=== PATIENT | male | born 1950 | race Caucasian/White ===

== ENCOUNTER 2020-10-15 10:20 | Outpatient (REF) | payer MEDICARE, OTHER, SELFPAY ==
[2020-10-15 11:02] LABS: MANUAL DIFF FLAG NO
[2020-10-15 11:10] LABS: Basophils Percent Auto 0.5 % (0-2); Eosinophils Absolute Auto 0.4 X10*3/uL (0.0-0.4); Eosinophils Percent Auto 5.4 % (0-4); Hematocrit 45.5 % (42-52); Imm Gran Abs Auto 0.02 X10*3/uL (0.00-0.03); Imm Gran Pct Auto 0.3 % (0.0-0.4); Lymphocytes Absolute Auto 1.9 X10*3/uL (1.2-4.9); Lymphocytes Percent Auto 25.7 % (20-40); Mean Corpuscular Hemoglobin 27.9 pg (27.0-33.0); Mean Corpuscular Volume 84.7 fL (80-98); Mean Platelet Volume 8.7 fL (9.4-12.4); Monocytes Absolute Auto 0.7 X10*3/uL (0.1-1.2); Monocytes Percent Auto 8.9 % (2-11); Neutrophils Absolute Auto 4.5 X10*3/uL (2.0-8.3); Neutrophils Percent Auto 59.2 % (45-73); Platelet Count 262 X10*3/uL (160-400); Red Blood Count 5.37 X10*6/uL (4.60-5.80); Red Cell Distribution Width 15.6 % (11.0-16.0); White Blood Count 7.6 X10*3/uL (4.8-10.8)
[2020-10-15 11:27] LABS: Estimated Average Glucose 128 mg/dL; Hemoglobin A1c % 6.1 %
[2020-10-15 11:28] LABS: Alanine Aminotransferase 23 U/L (0-40); Albumin Level 4.4 g/dL (3.5-5.0); Alkaline Phosphatase 43 U/L (39-117); Anion Gap 13 (12-20); Aspartate Amino Transferase 15 U/L (5-37); Bilirubin Total 0.6 mg/dL (0.0-1.0); Blood Urea Nitrogen 17 mg/dL (9-16); Carbon Dioxide 32 mmol/L (22-29); Chloride 103 mmol/L (96-108); Cholesterol 236 mg/dL; Estimated Glomerular Filt Rate > 60; Glucose Fasting 90 mg/dL (60-99); HDL Cholesterol 53 mg/dL; LDL Cholesterol Calculated 155 mg/dl; Potassium 5.1 mmol/L (3.3-5.1); Sodium 143 mmol/L (135-145); Total Protein 7.4 g/dL (6.5-8.0); Triglycerides 141 mg/dL
[2020-10-15 11:41] LABS: Glucose Urine UA NEG (NEG); Leukocyte Esterase Urine TRACE (NEG); Nitrite Urine NEG (NEG); UACC Culture Trigger YES; Urine Blood TRACE (NEG); Urine Ketones NEG (NEG); Urine Protein NEG (NEG-TRACE)
[2020-10-15 11:49] LABS: TSH reflex Free T4 0.82 uIU/mL (0.32-4.0)
[2020-10-15 11:52] LABS: B Type Natriuretic Peptide 15 pg/mL (<100)
[2020-10-15 11:58] LABS: Appearance Urine CLEAR; Color Urine YELLOW
[2020-10-15 12:47] LABS: RBC Urine 0-2 /HPF (0); UACC CULT YES; WBC Urine 0-2 /HPF (0-4)
[2020-10-15 14:15] LABS: Creatinine Urine 99.76 mg/dL
== END 2020-10-15 10:21 | disposition home or self-care (01) ==
LOC: HO.LAB 10:20
PROVIDERS: PCP Internal Medicine; Visit Provider Internal Medicine
DX: I48.0 Paroxysmal atrial fibrillation (principal); E78.00 Pure hypercholesterolemia, unspecified; E11.9 Type 2 diabetes mellitus without complications; I50.30 Unspecified diastolic (congestive) heart failure; J44.9 Chronic obstructive pulmonary disease, unspecified; E66.9 Obesity, unspecified
CPT/HCPCS: 36415; 80053; 80061; 81001; 82043; 83036; 83880; 84443; 85025; 87086

== ENCOUNTER 2021-04-12 08:29 | Outpatient (REF) | payer MEDICARE, OTHER, SELFPAY ==
[2021-04-12 11:37] LABS: MANUAL DIFF FLAG NO
[2021-04-12 11:50] LABS: Basophils Percent Auto 0.5 % (0-2); Eosinophils Absolute Auto 0.3 X10*3/uL (0.0-0.4); Eosinophils Percent Auto 3.6 % (0-4); Hemoglobin 15.1 g/dl (14.0-18.0); Imm Gran Abs Auto 0.02 X10*3/uL (0.00-0.03); Imm Gran Pct Auto 0.2 % (0.0-0.4); Lymphocytes Percent Auto 24.6 % (20-40); Mean Corpuscular HGB Conc 32.8 g/dl (31.0-36.0); Mean Corpuscular Hemoglobin 29.3 pg (27.0-33.0); Mean Corpuscular Volume 89.1 fL (80-98); Mean Platelet Volume 9.3 fL (9.4-12.4); Monocytes Absolute Auto 0.6 X10*3/uL (0.1-1.2); Monocytes Percent Auto 7.2 % (2-11); Neutrophils Absolute Auto 5.1 X10*3/uL (2.0-8.3); Neutrophils Percent Auto 63.9 % (45-73); Platelet Count 262 X10*3/uL (160-400); Red Blood Count 5.16 X10*6/uL (4.60-5.80); Red Cell Distribution Width 15.7 % (11.0-16.0); White Blood Count 8.1 X10*3/uL (4.8-10.8)
[2021-04-12 12:00] LABS: Appearance Urine CLEAR; Color Urine YELLOW; Glucose Urine UA NEG (NEG); Leukocyte Esterase Urine TRACE (NEG); Nitrite Urine NEG (NEG); UACC Culture Trigger YES; Urine Blood 2+ (NEG); Urine Ketones NEG (NEG); Urine Protein NEG (NEG-TRACE)
[2021-04-12 12:09] LABS: B Type Natriuretic Peptide 49 pg/mL (<100)
[2021-04-12 12:13] LABS: Alanine Aminotransferase 37 U/L (0-40); Alkaline Phosphatase 39 U/L (39-117); Anion Gap 11 (12-20); Aspartate Amino Transferase 22 U/L (5-37); Bilirubin Total 0.5 mg/dL (0.0-1.0); Blood Urea Nitrogen 15 mg/dL (9-16); Calcium 9.3 mg/dL (8.4-10.2); Carbon Dioxide 30 mmol/L (22-29); Chloride 103 mmol/L (96-108); Cholesterol 184 mg/dL; Estimated Glomerular Filt Rate > 60; Glucose Fasting 102 mg/dL (60-99); HDL Cholesterol 59 mg/dL; LDL Cholesterol Calculated 100 mg/dl; Potassium 4.9 mmol/L (3.3-5.1); Sodium 139 mmol/L (135-145); Total Protein 6.6 g/dL (6.5-8.0); Triglycerides 129 mg/dL
[2021-04-12 12:41] LABS: Folate 7.5 ng/mL (> or = 4.0); Vitamin B12 482 pg/mL (200-900)
[2021-04-12 13:42] LABS: Estimated Average Glucose 120 mg/dL; Hemoglobin A1C 152.1507 umol/L; Hemoglobin A1c % 5.8 %
== END 2021-04-12 08:30 | disposition home or self-care (01) ==
LOC: HO.WFDLDS 08:29
PROVIDERS: Visit Provider Internal Medicine
DX: I50.30 Unspecified diastolic (congestive) heart failure (principal); E78.00 Pure hypercholesterolemia, unspecified; R73.01 Impaired fasting glucose; I10 Essential (primary) hypertension; E53.8 Deficiency of other specified B group vitamins
CPT/HCPCS: 36415; 80053; 80061; 81001; 81003; 82607; 82746; 83036; 83880; 85025; 87086

== ENCOUNTER 2021-08-15 09:19 | Outpatient (REF) | payer MEDICARE, OTHER, SELFPAY ==
[2021-08-15 11:38] LABS: Appearance Urine CLEAR; Color Urine YELLOW; Glucose Urine UA NEG (NEG); Leukocyte Esterase Urine TRACE (NEG); Nitrite Urine NEG (NEG); PH 5.5 (5.0-8.0); Specific Gravity - Urine 1.025 (1.005-1.025); UACC Culture Trigger YES; Urine Blood 2+ (NEG); Urine Ketones NEG (NEG); Urine Protein NEG (NEG-TRACE)
[2021-08-15 11:45] LABS: Basophils Percent Auto 0.5 % (0-2); Eosinophils Absolute Auto 0.3 X10*3/uL (0.0-0.4); Eosinophils Percent Auto 3.2 % (0-4); Hematocrit 44.9 % (42.0-52.0); Hemoglobin 14.8 g/dl (14.0-18.0); Imm Gran Abs Auto 0.02 X10*3/uL (0.00-0.03); Imm Gran Pct Auto 0.2 % (0.0-0.4); Lymphocytes Absolute Auto 2.3 X10*3/uL (1.2-4.9); Lymphocytes Percent Auto 26.4 % (20-40); MANUAL DIFF FLAG NO; Mean Corpuscular Volume 90.9 fL (80.0-98.0); Mean Platelet Volume 9.4 fL (9.4-12.4); Monocytes Absolute Auto 0.7 X10*3/uL (0.1-1.2); Monocytes Percent Auto 7.9 % (2-11); Neutrophils Absolute Auto 5.4 x10*3/uL (2.0-8.3); Neutrophils Percent Auto 61.8 % (45-73); Platelet Count 253 X10*3/uL (160-400); Red Blood Count 4.94 X10*6/uL (4.60-5.80); Red Cell Distribution Width 15.6 % (11.0-16.0); White Blood Count 8.7 X10*3/uL (4.8-10.8)
[2021-08-15 12:09] LABS: RBC Urine 0-2 /HPF (0)
[2021-08-15 12:10] LABS: Bacteria Urine TRACE /LPF; Mucus Urine TRACE /LPF
[2021-08-15 12:25] LABS: Alanine Aminotransferase 38 U/L (0-40); Albumin Level 4.1 g/dL (3.5-5.0); Alkaline Phosphatase 38 U/L (39-117); Anion Gap 11 (12-20); Aspartate Amino Transferase 22 U/L (5-37); Bilirubin Total 0.3 mg/dL (0.0-1.0); Blood Urea Nitrogen 18 mg/dL (9-16); Calcium 9.6 mg/dL (8.4-10.2); Carbon Dioxide 28 mmol/L (22-29); Chloride 106 mmol/L (96-108); Cholesterol 211 mg/dL; Estimated Glomerular Filt Rate > 60; Glucose Fasting 110 mg/dL (60-99); HDL Cholesterol 86 mg/dL; LDL Cholesterol Calculated 102 mg/dl; Potassium 5.1 mmol/L (3.3-5.1); Sodium 140 mmol/L (135-145); Total Protein 6.9 g/dL (6.5-8.0); Triglycerides 117 mg/dL
[2021-08-15 12:28] LABS: TSH reflex Free T4 0.38 uIU/mL (0.32-4.0)
== END 2021-08-15 09:20 | disposition home or self-care (01) ==
LOC: HO.WFDLDS 09:19
PROVIDERS: Visit Provider Internal Medicine
DX: I50.30 Unspecified diastolic (congestive) heart failure (principal); E66.9 Obesity, unspecified; E78.00 Pure hypercholesterolemia, unspecified; I48.0 Paroxysmal atrial fibrillation; J44.9 Chronic obstructive pulmonary disease, unspecified
CPT/HCPCS: 36415; 80053; 80061; 81001; 84443; 85025; 87086

== ENCOUNTER → 2021-09-12 11:54 | Outpatient (BNVA) | payer MEDICARE, OTHER, SELFPAY | PROVIDERS: PCP Internal Medicine; Referring Provider Internal Medicine; Visit Provider Nurse Practitioner Family | DX: K58.0 Irritable bowel syndrome with diarrhea (principal); R19.7 Diarrhea, unspecified; D36.9 Benign neoplasm, unspecified site | CPT/HCPCS: 99212 ==

== ENCOUNTER 2021-09-15 10:45 | Outpatient (REF) | payer MEDICARE, OTHER, SELFPAY ==
[2021-09-15 14:10] LABS: C Reactive Protein 0.31 mg/dL (< or = 0.50)
[2021-09-15 14:52] LABS: Leukocytes Stool Qualitative NEGATIVE (NEGATIVE)
[2021-09-18 16:26] LABS: Transglutaminase Ab IgG <1.0 U/mL; Transglutaminase IgA <1.0 U/mL
[2021-09-24 23:02] LABS: Pancreatic Elastase-1 478 mcg/g
== END 2021-09-15 10:46 | disposition home or self-care (01) ==
LOC: HO.WFDLDS 10:45
PROVIDERS: Visit Provider Nurse Practitioner Family
DX: R14.0 Abdominal distension (gaseous) (principal); K58.9 Irritable bowel syndrome, unspecified; R19.7 Diarrhea, unspecified; R10.11 Right upper quadrant pain
CPT/HCPCS: 36415; 82656; 86140; 86364; 87045; 87046; 87177; 87209; 89055

== ENCOUNTER 2021-09-21 11:41 | Outpatient (REF) | payer MEDICARE, OTHER, SELFPAY ==
[2021-09-21 13:00] LABS: Erythrocyte Sedimentation Rate 16 MM/HR (0-15)
[2021-09-21 14:27] LABS: Magnesium 2.6 mg/dL (1.6-2.6); Rheumatoid Factor < 15.0 IU/mL (<15.0); Uric Acid 3.6 mg/dL (3.4-7.0)
[2021-09-21 14:48] LABS: Vitamin D 25-OH Total 19.5 ng/mL (>30)
[2021-09-22 19:21] LABS: Anti Nuclear Antibody Screen NEGATIVE (NEGATIVE)
== END 2021-09-21 11:42 | disposition home or self-care (01) ==
LOC: HO.LAB 11:41
PROVIDERS: PCP Internal Medicine; Visit Provider Nurse Practitioner Family
DX: M79.604 Pain in right leg (principal); M79.605 Pain in left leg; M79.671 Pain in right foot; M79.672 Pain in left foot
CPT/HCPCS: 36415; 82306; 83735; 84550; 85652; 86038; 86039; 86431

== ENCOUNTER 2021-10-13 20:34 | Emergency (ER) | payer MEDICARE, OTHER, SELFPAY ==
--- NOTE | ~2021-10-13 | CT_ITS ---
EXAMINATION CT CHEST, ABDOMEN AND PELVIS WITH CONTRAST CLINICAL INFORMATION: Shortness of breath. History of smoking. Abdominal pain and distention. COMPARISON: CTA chest dated 09/03/2017. TECHNIQUE: Multidetector volumetric CT imaging of the chest, abdomen and pelvis was obtained after the administration of 85 mL of intravenous Omnipaque 350 without immediate adverse reactions. Coronal and sagittal reformats were reviewed. This CT examination was performed using dose optimization techniques as appropriate, variously including the following: *Automated exposure control *Adjustment of mA and/or kV according to patient size (this includes techniques or standardized protocols for targeted exams where dose is matched to indication/reason for exam; i.e. extremities or head) *Use of iterative reconstruction technique DLP: 879 mGy-cm. FINDINGS: CHEST LUNGS/PLEURA: Moderate emphysema. Mild diffuse bronchial wall thickening without bronchiectasis. Scattered endobronchial secretions. No parenchymal consolidation or pneumonitis. No pulmonary fibrotic changes. There is no pleural effusion. No pleural mass or thickening. MEDIASTINUM/GUERRERO: Mild cardiomegaly. Coronary calcifications. No mediastinal or hilar adenopathy. Stable mildly prominent subcarinal lymph node is likely reactive to the patient's chronic lung disease. CHEST WALL/AXILLA: Unremarkable. ABDOMEN/PELVIS HEPATOBILIARY: Liver normal in size, contour and morphology. No suspicious lesions. No intra or extrahepatic biliary dilation. Gallbladder unremarkable. PANCREAS: Unremarkable. SPLEEN: Normal size. There are couple hypodensities which are too small to characterize ADRENAL GLANDS: Unremarkable. KIDNEYS, URETERS AND BLADDER: Kidneys normal in size, axis and morphology demonstrating symmetric enhancement. There is a simple cyst upper pole of left kidney which is benign and requires no further follow-up. There is a subcentimeter hypodensity in the posterior cortex of the right kidney which is too small to characterize but of doubtful clinical significance. No hydronephrosis or urinary calculi. Ureters normal in course and caliber. Bladder grossly unremarkable.. GASTROINTESTINAL TRACT: Left colonic diverticulosis. No evidence of diverticulitis. Normal appendix. Stomach and small bowel unremarkable. PELVIC VISCERA: Mild prostatomegaly. Seminal vesicles unremarkable. LYMPH NODES: No lymphadenopathy. PERITONEUM/BODY WALL: Unremarkable. VASCULAR STRUCTURES: Aorta is atherosclerotic but normal caliber. Patent vascular structures. OSSEOUS STRUCTURES No acute or suspicious osseous abnormalities. CT/CT abdomen pelvis w con IMPRESSION: * No acute findings within the chest, abdomen or pelvis. * Moderate emphysema. * Diffuse mild bronchial thickening and scattered secretions as can be seen with bronchitis which is likely chronic in this case. * Left colonic diverticulosis without evidence of diverticulitis.
[2021-10-13 20:53] VITALS: BP 139/69; PULSE 77; RESP 14; TEMP 36.5; O2SAT 99; BMI 30.7
[2021-10-13 21:15] LABS: MANUAL DIFF FLAG NO
[2021-10-13 21:17] LABS: Basophils Percent Auto 0.4 % (0-2); Eosinophils Absolute Auto 0.1 X10*3/uL (0.0-0.4); Eosinophils Percent Auto 1.2 % (0-4); Hemoglobin 14.2 g/dl (14.0-18.0); Imm Gran Abs Auto 0.03 X10*3/uL (0.00-0.03); Imm Gran Pct Auto 0.3 % (0.0-0.4); Lymphocytes Absolute Auto 2.4 X10*3/uL (1.2-4.9); Lymphocytes Percent Auto 26.2 % (20-40); Mean Corpuscular HGB Conc 33.8 g/dl (31.0-36.0); Mean Corpuscular Hemoglobin 30.5 pg (27.0-33.0); Mean Corpuscular Volume 90.1 fL (80.0-98.0); Mean Platelet Volume 8.6 fL (9.4-12.4); Monocytes Absolute Auto 0.6 X10*3/uL (0.1-1.2); Monocytes Percent Auto 6.7 % (2-11); Neutrophils Absolute Auto 5.8 x10*3/uL (2.0-8.3); Neutrophils Percent Auto 65.2 % (45-73); Platelet Count 220 X10*3/uL (160-400); Red Blood Count 4.66 X10*6/uL (4.60-5.80); Red Cell Distribution Width 14.3 % (11.0-16.0)
[2021-10-13 21:28] LABS: Partial Thromboplastin Time 31.5 SEC (24.1-38.0)
[2021-10-13 21:40] LABS: Alanine Aminotransferase 45 U/L (0-40); Albumin Level 3.9 g/dL (3.5-5.0); Alkaline Phosphatase 20 U/L (39-117); Anion Gap 14 (12-20); Aspartate Amino Transferase 21 U/L (5-37); Bilirubin Direct 0.2 mg/dL (0.0-0.5); Bilirubin Total 0.6 mg/dL (0.0-1.0); Blood Urea Nitrogen 16 mg/dL (9-16); Calcium 9.4 mg/dL (8.4-10.2); Carbon Dioxide 22 mmol/L (22-29); Chloride 107 mmol/L (96-108); Creatinine Clr Calc Pharmacy 74.6; Estimated Glomerular Filt Rate > 60; Glucose Random 105 mg/dL (60-115); Lipase 36 U/L (8-78); Potassium 4.4 mmol/L (3.3-5.1); Sodium 139 mmol/L (135-145); Total Protein 6.5 g/dL (6.5-8.0)
[2021-10-14 00:16] VITALS: BP 123/60; PULSE 69; RESP 14; O2SAT 98
[2021-10-14 00:45] LABS: Appearance Urine CLEAR; Color Urine YELLOW; Glucose Urine UA NEG (NEG); Leukocyte Esterase Urine NEG (NEG); Nitrite Urine NEG (NEG); Specific Gravity - Urine 1.025 (1.005-1.025); UACC Culture Trigger NO; Urine Blood 1+ (NEG); Urine Ketones NEG (NEG); Urine Protein NEG (NEG-TRACE)
[2021-10-14 00:52] LABS: Bacteria Urine 1+ /LPF; Squamous Epithelial Cell Urine 1+ /LPF
[2021-10-14 00:53] LABS: Mucus Urine 1+ /LPF
[2021-10-14 01:02] LABS: COVID-19 Test Negative (Negative)
[2021-10-14 01:04] LABS: IDNOW Serial# 55D5AD1C; Influenza A Negative (Negative); Influenza B2 Negative (Negative)
[2021-10-14 01:25] LABS: Troponin-I High Sensitivity 8.4 ng/L (<3.5-35.0)
[2021-10-14] MEDS: Albuterol Sulfate (0.083%) 2.5 MG/3 ML VIAL.NEB 5 MG INHALE (02:09)
--- NOTE | 2021-10-14 02:09 | ED_ITS ---
HPI - General Adult General Chief complaint: Urogenital-Male Stated complaint: Fever/Weakness/Sob Time Seen by Provider: 10/14/21 00:21 Source: patient Mode of arrival: ambulatory History of Present Illness HPI narrative: 71-year-old male with known COPD, every day smoker, history of alcohol dependence, hypertension, atrial fibrillation with worsening abdominal discomfort for several weeks without associated nausea, vomiting but patient states he has had a number of loose stools throughout the day. His primary concern is that for the past few days he has had intermittent fevers with associated cough and increasing shortness of breath. Related Data Home Medications Medication Instructions Recorded Confirmed albuterol sulfate 90 mcg/actuation 2 puff INHALATION Q4H PRN 05/19/20 09/21/21 aerosol inhaler diltiazem HCl 240 mg 240 mg PO DAILY 05/19/20 09/21/21 capsule,extended release 24 hr ipratropium 0.5 mg-albuterol 3 mg 3 ml INHALATION Q6H PRN 05/19/20 09/21/21 (2.5 mg base)/3 mL nebulization soln roflumilast 500 mcg tablet 500 mcg PO DAILY 05/19/20 09/21/21 (Daliresp) umeclidinium 62.5 mcg-vilanterol 1 ea INHALATION DAILY 05/19/20 09/21/21 25 mcg/actuation powdr for inhalation Previous Rx's Medication Instructions Recorded furosemide 80 mg tablet 80 mg PO DAILY #30 tab 04/27/21 lorazepam 0.5 mg tablet 0.5 mg PO TID PRN #90 tab 07/03/21 dabigatran etexilate 150 mg 150 mg PO BID 60 Days #120 cap 08/18/21 capsule (Pradaxa) atorvastatin 40 mg tablet 40 mg PO BEDTIME #90 tab 08/23/21 sertraline 100 mg tablet 150 mg PO DAILY #135 tab 08/23/21 methylcellulose (laxative) 500 mg 500 mg PO DAILY #30 tab 09/12/21 tablet (Citrucel) diclofenac sodium 1 % topical gel 2 g TOPICAL QID #100 g 10/06/21 (Arthritis Pain (diclofenac)) doxycycline hyclate 100 mg capsule 100 mg PO BID 5 Days #10 cap 10/14/21 prednisone 50 mg tablet 50 mg PO DAILY 4 Days #4 tab 10/14/21 Allergies Allergy/AdvReac Type Severity Reaction Status Date / Time No Known Allergies Allergy Verified 09/21/21 11:12 [No Known Allergies*] Review of Systems Review of Systems: Pertinent positives and negatives as stated in HPI 10 point review of systems is otherwise negative. [facility] Past Medical History Source: nursing notes reviewed Medical History Anxiety COPD (chronic obstructive pulmonary disease) Depression Diabetes mellitus Diastolic heart failure Eye pain Impaired fasting glucose Obesity (BMI 30-39.9) Paroxysmal atrial fibrillation Pure hypercholesterolemia Surgical History Deficient knowledge of leg surgery H/O prior ablation treatment History of cardioversion History of colonoscopy History of surgery Family History Family History Father Medical history unknown Mother Myocardial infarction Social History Social History Housing: House Alcohol intake: current Alcohol intake frequency: a few times a week Patient Tobacco Use Status: Former Tobacco user Second Hand Smoke Exposure: Yes Advance Directives: No service: No Current occupational status: retired Cognitive needs: No Hearing needs: No Vision needs: No Physical Exam ED Vital Signs: Vital Signs - 24 hr 10/13/21 20:53 10/14/21 00:16 10/14/21 02:18 Temperature 97.7 F Pulse Rate 77 69 71 Respiratory Rate 14 14 16 Blood Pressure 139/69 123/60 Pulse Oximetry 99 98 10/14/21 02:47 10/14/21 04:08 Temperature Pulse Rate 69 71 Respiratory Rate 12 14 Blood Pressure 140/64 H 139/82 Pulse Oximetry 96 95 BMI result Body Mass Index 30.7 VITAL SIGNS: Reviewed. GENERAL: Well developed, well nourished, in no acute distress. HEAD: Normocephalic/atraumatic EYES: PERRLA, EOMI EARS: Ext canals without abnormality OROPHARYNX: no oral lesions noted, posterior pharynx clear NECK: Supple, no adenopathy LUNGS: Decreased breath sounds, rhonchi/ crackles, no expiratory wheeze noted, mild tachypnea. SpO2<99> CARDIOVASCULAR: Regular rate and rhythm without noted murmurs, no JVD or lower extremity edema. ABDOMEN: Soft, non-tender, non-distended with bowel sounds. MUSCULOSKELETAL: No tenderness, deformities, or effusions noted on gross inspection. EXTREMITIES: No cyanosis, clubbing or edema. SKIN: Inspection of the skin reveals no rashes NEUROLOGIC: Alert and oriented x 4. Strength and sensation to light touch were grossly intact x 4. Course Course Course Narrative: 0215: 71-year-old male with history and clinical presentation suggestive of possible COPD/pneumonia, Review of all investigations negative for acute findings. Patient received albuterol treatment as well as steroids and antibiotics and on re-evaluation states that he feels better. He is otherwise stable for discharge and strict instructions follow-up with primary care provider. Medical Decision Making Lab Data Result diagrams: 10/13/21 21:10 10/13/21 21:09 Labs: Lab Results 10/13/21 10/13/21 10/13/21 Range/Units 21:09 21:09 21:09 WBC (4.8-10.8) X10*3/uL RBC (4.60-5.80) X10*6/uL Hgb (14.0-18.0) g/dl Hct (42.0-52.0) % MCV (80.0-98.0) fL MCH (27.0-33.0) pg MCHC (31.0-36.0) g/dl RDW (11.0-16.0) % Plt Count (160-400) X10*3/uL MPV (9.4-12.4) fL Immature Gran % (Auto) (0.0-0.4) % Neut % (Auto) (45-73) % Lymph % (Auto) (20-40) % [place] % (Auto) (2-11) % Eos % (Auto) (0-4) % Baso % (Auto) (0-2) % Lymph # (Auto) (1.2-4.9) X10*3/uL [place] # (Auto) (0.1-1.2) X10*3/uL Eos # (Auto) (0.0-0.4) X10*3/uL Baso # (Auto) (0.0-0.2) X10*3/uL Abs Immat Gran (auto) (0.00-0.03) X10*3/uL Absolute Neuts (auto) (2.0-8.3) x10*3/uL Absolute Nucleated RBC (0.0-0.012) X10*3/uL Nucleated RBC % (auto) (0.0-0.2) /100WBC APTT 31.5 (24.1-38.0) SEC VBG pH (7.32-7.43) VBG pCO2 mmHg VBG pO2 mmHg VBG HCO3 (22-26) mmol/L VBG O2 Saturation % VBG Base Excess mmol/L Sodium 139 (135-145) mmol/L Potassium 4.4 (3.3-5.1) mmol/L Chloride 107 (96-108) mmol/L Carbon Dioxide 22 (22-29) mmol/L Anion Gap 14 (12-20) BUN 16 (9-16) mg/dL Creatinine 0.92 (0.5-1.4) mg/dL Estim Creat Clear Calc 74.6 Estimated GFR > 60 Random Glucose 105 (60-115) mg/dL Calcium 9.4 (8.4-10.2) mg/dL Magnesium 2.5 (1.6-2.6) mg/dL Total Bilirubin 0.6 (0.0-1.0) mg/dL Direct Bilirubin 0.2 (0.0-0.5) mg/dL AST 21 (5-37) U/L ALT 45 H (0-40) U/L Alkaline Phosphatase 20 L D (39-117) U/L Troponin I High Sens 8.4 (<3.5-35.0) ng/L B-Natriuretic Peptide (<100) pg/mL Total Protein 6.5 (6.5-8.0) g/dL Albumin 3.9 (3.5-5.0) g/dL Lipase 36 (8-78) U/L Urine Color Urine Appearance Urine pH (5.0-8.0) Ur Specific [place] (1.005-1.025) Urine Protein (NEG-TRACE) MG/DL Urine Glucose (UA) (NEG) MG/DL Urine Ketones (NEG) MG/DL Urine Blood (NEG) Urine Nitrite (NEG) Ur Leukocyte Esterase (NEG) Urine RBC (0) /HPF Urine WBC (0-4) /HPF Ur Squamous Epith Cells /LPF Urine Bacteria /LPF Urine Mucus /LPF COVID-19 (VOLODYMYR) (Negative) COVID-19 Clin Com Influenza Type A (EMILY) (Negative) Influenza Type B (EMILY) (Negative) Influenza A & B Note 10/13/21 10/14/21 10/14/21 Range/Units 21:10 00:32 00:32 WBC 9.0 (4.8-10.8) X10*3/uL RBC 4.66 (4.60-5.80) X10*6/uL Hgb 14.2 (14.0-18.0) g/dl Hct 42.0 (42.0-52.0) % MCV 90.1 (80.0-98.0) fL MCH 30.5 (27.0-33.0) pg MCHC 33.8 (31.0-36.0) g/dl RDW 14.3 (11.0-16.0) % Plt Count 220 (160-400) X10*3/uL MPV 8.6 L (9.4-12.4) fL Immature Gran % (Auto) 0.3 (0.0-0.4) % Neut % (Auto) 65.2 (45-73) % Lymph % (Auto) 26.2 (20-40) % [place] % (Auto) 6.7 (2-11) % Eos % (Auto) 1.2 (0-4) % Baso % (Auto) 0.4 (0-2) % Lymph # (Auto) 2.4 (1.2-4.9) X10*3/uL [place] # (Auto) 0.6 (0.1-1.2) X10*3/uL Eos # (Auto) 0.1 (0.0-0.4) X10*3/uL Baso # (Auto) 0.0 (0.0-0.2) X10*3/uL Abs Immat Gran (auto) 0.03 (0.00-0.03) X10*3/uL Absolute Neuts (auto) 5.8 (2.0-8.3) x10*3/uL Absolute Nucleated RBC 0.000 (0.0-0.012) X10*3/uL Nucleated RBC % (auto) 0.0 (0.0-0.2) /100WBC APTT (24.1-38.0) SEC VBG pH (7.32-7.43) VBG pCO2 mmHg VBG pO2 mmHg VBG HCO3 (22-26) mmol/L VBG O2 Saturation % VBG Base Excess mmol/L Sodium (135-145) mmol/L Potassium (3.3-5.1) mmol/L Chloride (96-108) mmol/L Carbon Dioxide (22-29) mmol/L Anion Gap (12-20) BUN (9-16) mg/dL Creatinine (0.5-1.4) mg/dL Estim Creat Clear Calc Estimated GFR Random Glucose (60-115) mg/dL Calcium (8.4-10.2) mg/dL Magnesium (1.6-2.6) mg/dL Total Bilirubin (0.0-1.0) mg/dL Direct Bilirubin (0.0-0.5) mg/dL AST (5-37) U/L ALT (0-40) U/L Alkaline Phosphatase (39-117) U/L Troponin I High Sens (<3.5-35.0) ng/L B-Natriuretic Peptide (<100) pg/mL Total Protein (6.5-8.0) g/dL Albumin (3.5-5.0) g/dL Lipase (8-78) U/L Urine Color Urine Appearance Urine pH (5.0-8.0) Ur Specific [place] (1.005-1.025) Urine Protein (NEG-TRACE) MG/DL Urine Glucose (UA) (NEG) MG/DL Urine Ketones (NEG) MG/DL Urine Blood (NEG) Urine Nitrite (NEG) Ur Leukocyte Esterase (NEG) Urine RBC (0) /HPF Urine WBC (0-4) /HPF Ur Squamous Epith Cells /LPF Urine Bacteria /LPF Urine Mucus /LPF COVID-19 (VOLODYMYR) Negative (Negative) COVID-19 Clin Com See Note Influenza Type A (EMILY) Negative (Negative) Influenza Type B (EMILY) Negative (Negative) Influenza A & B Note See Note 10/14/21 10/14/21 10/14/21 Range/Units 00:32 02:10 02:12 WBC (4.8-10.8) X10*3/uL RBC (4.60-5.80) X10*6/uL Hgb (14.0-18.0) g/dl Hct (42.0-52.0) % MCV (80.0-98.0) fL MCH (27.0-33.0) pg MCHC (31.0-36.0) g/dl RDW (11.0-16.0) % Plt Count (160-400) X10*3/uL MPV (9.4-12.4) fL Immature Gran % (Auto) (0.0-0.4) % Neut % (Auto) (45-73) % Lymph % (Auto) (20-40) % [place] % (Auto) (2-11) % Eos % (Auto) (0-4) % Baso % (Auto) (0-2) % Lymph # (Auto) (1.2-4.9) X10*3/uL [place] # (Auto) (0.1-1.2) X10*3/uL Eos # (Auto) (0.0-0.4) X10*3/uL Baso # (Auto) (0.0-0.2) X10*3/uL Abs Immat Gran (auto) (0.00-0.03) X10*3/uL Absolute Neuts (auto) (2.0-8.3) x10*3/uL Absolute Nucleated RBC (0.0-0.012) X10*3/uL Nucleated RBC % (auto) (0.0-0.2) /100WBC APTT (24.1-38.0) SEC VBG pH 7.37 (7.32-7.43) VBG pCO2 46 mmHg VBG pO2 35 mmHg VBG HCO3 27 H (22-26) mmol/L VBG O2 Saturation 46.0 % VBG Base Excess 1.7 mmol/L Sodium (135-145) mmol/L Potassium (3.3-5.1) mmol/L Chloride (96-108) mmol/L Carbon Dioxide (22-29) mmol/L Anion Gap (12-20) BUN (9-16) mg/dL Creatinine (0.5-1.4) mg/dL Estim Creat Clear Calc Estimated GFR Random Glucose (60-115) mg/dL Calcium (8.4-10.2) mg/dL Magnesium (1.6-2.6) mg/dL Total Bilirubin (0.0-1.0) mg/dL Direct Bilirubin (0.0-0.5) mg/dL AST (5-37) U/L ALT (0-40) U/L Alkaline Phosphatase (39-117) U/L Troponin I High Sens 7.2 (<3.5-35.0) ng/L B-Natriuretic Peptide 57 (<100) pg/mL Total Protein (6.5-8.0) g/dL Albumin (3.5-5.0) g/dL Lipase (8-78) U/L Urine Color YELLOW Urine Appearance CLEAR Urine pH 6.0 (5.0-8.0) Ur Specific [place] 1.025 (1.005-1.025) Urine Protein NEG (NEG-TRACE) MG/DL Urine Glucose (UA) NEG (NEG) MG/DL Urine Ketones NEG (NEG) MG/DL Urine Blood 1+ H (NEG) Urine Nitrite NEG (NEG) Ur Leukocyte Esterase NEG (NEG) Urine RBC 1-4 (0) /HPF Urine WBC 1-4 (0-4) /HPF Ur Squamous Epith Cells 1+ /LPF Urine Bacteria 1+ /LPF Urine Mucus 1+ /LPF COVID-19 (VOLODYMYR) (Negative) COVID-19 Clin Com Influenza Type A (EMILY) (Negative) Influenza Type B (EMILY) (Negative) Influenza A & B Note ECG Data Attestation: I personally reviewed and interpreted this ECG as follows: Prior ECG tracings: available for review Interpretation: NSR, HR- 72, no STEMI, NE /QRS /QTC are within normal limits. Discharge Plan Discharge Clinical Impression: COPD (chronic obstructive pulmonary disease), Bronchitis Patient Disposition: Home, Self-Care Instructions: Acute Bronchitis (ED), COPD (Chronic Obstructive Pulmonary Disease) (ED) Additional Instructions: 1. Resume all home medications as prescribed. 2. Complete the entire course of antibiotics as prescribed. 3. follow-up with your primary care provider in the next 2-3 days for re- evaluation. Return to the ER for worsening symptoms. Prescriptions: New doxycycline hyclate 100 mg capsule 100 mg PO BID 5 Days Qty: 10 0RF prednisone 50 mg tablet 50 mg PO DAILY 4 Days Qty: 4 0RF No Action furosemide 80 mg tablet 80 mg PO DAILY Qty: 30 0RF lorazepam 0.5 mg tablet 0.5 mg PO TID PRN (Reason: anxiety) Qty: 90 0RF sertraline 100 mg tablet 150 mg PO DAILY Qty: 135 1RF atorvastatin 40 mg tablet 40 mg PO BEDTIME Qty: 90 1RF diclofenac sodium [Arthritis Pain (diclofenac)] 1 % gel 2 g topical QID Qty: 100 0RF Rx Instructions: apply to single elbow, wrist or hand; for hand includes palm/fingers/back of hand Anoro Ellipta 62.5-25 mcg/actuation blister with device 1 ea inhalation DAILY 0RF albuterol sulfate 90 mcg/actuation HFA aerosol inhaler 2 puff inhalation Q4H PRN (Reason: wheezing) 0RF diltiazem HCl 240 mg capsule,extended release 24hr 240 mg PO DAILY 0RF ipratropium-albuterol 0.5 mg-3 mg(2.5 mg base)/3 mL solution for nebulization 3 ml inhalation Q6H PRN0RF Daliresp 500 mcg tablet 500 mcg PO DAILY 0RF Pradaxa 150 mg capsule 150 mg PO BID 60 Days Qty: 120 0RF Rx Instructions: Please call and schedule a cardiology appt for refills Citrucel 500 mg tablet 500 mg PO DAILY Qty: 30 2RF Rx Instructions: take it with full glass of water Referrals: Yoseph Acevedo MD [Primary Care Provider] -
--- NOTE | 2021-10-14 02:11 | ECG_ITS ---
Test Reason : SOB Blood Pressure : / mmHG Vent. Rate : 072 BPM Atrial Rate : 072 BPM P-R Int : 144 ms QRS Dur : 088 ms QT Int : 398 ms P-R-T Axes : 088 042 063 degrees QTc Int : 435 ms Normal sinus rhythm Normal ECG When compared with ECG of 28-APR-2019 03:40, No significant change was found Referred By: Marisela Perales Electronically Signed By:Bruce Schwarz
[2021-10-14 02:18] VITALS: PULSE 71; RESP 16; O2SAT 99
[2021-10-14 02:18] LABS: Venous Blood Gas Refer to POC result
[2021-10-14 02:20] LABS: VBG Base Excess 1.7 mmol/L; VBG HCO3 27 mmol/L (22-26); VBG pCO2 46 mmHg; VBG pH 7.37 (7.32-7.43); VBG pO2 35 mmHg
[2021-10-14 02:23] LABS: Magnesium 2.5 mg/dL (1.6-2.6)
[2021-10-14 02:35] LABS: B Type Natriuretic Peptide 57 pg/mL (<100); Troponin-I High Sensitivity 7.2 ng/L (<3.5-35.0)
[2021-10-14] MEDS: methylPREDNISolone Sod Succ 125 MG/2 ML VIAL IVPUSH (02:43)
[2021-10-14 02:47] VITALS: BP 140/64; PULSE 69; RESP 12; O2SAT 96
[2021-10-14] MEDS: iohexoL 350 MG/ML 100 ML INFUS..BTL 85 ML IV (03:33)
[2021-10-14 04:08] VITALS: BP 139/82; PULSE 71; RESP 14; O2SAT 95
[2021-10-14] MEDS: levoFLOXacin/D5W 750 MG/150 ML PIGGYBACK 100 MG IV (05:45)
[2021-10-14 05:55] VITALS: O2SAT 86
[2021-10-14 06:03] VITALS: O2SAT 95
--- NOTE | 2021-10-14 06:31 | PC.NURSE ---
pt ambulated to br independently, steady gait
== END 2021-10-14 08:37 | disposition home or self-care (01) ==
PROVIDERS: Emergency Provider Student in an Organized Health Care Education/Training Program; PCP Internal Medicine
DX: J44.9 Chronic obstructive pulmonary disease, unspecified (principal); I48.0 Paroxysmal atrial fibrillation; I10 Essential (primary) hypertension; E11.9 Type 2 diabetes mellitus without complications; Z20.822 Contact with and (suspected) exposure to COVID-19; Z87.891 Personal history of nicotine dependence
CPT/HCPCS: 36415; 71260; 74177; 80048; 80076; 81001; 82803; 83690; 83735; 83880; 84484; 85025; 85730; 87040; 87502; 87635; 93005; 94640; 96365; 96375; 99285; J1956; J2930; Q9967

== ENCOUNTER → 2021-10-30 11:59 | Outpatient (BNVA) | payer MEDICARE, OTHER, SELFPAY | PROVIDERS: PCP Internal Medicine; Referring Provider Internal Medicine; Visit Provider Nurse Practitioner Family | DX: Z12.11 Encounter for screening for malignant neoplasm of colon (principal); K58.0 Irritable bowel syndrome with diarrhea; K21.9 Gastro-esophageal reflux disease without esophagitis; R19.7 Diarrhea, unspecified; R06.02 Shortness of breath; I48.0 Paroxysmal atrial fibrillation; D36.9 Benign neoplasm, unspecified site | CPT/HCPCS: 93005; 99212 ==

== ENCOUNTER → 2021-10-31 13:10 | Outpatient (BNVA) | payer MEDICARE, OTHER, SELFPAY | PROVIDERS: PCP Internal Medicine; Referring Provider Internal Medicine; Visit Provider Internal Medicine Cardiovascular Disease | DX: Z01.810 Encounter for preprocedural cardiovascular examination (principal); I48.0 Paroxysmal atrial fibrillation; I50.30 Unspecified diastolic (congestive) heart failure; Z79.01 Long term (current) use of anticoagulants; Z79.899 Other long term (current) drug therapy | CPT/HCPCS: 93005; 99212 ==

== ENCOUNTER 2021-11-29 10:04 | Outpatient (REF) | payer MEDICARE, OTHER, SELFPAY ==
--- NOTE | 2021-11-29 10:09 | EMG_ITS ---
This is a 71-year-old man with bilateral lower extremity numbness. He has borderline diabetes, diet controlled. PHYSICAL EXAMINATION: On examination, he is alert and oriented. Has slight atrophy of the EDB muscles bilaterally and hyporeflexia. IMPRESSION: Peripheral neuropathy. Nerve conduction EMG study: Mild to moderate axonal and demyelinating sensory motor peripheral neuropathy in the lower extremities. The EMG of the right L4-S1 innervated muscles consistent with mild distal chronic neuropathic changes. MD JOHNATHON Humphrey/KAITY / [id number]
== END 2021-11-29 10:05 | disposition home or self-care (01) ==
LOC: HO.NEURO 10:04
PROVIDERS: PCP Internal Medicine; Visit Provider Nurse Practitioner Family
DX: R20.2 Paresthesia of skin (principal)
CPT/HCPCS: 95885; 95911

== ENCOUNTER 2021-12-28 12:20 | Outpatient (REF) | payer MEDICARE, OTHER, SELFPAY ==
[2021-12-28 14:00] LABS: Estimated Average Glucose 134 mg/dL; Hemoglobin A1c % 6.3 %
[2021-12-28 14:11] LABS: Iron 53 mcg/dL (45-160); Percent Iron Saturation 17 % (15-50); Total Iron Binding Capacity 307 mcg/dL (228-428); Unsaturated Iron Binding 254 ug/dL
[2021-12-28 14:26] LABS: Vitamin D 25-OH Total 22.9 ng/mL (>30)
[2021-12-28 14:40] LABS: Folate 14.3 ng/mL (> or = 4.0); Vitamin B12 690 pg/mL (200-900)
== END 2021-12-28 12:21 | disposition home or self-care (01) ==
LOC: HO.10HDL 12:20
PROVIDERS: Visit Provider Nurse Practitioner Family
DX: M79.604 Pain in right leg (principal); M79.605 Pain in left leg; M79.671 Pain in right foot; M79.672 Pain in left foot; R20.2 Paresthesia of skin; E11.9 Type 2 diabetes mellitus without complications
CPT/HCPCS: 36415; 82306; 82607; 82746; 83036; 83540

== ENCOUNTER → 2022-01-02 12:57 | Outpatient (BNVA) | payer MEDICARE, OTHER, SELFPAY | PROVIDERS: PCP Internal Medicine; Visit Provider Nurse Practitioner Family | DX: K58.2 Mixed irritable bowel syndrome (principal); K21.9 Gastro-esophageal reflux disease without esophagitis; Z86.010 Personal history of colon polyps | CPT/HCPCS: 99212 ==

== ENCOUNTER 2022-04-20 08:45 | Outpatient (REF) | payer MEDICARE, OTHER, SELFPAY ==
[2022-04-20 12:29] LABS: Alanine Aminotransferase 19 U/L (0-40); Albumin Level 4.2 g/dL (3.5-5.0); Alkaline Phosphatase 34 U/L (39-117); Anion Gap 16 (12-20); Aspartate Amino Transferase 14 U/L (5-37); Bilirubin Total 0.3 mg/dL (0.0-1.0); Blood Urea Nitrogen 13 mg/dL (9-16); Calcium 9.6 mg/dL (8.4-10.2); Carbon Dioxide 27 mmol/L (22-29); Chloride 105 mmol/L (96-108); Cholesterol 177 mg/dL; Estimated Glomerular Filt Rate > 60; Glucose Fasting 93 mg/dL (60-99); HDL Cholesterol 66 mg/dL; LDL Cholesterol Calculated 95 mg/dl; Sodium 144 mmol/L (135-145); Total Protein 6.7 g/dL (6.5-8.0); Triglycerides 84 mg/dL
== END 2022-04-20 08:46 | disposition home or self-care (01) ==
LOC: HO.WFDLDS 08:45
PROVIDERS: Visit Provider Internal Medicine
DX: E78.00 Pure hypercholesterolemia, unspecified (principal)
CPT/HCPCS: 36415; 80053; 80061

== ENCOUNTER 2022-05-15 07:58 | Day surgery (SDC) | payer MEDICARE, OTHER, SELFPAY ==
[2022-05-08 08:59] VITALS: BMI 27.4
--- NOTE | 2022-05-14 13:44 | HO.ANESPROP2 ---
Documented by User: Libby Barlow NP 05/14/22 13:46 HPI - Anesthesia Eval Consult details Narrative: 71yo M for Upper Endoscopy and Colonoscopy Optimized per cardiology (10/2021) Pradaxa for afib PMFSH Active Problems Active Problems: All Active Problems (Updated 05/08/22 @ 10:20 by Brooklyn Beverly, RN) Lesion of nose (Acute) Onycholysis of toenail (Acute) Abdominal pain (Acute) Bilateral leg and foot pain (Acute) Tingling of both feet (Acute) Medicare annual wellness visit, subsequent (Acute) Low vitamin D level (Acute) Fatigue (Acute) Impaired fasting glucose (Acute) Eye pain (Acute) Obesity (BMI 30-39.9) (Acute) Depression (Acute) Anxiety (Acute) COPD (chronic obstructive pulmonary disease) (Acute) Diabetes mellitus (Acute) Pure hypercholesterolemia (Acute) Diastolic heart failure (Acute) Paroxysmal atrial fibrillation (Acute) Past Medical History Medical History (Updated 05/08/22 @ 10:20 by Brooklyn Beverly, RN) Anxiety Arthritis COPD (chronic obstructive pulmonary disease) Depression Diabetes mellitus Diarrhea Diastolic heart failure BROWN (dyspnea on exertion) Emphysema/COPD Eye pain Impaired fasting glucose Low back pain Obesity (BMI 30-39.9) MANJEET (obstructive sleep apnea) Oxygen dependent Paroxysmal atrial fibrillation Pure hypercholesterolemia Family History Family History Father Medical history unknown Mother Myocardial infarction Surgical History Surgical History Deficient knowledge of leg surgery H/O prior ablation treatment History of cardioversion History of colonoscopy History of surgery Social History Social History (Updated 05/08/22 @ 10:24 by Brooklyn Beverly, ESTEE) Housing: House Are you a primary special needs caregiver to a significant other at home: No Do you presently have visiting nurse or other home services: No Alcohol intake: current Alcohol intake frequency: a few times a week Patient Tobacco Use Status: Current someday Tobacco user Tobacco use type: Cigarette Second Hand Smoke Exposure: Yes Use of substances other than those prescribed or required for medical reasons: Yes Substance Use Type: Marijuana Substance Use Type Other:: smoking Substance Use Frequency: Weekly Have you been hit, kicked, punched, or otherwise hurt by someone within the past year? If so, by whom?: No Are you DNR?: No Advance Directives: No Advance Directives Information Provided: Yes Advance Directives on File: No Recently lost weight without trying: No Nutrition Risks: No Nutritional Risk Poor oral hygiene: No service: No Current occupational status: retired Cognitive needs: No Hearing needs: No Vision needs: Yes (reading glasses) Meds Allergies Allergy/AdvReac Type Severity Reaction Status Date / Time No Known Allergies Allergy Verified 04/29/22 23:16 [No Known Allergies*] Home Medications Medication Instructions Recorded Confirmed Last Taken Type ipratropium 0.5 mg-albuterol 3 mg 3 ml inhalation Q6H PRN Shortness 05/19/20 05/08/22 Unknown History (2.5 mg base)/3 mL nebulization Of Breath soln roflumilast 500 mcg tablet 500 mcg PO BEDTIME 05/19/20 05/08/22 Unknown History (Daliresp) pantoprazole 40 mg tablet,delayed 1 tab PO QAM 05/08/22 05/08/22 Unknown History release sertraline 100 mg tablet 100 mg PO DAILY for anxiety 05/08/22 05/08/22 Unknown History Exam Exam Date and Time: May 14, 2022 1344 Height,Weight and Vital Signs: Height 5 ft 6 in Weight 77.111 kg Pertinent Lab Results Pertinent Lab Results: Laboratory Tests 10/13/21 04/20/22 21:10 08:50 WBC 9.0 Hgb 14.2 Hct 42.0 Plt Count 220 Sodium 144 Potassium 4.0 Chloride 105 Carbon Dioxide 27 BUN 13 Creatinine 0.75 Narrative Narrative: EKG 10/2021 normal sinus rhythm with sinus arrhythmia at 90 beats per minute Assessment and Plan Assessment Anesthesia Assessment: Chart Reviewed Documented by User: Andrew Chaudhry MD 05/15/22 08:59 [facility] Past Medical History Medical History (Updated 05/08/22 @ 10:20 by Brooklyn Beverly RN) Anxiety Arthritis COPD (chronic obstructive pulmonary disease) Depression Diabetes mellitus Diarrhea Diastolic heart failure BROWN (dyspnea on exertion) Emphysema/COPD Eye pain Impaired fasting glucose Low back pain Obesity (BMI 30-39.9) MANJEET (obstructive sleep apnea) Oxygen dependent Paroxysmal atrial fibrillation Pure hypercholesterolemia Family History Family History Father Medical history unknown Mother Myocardial infarction Family history of problems with anesthesia: No Surgical History Surgical History Deficient knowledge of leg surgery H/O prior ablation treatment History of cardioversion History of colonoscopy History of surgery History of Problems with Anesthesia: No Social History Social History (Updated 05/08/22 @ 10:24 by Brooklyn Beverly RN) Housing: House Are you a primary special needs caregiver to a significant other at home: No Do you presently have visiting nurse or other home services: No Alcohol intake: current Alcohol intake frequency: a few times a week Patient Tobacco Use Status: Current someday Tobacco user Tobacco use type: Cigarette Second Hand Smoke Exposure: Yes Use of substances other than those prescribed or required for medical reasons: Yes Substance Use Type: Marijuana Substance Use Type Other:: smoking Substance Use Frequency: Weekly Have you been hit, kicked, punched, or otherwise hurt by someone within the past year? If so, by whom?: No Are you DNR?: No Advance Directives: No Advance Directives Information Provided: Yes Advance Directives on File: No Recently lost weight without trying: No Nutrition Risks: No Nutritional Risk Poor oral hygiene: No service: No Current occupational status: retired Cognitive needs: No Hearing needs: No Vision needs: Yes (reading glasses) Meds Allergies Allergy/AdvReac Type Severity Reaction Status Date / Time No Known Allergies Allergy Verified 04/29/22 23:16 [No Known Allergies*] Home Medications Medication Instructions Recorded Confirmed Last Taken Type ipratropium 0.5 mg-albuterol 3 mg 3 ml inhalation Q6H PRN Shortness 05/19/20 05/08/22 Unknown History (2.5 mg base)/3 mL nebulization Of Breath soln roflumilast 500 mcg tablet 500 mcg PO BEDTIME 05/19/20 05/08/22 Unknown History (Daliresp) pantoprazole 40 mg tablet,delayed 1 tab PO QAM 05/08/22 05/08/22 Unknown History release sertraline 100 mg tablet 100 mg PO DAILY for anxiety 05/08/22 05/08/22 Unknown History Exam Airway Mallampati Class: II TM Dist: >3cm Neck ROM: Full Loose/Missing/Broken Teeth: No Heart: irreg irreg s1s2 Lungs: cta b/l Assessment and Plan Assessment Anesthesia Assessment: Anesthesia Plan Discussed Final Anesthetic Review Family History of Problems with Anesthesia: No History of Problems with Anesthesia: No NPO: Yes ASA Class: III Final Preanesthetic Review: No Changes in Pt Med Stat, Meds/Allgs Chart Reviewed, Consent Obtained/Reviewed and Anes Risks/Benef Reviewed Patient Risk: Intermediate Procedure Risk: Intermediate Assessment/Block/Sedation in SS: Assess/Block/Sedation-SS Anesthetic Plan Anesthetic Plan: MAC: and Agree w/ Assess. and Plan Disposition: Standard PACU
--- NOTE | 2022-05-15 06:25 | MHC.SHP ---
Pre-Procedural Eval Section A Date of Service: 05/15/22 Section B Chief Complaint: reflux,screening Relevant Family History (Specify if Yes): No Relevant Social History: Other (specify) (THC and alcohol use) Present Medications: see Short Stay Collaborative assessment Medical History: Significant History (Anxiety Arthritis COPD (chronic obstructive pulmonary disease) Depression Diabetes mellitus Diarrhea Diastolic heart failure BROWN (dyspnea on exertion) Emphysema/COPD Eye pain Impaired fasting glucose Low back pain Obesity (BMI 30-39.9) MANJEET (obstructive sleep apnea) Oxygen dependent Paroxysmal atrial) History of Previous Operations: Relevant previous surgery/procedure and date(s) (Deficient knowledge of leg surgery H/O prior ablation treatment History of cardioversion History of colonoscopy History of surgery) Allergies: Allergies Allergy/AdvReac Type Severity Reaction Status Date / Time No Known Allergies Allergy Verified 04/29/22 23:16 [No Known Allergies*] Review of Systems Sugical H&P ROS: Negative: Constitution, Cardiovascular, Respiratory, Neurological, Psychiatric, Hem-Onc, Allergic/Immunologic, Gastrointestinal, Genitourinary, Musculoskeletal, Integumentary, Endocrine and Eyes/Ears/Nose/Throat Exam Surgical H&P Exam: Normal: HEENT, Normal: Heart, Normal: Lungs, Normal: Extremities, Normal: Abdomen, Normal: Skin and Normal: Neurological Plan Diagnosis/Plan: Unchanged I have reviewed the history and physical and performed a pertinent physical examination on my patient. No changes have occurred unless specified.
[2022-05-15] MEDS: Lactated Ringers 1,000 ML 100 ML IVCONT (08:44)
--- NOTE | 2022-05-15 09:24 | W.PM.OPN ---
Operative Note Operative Note Date of Service: 05/15/22 Narrative: Operative Information Procedure Description: EGD, Colonoscopy Indication: diarrhea, hx of polyps Anesthesia: MAC FLEXIBLE TRANSORAL UPPER GASTROINTESTINAL ENDOSCOPY AND COLONOSCOPY PROCEDURE NOTE UPPER ENDOSCOPY Consent: Indications for the procedure and potential complications of bleeding, perforation, reaction to medications and missed diagnosis were discussed with the patient and informed consent was obtained. Instrument: Olympus GIF H 190 J mid size upper endoscope Monitoring: Vital signs and clinical assessment, continuous EKG monitoring, Pulse oximetry, Carbon Dioxide monitoring and blood pressure monitoring were done throughout the procedure. Procedure: The patient was placed in the left lateral decubitis position and pre-procedure medications were administered and a bite block was placed. The endoscope was inserted into the mouth and advanced under direct vision to the third part of duodenum. A careful inspection was made as the upper endoscope was withdrawn including a retroflexed examination of the proximal stomach; Findings and interventions are described below. Findings: Larynx:normal Esophagus: GE junction at 42 cm, diaphragm hiatus at 42 cm, small islands of salmon pink tissue, bx taken from GEJ Stomach: streaky erosive gastritis at proximal body of stomach. Biopsies were obtained. Grade 2 flap valve on retroflexed examination of the cardia. Duodenum: mild duodenitis bx taken Intervention: Biopsies as noted above COLONOSCOPY Instrument: Olympus variable stiffness pediatric scope 190L Colonoscopy Monitoring: Vital signs and clinical assessment, continuous EKG monitoring, Pulse oximetry, Carbon Dioxide monitoring and blood pressure monitoring were done throughout the procedure. Colon withdrawal time was 16 minutes. Procedure: The patient was placed in the left lateral decubitis position and pre-procedure medications were administered. After a digital rectal examination of the ano-rectum, the video colonoscope was inserted into the rectum and advanced through the colon to the cecum/TI. The colonoscope was slowly withdrawn in a retrograde panoramic fashion and the colon mucosa was carefully examined including a retroflexed view of the rectum. Findings and interventions are described below. Procedure Difficulty: easy Findings: Terminal Ileum-normal Cecum:normal Ascending Colon: x 3 sessile polyps 10-12 mm removed with cold snare Transverse Colon -normal Descending Colon: x 2 sessile polyps 8-10 mm, one removed with forceps and the other with cold snare Sigmoid Colon: severe diverticulosis with wide mouthed tics, , x1 sessile polyp 12 mm removed with cold snare Rectum: Retroflexion with large internal hemorrhoids, grade I, x 1 semi pedunculated polyp 12 mm removed with cold snare and one clip applied for hemostasis. Anorectum - normal RANDOM COLON Bx also taken Colon preparation: [place] Bowel Preparation Scale Right colon; 2 Transverse colon: 2 Left colon; 1-2 (0 = Unprepared colon segment with mucosa not seen due to solid stool that cannot be cleared. 1 = Portion of mucosa of the colon segment seen, but other areas of the colon segment not well seen due to staining, residual stool and/or opaque liquid. 2 = Minor amount of residual staining, small fragments of stool and/or opaque liquid, but mucosa of colon segment seen well. 3 = Entire mucosa of colon segment seen well with no residual staining, small fragments of stool or opaque liquid) Impression and Post Procedure Diagnosis: Endoscopy Findings: erosive gastritis duodenitis Colonoscopy Findings: polyps internal hemorrhoids diverticular disease Plan: Await Pathology results Repeat Colonoscopy in 1-2 years or earlier if clinically indicated High fiber diet leaflet avoid straining at stool, epsom salts and sitz bath, anusol supps or cream can restart blood thinner (Xarelto) in 48 hours i.e 05/18/22 Above findings were reviewed with the patient and relevant handouts were provided if indicated.
[2022-05-15 10:15] VITALS: BP 136/73; PULSE 81; RESP 16; TEMP 36.8; O2SAT 98
[2022-05-15 10:30] VITALS: BP 145/77; PULSE 74; RESP 16; TEMP 36.8; O2SAT 96
== END 2022-05-15 11:16 | disposition home or self-care (01) ==
PROVIDERS: PCP Internal Medicine; Visit Provider Internal Medicine Gastroenterology
PROC: (CPT 45385; principal; 2022-05-15 09:10)
DX: Z12.11 Encounter for screening for malignant neoplasm of colon (principal); Z86.010 Personal history of colon polyps; D12.2 Benign neoplasm of ascending colon; D12.4 Benign neoplasm of descending colon; D12.5 Benign neoplasm of sigmoid colon; D12.8 Benign neoplasm of rectum; R19.7 Diarrhea, unspecified; K57.30 Diverticulosis of large intestine without perforation or abscess without bleeding; K64.0 First degree hemorrhoids; K21.9 Gastro-esophageal reflux disease without esophagitis; K29.50 Unspecified chronic gastritis without bleeding; K29.80 Duodenitis without bleeding; G47.33 Obstructive sleep apnea (adult) (pediatric); I50.30 Unspecified diastolic (congestive) heart failure; I48.0 Paroxysmal atrial fibrillation; K44.9 Diaphragmatic hernia without obstruction or gangrene; J44.9 Chronic obstructive pulmonary disease, unspecified; Z99.81 Dependence on supplemental oxygen; E11.9 Type 2 diabetes mellitus without complications; Z79.899 Other long term (current) drug therapy; F17.210 Nicotine dependence, cigarettes, uncomplicated; F12.90 Cannabis use, unspecified, uncomplicated
CPT/HCPCS: 45385; 45380; 43239; 88305; 88342; J1610

== ENCOUNTER → 2022-05-29 10:56 | Outpatient (BNVA) | payer MEDICARE, OTHER, SELFPAY | PROVIDERS: PCP Internal Medicine; Referring Provider Internal Medicine; Visit Provider Nurse Practitioner Family | DX: K58.2 Mixed irritable bowel syndrome (principal); K21.00 Gastro-esophageal reflux disease with esophagitis, without bleeding; D36.9 Benign neoplasm, unspecified site; Z98.890 Other specified postprocedural states | CPT/HCPCS: 99212 ==

== ENCOUNTER → 2022-08-24 13:56 | Outpatient (BNVA) | payer MEDICARE, OTHER, SELFPAY | PROVIDERS: PCP Internal Medicine; Visit Provider Nurse Practitioner Family | DX: R10.9 Unspecified abdominal pain (principal); K58.2 Mixed irritable bowel syndrome; K21.9 Gastro-esophageal reflux disease without esophagitis; Z79.899 Other long term (current) drug therapy | CPT/HCPCS: 99212 ==

== ENCOUNTER → 2022-10-18 13:58 | Outpatient (REF) | payer MEDICARE, OTHER, SELFPAY ==
--- NOTE | 2022-10-18 14:00 | CA_ITS ---
Transthoracic Echocardiogram Patient (Last, First, Middle): Ed Romeo, Gender: Male Date of : 1950 Age: 72 Procedure Date: 10/18/2022 Procedure Type: Transthoracic Echocardiogram Location: OP Height: 167.64 cm Weight: 70.31 kg BSA: 1.79 m2 Heart Rate: 63 bpm BP: 120 / 58 mmHg Furniture Cleaner: ANASTACIO Referring MD: Kirby Pearson MD Symptoms: I48.0 - Paroxysmal atrial fibrillation Study Quality: Adequate ECG Rhythm: Sinus Conclusions: - The left ventricular systolic function is normal. The calculated ejection fraction is 60% by biplane method. - LV peak GLS -14%. - Evidence suggests grade II (moderate) diastolic dysfunction. - No obvious valvular pathology seen on this study. Findings Left Ventricle Normal left ventricular cavity size. There is normal left ventricular wall thickness. The left ventricular systolic function is normal. The calculated ejection fraction is 60% by biplane method. There is no evidence of regional wall motion abnormalities. E/E prime ratio is >15, consistent with elevated filling pressures. Evidence suggests grade II (moderate) diastolic dysfunction. LV peak GLS -14%. Right Ventricle Normal right ventricular cavity size and systolic function. Atria Both atria are normal in size. Aortic Valve There is a normal trileaflet aortic valve. There is no aortic valve stenosis. There is no aortic valve regurgitation. Mitral Valve The mitral valve appears normal. There is trace mitral valve regurgitation. There is no mitral valve stenosis. Pulmonic Valve The pulmonic valve is likely normal. Tricuspid Valve Normal tricuspid valve structure. There is trace tricuspid valve regurgitation. There is no evidence of pulmonary hypertension. Great Vessels The asc aorta is normal in size. Venous The inferior vena cava is normal in size and collapses greater than 50% with inspiration. Pericardium/Pleural There is no evidence of pericardial effusion. Prior Study Comparison Changes noted compared to prior study dated: 06/05/2017. Progression of diastolic dysfunction. Recommendations, Care & Conclusions No obvious valvular pathology seen on this study. Measurements 2D Linear Measurements IVSd: 1.02 0.6-0.9/0.6-1.0 cm LVIDd: 5.17 3.9-5.3/4.2-5.9 cm LVIDd Index: 2.89 2.4-3.2/2.2-3.1 cm/m2 LVIDs: 3.31 2.0-3.6 cm LVPWd: 0.58 0.7-1.1 cm LA Diam: 4.10 2.7-3.8/3.0-4.0 cm LAIDs Index: 2.29 1.5-2.3 cm/m2 LV Mass: 179.27 67-162/88-224 g LV Mass Index: 100.15 43-95/49-115 g/m2 LVOT Diam: 2.20 3.0+(-)1.3 cm 2D Systolic Function EF 4C: 62.90 >55% EF 2C: 58.20 >55% EF BiP: 60.20 >55% Mitral Valve MV Pk E: 1.15 MV PK A: 0.55 MV Decel Time: 194.00 E/A: 2.10 E'Lateral: 8.70 E'Medial: 6.20 E/E' Med: 18.50 E/E' Lat: 13.20 PHT: 57.00 MVA PHT: 3.86 Decel [place]: 5.95 Aortic Valve AoV Pk Werner: 1.30 AoV Pk Grad: 7.00 CHRISTINE: 2.42 LVOT LVOT Pk Werner: 0.83 LVOT Mn Werner: 0.56 LVOT VTI: 0.18 LVOT Pk Grad: 3.00 LVOT Mn Grad: 1.00 LVOT Diam: 2.20 LVOT Area: 3.80 Diastolic Function MV Pk E: 1.15 MV Pk A: 0.55 E/A: 2.10 E'Medial: 6.20 E/E' Med: 18.50 E' Laterial: 8.70 E/E' Lat: 13.20 Right Ventricle TAPSE (mm): 18.90 TVS' Werner: 11.20 Tricuspid Valve RA Press: 3.00 Great Vessels Aorta Sinus of Valsalva: 3.70 2.0-3.5 cm Ao Asc: 3.70 2.1-3.4 cm Pulmonary Valve PV Pk Werner: 0.97 Peak PV Grad: 4.00 Updated in Other Vendor System with Status of Final Justus Pinto MD electronically signed on 10/20/2022 11:50:38 AM with status of Final
== END ==
LOC: HO.CARD 13:58
PROVIDERS: PCP Internal Medicine; Visit Provider Internal Medicine Cardiovascular Disease
DX: I48.0 Paroxysmal atrial fibrillation (principal)
CPT/HCPCS: 93306; 93356

== ENCOUNTER 2022-11-02 11:29 | Outpatient (REF) | payer MEDICARE, OTHER, SELFPAY ==
[2022-11-02 16:34] LABS: MANUAL DIFF FLAG NO
[2022-11-02 16:36] LABS: Basophils Percent Auto 0.5 % (0-2); Eosinophils Absolute Auto 0.1 X10*3/uL (0.0-0.4); Eosinophils Percent Auto 2.2 % (0-4); Hematocrit 42.1 % (42.0-52.0); Imm Gran Abs Auto 0.02 X10*3/uL (0.00-0.03); Imm Gran Pct Auto 0.3 % (0.0-0.4); Lymphocytes Absolute Auto 2.2 X10*3/uL (1.2-4.9); Lymphocytes Percent Auto 33.5 % (20-40); Mean Corpuscular HGB Conc 33.3 g/dl (31.0-36.0); Mean Corpuscular Hemoglobin 29.8 pg (27.0-33.0); Mean Corpuscular Volume 89.6 fL (80.0-98.0); Mean Platelet Volume 9.4 fL (9.4-12.4); Monocytes Absolute Auto 0.3 X10*3/uL (0.1-1.2); Monocytes Percent Auto 4.5 % (2-11); Neutrophils Absolute Auto 3.8 x10*3/uL (2.0-8.3); Platelet Count 240 X10*3/uL (160-400); Red Cell Distribution Width 15.7 % (11.0-16.0); White Blood Count 6.4 X10*3/uL (4.8-10.8)
[2022-11-02 16:55] LABS: Alanine Aminotransferase 18 U/L (0-40); Albumin Level 3.8 g/dL (3.5-5.0); Alkaline Phosphatase 32 U/L (39-117); Anion Gap 11 (12-20); Aspartate Amino Transferase 12 U/L (5-37); Bilirubin Total 0.5 mg/dL (0.0-1.0); Blood Urea Nitrogen 18 mg/dL (9-16); Calcium 9.5 mg/dL (8.4-10.2); Carbon Dioxide 29 mmol/L (22-29); Chloride 105 mmol/L (96-108); Estimated Glomerular Filt Rate > 60; Glucose Random 78 mg/dL (60-115); Sodium 141 mmol/L (135-145); Total Protein 6.1 g/dL (6.5-8.0)
== END 2022-11-02 11:30 | disposition home or self-care (01) ==
LOC: HO.WFDLDS 11:29
PROVIDERS: Visit Provider Internal Medicine Hematology & Oncology
DX: C34.90 Malignant neoplasm of unspecified part of unspecified bronchus or lung (principal)
CPT/HCPCS: 36415; 80053; 85025

== ENCOUNTER → 2022-11-06 13:04 | Outpatient (BNVA) | payer MEDICARE, OTHER, SELFPAY | PROVIDERS: PCP Internal Medicine; Referring Provider Internal Medicine; Visit Provider Internal Medicine Cardiovascular Disease | DX: I48.0 Paroxysmal atrial fibrillation (principal); I50.30 Unspecified diastolic (congestive) heart failure | CPT/HCPCS: 93005; 99212 ==

== ENCOUNTER 2022-11-19 07:59 | Outpatient (REF) | payer MEDICARE, OTHER, SELFPAY ==
[2022-11-19 11:30] LABS: MANUAL DIFF FLAG NO
[2022-11-19 11:44] LABS: Appearance Urine Clear; Color Urine Yellow; Glucose Urine UA Negative (Negative); Leukocyte Esterase Urine Negative (Negative); Nitrite Urine Negative (Negative); PH 5.5 (5.0-9.0); UMIC TRIGGER UACC YES; Urine Blood Small (1+) (Negative); Urine Ketones Negative (Negative); Urine Protein Negative (Neg-Trace)
[2022-11-19 11:49] LABS: Basophils Percent Auto 0.7 % (0-2); Eosinophils Absolute Auto 0.2 X10*3/uL (0.0-0.4); Eosinophils Percent Auto 2.8 % (0-4); Hematocrit 41.3 % (42.0-52.0); Imm Gran Abs Auto 0.02 X10*3/uL (0.00-0.03); Imm Gran Pct Auto 0.4 % (0.0-0.4); Lymphocytes Absolute Auto 1.5 X10*3/uL (1.2-4.9); Lymphocytes Percent Auto 26.9 % (20-40); Mean Corpuscular HGB Conc 33.9 g/dl (31.0-36.0); Mean Corpuscular Hemoglobin 30.2 pg (27.0-33.0); Mean Corpuscular Volume 89.2 fL (80.0-98.0); Monocytes Absolute Auto 0.7 X10*3/uL (0.1-1.2); Monocytes Percent Auto 11.6 % (2-11); Neutrophils Absolute Auto 3.3 x10*3/uL (2.0-8.3); Neutrophils Percent Auto 57.6 % (45-73); Platelet Count 231 X10*3/uL (160-400); Red Blood Count 4.63 X10*6/uL (4.60-5.80); Red Cell Distribution Width 17.3 % (11.0-16.0); White Blood Count 5.7 X10*3/uL (4.8-10.8)
[2022-11-19 12:03] LABS: Bacteria Urine None Seen (None Seen); Hyaline Casts Urine 0-2 /LPF (0-2); Squamous Epithelial Cell Urine 0-2 /HPF (0-2); WBC Urine 0-5 /HPF (0-5)
[2022-11-19 12:15] LABS: Alanine Aminotransferase 15 U/L (0-40); Albumin Level 3.8 g/dL (3.5-5.0); Alkaline Phosphatase 32 U/L (39-117); Anion Gap 11 (12-20); Aspartate Amino Transferase 12 U/L (5-37); Bilirubin Total 0.3 mg/dL (0.0-1.0); Blood Urea Nitrogen 14 mg/dL (9-16); Calcium 9.4 mg/dL (8.4-10.2); Carbon Dioxide 30 mmol/L (22-29); Chloride 108 mmol/L (96-108); Cholesterol 172 mg/dL; Estimated Glomerular Filt Rate > 60; Glucose Fasting 112 mg/dL (60-99); HDL Cholesterol 64 mg/dL; LDL Cholesterol Calculated 93 mg/dl; Potassium 4.9 mmol/L (3.3-5.1); Sodium 144 mmol/L (135-145); Triglycerides 76 mg/dL
[2022-11-19 12:32] LABS: TSH reflex Free T4 1.27 uIU/mL (0.32-4.0); Vitamin D 25-OH Total 34.4 ng/mL (>30)
== END 2022-11-19 08:00 | disposition home or self-care (01) ==
LOC: HO.WFDLDS 07:59
PROVIDERS: Visit Provider Internal Medicine
DX: I10 Essential (primary) hypertension (principal); R30.0 Dysuria; R79.89 Other specified abnormal findings of blood chemistry; E55.9 Vitamin D deficiency, unspecified; E78.00 Pure hypercholesterolemia, unspecified
CPT/HCPCS: 36415; 80053; 80061; 81001; 82306; 84443; 85025

== ENCOUNTER 2023-01-07 09:38 | Outpatient (AMB) | payer MEDICARE, OTHER, SELFPAY ==
[2023-01-07 10:18] VITALS: BP 130/72; PULSE 78; O2SAT 98; BMI 27.5
--- NOTE | 2023-01-07 10:18 | MHC.PC.OV ---
Vital Signs 01/07/23 10:18 Height 5 ft 5 in Weight 165 lb BMI 27.5 BP 130/72 Blood Pressure Location Lt brachial Position Sitting Pulse 78 Pulse Source Pulse Oximeter Pulse Oximetry (%) 98 Oxygen Delivery Method Room Air Intake Visit Reasons: Follow up on hernia Intake Note: Patient here for hernia concerns, imaging request Wetland Scientist Required: No Accompanied by: Self / Same As Patient Allergies No Known Allergies [No Known Allergies*] Allergy (Verified 01/07/23 10:19) Tobacco use date assessed: 08/27/22 Fall risk assessment: No Falls in past year Last assessed Fall Risk: 01/07/23 Dental Screening Dental Screen Date: 01/07/23 Did you have a dental visit in the last 12 months?: No Did you have a dental problem in the last 6 months where you did not have access to dental care?: No Was dental information given to patient?: Patient has dentist HPI HPI Comments History of Present Illness Details 72-year-old male past medical history significant for paroxysmal atrial, diastolic heart failure, hypercholesteremia, diabetes mellitus, COPD, anxiety, depression and small cell lung cancer patient currently undergoing chemotherapy and radiation treatment at [facility]. Patient presents today for intermittent right lower quadrant pain states sometimes it is so bad that he yells out. Denies any fever, chills, nausea, vomiting, diarrhea and constipation. Patient states he does not take any medication the pain. Denies any pain at this time. Abdominal assessment benign, negative provocative testing. [facility] Medical History Anxiety Arthritis COPD (chronic obstructive pulmonary disease) Depression Diabetes mellitus Diarrhea Diastolic heart failure BROWN (dyspnea on exertion) Emphysema/COPD Eye pain Impaired fasting glucose Low back pain Obesity (BMI 30-39.9) MANJEET (obstructive sleep apnea) Oxygen dependent Paroxysmal atrial fibrillation Pure hypercholesterolemia Tubular adenoma Surgical History Deficient knowledge of leg surgery H/O prior ablation treatment History of cardioversion History of colonoscopy History of esophagogastroduodenoscopy (EGD) History of surgery Family History Father Medical history unknown Mother Myocardial infarction Social History (Updated 01/07/23 @ 10:21 by LIDYA Prasad Housing: House Are you a primary director of health care marketing to a significant other at home: No Do you presently have visiting nurse or other home services: No Alcohol intake: current Alcohol intake frequency: 3 or more drinks per day Alcohol type: beer Patient Tobacco Use Status: Former Tobacco user Quit Date: 2006 Tobacco use type: Cigarette e-Cigarette/Vaping Use: Never Used Second Hand Smoke Exposure: Yes Substance Use Type: Marijuana service: No Current occupational status: retired Cognitive needs: No Hearing needs: No Vision needs: Yes (reading glasses) Questionnaire Thrive Questionnaire Date Thrive assessed: 08/27/22 DANGELO-7 AMB Questionnaire DANGELO-7 Date DANGELO - 7 assessed: 08/27/22 Source: Developed by Drs. Biju Pedroza, Felisha Roberson, Sergio Wang and colleagues, with an educational gary from [employer]. Review of Systems Const Denies chills, Denies fatigue, Denies fever(s) and Denies poor appetite Eyes Denies no additional complaints ENT Reports Normal hearing present Card Denies chest pain, Denies syncope, Denies rapid heart rate and Denies dyspnea Resp Denies cough and Denies dyspnea GI Reports abdominal pain (RLQ pain ), Denies change in stool character, Denies constipation, Denies diarrhea, Denies nausea and Denies vomiting Denies dysuria, Denies urinary frequency and Denies urinary urgency Neuro Reports Normal hearing present, Denies confusion and Denies syncope Psych Denies confusion Endo Denies fatigue Physical exam (Primary Care) Vital Signs: Last Vital Signs Pulse 78 01/07/23 10:18 BP 130/72 01/07/23 10:18 Pulse Ox 98 01/07/23 10:18 Oxygen Delivery Method Room Air 01/07/23 10:18 BMI result Body Mass Index 27.5 Tobacco/Smoking Status: Tobacco use Status Tobacco use date assessed 08/27/22 01/07/23 10:21 Patient Tobacco Use Status Former Tobacco user 01/07/23 10:21 Tobacco use type Cigarette 01/07/23 10:21 e-Cigarette/Vaping Use Never Used 01/07/23 10:21 Thrive Assessment: Date of Thrive Assessment Date Thrive assessed 08/27/22 01/07/23 10:21 Const General: No confusion Orientation/consciousness: No confusion HENMT Head: Yes normocephalic and Yes atraumatic Eyes Conjunctivae: conjunctivae normal Chest Chest palpation & inspection: normal inspection of the chest Resp Effort & Inspection: normal respiratory effort Auscultation: clear to auscultation bilaterally, no crackles, no rhonchi and no wheezes Cardio Rate: regular rate Rhythm: regular rhythm Heart sounds: S1 normal heart sound present and S2 normal heart sound present GI Inspection: Yes normal to inspection Palpation (GI): Soft to palpation, nontender, no guarding, No hepatosplenomegaly present and Other GI palpation findings present (negative provacative testing ) Auscultation: normoactive bowel sounds Neuro General: No confusion Cranial nerves: Yes Normal hearing present Extrem General: No edema Assessment and Plan Assessment & Plan (1) Right lower quadrant pain: Code(s): R10.31 - Right lower quadrant pain Plan: ABD CT ordered to further evaluate for right inguinal hernia and although less likely given intermittent abdominal pain and negative provocative testing rule out acute appendicitis. CBC and CMP ordered. Appropriate referral will be entered to General surgery if warranted based on ABD CT results. Plan Keep scheduled follow up with Dr. Acevedo Orders: Orders Comprehensive Met. Panel Today R10.31 - Right lower quadrant pain Complete Blood Count Auto Diff Today R10.31 - Right lower quadrant pain CT abdomen pelvis w IV con Today R10.31 - Right lower quadrant pain Coding Level of Care Code Est Pt Level 3 (99619) Diagnoses Right lower quadrant pain R10.31
== END 2023-01-07 12:00 | disposition home or self-care (01) ==
PROVIDERS: PCP Internal Medicine; Visit Provider Nurse Practitioner Family
DX: R10.31 Right lower quadrant pain (principal)
CPT/HCPCS: 99213

== ENCOUNTER 2023-01-15 11:02 | Outpatient (AMB) | payer MEDICARE, OTHER, SELFPAY ==
[2023-01-15 11:10] VITALS: BP 135/74; PULSE 84; BMI 27.7
--- NOTE | 2023-01-15 11:10 | A.OFFVIS_ITS ---
Intake Vital Signs 01/15/23 11:10 Height 5 ft 5 in Weight 166 lb 10.711 oz BMI 27.7 BP 135/74 Blood Pressure Location Lt brachial Position Sitting Pulse 84 Intake Visit Reasons: 4 mnth f/u Intake Note: Aylin presents in office as a est.patient for 4month f/u for IBS PT CC:pt reports having abdominal pain , hernia pt denies any other GI Issues Paving Inspector Required: No Accompanied by: Self / Same As Patient Allergies No Known Allergies [No Known Allergies*] Allergy (Verified 01/15/23 11:12) HPI 4 mnth f/u HPI Details LAST VISIT: Abdominal pain Postprandial abdominal bloating and occasional cramping. Discussed with patient avoiding dietary triggers. Patient was encouraged to follow low FODMAP diet. List of food to avoid as well as list of food recommend was given to patient IBS (irritable bowel syndrome) Continue low FODMAP diet. Patient reports postprandial loose stools. Avoid lactose products as well as decrease carbs. Patient was encouraged again to stop drinking and smoking. Will send him script for fiber. GERD (gastroesophageal reflux disease) Continue taking pantoprazole. Will add famotidine, however patient was encouraged to avoid dietary triggers. Patient was also encouraged to stay upright for minimum 3 hours after meals. Patient will return in 4 months we will discuss him going for colonoscopy. If he will have symptoms of acid reflux despite taking pantoprazole and famotidine patient should go for upper endoscopy. He is agreeable to this plan and verbalizes understanding of instructions. He was given the opportunity to ask questions and all questions answered. Plan Medications New methylcellulose (laxative) (Citrucel) take it with full glass of water 500 mg PO DAILY 90 tabs 2RF K59.00 famotidine (Pepcid) 20 mg PO BEDTIME 90 tabs 3RF K21.9 Changed From pantoprazole 1 tab PO QAM To pantoprazole 40 mg PO QAM 30 tabs 3RF Refilled cholecalciferol (vitamin D3) 25 mcg PO DAILY 90 tabs 3RF R79.89 TODAY'S VISIT: Patient is here today for follow-up. Patient was sent to us to evaluate him for right lower quadrant pain. Questioning inguinal hernia, however patient reports that the pain is intermittent and also depend on if he moves or not. Patient denies any nausea or vomiting. 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 Patient does report occasional blood in his sputum when he coughs. He is following up with Oncology and pulmonology at [facility]. Today he reports that he is moving his bowels better. Reports the pantoprazole has been working for him and he is feeling better now. He also takes famotidine at bedtime. Patient does report occasional postprandial abdominal bloating. Patient does admit not to be following any particular diet. [facility] Medical History Anxiety Arthritis COPD (chronic obstructive pulmonary disease) Depression Diabetes mellitus Diarrhea Diastolic heart failure BROWN (dyspnea on exertion) Emphysema/COPD Eye pain Impaired fasting glucose Low back pain Obesity (BMI 30-39.9) MANJEET (obstructive sleep apnea) Oxygen dependent Paroxysmal atrial fibrillation Pure hypercholesterolemia Tubular adenoma Surgical History Deficient knowledge of leg surgery H/O prior ablation treatment History of cardioversion History of colonoscopy History of esophagogastroduodenoscopy (EGD) History of surgery Family History Father Medical history unknown Mother Myocardial infarction Social History Housing: House Are you a primary nursing care partner to a significant other at home: No Do you presently have visiting nurse or other home services: No Alcohol intake: current Alcohol intake frequency: 3 or more drinks per day Alcohol type: beer Patient Tobacco Use Status: Former Tobacco user Quit Date: 2006 Tobacco use type: Cigarette e-Cigarette/Vaping Use: Never Used Second Hand Smoke Exposure: Yes Substance Use Type: Marijuana service: No Current occupational status: retired Cognitive needs: No Hearing needs: No Vision needs: Yes (reading glasses) Review of Systems Const Denies weight gain and Denies weight loss ENT Reports no additional complaints, Denies dysphagia and Denies odynophagia Card Reports no additional complaints Resp Reports no additional complaints GI Reports abdominal pain (Right inguinal), Denies belching, Denies melena, Reports bloating, Denies change in bowel habits, Denies dysphagia, Denies excessive flatus, Denies dyspepsia, Denies heartburn, Denies diarrhea, Denies loose stools, Denies nausea, Denies odynophagia, Denies vomiting and Reports other (Coughing up blood occasionally) Reports no additional complaints Musc Reports no additional complaints Neuro Reports no additional complaints Psych Reports no additional complaints Endo Reports no additional complaints Physical Exam Vital Signs: Last Vital Signs Pulse 84 01/15/23 11:10 BP 135/74 01/15/23 11:10 BMI result Body Mass Index 27.7 Const General: healthy appearing, no acute distress and well developed Nutritional Appearance: well nourished Orientation/consciousness: patient oriented x3 HEENT Head: Yes normal to inspection, Yes normocephalic and Yes atraumatic Face and sinus: Yes normal facial exam Mouth: Normal oral and palatal mucosa present Throat: Yes posterior oropharynx normal, Yes tonsils normal and Yes uvula midline Eyes General: appearance normal, both eyes and all related structures Neck Neck: Yes normal visual inspection, Yes full ROM and Yes trachea midline Thyroid: Thyroid normal Resp Effort & Inspection: normal respiratory effort, able to speak in complete senten elo, no tracheal deviation and symmetric chest movement Auscultation: clear to auscultation bilaterally Cardio Rate: regular rate Heart sounds: S1 normal heart sound present and S2 normal heart sound present GI Inspection: Yes normal to inspection and No distended Palpation (GI): Soft to palpation, not firm, nontender and No hepatosplenomegaly present Auscultation: normal bowel sounds General: Yes no CVA tenderness Back/Spine/Pelvis Back: no CVA tenderness Skin General skin exam: elasticity normal, turgor normal and dry skin Neuro General: patient oriented x3 Psych Appearance: grossly normal Mental Status: mental status grossly normal Speech and movement: Normal speech and movement present Affect: normal affect Assessment & Plan Assessment & Plan (1) Right lower quadrant pain: Code(s): R10.31 - Right lower quadrant pain Plan: Right lower quadrant most likely muscle pain. Unable to palpate any hernia. Negative exam. PCP send patient for abdominal CT scan will wait for results. (2) GERD (gastroesophageal reflux disease): Code(s): K21.9 - Gastro-esophageal reflux disease without esophagitis Qualifiers: Esophagitis presence: esophagitis presence not specified Qualified Code(s): K21.9 - Gastro-esophageal reflux disease without esophagitis Plan: Continue current dose of pantoprazole and famotidine. Patient was encouraged to avoid dietary triggers and late night snacking. Staying upright for minimum 3 hours after meals discussed with patient. I will see patient in 2 months to discuss colonoscopy and upper endoscopy. Patient is agreeable to this plan and verbalizes understanding of instructions. He was given the opportunity to ask questions and all questions answered. Thank you for allowing me to participate in his care Coding Level of Care Code Est Pt Level 4 (76800) Diagnoses Right lower quadrant pain R10.31 GERD (gastroesophageal reflux disease) K21.9 Esophagitis presence: esophagitis presence not specified Time Spent (min) 35 Comment 20 minutes spent with patient and additional 15 minutes spent reviewing his records
== END 2023-01-15 11:48 | disposition home or self-care (01) ==
PROVIDERS: PCP Internal Medicine; Visit Provider Nurse Practitioner Family
DX: R10.31 Right lower quadrant pain (principal); K21.9 Gastro-esophageal reflux disease without esophagitis
CPT/HCPCS: 99214

== ENCOUNTER → 2023-01-15 11:02 | Outpatient (BNVA) | payer MEDICARE, OTHER, SELFPAY | PROVIDERS: PCP Internal Medicine; Visit Provider Nurse Practitioner Family | DX: K21.9 Gastro-esophageal reflux disease without esophagitis (principal); R10.31 Right lower quadrant pain | CPT/HCPCS: 99212 ==

== ENCOUNTER 2023-02-04 09:11 | Outpatient (REF) | payer MEDICARE, OTHER, SELFPAY ==
[2023-02-04 11:17] LABS: MANUAL DIFF FLAG NO
[2023-02-04 11:52] LABS: Basophils Percent Auto 0.7 % (0-2); Eosinophils Absolute Auto 0.2 X10*3/uL (0.0-0.4); Eosinophils Percent Auto 2.9 % (0-4); Hematocrit 39.5 % (42.0-52.0); Hemoglobin 13.1 g/dl (14.0-18.0); Imm Gran Abs Auto 0.06 X10*3/uL (0.00-0.03); Imm Gran Pct Auto 1.1 % (0.0-0.4); Lymphocytes Absolute Auto 0.7 X10*3/uL (1.2-4.9); Lymphocytes Percent Auto 12.2 % (20-40); Mean Corpuscular HGB Conc 33.2 g/dl (31.0-36.0); Mean Corpuscular Hemoglobin 31.9 pg (27.0-33.0); Mean Corpuscular Volume 96.1 fL (80.0-98.0); Mean Platelet Volume 9.4 fL (9.4-12.4); Monocytes Absolute Auto 0.7 X10*3/uL (0.1-1.2); Monocytes Percent Auto 13.1 % (2-11); Neutrophils Absolute Auto 3.9 x10*3/uL (2.0-8.3); Platelet Count 258 X10*3/uL (160-400); Red Blood Count 4.11 X10*6/uL (4.60-5.80); Red Cell Distribution Width 19.6 % (11.0-16.0); White Blood Count 5.5 X10*3/uL (4.8-10.8)
[2023-02-04 12:27] LABS: Anion Gap 14 (12-20); Blood Urea Nitrogen 15 mg/dL (9-16); Carbon Dioxide 24 mmol/L (22-29); Chloride 107 mmol/L (96-108); Estimated Glomerular Filt Rate > 60; Glucose Random 98 mg/dL (60-115); Potassium 4.1 mmol/L (3.3-5.1); Sodium 141 mmol/L (135-145)
[2023-02-04 12:28] LABS: Alanine Aminotransferase 15 U/L (0-40); Albumin Level 3.9 g/dL (3.5-5.0); Alkaline Phosphatase 32 U/L (39-117); Aspartate Amino Transferase 14 U/L (5-37); Bilirubin Total 0.4 mg/dL (0.0-1.0); Calcium 9.6 mg/dL (8.4-10.2); Total Protein 6.7 g/dL (6.5-8.0)
== END 2023-02-04 09:12 | disposition home or self-care (01) ==
LOC: HO.WFDLDS 09:11
PROVIDERS: Visit Provider Nurse Practitioner Family
DX: R10.31 Right lower quadrant pain (principal)
CPT/HCPCS: 36415; 80053; 85025

== ENCOUNTER 2023-02-07 13:29 | Outpatient (REF) | payer MEDICARE, OTHER, SELFPAY ==
--- NOTE | ~2023-02-07 | CT_ITS ---
EXAMINATION: CT ABDOMEN AND PELVIS WITH CONTRAST CLINICAL INFORMATION: Right lower quadrant pain. COMPARISON: CT abdomen and pelvis dated 10/14/2021. TECHNIQUE: Multidetector volumetric images were obtained from the superior aspect of the liver through the pubic symphysis following administration 85 mL of Omnipaque 350 intravenous contrast. Sagittal and coronal reformatted images were obtained on the technologist's workstation. Oral contrast: No This CT examination was performed using dose optimization techniques as appropriate, variously including the following: *Automated exposure control *Adjustment of mA and/or kV according to patient size (this includes techniques or standardized protocols for targeted exams where dose is matched to indication/reason for exam; i.e. extremities or head) *Use of iterative reconstruction technique DLP: 375 mGy-cm FINDINGS: LUNG BASES: The visualized lung bases are unremarkable. LIVER, GALLBLADDER, AND BILIARY TREE: The liver is normal in size, shape, and attenuation. No focal hepatic lesion or biliary ductal dilatation is present. A tiny layering gallstones seen (4:198), without gallbladder wall thickening or obvious pericholecystic inflammatory change. PANCREAS: Unremarkable. SPLEEN: Again, there are small hypodensities within the spleen, which are too small to fully characterize with CT. The interim stability is reassuring. ADRENAL GLANDS: Unremarkable. KIDNEYS AND URETERS: The kidneys are normal in size, shape, and attenuation. No hydronephrosis, hydroureter or calculi seen. There are 2 stable bilateral subcentimeter low-attenuation probable cysts, too small to fully characterize with CT. These are of doubtful clinical significance, and they require no imaging follow-up. No perinephric stranding. BLADDER: Unremarkable. GASTROINTESTINAL TRACT: There is moderate diverticulosis, without acute diverticulitis. No bowel obstruction, free intraperitoneal air or abscess is seen. There is no focal bowel wall thickening. The vermiform appendix appears normal. ABDOMINAL WALL: There are small fat-containing umbilical and bilateral inguinal hernia defects. LYMPH NODES: Normal. VASCULAR: There is moderate aortoiliac atherosclerotic calcification. No abdominal aortic aneurysm or dissection is seen. PELVIC VISCERA: The prostate and seminal vesicles are unremarkable. 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 No acute or aggressive osseous abnormality is seen. CT/CT abdomen pelvis w IV con IMPRESSION: 1. There is minimal cholelithiasis. 2. There are stable small splenic hypodensities, too small to fully characterize with CT. These likely represent small cysts or benign hemangiomas, and they are of doubtful clinical significance. 3. No abdominopelvic mass, free fluid or lymphadenopathy is seen. 4. There is moderate diverticulosis, without acute diverticulitis. 5. There are small fat-containing umbilical and bilateral hernias. 6. There is multi-level degenerative change of the thoracolumbar spine. No acute or aggressive osseous finding is noted. Fleischner guidelines were followed.
[2023-02-07] MEDS: iohexoL 350 MG/ML 100 ML INFUS..BTL IV (16:01)
[2023-02-07] MEDS: Barium Sulfate Oral (Mocha) 450 ML ORAL.SUSP 900 ML PO (16:02)
== END 2023-02-07 13:30 | disposition home or self-care (01) ==
LOC: HO.CT 13:29
PROVIDERS: PCP Internal Medicine; Visit Provider Nurse Practitioner Family
DX: R10.31 Right lower quadrant pain (principal)
CPT/HCPCS: 74177; Q9967

== ENCOUNTER 2023-02-26 08:23 | Outpatient (AMB) | payer MEDICARE, OTHER, SELFPAY ==
--- NOTE | 2023-02-26 08:25 | A.OFFVIS_ITS ---
Intake Vital Signs 02/26/23 08:39 Height 5 ft 5 in Weight 167 lb 1.766 oz BMI 27.8 BP 120/72 Blood Pressure Location Lt brachial Position Sitting Intake Visit Reasons: abdominal hernia Intake Note: Patient is seen in office for evaluation and treatment of an abdominal hernia. 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 He also reports pain in a bandlike fashion across the umbilicus. He reports coughing on a daily basis and continues to smoke. Patient subsequently underwent a workup with CT abdomen and pelvis. This revealed a small fat containing umbilical hernia and bilateral inguinal hernias the right greater than left. He denies nausea, vomiting, fever or chills. He reports diarrhea prior to chemotherapy but with chemotherapy became more normal. He presents to discuss possible repair of this inguinal hernia. [facility] Medical History Anxiety Arthritis COPD (chronic obstructive pulmonary disease) Depression Diabetes mellitus Diarrhea Diastolic heart failure BROWN (dyspnea on exertion) Emphysema/COPD Eye pain Impaired fasting glucose Low back pain Obesity (BMI 30-39.9) MANJEET (obstructive sleep apnea) Oxygen dependent Paroxysmal atrial fibrillation Pure hypercholesterolemia Tubular adenoma Surgical History Deficient knowledge of leg surgery H/O prior ablation treatment History of cardioversion History of colonoscopy History of esophagogastroduodenoscopy (EGD) History of surgery Family History Father Medical history unknown Mother Myocardial infarction Social History Housing: House Are you a primary health care facilities inspector to a significant other at home: No Do you presently have visiting nurse or other home services: No Alcohol intake: current Alcohol intake frequency: 3 or more drinks per day Alcohol type: beer Patient Tobacco Use Status: Former Tobacco user Quit Date: 2006 Tobacco use type: Cigarette e-Cigarette/Vaping Use: Never Used Second Hand Smoke Exposure: Yes Substance Use Type: Marijuana service: No Current occupational status: retired Cognitive needs: No Hearing needs: No Vision needs: Yes (reading glasses) Review of Systems Const All systems reviewed & are unremarkable except as noted in HPI and below Denies chills, Denies fever(s), Denies headache(s), Denies poor appetite and Denies weakness ENT Denies headache(s) Card Denies chest pain, Denies irregular heart rhythm, Denies palpitations and Denies dyspnea Resp Reports cough, Denies excessive phlegm production and Denies dyspnea GI Reports abdominal pain, Denies bloating, Denies change in bowel habits, Denies constipation, Denies heartburn, Denies diarrhea, Denies nausea and Denies vomiting Denies difficulty urinating and Denies urinary frequency Musc Denies back pain, Denies muscle weakness and Denies numbness Skin/Breast Denies changing lesions and Denies unusual bruising Neuro Denies headache(s), Denies numbness, Denies paresthesias and Denies weakness Psych Denies anxiety and Denies depression Endo Denies palpitations Reese/Lymph Denies lymphadenopathy Physical Exam Const General: cooperative and no acute distress Nutritional Appearance: well nourished Orientation/consciousness: patient oriented x3 Limitations: no limitations HEENT Head: Yes normocephalic and Yes atraumatic Ears: hearing grossly normal bilaterally Resp Effort & Inspection: normal respiratory effort, no audible wheezes, no cough and no respiratory distress Cardio Jugular venous distension: no JVD GI Inspection: Yes normal to inspection Palpation (GI): Soft to palpation, nontender, no guarding, not rigid and Hernia present direct inguinal on the right Percussion: Yes normal to percussion Auscultation: normal bowel sounds Abdomen image: 1. Skin Other: Warm, dry, no rash Neuro General: patient oriented x3 Extrem General: Yes no clubbing, cyanosis or edema Assessment & Plan Assessment & Plan (1) Reducible right inguinal hernia: Code(s): K40.90 - Unilateral inguinal hernia, without obstruction or gangrene, not specified as recurrent Plan Patient presents with a large right inguinal hernia which increases in size with Valsalva maneuvers but reduces with light pressure. Findings are consistent with a reducible right inguinal hernia. I recommended repair of this right inguinal hernia with mesh. CT does indicate a small umbilical and left inguinal hernia which are not symptomatic and are not palpable at this time. I recommended observation of these hernias. After discussion of the procedure, risks, and alternatives, he consents to repair the right inguinal hernia with mesh. Coding Level of Care Code New Pt Level 4 (48029) Diagnoses Reducible right inguinal hernia K40.90
[2023-02-26 08:39] VITALS: BP 120/72; BMI 27.8
== END 2023-02-26 08:49 | disposition home or self-care (01) ==
PROVIDERS: PCP Internal Medicine; Visit Provider Surgery
DX: K40.90 Unilateral inguinal hernia, without obstruction or gangrene, not specified as recurrent (principal)
CPT/HCPCS: 99204

== ENCOUNTER → 2023-02-26 08:23 | Outpatient (BNVA) | payer MEDICARE, OTHER, SELFPAY | PROVIDERS: PCP Internal Medicine; Visit Provider Surgery | DX: K40.90 Unilateral inguinal hernia, without obstruction or gangrene, not specified as recurrent (principal) | CPT/HCPCS: 99202 ==

== ENCOUNTER → 2023-03-05 08:26 | Outpatient (REF) | payer MEDICARE, OTHER, SELFPAY ==
--- NOTE | ~2023-03-05 | NM_ITS ---
Lexiscan Myocardial perfusion study Indication: Preoperative cardiac evaluation Technique: The patient was brought in for a Lexiscan perfusion study on 03/05/2023 and was injected 0.4 mg of Lexiscan intravenously. Within a minute of this injection 25 mCi of sestamibi was given intravenously. Images were obtained using the SPECT gamma camera interlaced with the gating device. Images were obtained in supine position. Resting perfusion study was performed on 03/06/2023. Patient was administered 25 mCi of sestamibi intravenously at rest. Images were then obtained in supine position. Images were processed with the software and compared side to side in short axis, horizontal long axis and vertical long axis views. Total DLP 78mGy-cm. Findings: Raw acquisition reviewed. The stress perfusion study showed no significant perfusion abnormality. Both uncorrected as well as CT attenuation corrected images were reviewed. The gated study shows normal LV systolic function with calculated LVEF of 64%. LV cavity is normal in size. The gated study shows normal wall thickening and contraction of segments. Resting study shows no significant perfusion abnormality. Gating at rest reveals normal wall motion with ejection fraction at 65%. The findings are consistent with no clear reversible or fixed perfusion abnormality. NM/NM leonardo perf SPECT rest & str Impression: 1. Myocardial perfusion imaging study shows likely normal myocardial perfusion. 2. Gated LVEF is 64% during stress and 65% during rest. 3. Transient ischemic dilatation not present. EKG component of the test reported separately.
--- NOTE | 2023-03-05 08:29 | CA_ITS ---
Acquisition Time: 2023-03-05 09:09:41 Total Exercise Time: 00:02:00 Test Indications: Abnormal ECG Medications: Protocol: LEXISCAN Max HR: 090 BPM 61% of Pred: 147 BPM Max BP: 126/064 mmHG Max Work Load: 1.0 METS Pharmacolgoical stress test with Lexiscan injection while sitting and kicking his legs, with moderate SOB, without chest discomfort, with normotensive response to injection, without arrhythmias, with nondiagnostic EKGs. Aminophylline 75mg IVP given to reverse Lexiscan. Nuclear images pending. Test reviewed with Dr. Pearson Referred By: Kirby Pearson Overread By: SARAH COMER
== END ==
LOC: HO.CARD 08:26
PROVIDERS: PCP Internal Medicine; Visit Provider Internal Medicine Cardiovascular Disease
DX: Z01.818 Encounter for other preprocedural examination (principal); I48.0 Paroxysmal atrial fibrillation; I50.30 Unspecified diastolic (congestive) heart failure
CPT/HCPCS: 78452; 93017; A9500; J0280; J2785

== ENCOUNTER → 2023-03-05 09:04 | Outpatient (BNV) | payer MEDICARE, OTHER, SELFPAY | PROVIDERS: PCP Internal Medicine; Visit Provider Internal Medicine | DX: I48.0 Paroxysmal atrial fibrillation (principal) | CPT/HCPCS: 78452; 93016; 93018 ==

== ENCOUNTER 2023-03-13 05:50 | Day surgery (SDC) | payer MEDICARE, OTHER, SELFPAY ==
[2023-03-01 11:37] VITALS: BMI 26.8
--- NOTE | 2023-03-12 09:04 | P.CONAN_ITS ---
HPI - Anesthesia Eval Consult details Narrative: 72yo M for Open Hernia Repair Inguinal w/mesh Cardiac cleared after normal stress Pradaxa for afib >3 beers daily O2 QHS - ? compliance [facility] Active Problems Active Problems: All Active Problems (Updated 03/01/23 @ 11:35 by Stephanie Abdi RN) Reducible right inguinal hernia (Acute) Hernia (Acute) Anemia (Acute) Right lower quadrant pain (Acute) Smoker (Acute) Pulmonary nodule (Acute) Fatigue (Acute) Low vitamin D level (Acute) Medicare annual wellness visit, subsequent (Acute) Tingling of both feet (Acute) Bilateral leg and foot pain (Acute) Abdominal pain (Acute) Onycholysis of toenail (Acute) Lesion of nose (Acute) Depression (Acute) Tubular adenoma (Acute) Impaired fasting glucose (Acute) Eye pain (Acute) Obesity (BMI 30-39.9) (Acute) Anxiety (Acute) COPD (chronic obstructive pulmonary disease) (Acute) Diabetes mellitus (Acute) Pure hypercholesterolemia (Acute) Diastolic heart failure (Acute) Paroxysmal atrial fibrillation (Acute) Past Medical History Medical History (Updated 03/01/23 @ 11:35 by Stephanie Abdi RN) Hx of cancer of lung Hx of radiation therapy History of chemotherapy Hiatal hernia On anticoagulant therapy HTN (hypertension) Tubular adenoma Arthritis Low back pain Diarrhea Oxygen dependent Emphysema/COPD BROWN (dyspnea on exertion) MANJEET (obstructive sleep apnea) Impaired fasting glucose Eye pain Obesity (BMI 30-39.9) Anxiety COPD (chronic obstructive pulmonary disease) Diabetes mellitus Pure hypercholesterolemia Diastolic heart failure Paroxysmal atrial fibrillation Family History Family History Father Medical history unknown Mother Myocardial infarction Family history of problems with anesthesia: No Surgical History Surgical History History of esophagogastroduodenoscopy (EGD) Deficient knowledge of leg surgery History of surgery History of cardioversion H/O prior ablation treatment History of colonoscopy History of Problems with Anesthesia: No Social History Social History Housing: House Are you a primary pet care worker to a significant other at home: No Do you presently have visiting nurse or other home services: Yes (respiratory) Alcohol intake: current Alcohol intake frequency: 3 or more drinks per day Alcohol type: beer Patient Tobacco Use Status: Former Tobacco user Quit Date: 2006 Tobacco use type: Cigarette e-Cigarette/Vaping Use: Never Used Second Hand Smoke Exposure: Yes Substance Use Type: Marijuana service: No Current occupational status: retired Cognitive needs: No Hearing needs: No Vision needs: Yes (reading glasses) Meds Allergies Allergy/AdvReac Type Severity Reaction Status Date / Time No Known Allergies Allergy Verified 02/26/23 08:36 [No Known Allergies*] Home Medications Medication Instructions Recorded Confirmed Last Taken Type ipratropium 0.5 mg-albuterol 3 mg 3 ml inhalation Q6H PRN Shortness 05/19/20 03/01/23 Unknown History (2.5 mg base)/3 mL nebulization Of Breath soln sertraline 100 mg tablet 50 mg PO DAILY 03/01/23 03/01/23 Unknown History Exam Exam Date and Time: March 12, 2023 0904 Height,Weight and Vital Signs: Height 5 ft 6 in Weight 75.189 kg Pertinent Lab Results Pertinent Lab Results: Laboratory Tests 02/04/23 09:15 WBC 5.5 Hgb 13.1 L Hct 39.5 L Plt Count 258 Sodium 141 Potassium 4.1 Chloride 107 Carbon Dioxide 24 BUN 15 Creatinine 0.70 Narrative Narrative: ECHO 09/2022 Conclusions: - The left ventricular systolic function is normal. The calculated ejection fraction is 60% by biplane method. - LV peak GLS -14%. - Evidence suggests grade II (moderate) diastolic dysfunction. - No obvious valvular pathology seen on this study. EKG 10/2022 normal sinus rhythm with right bundle-branch block with PAC with aberrancy NM leonardo perf SPECT rest & str 03/2023 Impression: 1. Myocardial perfusion imaging study shows likely normal myocardial perfusion. 2. Gated LVEF is 64% during stress and 65% during rest. 3. Transient ischemic dilatation not present. EKG component of the test reported separately. Assessment and Plan Assessment Anesthesia Assessment: Chart Reviewed Final Anesthetic Review Family History of Problems with Anesthesia: No History of Problems with Anesthesia: No
[2023-03-13] VITALS (11 sets, daily range): BP systolic 142–169; BP diastolic 70–89; PULSE 67–80; RESP 16–20; TEMP 36.2–37.1; O2SAT 93–100
[2023-03-13] MEDS: Lactated Ringers 1,000 ML 100 ML IVCONT (06:41)
--- NOTE | 2023-03-13 07:23 | MHC.SHP ---
Pre-Procedural Eval Section A Date of Service: 03/13/23 The patient is an INPATIENT: No Changes since office visit: Yes Patient answered all questions; No Cold of Flu in the past 2 weeks, No New Medical Problems and No Changes in Medication The History & Physical has been completed within 30 days and I have reviewed it.: Yes Section B Chief Complaint: Unilateral inguinal hernia, without obstruction Allergies: Allergies Allergy/AdvReac Type Severity Reaction Status Date / Time No Known Allergies Allergy Verified 03/13/23 06:11 [No Known Allergies*] Plan Diagnosis/Plan: Unchanged I have reviewed the history and physical and performed a pertinent physical examination on my patient. No changes have occurred unless specified. Time Spent With Patient Time: Total time managing care of this patient today ____ minutes.
--- NOTE | 2023-03-13 07:30 | HO.ANESPROP2 ---
[facility] Active Problems Active Problems: All Active Problems (Updated 03/13/23 @ 06:12 by Danyell Pak RN) Reducible right inguinal hernia (Acute) Hernia (Acute) Anemia (Acute) Right lower quadrant pain (Acute) Smoker (Acute) Pulmonary nodule (Acute) Fatigue (Acute) Low vitamin D level (Acute) Medicare annual wellness visit, subsequent (Acute) Tingling of both feet (Acute) Bilateral leg and foot pain (Acute) Abdominal pain (Acute) Onycholysis of toenail (Acute) Lesion of nose (Acute) Depression (Acute) Tubular adenoma (Acute) Impaired fasting glucose (Acute) Eye pain (Acute) Obesity (BMI 30-39.9) (Acute) Anxiety (Acute) COPD (chronic obstructive pulmonary disease) (Acute) Diabetes mellitus (Acute) Pure hypercholesterolemia (Acute) Diastolic heart failure (Acute) Paroxysmal atrial fibrillation (Acute) Past Medical History Medical History Hx of cancer of lung Hx of radiation therapy History of chemotherapy Hiatal hernia On anticoagulant therapy HTN (hypertension) Tubular adenoma Arthritis Low back pain Diarrhea Oxygen dependent Emphysema/COPD BROWN (dyspnea on exertion) MANJEET (obstructive sleep apnea) Impaired fasting glucose Eye pain Obesity (BMI 30-39.9) Anxiety COPD (chronic obstructive pulmonary disease) Diabetes mellitus Pure hypercholesterolemia Diastolic heart failure Paroxysmal atrial fibrillation Functional capacity: independent ambulation Family History Family History Father Medical history unknown Mother Myocardial infarction Family history of problems with anesthesia: No Surgical History Surgical History History of esophagogastroduodenoscopy (EGD) Deficient knowledge of leg surgery History of surgery History of cardioversion H/O prior ablation treatment History of colonoscopy History of Problems with Anesthesia: No Social History Social History Housing: House Are you a primary complex care nurse to a significant other at home: No Do you presently have visiting nurse or other home services: Yes (respiratory) Alcohol intake: current Alcohol intake frequency: 3 or more drinks per day Alcohol type: beer Patient Tobacco Use Status: Former Tobacco user Quit Date: 2006 Tobacco use type: Cigarette e-Cigarette/Vaping Use: Never Used Second Hand Smoke Exposure: Yes Substance Use Type: Marijuana service: No Current occupational status: retired Cognitive needs: No Hearing needs: No Vision needs: Yes (reading glasses) Meds Allergies Allergy/AdvReac Type Severity Reaction Status Date / Time No Known Allergies Allergy Verified 03/13/23 06:11 [No Known Allergies*] Active Medications: Current Medications Albuterol Sulfate (Albuterol Sulfate (0.083%) 2.5 Mg/3 Ml Vial.Neb) 2.5 mg INHALE ONCE PRN PRN Reason: Shortness of Breath/Wheezing Lactated Ringer's (Lr) 1,000 mls @ 100 mls/hr IVCONT .Q10H SHAWANDA Last Admin: 03/13/23 06:41 Dose: 100 mls/hr Home Medications Medication Instructions Recorded Confirmed Last Taken Type ipratropium 0.5 mg-albuterol 3 mg 3 ml inhalation Q6H PRN Shortness 05/19/20 03/01/23 Unknown History (2.5 mg base)/3 mL nebulization Of Breath soln sertraline 100 mg tablet 50 mg PO DAILY 03/01/23 03/01/23 03/13/23 05:00 History Exam Exam Date and Time: March 13, 2023 0730 Height,Weight and Vital Signs: Height 5 ft 6 in Weight 75.189 kg Last Vital Signs Temp 97.1 F 03/13/23 06:30 Pulse 67 03/13/23 06:30 Resp 16 03/13/23 06:30 BP 142/74 H 03/13/23 06:30 Pulse Ox 95 03/13/23 06:30 O2 Del Method Room Air 03/13/23 06:30 Airway Mallampati Class: III TM Dist: >3cm Neck ROM: Full Heart: RRR Lungs: CTA Assessment and Plan Assessment Anesthesia Assessment: Anesthesia Plan Discussed and Smoking Cess. Discussed Final Anesthetic Review Family History of Problems with Anesthesia: No History of Problems with Anesthesia: No NPO: Yes ASA Class: III Final Preanesthetic Review: Meds/Allgs Chart Reviewed, Consent Obtained/Reviewed and Anes Risks/Benef Reviewed Patient Risk: Intermediate Procedure Risk: Low Anesthetic Plan Anesthetic Plan: GA Disposition: Standard PACU
--- NOTE | 2023-03-13 07:40 | P.OP_ITS ---
Operative Note Operative Note Date of Service: 03/13/23 Narrative: Preoperative diagnosis: Right inguinal hernia Postoperative diagnosis: Same Procedure: Repair of right inguinal hernia with mesh Surgeon: Leopoldo Morin MD Occupational Therapy Asst: Babs Porter PA-C Anesthesia: General LMA Indications for procedure: 72-year-old male patient presenting with a lump in the right groin increasing in size with lifting and straining. On exam he has a reducible right inguinal hernia minimal tenderness to palpation. Operative findings: Patient found to have both a direct and indirect hernia. Specimen: Hernia sac, lipoma of the cord Estimated blood loss: 2 mL Complications: None Procedure details: Patient was brought to the OR and placed in a supine position. After administering general anesthesia the patient's abdomen was prepped with ChloraPrep and draped in a sterile fashion. A surgical time-out was called the consent confirmed. Patient received preoperative antibiotics and Venodyne boots were in place. Local anesthesia was infiltrated over the right inguinal ligament. Incision was then made with a 15 blade and carried out through subcutaneous tissue, past Awais's fashion up to the external oblique aponeurosis. Additional local was infiltrated below the external oblique aponeurosis. This was then incised with the scalpel wide with the Metzenbaum scissors. The spermatic cord was then dissected free from the surrounding inguinal canal and retracted using a Billings drain. A indirect hernia was identified containing fatty tissue. This was imbricated back into the abdominal cavity using interrupted 0 Polysorb sutures. Fibers of the cremaster muscle were then using electrocautery. A large indirect sac was then identified. This was dissected free up to the internal ring. This was then opened and the contents reduced. The sac was then ligated using 0 Polysorb suture and excised. Attention was then directed to the direct space. Fibrosis of the internal oblique and transversalis aponeurosis were then incised between Allis clamps and a preperitoneal space created. This was then widened using an open Ray-Britt sponge. A large extended PHS mesh was then obtained. The circular underlay was deployed within the preperitoneal space. The overlay was then secured the pubic tubercle, conjoined tendon, and shelving edge of the inguinal ligament using a 0 Polysorb suture. A slit was made in the mesh the mesh wrapped around the spermatic cord at the internal ring. This was then secured to the shelving edge of the inguinal ligament using the 0 Polysorb suture. The remaining mesh was placed below the external oblique aponeurosis laterally. Wounds were then irrigated with saline solution and suctioned dry. External oblique aponeurosis was then closed using a running 2-0 Polysorb suture. Awais's fascia and dermis were then reapproximated using interrupted 3-0 Polysorb sutures. Skin was then closed using a running subcuticular 4-0 Polysorb suture. Steri-Strips, 2 x 2 gauze and Tegaderm were then applied. The patient tolerated the procedure well. Sponge, instrument, needle counts reported as correct. The patient was transferred to PACU in stable condition.
[2023-03-13] MEDS: ondansetron HCL 4 MG/2 ML VIAL IVPUSH (09:18)
[2023-03-13] MEDS: fentaNYL citrate/PF 100 MCG/2 ML VIAL 25 MCG IVPUSH (09:35)
--- NOTE | 2023-03-13 10:06 | HO.POSTANES ---
Post Anesthesia Evaluation Post Anesthesia Evaluation Date of Service: 03/13/23 Vital Signs: Vital Signs Temp Pulse Resp BP Pulse Ox O2 Del Method O2 Flow Rate 03/13/23 09:56 74 16 169/70 H 93 Room Air 03/13/23 09:45 98.8 F 72 18 158/80 H 96 Nasal Cannula 2 03/13/23 09:30 71 17 149/89 H 100 Nasal Cannula 2 03/13/23 09:15 97.8 F 72 18 152/77 H 100 Nasal Cannula 2 03/13/23 09:05 97.3 F 69 20 156/70 H 100 Nasal Cannula 2 03/13/23 09:00 97.6 F 80 20 153/76 H 100 Nasal Cannula 2 03/13/23 08:55 74 18 154/76 H 100 Nasal Cannula 2 03/13/23 08:50 78 19 166/80 H 99 Nasal Cannula 2 03/13/23 06:30 97.1 F 67 16 142/74 H 95 Room Air 03/13/23 05:07 72 18 159/70 H 100 Nasal Cannula 2 Anesthesia: General LMA Mental Status: Awake Pain Control: Satisfactory Nausea/Vomiting: None Hydration: Adequate Anesthesia-Related Issues: No Anes. Related Issues
== END 2023-03-13 10:46 | disposition home or self-care (01) ==
PROVIDERS: PCP Internal Medicine; Visit Provider Surgery
PROC: (CPT 49505; principal; 2023-03-13 07:30)
DX: K40.90 Unilateral inguinal hernia, without obstruction or gangrene, not specified as recurrent (principal); D17.6 Benign lipomatous neoplasm of spermatic cord; G47.33 Obstructive sleep apnea (adult) (pediatric); Z85.118 Personal history of other malignant neoplasm of bronchus and lung; Z92.21 Personal history of antineoplastic chemotherapy; Z92.3 Personal history of irradiation; I11.0 Hypertensive heart disease with heart failure; I50.30 Unspecified diastolic (congestive) heart failure; I48.0 Paroxysmal atrial fibrillation; E78.00 Pure hypercholesterolemia, unspecified; E11.9 Type 2 diabetes mellitus without complications; J44.9 Chronic obstructive pulmonary disease, unspecified; Z99.81 Dependence on supplemental oxygen; Z87.891 Personal history of nicotine dependence; Z98.890 Other specified postprocedural states
CPT/HCPCS: 49505; 88302; 88304; C1781; C9088; J0690; J1100; J2250; J2405; J3010

== ENCOUNTER → 2023-03-13 05:50 | Outpatient (BNV) | payer MEDICARE, OTHER, SELFPAY | PROVIDERS: PCP Internal Medicine; Visit Provider Surgery | DX: K40.90 Unilateral inguinal hernia, without obstruction or gangrene, not specified as recurrent (principal) | CPT/HCPCS: 49505 ==

== ENCOUNTER 2023-03-22 10:29 | Outpatient (AMB) | payer MEDICARE, OTHER, SELFPAY ==
--- NOTE | 2023-03-22 10:32 | MHC.OFFVIS ---
Intake Vital Signs 03/22/23 10:40 Height 5 ft 6 in Weight 170 lb 10.205 oz BMI 27.5 BP 120/82 Blood Pressure Location Lt brachial Position Sitting Intake Visit Reasons: S/P RIH w/mesh Intake Note: Patient is seen in office for post op assessment post right inguinal hernia repair. Patient c/o: admits to sore around the incision, denies any other concerns Office Technologist Required: No Accompanied by: Self / Same As Patient Allergies No Known Allergies [No Known Allergies*] Allergy (Verified 03/22/23 10:41) Medication List - Last Reconciled 03/22/23 by Leopoldo Morin MD albuterol sulfate 90 mcg/actuation 2 puffs inhalation Q4H PRN 30 days atorvastatin 40 mg PO BEDTIME cholecalciferol (vitamin D3) 25 mcg PO DAILY dabigatran etexilate 150 mg PO BID diltiazem HCl 120 mg PO DAILY famotidine (Pepcid) 20 mg PO BEDTIME ipratropium-albuterol 0.5 mg-3 mg(2.5 mg base)/3 mL 3 mL inhalation Q6H PRN pantoprazole 40 mg PO QAM sertraline 50 mg PO DAILY HPI HPI Comments History of Present Illness Details 72-year-old male patient returning 1 week following repair of a right inguinal hernia with mesh. He tolerated the procedure well but does note occasional sharp stabbing pain near the incision. This is improving day by day. Denies nausea, vomiting, fever or chills. PFSH Medical History Hx of cancer of lung Hx of radiation therapy History of chemotherapy Hiatal hernia On anticoagulant therapy HTN (hypertension) Tubular adenoma Arthritis Low back pain Diarrhea Oxygen dependent Emphysema/COPD BROWN (dyspnea on exertion) MANJEET (obstructive sleep apnea) Impaired fasting glucose Eye pain Obesity (BMI 30-39.9) Anxiety COPD (chronic obstructive pulmonary disease) Diabetes mellitus Pure hypercholesterolemia Diastolic heart failure Paroxysmal atrial fibrillation Surgical History (Updated 03/21/23 @ 11:54 by ROME Kan) History of right inguinal hernia repair (03/13/23) History of esophagogastroduodenoscopy (EGD) Deficient knowledge of leg surgery History of surgery History of cardioversion H/O prior ablation treatment History of colonoscopy Family History Father Medical history unknown Mother Myocardial infarction Social History Housing: House Are you a primary career representative to a significant other at home: No Do you presently have visiting nurse or other home services: Yes (respiratory) Alcohol intake: current Alcohol intake frequency: 3 or more drinks per day Alcohol type: beer Patient Tobacco Use Status: Former Tobacco user Quit Date: 2006 Tobacco use type: Cigarette e-Cigarette/Vaping Use: Never Used Second Hand Smoke Exposure: Yes Substance Use Type: Marijuana service: No Current occupational status: retired Cognitive needs: No Hearing needs: No Vision needs: Yes (reading glasses) Physical Exam Const General: comfortable and no acute distress Nutritional Appearance: well nourished Orientation/consciousness: patient oriented x3 Limitations: no limitations Resp Effort & Inspection: normal respiratory effort, no audible wheezes, Actively coughing and no respiratory distress GI Other: Well-healed incision in the right groin with surrounding ecchymosis without hematoma or seroma. No changes noted with Valsalva maneuvers. Neuro General: patient oriented x3 Extrem General: Yes normal to inspection Assessment & Plan Assessment & Plan (1) Reducible right inguinal hernia: Code(s): K40.90 - Unilateral inguinal hernia, without obstruction or gangrene, not specified as recurrent Plan Patient returns 1 week following repair of a right inguinal hernia with mesh. He tolerated the procedure well the wounds are healing nicely. He should continue to avoid lifting greater than 10 lb and return in 1 month for follow-up examination. Coding Level of Care Code Global (67159) Diagnoses Reducible right inguinal hernia K40.90
[2023-03-22 10:40] VITALS: BP 120/82; BMI 27.5
== END 2023-03-22 10:45 | disposition home or self-care (01) ==
PROVIDERS: PCP Internal Medicine; Visit Provider Surgery
DX: K40.90 Unilateral inguinal hernia, without obstruction or gangrene, not specified as recurrent (principal)
CPT/HCPCS: 99024

== ENCOUNTER → 2023-03-22 10:29 | Outpatient (BNVA) | payer MEDICARE, OTHER, SELFPAY | PROVIDERS: PCP Internal Medicine; Visit Provider Surgery ==

== ENCOUNTER 2023-04-10 11:46 | Outpatient (AMB) | payer MEDICARE, OTHER, SELFPAY ==
[2023-04-10 11:50] VITALS: BP 142/66; PULSE 81; BMI 27.8
--- NOTE | 2023-04-10 11:50 | MHC.OFFVIS ---
Intake Vital Signs 04/10/23 11:50 Height 5 ft 6 in Weight 171 lb 15.369 oz BMI 27.8 BP 142/66 H Blood Pressure Location Rt brachial Position Sitting Pulse 81 Pulse Source Pulse Oximeter Intake Visit Reasons: 2 month follow up discuss upper endoscopy and colo Intake Note: Patient is here for a 2 months follow up, here to discuss upper endoscopy and colonoscopy Allergies No Known Allergies [No Known Allergies*] Allergy (Verified 04/10/23 11:56) HPI 2 month follow up discuss upper endoscopy and colo HPI Details LAST VISIT: Right lower quadrant pain Right lower quadrant most likely muscle pain. Unable to palpate any hernia. Negative exam. PCP send patient for abdominal CT scan will wait for results. GERD (gastroesophageal reflux disease) Continue current dose of pantoprazole and famotidine. Patient was encouraged to avoid dietary triggers and late night snacking. Staying upright for minimum 3 hours after meals discussed with patient. I will see patient in 2 months to discuss colonoscopy and upper endoscopy. Patient is agreeable to this plan and verbalizes understanding of instructions. He was given the opportunity to ask questions and all questions answered. TODAY'S VISIT Patient is here today for follow-up and to discuss going for upper endoscopy and colonoscopy. Patient would like to postpone both procedure as he recently had inguinal hernia repair. Patient reports that he is feeling better. His symptoms of acid reflux are currently suppressed with pantoprazole and famotidine. Patient however does reports to have occasional loose stools after eating. Patient reports depend on what he eats he will have loose stools, however he does not feel like he has constipation. He feels like he empties his bowels well. Patient denies any nausea or vomiting. Denies any melena, hematochezia, unintentional weight loss or ribbon like stools. [facility] Medical History Hx of cancer of lung Hx of radiation therapy History of chemotherapy Hiatal hernia On anticoagulant therapy HTN (hypertension) Tubular adenoma Arthritis Low back pain Diarrhea Oxygen dependent Emphysema/COPD BROWN (dyspnea on exertion) MANJEET (obstructive sleep apnea) Impaired fasting glucose Eye pain Obesity (BMI 30-39.9) Anxiety COPD (chronic obstructive pulmonary disease) Diabetes mellitus Pure hypercholesterolemia Diastolic heart failure Paroxysmal atrial fibrillation Surgical History History of right inguinal hernia repair (03/13/23) History of esophagogastroduodenoscopy (EGD) Deficient knowledge of leg surgery History of surgery History of cardioversion H/O prior ablation treatment History of colonoscopy Family History Father Medical history unknown Mother Myocardial infarction Social History Housing: House Are you a primary workforce investment act career manager to a significant other at home: No Do you presently have visiting nurse or other home services: Yes (respiratory) Alcohol intake: current Alcohol intake frequency: 3 or more drinks per day Alcohol type: beer Patient Tobacco Use Status: Former Tobacco user Quit Date: 2006 Tobacco use type: Cigarette e-Cigarette/Vaping Use: Never Used Second Hand Smoke Exposure: Yes Substance Use Type: Marijuana service: No Current occupational status: retired Cognitive needs: No Hearing needs: No Vision needs: Yes (reading glasses) Review of Systems Const Denies weight gain and Denies weight loss ENT Reports no additional complaints, Denies dysphagia and Denies odynophagia Card Reports no additional complaints Resp Reports no additional complaints GI Denies abdominal pain, Denies belching, Denies melena, Denies bloating, Denies change in bowel habits, Denies dysphagia, Denies excessive flatus, Denies dyspepsia, Denies heartburn, Denies diarrhea, Reports loose stools, Denies nausea, Denies odynophagia and Denies vomiting Reports no additional complaints Musc Reports no additional complaints Neuro Reports no additional complaints Psych Reports no additional complaints Endo Reports no additional complaints Physical Exam Vital Signs: Last Vital Signs Pulse 81 04/10/23 11:50 BP 142/66 H 04/10/23 11:50 BMI result Body Mass Index 27.8 Const General: healthy appearing, no acute distress and well developed Nutritional Appearance: well nourished Orientation/consciousness: patient oriented x3 HEENT Head: Yes normal to inspection, Yes normocephalic and Yes atraumatic Face and sinus: Yes normal facial exam Mouth: Normal oral and palatal mucosa present Throat: Yes posterior oropharynx normal, Yes tonsils normal and Yes uvula midline Eyes General: appearance normal, both eyes and all related structures Neck Neck: Yes normal visual inspection, Yes full ROM and Yes trachea midline Thyroid: Thyroid normal Resp Effort & Inspection: normal respiratory effort, able to speak in complete sentences, no tracheal deviation and symmetric chest movement Auscultation: clear to auscultation bilaterally Cardio Rate: regular rate Heart sounds: S1 normal heart sound present and S2 normal heart sound present GI Inspection: Yes normal to inspection and No distended Palpation (GI): Soft to palpation, not firm, nontender and No hepatosplenomegaly present Auscultation: normal bowel sounds General: Yes no CVA tenderness Back/Spine/Pelvis Back: no CVA tenderness Skin General skin exam: elasticity normal, turgor normal and dry skin Neuro General: patient oriented x3 Psych Appearance: grossly normal Mental Status: mental status grossly normal Results Reviewed Results Reviewed: ABDOMINAL CT SCAN FINDINGS: LUNG BASES: The visualized lung bases are unremarkable. LIVER, GALLBLADDER, AND BILIARY TREE: The liver is normal in size, shape, and attenuation. No focal hepatic lesion or biliary ductal dilatation is present. A tiny layering gallstones seen (4:198), without gallbladder wall thickening or obvious pericholecystic inflammatory change. PANCREAS: Unremarkable. SPLEEN: Again, there are small hypodensities within the spleen, which are too small to fully characterize with CT. The interim stability is reassuring. ADRENAL GLANDS: Unremarkable. KIDNEYS AND URETERS: The kidneys are normal in size, shape, and attenuation. No hydronephrosis, hydroureter or calculi seen. There are 2 stable bilateral subcentimeter low-attenuation probable cysts, too small to fully characterize with CT. These are of doubtful clinical significance, and they require no imaging follow-up. No perinephric stranding. BLADDER: Unremarkable. GASTROINTESTINAL TRACT: There is moderate diverticulosis, without acute diverticulitis. No bowel obstruction, free intraperitoneal air or abscess is seen. There is no focal bowel wall thickening. The vermiform appendix appears normal. ABDOMINAL WALL: There are small fat-containing umbilical and bilateral inguinal hernia defects. LYMPH NODES: Normal. VASCULAR: There is moderate aortoiliac atherosclerotic calcification. No abdominal aortic aneurysm or dissection is seen. PELVIC VISCERA: The prostate and seminal vesicles are unremarkable. 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 No acute or aggressive osseous abnormality is seen. CT/CT abdomen pelvis w IV con IMPRESSION: 1. There is minimal cholelithiasis. 2. There are stable small splenic hypodensities, too small to fully characterize with CT. These likely represent small cysts or benign hemangiomas, and they are of doubtful clinical significance. 3. No abdominopelvic mass, free fluid or lymphadenopathy is seen. 4. There is moderate diverticulosis, without acute diverticulitis. 5. There are small fat-containing umbilical and bilateral hernias. 6. There is multi-level degenerative change of the thoracolumbar spine. No acute or aggressive osseous finding is noted. Assessment & Plan Assessment & Plan (1) Right lower quadrant pain: Code(s): R10.31 - Right lower quadrant pain (2) GERD (gastroesophageal reflux disease): Code(s): K21.9 - Gastro-esophageal reflux disease without esophagitis Qualifiers: Esophagitis presence: esophagitis presence not specified Qualified Code(s): K21.9 - Gastro-esophageal reflux disease without esophagitis (3) IBS (irritable bowel syndrome): Code(s): K58.9 - Irritable bowel syndrome without diarrhea Qualifiers: Irritable bowel syndrome type: with both diarrhea and constipation Qualified Code(s): K58.2 - Mixed irritable bowel syndrome Plan Patient's right lower quadrant pain was likely related to postsurgical discomfort. Patient reports that is not related to food. Patient will continue taking pantoprazole in the morning half an hour before breakfast and famotidine at bedtime. Patient was encouraged to take Citrucel to help him bulk his stools. Avoid dietary triggers. List of food recommended as well as list of food to avoid given to patient. Low FODMAP diet discussed with him. Patient will see me in 4 months, sooner on as needed basis. Patient is agreeable to this plan and verbalizes understanding of instructions. He knows that next visit we will discuss going for upper endoscopy and colonoscopy. He was given the opportunity to ask questions and all questions answered. Thank you for allowing me to participate in his care Medications: New methylcellulose (laxative) (Citrucel) take it with full glass of water 500 mg PO DAILY 90 tabs 2RF K59.00 - Constipation, unspecified Refilled pantoprazole 40 mg PO QAM 90 tabs 2RF famotidine (Pepcid) 20 mg PO BEDTIME 90 tabs 3RF K21.9 - Gastro-esophageal reflux disease without esophagitis Coding Level of Care Code Est Pt Level 4 (44401) Diagnoses Right lower quadrant pain R10.31 Gastroesophageal reflux disease, unspecified whether esophagitis present K21.9 Esophagitis presence: esophagitis presence not specified Irritable bowel syndrome with both constipation and diarrhea K58.2 Irritable bowel syndrome type: with both diarrhea and constipation Time Spent (min) 35 Comment 20 minutes spent with patient and additional 15 minutes spent reviewing his records
== END 2023-04-10 12:23 | disposition home or self-care (01) ==
PROVIDERS: PCP Internal Medicine; Visit Provider Nurse Practitioner Family
DX: R10.31 Right lower quadrant pain (principal); K21.9 Gastro-esophageal reflux disease without esophagitis; K58.2 Mixed irritable bowel syndrome
CPT/HCPCS: 99214

== ENCOUNTER → 2023-04-10 11:46 | Outpatient (BNVA) | payer MEDICARE, OTHER, SELFPAY | PROVIDERS: PCP Internal Medicine; Visit Provider Nurse Practitioner Family | DX: K21.9 Gastro-esophageal reflux disease without esophagitis (principal); K58.2 Mixed irritable bowel syndrome; R10.31 Right lower quadrant pain | CPT/HCPCS: 99212 ==

== ENCOUNTER 2023-04-23 21:03 | Emergency (ER) | payer MEDICARE, OTHER, SELFPAY ==
--- NOTE | 2023-04-23 | ECG_ITS ---
Test Reason : SOB Blood Pressure : / mmHG Vent. Rate : 088 BPM Atrial Rate : 088 BPM P-R Int : 154 ms QRS Dur : 140 ms QT Int : 390 ms P-R-T Axes : 084 076 053 degrees QTc Int : 471 ms Normal sinus rhythm Right bundle branch block Abnormal ECG When compared with ECG of 14-OCT-2021 03:59, Right bundle branch block is now Present Referred By: Generic ED Physician Electronically Signed By:NIKKY GOODEN MD
--- NOTE | ~2023-04-23 | XR_ITS ---
EXAMINATION: XR CHEST CLINICAL INFORMATION: Shortness of breath. COMPARISON: 04/24/2019. TECHNIQUE: 2 views of the chest were obtained. FINDINGS: The cardiomediastinal silhouette is within normal limits and stable. There is no focal lung consolidation or pleural effusion. The bony structures and soft tissues are unremarkable. XR/XR chest 2V IMPRESSION: No active cardiopulmonary disease.
[2023-04-23 21:17] VITALS: BP 113/80; PULSE 94; RESP 20; TEMP 36.4; O2SAT 93; BMI 26.6
[2023-04-23 21:51] LABS: MANUAL DIFF FLAG NO
[2023-04-23 21:54] LABS: Basophils Percent Auto 0.5 % (0-2); Eosinophils Absolute Auto 0.5 X10*3/uL (0.0-0.4); Eosinophils Percent Auto 5.9 % (0-4); Hematocrit 40.7 % (42.0-52.0); Hemoglobin 13.5 g/dl (14.0-18.0); Imm Gran Abs Auto 0.03 X10*3/uL (0.00-0.03); Imm Gran Pct Auto 0.4 % (0.0-0.4); Lymphocytes Absolute Auto 0.6 X10*3/uL (1.2-4.9); Lymphocytes Percent Auto 6.9 % (20-40); Mean Corpuscular HGB Conc 33.2 g/dl (31.0-36.0); Mean Corpuscular Volume 93.3 fL (80.0-98.0); Mean Platelet Volume 8.2 fL (9.4-12.4); Monocytes Absolute Auto 0.8 X10*3/uL (0.1-1.2); Monocytes Percent Auto 10.2 % (2-11); Neutrophils Absolute Auto 6.2 x10*3/uL (2.0-8.3); Neutrophils Percent Auto 76.1 % (45-73); Platelet Count 235 X10*3/uL (160-400); Red Blood Count 4.36 X10*6/uL (4.60-5.80); Red Cell Distribution Width 14.2 % (11.0-16.0); White Blood Count 8.1 X10*3/uL (4.8-10.8)
[2023-04-23 22:10] LABS: Anion Gap 14 (12-20); Blood Urea Nitrogen 20 mg/dL (9-16); Calcium 9.9 mg/dL (8.4-10.2); Carbon Dioxide 27 mmol/L (22-29); Chloride 103 mmol/L (96-108); Creatinine Clr Calc Pharmacy 77.1; Estimated Glomerular Filt Rate > 60; Glucose Random 110 mg/dL (60-115); Potassium 4.1 mmol/L (3.3-5.1); Sodium 140 mmol/L (135-145)
[2023-04-24 00:08] LABS: Influenza A PCR NEGATIVE (Negative); Influenza B PCR NEGATIVE (Negative); Resp Syncy Virus RNA Qual PCR NEGATIVE (Negative); SARS COV2 PCR INHOUSE NEGATIVE (Negative)
[2023-04-24 01:20] VITALS: BP 146/62; PULSE 74; RESP 22; TEMP 36.6; O2SAT 92
[2023-04-24 01:22] VITALS: O2SAT 93
[2023-04-24 02:17] VITALS: BP 140/69; PULSE 75; RESP 24; TEMP 36.7; O2SAT 96
[2023-04-24] MEDS: Albuterol Sulfate 5 MG, Albuterol/Iprat 2.5/0.5MG 3 ML 3 ML INHALE (03:47)
[2023-04-24 03:50] VITALS: PULSE 75; RESP 18; O2SAT 96
--- NOTE | 2023-04-24 04:01 | PC.NURSE ---
PT alert and oriented. Reports onset of SOB in which it causes him to become incontinent. PT has a history of COPD and episodes of difficulty breathing but notes this episode is different. Patient currently resting comfortably in no acute distress. No labored breathing noted. Wheezing noted in bilateral upper lobes. VSS- PT uses PRN o2 supplementation at home. Although his 02 sat was 92% he noted he would feel better with it on at this time. Call rodriguez within reach. Plan of care ongoing
[2023-04-24 04:26] LABS: Venous Blood Gas Refer to POC result
[2023-04-24 04:27] LABS: VBG Base Excess 0.7 mmol/L; VBG HCO3 21 mmol/L (22-26); VBG pCO2 24 mmHg; VBG pH 7.54 (7.32-7.43); VBG pO2 224 mmHg
--- NOTE | 2023-04-24 04:46 | PC.NURSE ---
Ambulation trial around the ED, Pt maintained sats between 90-95%, with a steady gait. Provider made aware.
--- NOTE | 2023-04-24 05:06 | ED_ITS ---
HPI - SOB/Dyspnea General Chief Complaint: Dyspnea Stated Complaint: couldnt breath Time Seen by Provider: 04/24/23 02:03 Source: patient Mode of arrival: ambulatory History of Present Illness HPI Narrative: 72-year-old male presents with complaints of an episode of shortness of breath when he attempted to get up from his recliner and go to bed and then states that he felt like he could not take a breath and felt dizzy . Patient states that he uses home oxygen and did not have his oxygen on at that time. He denies any associated chest pain/palpitations and denies any recent cough, sore throat, fevers, chills. Patient reports that he was placed on oxygen and improved and that he feels much better at this time. Patient also endorses that he continues to smoke marijuana daily and has recently been undergoing treatment for cancer. He reports known COPD. Related Data Home Medications Medication Instructions Recorded Confirmed ipratropium 0.5 mg-albuterol 3 mg 3 ml inhalation Q6H PRN Shortness 05/19/20 03/22/23 (2.5 mg base)/3 mL nebulization Of Breath soln Previous Rx's Medication Instructions Recorded albuterol sulfate 90 mcg/actuation 2 puff inhalation Q4H PRN 04/23/22 aerosol inhaler shortness of breath or wheezing 30 days #8.5 grams cholecalciferol (vitamin D3) 25 25 mcg PO DAILY #90 tabs 08/24/22 mcg (1,000 unit) tablet atorvastatin 40 mg tablet 40 mg PO BEDTIME #90 tabs 10/10/22 dabigatran etexilate 150 mg capsule 150 mg PO BID #180 caps 11/19/22 diltiazem HCl 120 mg 120 mg PO DAILY #90 caps 02/04/23 capsule,extended release 24 hr famotidine 20 mg tablet (Pepcid) 20 mg PO BEDTIME #90 tabs 04/10/23 methylcellulose (laxative) 500 mg 500 mg PO DAILY #90 tabs 04/10/23 tablet (Citrucel) lansoprazole 30 mg capsule,delayed 30 mg PO DAILY #30 caps 04/16/23 release prednisone 50 mg tablet 50 mg PO DAILY 4 days #4 tabs 04/24/23 Allergies Allergy/AdvReac Type Severity Reaction Status Date / Time No Known Allergies Allergy Verified 04/10/23 11:56 [No Known Allergies*] Review of Systems 2 Review of Systems: Pertinent positives and negatives as stated in HPI [facility] Past Medical History Source: nursing notes reviewed Medical History Hx of cancer of lung Hx of radiation therapy History of chemotherapy Hiatal hernia On anticoagulant therapy HTN (hypertension) Tubular adenoma Arthritis Low back pain Diarrhea Oxygen dependent Emphysema/COPD BROWN (dyspnea on exertion) MANJEET (obstructive sleep apnea) Impaired fasting glucose Eye pain Obesity (BMI 30-39.9) Anxiety COPD (chronic obstructive pulmonary disease) Diabetes mellitus Pure hypercholesterolemia Diastolic heart failure Paroxysmal atrial fibrillation Surgical History History of right inguinal hernia repair (03/13/23) History of esophagogastroduodenoscopy (EGD) Deficient knowledge of leg surgery History of surgery History of cardioversion H/O prior ablation treatment History of colonoscopy Family History Family History Father Medical history unknown Mother Myocardial infarction Social History Social History Housing: House Are you a primary career coordinator to a significant other at home: No Do you presently have visiting nurse or other home services: Yes (respiratory) Alcohol intake: current Alcohol intake frequency: 3 or more drinks per day Alcohol type: beer Patient Tobacco Use Status: Former Tobacco user Quit Date: 2006 Tobacco use type: Cigarette Smoked in Last 30 Days: Yes e-Cigarette/Vaping Use: Never Used Second Hand Smoke Exposure: Yes Use of substances other than those prescribed or required for medical reasons: Yes Substance Use Type: Marijuana Substance Use Frequency: Daily Advance Directives: No Advance Directives Information Provided: No service: No Current occupational status: retired Cognitive needs: No Hearing needs: No Vision needs: Yes (reading glasses) Physical Exam 2 Vital Signs: Vital Signs: Last Vital Signs Temp 98.0 F 04/24/23 02:17 Pulse 75 04/24/23 03:50 Resp 18 04/24/23 03:50 BP 140/69 H 04/24/23 02:17 Pulse Ox 96 04/24/23 02:17 O2 Del Method Nasal Cannula 04/24/23 02:17 O2 Flow Rate 2 04/24/23 02:17 Oxygen Flow Rate 2 04/23/23 21:17 BMI result Body Mass Index 26.6 VITAL SIGNS: Reviewed. GENERAL: Well developed, well nourished, in no acute distress. HEAD: Normocephalic/atraumatic EYES: PERRLA, EOMI EARS: Ext canals without abnormality NOSE: Nares patent bilateral OROPHARYNX: no oral lesions noted, posterior pharynx clear NECK: Supple, no adenopathy LUNGS: Normal breath sounds. No adventitious sounds or accessory muscle use. SpO2<96> 1 L via nasal cannula CARDIOVASCULAR: Regular rate and rhythm without noted murmurs, no JVD or lower extremity edema. ABDOMEN: Soft, non-tender, non-distended with bowel sounds. MUSCULOSKELETAL: No tenderness, deformities, or effusions noted on gross inspection. EXTREMITIES: No cyanosis, clubbing or edema. SKIN: Inspection of the skin reveals no rashes NEUROLOGIC: Alert and oriented x 4. Strength and sensation to light touch were grossly intact x 4. Medications Administered Discontinued Medications Generic Name Dose Route Start Last Admin Trade Name Freq PRN Reason Stop Dose Admin Albuterol Sulfate 5 mg/ 0 mg 04/24/23 03:39 04/24/23 03:47 Albuterol/Ipratropium 3 ml INHALE 04/24/23 03:40 7.5 each ONCE ONE Administration Medical Decision Making Medical Decision Making MDM Narrative: This is a 72-year-old male with history and clinical presentation of chronic anticoagulation as well as a history of COPD with supplemental oxygen requirements that he was not using the time that he became short of breath. Likely MANJEET verses COPD symptoms although suspect some transient etiology as he reports being completely asymptomatic present. I reviewed all investigations which do not demonstrate any leukocytosis and there is a chronically stable normocytic anemia without thrombocytopenia. ABG does not demonstrate any respiratory acidosis and no evidence of hypercapnia. Chemistry indices a negative for gross abnormalities as there is no JOHANNE and no electrolyte derangements. Viral eg testing for influenza and RSV/COVID are negative. Chest x-ray negative for infiltrate and otherwise my interpretation is in agreement with radiology's impression. Although patient is completely asymptomatic at this time a walk test was conducted and he is noted to continue to oxygenating well on ambulation. In addition, patient has a follow-up appointment with his meter and service line inspector today. Patient will be placed on a short course of steroids. Differential Diagnosis Differential Diagnoses: The differential diagnosis associated with the presentation includes Please see the discussion above Admission/Observation Consideration of admission/observation: Escalation of care including admission/observation considered Please see the discussion above Lab Data MDM Lab Attestation statement: I reviewed the patient's lab results. Please see the discussion above 04/23/23 21:45 04/23/23 21:45 Labs: Lab Results 04/23/23 04/24/23 Range/Units 21:45 04:21 WBC 8.1 (4.8-10.8) X10*3/uL RBC 4.36 L (4.60-5.80) X10*6/uL Hgb 13.5 L (14.0-18.0) g/dl Hct 40.7 L (42.0-52.0) % MCV 93.3 (80.0-98.0) fL MCH 31.0 (27.0-33.0) pg MCHC 33.2 (31.0-36.0) g/dl RDW 14.2 (11.0-16.0) % Plt Count 235 (160-400) X10*3/uL MPV 8.2 L (9.4-12.4) fL Immature Gran % (Auto) 0.4 (0.0-0.4) % Neut % (Auto) 76.1 H (45-73) % Lymph % (Auto) 6.9 L (20-40) % [place] % (Auto) 10.2 (2-11) % Eos % (Auto) 5.9 H (0-4) % Baso % (Auto) 0.5 (0-2) % Lymph # (Auto) 0.6 L (1.2-4.9) X10*3/uL [place] # (Auto) 0.8 (0.1-1.2) X10*3/uL Eos # (Auto) 0.5 H (0.0-0.4) X10*3/uL Baso # (Auto) 0.0 (0.0-0.2) X10*3/uL Abs Immat Gran (auto) 0.03 (0.00-0.03) X10*3/uL Absolute Neuts (auto) 6.2 (2.0-8.3) x10*3/uL Absolute Nucleated RBC 0.000 (0.0-0.012) X10*3/uL Nucleated RBC % (auto) 0.0 (0.0-0.2) /100WBC VBG pH 7.54 H (7.32-7.43) VBG pCO2 24 mmHg VBG pO2 224 mmHg VBG HCO3 21 L (22-26) mmol/L VBG O2 Saturation 99.0 % VBG Base Excess 0.7 mmol/L Sodium 140 (135-145) mmol/L Potassium 4.1 (3.3-5.1) mmol/L Chloride 103 (96-108) mmol/L Carbon Dioxide 27 (22-29) mmol/L Anion Gap 14 (12-20) BUN 20 H (9-16) mg/dL Creatinine 0.77 (0.5-1.4) mg/dL Estim Creat Clear Calc 77.1 Estimated GFR > 60 Random Glucose 110 (60-115) mg/dL Calcium 9.9 (8.4-10.2) mg/dL Influenza Type A (PCR) NEGATIVE (Negative) Influenza Type B (PCR) NEGATIVE (Negative) RSV RNA Qual (PCR) NEGATIVE (Negative) SARS-CoV-2 RNA (RT-PCR) NEGATIVE (Negative) Independent Interpretation I performed an independent interpretation of an: EKG Interpretation: Normal sinus rhythm, HR-88, RBBB at baseline (03/13/23), no STEMI, [place]/QTC are within normal limits. Radiology Impression Discussion of test interpretation with radiology: I have reviewed the radiologist's reading. Radiologist Impression: Please see the discussion above External Record Review External record reviewed: Outpatient record, Prior outpatient labs and Prior outpatient radiology Chronic Conditions Patient?s care impacted by: Other COPD Discharge Plan Discharge Clinical Impression: COPD (chronic obstructive pulmonary disease) Patient Disposition: Home, Self-Care Instructions: COPD (Chronic Obstructive Pulmonary Disease) (ED) Additional Instructions: 1. Resume all home medications as prescribed. 2. Complete the short course of steroids that you have been prescribed. I highly recommend that you use your home oxygen as prescribed by your physician. 3. Please keep your appointment today with your meter and service line inspector. Return to the ER for any worsening symptoms. Prescriptions: New prednisone 50 mg tablet 50 mg PO DAILY 4 Days Qty: 4 0RF No Action atorvastatin 40 mg tablet 40 mg PO BEDTIME Qty: 90 1RF dabigatran etexilate 150 mg capsule 150 mg PO BID Qty: 180 3RF diltiazem HCl 120 mg capsule,extended release 24hr 120 mg PO DAILY Qty: 90 3RF lansoprazole 30 mg capsule,delayed release(DR/EC) 30 mg PO DAILY Qty: 30 3RF ipratropium-albuterol 0.5 mg-3 mg(2.5 mg base)/3 mL solution for nebulization 3 ml inhalation Q6H PRN (Reason: Shortness Of Breath) albuterol sulfate 90 mcg/actuation HFA aerosol inhaler 2 puff inhalation Q4H PRN (Reason: shortness of breath or wheezing) 30 Days Qty: 8.5 12RF cholecalciferol (vitamin D3) 25 mcg (1,000 unit) tablet 25 mcg PO DAILY Qty: 90 3RF famotidine [Pepcid] 20 mg tablet 20 mg PO BEDTIME Qty: 90 3RF Citrucel 500 mg tablet 500 mg PO DAILY Qty: 90 2RF Rx Instructions: take it with full glass of water Referrals: Yoseph Acevedo MD [Primary Care Provider] -
[2023-04-24] MEDS: predniSONE 10 MG TABLET 50 MG PO (07:55)
== END 2023-04-24 08:15 | disposition home or self-care (01) ==
PROVIDERS: Emergency Provider Student in an Organized Health Care Education/Training Program; PCP Internal Medicine
DX: J44.9 Chronic obstructive pulmonary disease, unspecified (principal); R06.02 Shortness of breath; Z20.822 Contact with and (suspected) exposure to COVID-19; Z20.828 Contact with and (suspected) exposure to other viral communicable diseases; E11.9 Type 2 diabetes mellitus without complications; I10 Essential (primary) hypertension; E78.00 Pure hypercholesterolemia, unspecified; I48.0 Paroxysmal atrial fibrillation; F12.90 Cannabis use, unspecified, uncomplicated; Z99.81 Dependence on supplemental oxygen; Z85.118 Personal history of other malignant neoplasm of bronchus and lung; Z92.21 Personal history of antineoplastic chemotherapy; Z92.3 Personal history of irradiation; Z87.891 Personal history of nicotine dependence; Z79.899 Other long term (current) drug therapy; Z79.01 Long term (current) use of anticoagulants
CPT/HCPCS: 0241U; 36415; 71046; 80048; 82803; 85025; 93005; 94640; 99284; 99285

== ENCOUNTER 2023-04-26 11:30 | Outpatient (AMB) | payer MEDICARE, OTHER, SELFPAY ==
--- NOTE | 2023-04-26 11:48 | MHC.OFFVIS ---
Intake Vital Signs 04/26/23 11:54 Height 5 ft 6 in Weight 174 lb 4 oz BMI 28.1 BP 121/81 Blood Pressure Location Lt brachial Position Sitting Pulse 86 Intake Visit Reasons: 1 mth follow up RIH w/mesh Intake Note: Patient is seen in office for one month follow up visit, post RIH repair. Patient c/o: minimal pain in the area, denies any other concerns Buggy Ladle Tender Required: No Accompanied by: Self / Same As Patient Allergies No Known Allergies [No Known Allergies*] Allergy (Verified 04/26/23 11:54) Medication List - Last Reconciled 04/26/23 by Leopoldo Morin MD albuterol sulfate 90 mcg/actuation 2 puffs inhalation Q4H PRN 30 days atorvastatin 40 mg PO BEDTIME cholecalciferol (vitamin D3) 25 mcg PO DAILY dabigatran etexilate 150 mg PO BID diltiazem HCl 120 mg PO DAILY famotidine (Pepcid) 20 mg PO BEDTIME ipratropium-albuterol 0.5 mg-3 mg(2.5 mg base)/3 mL 3 mL inhalation Q6H PRN lansoprazole 30 mg PO DAILY methylcellulose (laxative) (Citrucel) 500 mg PO DAILY prednisone 50 mg PO DAILY 4 days HPI HPI Comments History of Present Illness Details 72-year-old male patient returning 1 month following repair of a right inguinal hernia with mesh. He returns today for a final postoperative check. He reports occasional discomfort when pressing on the incision but otherwise feels much improved. He is having problems with his breathing and was recently in the emergency department for treatment of this. He is currently on prednisone. [facility], [facility] Medical History Hx of cancer of lung Hx of radiation therapy History of chemotherapy Hiatal hernia On anticoagulant therapy HTN (hypertension) Tubular adenoma Arthritis Low back pain Diarrhea Oxygen dependent Emphysema/COPD BROWN (dyspnea on exertion) MANJEET (obstructive sleep apnea) Impaired fasting glucose Eye pain Obesity (BMI 30-39.9) Anxiety COPD (chronic obstructive pulmonary disease) Diabetes mellitus Pure hypercholesterolemia Diastolic heart failure Paroxysmal atrial fibrillation Surgical History History of right inguinal hernia repair (03/13/23) History of esophagogastroduodenoscopy (EGD) Deficient knowledge of leg surgery History of surgery History of cardioversion H/O prior ablation treatment History of colonoscopy Family History Father Medical history unknown Mother Myocardial infarction Social History Housing: House Are you a primary career developer to a significant other at home: No Do you presently have visiting nurse or other home services: Yes (respiratory) Alcohol intake: current Alcohol intake frequency: 3 or more drinks per day Alcohol type: beer Patient Tobacco Use Status: Former Tobacco user Quit Date: 2006 Tobacco use type: Cigarette e-Cigarette/Vaping Use: Never Used Second Hand Smoke Exposure: Yes Substance Use Type: Marijuana service: No Current occupational status: retired Cognitive needs: No Hearing needs: No Vision needs: Yes (reading glasses) Physical Exam Vital Signs: Last Vital Signs Pulse 86 04/26/23 11:54 BP 121/81 04/26/23 11:54 BMI result Body Mass Index 28.1 Const General: comfortable and no acute distress Nutritional Appearance: well nourished Orientation/consciousness: patient oriented x3 Limitations: no limitations Resp Effort & Inspection: normal respiratory effort, no audible wheezes, Actively coughing and no respiratory distress GI Other: Well-healed incision in the right groin without redness or discharge. No hernias noted with Valsalva maneuvers. Skin Other: Warm, dry, no rash Neuro General: patient oriented x3 Extrem General: Yes normal to inspection Assessment & Plan Assessment & Plan (1) Reducible right inguinal hernia: Code(s): K40.90 - Unilateral inguinal hernia, without obstruction or gangrene, not specified as recurrent Plan 72-year-old male patient status post repair of right inguinal hernia with mesh. He tolerated the procedure well and his wounds are healing nicely. He may resume normal activity without restrictions and should follow up as needed. Coding Level of Care Code Global (10293) Diagnoses Reducible right inguinal hernia K40.90
[2023-04-26 11:54] VITALS: BP 121/81; PULSE 86; BMI 28.1
== END 2023-04-26 12:23 | disposition home or self-care (01) ==
PROVIDERS: PCP Internal Medicine; Visit Provider Surgery
DX: K40.90 Unilateral inguinal hernia, without obstruction or gangrene, not specified as recurrent (principal)
CPT/HCPCS: 99024

== ENCOUNTER → 2023-04-26 11:30 | Outpatient (BNVA) | payer MEDICARE, OTHER, SELFPAY | PROVIDERS: PCP Internal Medicine; Visit Provider Surgery ==

== ENCOUNTER 2023-06-17 09:10 | Outpatient (REF) | payer MEDICARE, OTHER, SELFPAY ==
[2023-06-17 11:27] LABS: MANUAL DIFF FLAG NO
[2023-06-17 11:36] LABS: Basophils Absolute Auto 0.1 X10*3/uL (0.0-0.2); Basophils Percent Auto 1.1 % (0-2); Eosinophils Absolute Auto 0.2 X10*3/uL (0.0-0.4); Eosinophils Percent Auto 4.3 % (0-4); Hematocrit 43.6 % (42.0-52.0); Hemoglobin 14.5 g/dl (14.0-18.0); Imm Gran Abs Auto 0.01 X10*3/uL (0.00-0.03); Imm Gran Pct Auto 0.2 % (0.0-0.4); Lymphocytes Absolute Auto 0.6 X10*3/uL (1.2-4.9); Lymphocytes Percent Auto 11.2 % (20-40); Mean Corpuscular HGB Conc 33.3 g/dl (31.0-36.0); Mean Corpuscular Hemoglobin 30.2 pg (27.0-33.0); Mean Corpuscular Volume 90.8 fL (80.0-98.0); Mean Platelet Volume 8.8 fL (9.4-12.4); Monocytes Absolute Auto 0.7 X10*3/uL (0.1-1.2); Monocytes Percent Auto 12.6 % (2-11); Neutrophils Absolute Auto 3.9 x10*3/uL (2.0-8.3); Neutrophils Percent Auto 70.6 % (45-73); Platelet Count 247 X10*3/uL (160-400); Red Cell Distribution Width 15.6 % (11.0-16.0); White Blood Count 5.6 X10*3/uL (4.8-10.8)
[2023-06-17 11:59] LABS: Alanine Aminotransferase 18 U/L (0-40); Albumin Level 4.1 g/dL (3.5-5.0); Alkaline Phosphatase 35 U/L (39-117); Anion Gap 13 (12-20); Aspartate Amino Transferase 17 U/L (5-37); Bilirubin Total 0.4 mg/dL (0.0-1.0); Blood Urea Nitrogen 16 mg/dL (9-16); Calcium 10.1 mg/dL (8.4-10.2); Carbon Dioxide 28 mmol/L (22-29); Chloride 104 mmol/L (96-108); Estimated Glomerular Filt Rate > 60; Glucose Random 107 mg/dL (60-115); Potassium 4.1 mmol/L (3.3-5.1); Sodium 141 mmol/L (135-145); Total Protein 7.3 g/dL (6.5-8.0)
== END 2023-06-17 09:11 | disposition home or self-care (01) ==
LOC: HO.WFDLDS 09:10
PROVIDERS: Visit Provider Internal Medicine Hematology & Oncology
DX: C34.90 Malignant neoplasm of unspecified part of unspecified bronchus or lung (principal)
CPT/HCPCS: 36415; 80053; 85025

== ENCOUNTER 2023-06-22 14:39 | Emergency (ER) | payer MEDICARE, OTHER, SELFPAY ==
--- NOTE | ~2023-06-22 | XR_ITS ---
EXAMINATION: XR CHEST CLINICAL INFORMATION: SOB COMPARISON: None available. TECHNIQUE: 2 views of the chest were obtained. FINDINGS: The lungs are well-expanded and clear. Heart size and pulmonary vascularity is normal. No gross bony abnormality seen. XR/XR chest 2V IMPRESSION: Unremarkable chest examination.
[2023-06-22 14:42] VITALS: BP 157/65; PULSE 86; RESP 22; TEMP 36.8; O2SAT 96; BMI 27.4
--- NOTE | 2023-06-22 14:42 | ED_ITS ---
HPI - General Adult General Chief complaint: Dyspnea Stated complaint: diff breathing Time Seen by Provider: 06/22/23 14:50 Source: patient Mode of arrival: ambulatory History of Present Illness HPI narrative: 72-year-old male with known COPD as well as a history of lung CA and continues to smoke reports 3 days of worsening shortness of breath and only supposed to use supplemental oxygen at night but today reports that he was unable to take any more the shortness of breath. He denies any fevers or chills. Related Data Home Medications Medication Instructions Recorded Confirmed ipratropium 0.5 mg-albuterol 3 mg 3 ml inhalation Q6H PRN Shortness 05/19/20 04/26/23 (2.5 mg base)/3 mL nebulization Of Breath soln Previous Rx's Medication Instructions Recorded cholecalciferol (vitamin D3) 25 25 mcg PO DAILY #90 tabs 08/24/22 mcg (1,000 unit) tablet dabigatran etexilate 150 mg capsule 150 mg PO BID #180 caps 11/19/22 diltiazem HCl 120 mg 120 mg PO DAILY #90 caps 02/04/23 capsule,extended release 24 hr famotidine 20 mg tablet (Pepcid) 20 mg PO BEDTIME #90 tabs 04/10/23 methylcellulose (laxative) 500 mg 500 mg PO DAILY #90 tabs 04/10/23 tablet (Citrucel) lansoprazole 30 mg capsule,delayed 30 mg PO DAILY #30 caps 04/16/23 release prednisone 50 mg tablet 50 mg PO DAILY 4 days #4 tabs 04/24/23 albuterol sulfate 90 mcg/actuation 2 puff inhalation Q4H PRN 04/26/23 aerosol inhaler shortness of breath or wheezing 30 days #8.5 grams atorvastatin 40 mg tablet 40 mg PO BEDTIME #90 tabs 04/26/23 amoxicillin 875 mg-potassium 1 tab PO BID 7 days #14 tabs 06/22/23 clavulanate 125 mg tablet prednisone 50 mg tablet 50 mg PO DAILY 4 days #4 tabs 06/22/23 Allergies Allergy/AdvReac Type Severity Reaction Status Date / Time No Known Allergies Allergy Verified 04/26/23 11:54 [No Known Allergies*] Review of Systems 2 Review of Systems: Pertinent positives and negatives as stated in HPI [facility] Past Medical History Source: nursing notes reviewed Medical History Hx of cancer of lung Hx of radiation therapy History of chemotherapy Hiatal hernia On anticoagulant therapy HTN (hypertension) Tubular adenoma Arthritis Low back pain Diarrhea Oxygen dependent Emphysema/COPD BROWN (dyspnea on exertion) MANJEET (obstructive sleep apnea) Impaired fasting glucose Eye pain Obesity (BMI 30-39.9) Anxiety COPD (chronic obstructive pulmonary disease) Diabetes mellitus Pure hypercholesterolemia Diastolic heart failure Paroxysmal atrial fibrillation Surgical History History of right inguinal hernia repair (03/13/23) History of esophagogastroduodenoscopy (EGD) Deficient knowledge of leg surgery History of surgery History of cardioversion H/O prior ablation treatment History of colonoscopy Family History Family History Father Medical history unknown Mother Myocardial infarction Social History Social History Housing: House Are you a primary care asst to a significant other at home: No Do you presently have visiting nurse or other home services: Yes (respiratory) Alcohol intake: current Alcohol intake frequency: 3 or more drinks per day Alcohol type: beer Patient Tobacco Use Status: Former Tobacco user Quit Date: 2006 Tobacco use type: Cigarette e-Cigarette/Vaping Use: Never Used Second Hand Smoke Exposure: Yes Substance Use Type: Marijuana Advance Directives: Yes Advance Directives Information Provided: No Advance Directives on File: No service: No Current occupational status: retired Cognitive needs: No Hearing needs: No Vision needs: Yes (reading glasses) Physical Exam ED Vital Signs: Vital Signs - 24 hr 06/22/23 14:42 06/22/23 15:51 Temperature 98.2 F Pulse Rate 86 90 Respiratory Rate 22 H 26 H Blood Pressure 157/65 H Pulse Oximetry 96 Oxygen Delivery Method Nasal Cannula BMI result Body Mass Index 27.4 VITAL SIGNS: Reviewed. GENERAL: Well developed, well nourished, in no acute distress. HEAD: Normocephalic/atraumatic EYES: PERRLA, EOMI EARS: Ext canals without abnormality NOSE: Nares patent bilateral OROPHARYNX: no oral lesions noted, posterior pharynx clear NECK: Supple, no adenopathy LUNGS: Decreased breath sounds, tachypnea and increased work of breathing is present, there are noted crackles in right lower base. SpO2<96> CARDIOVASCULAR: Regular rate and rhythm without noted murmurs ABDOMEN: Soft, non-tender, non-distended with bowel sounds. MUSCULOSKELETAL: No tenderness, deformities, or effusions noted on gross inspection. EXTREMITIES: No cyanosis, clubbing or edema. SKIN: Inspection of the skin reveals no rashes NEUROLOGIC: Alert and oriented x 4. Strength and sensation to light touch were grossly intact x 4. Course Course Course Narrative: RME performed by Ellyn Rodriguez PA-C. Patient is a 72 year old assigned male at presenting to the emergency department with worsening shortness of breath. Labs, imaging, and swabs ordered. Patient placed back in the waiting room pending room availability and results. Medications Administered Discontinued Medications Generic Name Dose Route Start Last Admin Trade Name Freq PRN Reason Stop Dose Admin Albuterol Sulfate 5 mg/ 0 mg 06/22/23 15:45 06/22/23 15:48 Albuterol/Ipratropium 3 ml INHALE 06/22/23 15:46 5 each ONCE ONE Administration Methylprednisolone Sodium Succinate 125 mg 06/22/23 15:36 06/22/23 15:44 Methylprednisolone Sod Succ 125 Mg/2 Ml Vial IVPUSH 06/22/23 15:37 125 mg ONCE ONE Administration Medical Decision Making Medical Decision Making [facility] Narrative: 1500: 72-year-old male with history and clinical presentation, DDX: Viral syndrome, COPD exacerbation, pneumonia, bronchitis INTERVENTION: Solu-Medrol, ED bronch protocol, supplemental oxygen Reviewed all investigations and hematologic indices are negative for leukocytosis or left shift, there is no thrombocytopenia or anemia. Chemistry indices are grossly within normal limits without noted JOHANNE or electrolyte/liver enzyme derangements. High sensitivity troponin is undetectable. Viral testing negative for influenza/COVID. Chest x-ray negative for infiltrate or increased venous congestion otherwise my interpretation is in agreement with radiology's impression. Signed out to Dr Irvin maloney/amber on ED Bronch treatments and VBG - d/c papers ready Differential Diagnosis Differential Diagnoses: The differential diagnosis associated with the presentation includes Please see the discussion above Admission/Observation Consideration of admission/observation: Escalation of care including admission/observation considered Please see the discussion above Lab Data [facility] Lab Attestation statement: I reviewed the patient's lab results. Please see the discussion above 06/22/23 15:05 06/22/23 15:05 Labs: Lab Results 06/22/23 Range/Units 15:05 WBC 6.4 (4.8-10.8) X10*3/uL RBC 4.89 (4.60-5.80) X10*6/uL Hgb 14.8 (14.0-18.0) g/dl Hct 44.2 (42.0-52.0) % MCV 90.4 (80.0-98.0) fL MCH 30.3 (27.0-33.0) pg MCHC 33.5 (31.0-36.0) g/dl RDW 16.0 (11.0-16.0) % Plt Count 242 (160-400) X10*3/uL MPV 8.7 L (9.4-12.4) fL Immature Gran % (Auto) 0.3 (0.0-0.4) % Neut % (Auto) 70.3 (45-73) % Lymph % (Auto) 10.6 L (20-40) % [place] % (Auto) 10.9 (2-11) % Eos % (Auto) 7.4 H (0-4) % Baso % (Auto) 0.5 (0-2) % Lymph # (Auto) 0.7 L (1.2-4.9) X10*3/uL [place] # (Auto) 0.7 (0.1-1.2) X10*3/uL Eos # (Auto) 0.5 H (0.0-0.4) X10*3/uL Baso # (Auto) 0.0 (0.0-0.2) X10*3/uL Abs Immat Gran (auto) 0.02 (0.00-0.03) X10*3/uL Absolute Neuts (auto) 4.5 (2.0-8.3) x10*3/uL Absolute Nucleated RBC 0.000 (0.0-0.012) X10*3/uL Nucleated RBC % (auto) 0.0 (0.0-0.2) /100WBC Sodium 141 (135-145) mmol/L Potassium 4.0 (3.3-5.1) mmol/L Chloride 105 (96-108) mmol/L Carbon Dioxide 26 (22-29) mmol/L Anion Gap 14 (12-20) BUN 17 H (9-16) mg/dL Creatinine 0.74 (0.5-1.4) mg/dL Estim Creat Clear Calc 86.9 Estimated GFR > 60 Random Glucose 84 (60-115) mg/dL Lactic Acid 1.4 (0.5-2.0) mmol/L Calcium 10.3 H (8.4-10.2) mg/dL Magnesium 2.2 (1.6-2.6) mg/dL Total Bilirubin 0.2 (0.0-1.0) mg/dL AST 18 (5-37) U/L ALT 20 (0-40) U/L Alkaline Phosphatase 40 (39-117) U/L Troponin I High Sens < 2.7 (<3.5-35.0) ng/L Total Protein 7.8 (6.5-8.0) g/dL Albumin 4.5 (3.5-5.0) g/dL COVID-19 (VOLODYMYR) Negative (Negative) COVID-19 Clin Com See Note Influenza Type A (EMILY) Negative (Negative) Influenza Type B (EMILY) Negative (Negative) Influenza A & B Note See Note Radiology Impression Discussion of test interpretation with radiology: I have reviewed the radiologist's reading. Radiologist Impression: Please see the discussion above External Record Review External record reviewed: Outpatient record, Prior outpatient labs and Prior outpatient radiology Chronic Conditions Patient?s care impacted by: Other COPD Critical Care Time Critical Care Time Critical Care Time: Yes Total Critical Care Time: 60 Attestation: I personally attest to this time spent taking care of the patient. Discharge Plan Discharge Clinical Impression: COPD exacerbation, Bronchitis Patient Disposition: Still a Patient Instructions: COPD (Chronic Obstructive Pulmonary Disease) (ED), Acute Bronchitis (ED) Additional Instructions: 1. Resume all home medications as prescribed. 2. Please complete the entire course of antibiotics as prescribed. 3. Please complete the course of steroids as prescribed. 4. Follow-up with your primary care doctor on Saturday. Return to the ER for any worsening of your symptoms. Prescriptions: New amoxicillin-pot clavulanate 875-125 mg tablet 1 tab PO BID 7 Days Qty: 14 0RF prednisone 50 mg tablet 50 mg PO DAILY 4 Days Qty: 4 0RF No Action dabigatran etexilate 150 mg capsule 150 mg PO BID Qty: 180 3RF diltiazem HCl 120 mg capsule,extended release 24hr 120 mg PO DAILY Qty: 90 3RF lansoprazole 30 mg capsule,delayed release(DR/EC) 30 mg PO DAILY Qty: 30 3RF atorvastatin 40 mg tablet 40 mg PO BEDTIME Qty: 90 1RF albuterol sulfate 90 mcg/actuation HFA aerosol inhaler 2 puff inhalation Q4H PRN (Reason: shortness of breath or wheezing) 30 Days Qty: 8.5 12RF prednisone 50 mg tablet 50 mg PO DAILY 4 Days Qty: 4 0RF ipratropium-albuterol 0.5 mg-3 mg(2.5 mg base)/3 mL solution for nebulization 3 ml inhalation Q6H PRN (Reason: Shortness Of Breath) cholecalciferol (vitamin D3) 25 mcg (1,000 unit) tablet 25 mcg PO DAILY Qty: 90 3RF famotidine [Pepcid] 20 mg tablet 20 mg PO BEDTIME Qty: 90 3RF Citrucel 500 mg tablet 500 mg PO DAILY Qty: 90 2RF Rx Instructions: take it with full glass of water Referrals: Yoseph Acevedo MD [Primary Care Provider] -
--- NOTE | 2023-06-22 14:43 | ECG_ITS ---
Test Reason : DYSPNEA Blood Pressure : / mmHG Vent. Rate : 082 BPM Atrial Rate : 082 BPM P-R Int : 148 ms QRS Dur : 156 ms QT Int : 410 ms P-R-T Axes : 090 073 051 degrees QTc Int : 479 ms Sinus rhythm with sinus arrhythmia with occasional Premature ventricular complexes Right bundle branch block Abnormal ECG When compared with ECG of 23-APR-2023 21:38, Premature ventricular complexes are now Present Referred By: Ellyn Rodriguez Electronically Signed By:ANGEL VARELA MD
[2023-06-22 15:12] LABS: MANUAL DIFF FLAG NO
[2023-06-22 15:13] LABS: Basophils Percent Auto 0.5 % (0-2); Eosinophils Absolute Auto 0.5 X10*3/uL (0.0-0.4); Eosinophils Percent Auto 7.4 % (0-4); Hematocrit 44.2 % (42.0-52.0); Hemoglobin 14.8 g/dl (14.0-18.0); Imm Gran Abs Auto 0.02 X10*3/uL (0.00-0.03); Imm Gran Pct Auto 0.3 % (0.0-0.4); Lymphocytes Absolute Auto 0.7 X10*3/uL (1.2-4.9); Lymphocytes Percent Auto 10.6 % (20-40); Mean Corpuscular HGB Conc 33.5 g/dl (31.0-36.0); Mean Corpuscular Hemoglobin 30.3 pg (27.0-33.0); Mean Corpuscular Volume 90.4 fL (80.0-98.0); Mean Platelet Volume 8.7 fL (9.4-12.4); Monocytes Absolute Auto 0.7 X10*3/uL (0.1-1.2); Monocytes Percent Auto 10.9 % (2-11); Neutrophils Absolute Auto 4.5 x10*3/uL (2.0-8.3); Neutrophils Percent Auto 70.3 % (45-73); Platelet Count 242 X10*3/uL (160-400); Red Blood Count 4.89 X10*6/uL (4.60-5.80); White Blood Count 6.4 X10*3/uL (4.8-10.8)
[2023-06-22 15:26] LABS: Lactic Acid 1.4 mmol/L (0.5-2.0)
[2023-06-22 15:30] LABS: Alanine Aminotransferase 20 U/L (0-40); Albumin Level 4.5 g/dL (3.5-5.0); Alkaline Phosphatase 40 U/L (39-117); Anion Gap 14 (12-20); Aspartate Amino Transferase 18 U/L (5-37); Bilirubin Total 0.2 mg/dL (0.0-1.0); Blood Urea Nitrogen 17 mg/dL (9-16); Calcium 10.3 mg/dL (8.4-10.2); Carbon Dioxide 26 mmol/L (22-29); Chloride 105 mmol/L (96-108); Creatinine Clr Calc Pharmacy 86.9; Estimated Glomerular Filt Rate > 60; Glucose Random 84 mg/dL (60-115); Magnesium 2.2 mg/dL (1.6-2.6); Sodium 141 mmol/L (135-145); Total Protein 7.8 g/dL (6.5-8.0)
[2023-06-22 15:38] LABS: Troponin-I High Sensitivity < 2.7 ng/L (<3.5-35.0)
[2023-06-22 15:42] LABS: IDNOW Serial# 58CA691E; IDNOW Serial# 6674DD1D; Influenza A Negative (Negative); Influenza B2 Negative (Negative)
[2023-06-22 15:43] LABS: COVID-19 Test Negative (Negative)
[2023-06-22] MEDS: methylPREDNISolone Sod Succ 125 MG/2 ML VIAL IVPUSH (15:44)
[2023-06-22] MEDS: Albuterol Sulfate 5 MG, Albuterol/Iprat 2.5/0.5MG 3 ML 3 ML INHALE (15:48)
[2023-06-22 15:51] VITALS: PULSE 90; RESP 26; O2SAT 93
[2023-06-22 16:26] LABS: Prothrombin Time 11.7 SEC (11.1-13.3)
[2023-06-22 16:28] LABS: Partial Thromboplastin Time 41.9 SEC (26.0-36.4)
[2023-06-22 16:43] LABS: VBG Base Excess 3.9 mmol/L; VBG HCO3 33 mmol/L (22-26); VBG pCO2 70 mmHg; VBG pH 7.27 (7.32-7.43); VBG pO2 40 mmHg
[2023-06-22 16:48] LABS: Venous Blood Gas Refer to POC result
[2023-06-22 16:49] VITALS: PULSE 83; RESP 28; O2SAT 95
[2023-06-22] MEDS: Albuterol Sulfate 2.5 MG, Albuterol Sulfate (0.083%) 2.5 MG 5 MG INHALE (16:49)
[2023-06-22 17:12] VITALS: BP 138/62; PULSE 86; RESP 26; TEMP 36.8; O2SAT 97
[2023-06-22] MEDS: Amoxicillin/Potassium Clav 875 MG TABLET PO (17:12)
--- NOTE | 2023-06-22 17:25 | PC.NURSE ---
trial ambulation with pulse ox done, patient maintained 88-90% on room air. reports improvement in breathing
== END 2023-06-22 17:51 | disposition home or self-care (01) ==
PROVIDERS: Physician Assistant Medical; Student in an Organized Health Care Education/Training Program; Emergency Provider Emergency Medicine; PCP Internal Medicine
DX: J44.1 Chronic obstructive pulmonary disease with (acute) exacerbation (principal); J40 Bronchitis, not specified as acute or chronic; R06.02 Shortness of breath; I49.8 Other specified cardiac arrhythmias; Z11.52 Encounter for screening for COVID-19; Z20.822 Contact with and (suspected) exposure to COVID-19; Z87.891 Personal history of nicotine dependence; Z79.899 Other long term (current) drug therapy
CPT/HCPCS: 36415; 71046; 80053; 82803; 83605; 83735; 84484; 85025; 85610; 85730; 87040; 87502; 87635; 93005; 94640; 96374; 99284; 99285; J2930

== ENCOUNTER → 2023-06-22 14:43 | Outpatient (BNV) | payer MEDICARE, OTHER, SELFPAY | PROVIDERS: Emergency Provider Emergency Medicine; PCP Internal Medicine; Visit Provider Internal Medicine Cardiovascular Disease | DX: R94.31 Abnormal electrocardiogram [ECG] [EKG] (principal) | CPT/HCPCS: 93010 ==

== ENCOUNTER 2023-07-02 11:22 | Outpatient (REF) | payer MEDICARE, OTHER, SELFPAY | END 2023-07-02 11:23 | disposition home or self-care (01) | LOC: HO.XRAY 11:22 | PROVIDERS: PCP Internal Medicine; Visit Provider Physician Assistant | DX: J40 Bronchitis, not specified as acute or chronic (principal) | CPT/HCPCS: 71046 ==

== ENCOUNTER 2023-09-09 11:26 | Outpatient (AMB) | payer MEDICARE, OTHER, SELFPAY ==
[2023-09-09 11:38] VITALS: BP 112/65; PULSE 86; BMI 30.9
--- NOTE | 2023-09-09 11:38 | MHC.OFFVIS ---
Intake Vital Signs 09/09/23 11:38 Height 5 ft 6 in Weight 191 lb 5.78 oz BMI 30.9 BP 112/65 Blood Pressure Location Lt brachial Position Sitting Pulse 86 Intake Visit Reasons: 4 month follow up Intake Note: Patient is here for a 4 months follow up of GERD and abdominal pain. CC: Patient reports doing well and denies having any GI symptoms. Gun Welder Required: No Accompanied by: Self / Same As Patient Allergies No Known Allergies [No Known Allergies*] Allergy (Verified 09/09/23 11:52) HPI 4 month follow up HPI Details LAST VISIT Right lower quadrant pain GERD (gastroesophageal reflux disease) IBS (irritable bowel syndrome) Plan Patient's right lower quadrant pain was likely related to postsurgical discomfort. Patient reports that is not related to food. Patient will continue taking pantoprazole in the morning half an hour before breakfast and famotidine at bedtime. Patient was encouraged to take Citrucel to help him bulk his stools. Avoid dietary triggers. List of food recommended as well as list of food to avoid given to patient. Low FODMAP diet discussed with him. Patient will see me in 4 months, sooner on as needed basis. Patient is agreeable to this plan and verbalizes understanding of instructions. He knows that next visit we will discuss going for upper endoscopy and colonoscopy. He was given the opportunity to ask questions and all questions answered. ? Thank you for allowing me to participate in his care Medications New methylcellulose (laxative) (Citrucel) take it with full glass of water 500 mg PO DAILY 90 tabs 2RF K59.00 Refilled pantoprazole 40 mg PO QAM 90 tabs 2RF famotidine (Pepcid) 20 mg PO BEDTIME 90 tabs 3RF K21.9 TODAY'S VISIT Patient is here today for follow-up and to discuss going for colonoscopy. Last colonoscopy was in 2021 tubular adenoma found and suboptimal prep recommendation was made for colonoscopy to be repeated in 1-2 years. Patient reports that he has been feeling well. Underwent inguinal hernia repair in the last couple years. Denies any issues with anesthesia then. No history of sleep apnea. Patient reports that he was in the emergency room with upper respiratory infection. Patient is following up in [place] with agricultural equipment design engineer for COPD and lung nodules. Patient had chemotherapy and radiation. Symptoms of acid reflux and diarrhea and constipation has gotten better. Patient has not taking any PPI or H2 carey as he is feeling better. Patient reports that he is moving his bowels without any issues now. Denies any melena, hematochezia, unintentional weight loss or ribbon like stools. Denies any dyspepsia, dysphagia or odynophagia. Patient denies any cardiac or respiratory symptoms patient continues to smoke cigarettes. [facility] Medical History Hx of cancer of lung Hx of radiation therapy History of chemotherapy Hiatal hernia On anticoagulant therapy HTN (hypertension) Tubular adenoma Arthritis Low back pain Diarrhea Oxygen dependent Emphysema/COPD BROWN (dyspnea on exertion) MANJEET (obstructive sleep apnea) Impaired fasting glucose Eye pain Obesity (BMI 30-39.9) Anxiety COPD (chronic obstructive pulmonary disease) Diabetes mellitus Pure hypercholesterolemia Diastolic heart failure Paroxysmal atrial fibrillation Surgical History History of right inguinal hernia repair (03/13/23) History of esophagogastroduodenoscopy (EGD) Deficient knowledge of leg surgery History of surgery History of cardioversion H/O prior ablation treatment History of colonoscopy Family History Father Medical history unknown Mother Myocardial infarction Social History Housing: House Are you a primary senior care assistant to a significant other at home: No Do you presently have visiting nurse or other home services: Yes (respiratory) Alcohol intake: current Alcohol intake frequency: 3 or more drinks per day Alcohol type: beer Patient Tobacco Use Status: Former Tobacco user Quit Date: 2006 Tobacco use type: Cigarette e-Cigarette/Vaping Use: Never Used Second Hand Smoke Exposure: Yes Substance Use Type: Marijuana service: No Current occupational status: retired Cognitive needs: No Hearing needs: No Vision needs: Yes (reading glasses) Review of Systems Const Denies weight gain and Denies weight loss ENT Reports no additional complaints, Denies dysphagia and Denies odynophagia Card Reports no additional complaints Resp Reports no additional complaints GI Denies abdominal pain, Denies belching, Denies melena, Denies bloating, Denies change in bowel habits, Denies dysphagia, Denies excessive flatus, Denies dyspepsia, Denies heartburn, Denies diarrhea, Denies loose stools, Denies nausea, Denies odynophagia and Denies vomiting Reports no additional complaints Musc Reports no additional complaints Neuro Reports no additional complaints Psych Reports no additional complaints Endo Reports no additional complaints Physical Exam Vital Signs: Last Vital Signs Pulse 86 09/09/23 11:38 BP 112/65 09/09/23 11:38 BMI result Body Mass Index 30.9 Const General: healthy appearing, no acute distress and well developed Nutritional Appearance: obese Orientation/consciousness: patient oriented x3 Resp Effort & Inspection: normal respiratory effort, able to speak in complete sentences, no tracheal deviation and symmetric chest movement Auscultation: clear to auscultation bilaterally Cardio Rate: regular rate GI Inspection: Yes normal to inspection, No distended and Yes obesity Palpation (GI): Soft to palpation, not firm, nontender and No hepatosplenomegaly present Auscultation: normal bowel sounds General: Yes no CVA tenderness Back/Spine/Pelvis Back: no CVA tenderness Skin General skin exam: elasticity normal, turgor normal and dry skin Neuro General: patient oriented x3 Psych Appearance: grossly normal Mental Status: mental status grossly normal Assessment & Plan Assessment & Plan (1) Tubular adenoma: Code(s): D36.9 - Benign neoplasm, unspecified site (2) GERD (gastroesophageal reflux disease): Code(s): K21.9 - Gastro-esophageal reflux disease without esophagitis Qualifiers: Esophagitis presence: esophagitis presence not specified Qualified Code(s): K21.9 - Gastro-esophageal reflux disease without esophagitis (3) IBS (irritable bowel syndrome): Code(s): K58.9 - Irritable bowel syndrome without diarrhea Qualifiers: Irritable bowel syndrome type: without diarrhea Qualified Code(s): K58.9 - Irritable bowel syndrome without diarrhea Plan Patient denies any cardiac or respiratory symptoms. Patient is on Pradaxa and will need to stop Pradaxa. Will check with Cardiology. 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 He also has a follow-up with his agricultural equipment design engineer and he is going to ask him about clearing for procedure. Currently patient is not having any issues moving his bowels. No symptoms of acid reflux or any epigastric discomfort. Patient can stop taking PPI and H2 carey. Suboptimal prep last colonoscopy. Patient will take Dulcolax tablets every evening for 1 week before the procedure with for tablets day before procedure and split MiraLax prep. What to expect before during and after the procedure discussed with patient. The importance of good bowel prep as well as clear liquid diet discussed with patient. I will see him after the procedure, sooner on as needed basis. Patient is agreeable to this plan and verbalizes understanding of instructions. He was given the opportunity to ask questions and all questions answered. Thank you for allowing me to participate in his care Medications: New bisacodyl (Dulcolax (bisacodyl)) Start taking 2 tablet every night 7 days before the procedure and 1 day before procedure take 4 tablets at noon time followed by MiraLax prep 10 mg (2 x 5 mg) PO BEDTIME 16 tabs 0RF Z12.11 - Encounter for screening for malignant neoplasm of colon polyethylene glycol 3350 (Miralax) 17 grams PO DAILY 510 grams 2RF Discontinued lansoprazole Discontinued Reason: Patient no longer taking 30 mg PO DAILY 30 caps 3RF K21.9 - Gastro-esophageal reflux disease without esophagitis Coding Level of Care Code Est Pt Level 3 (34222) Diagnoses Tubular adenoma D36.9 Gastroesophageal reflux disease, unspecified whether esophagitis present K21.9 Esophagitis presence: esophagitis presence not specified Irritable bowel syndrome without diarrhea K58.9 Irritable bowel syndrome type: without diarrhea Time Spent (min) 30 Comment 20 minutes spent with patient and additional 10 minutes spent reviewing his records
== END 2023-09-09 13:19 | disposition home or self-care (01) ==
PROVIDERS: PCP Internal Medicine; Visit Provider Nurse Practitioner Family
DX: D36.9 Benign neoplasm, unspecified site (principal); K21.9 Gastro-esophageal reflux disease without esophagitis; K58.9 Irritable bowel syndrome, unspecified
CPT/HCPCS: 99213

== ENCOUNTER → 2023-09-09 11:26 | Outpatient (BNVA) | payer MEDICARE, OTHER, SELFPAY | PROVIDERS: PCP Internal Medicine; Visit Provider Nurse Practitioner Family | DX: K21.9 Gastro-esophageal reflux disease without esophagitis (principal); K58.9 Irritable bowel syndrome, unspecified; D36.9 Benign neoplasm, unspecified site | CPT/HCPCS: 99212 ==

== ENCOUNTER 2023-11-07 12:37 | Outpatient (AMB) | payer MEDICARE, OTHER, SELFPAY ==
[2023-11-07 12:50] VITALS: BP 120/80; PULSE 81; BMI 29.5
--- NOTE | 2023-11-07 12:50 | A.OFFVIS_ITS ---
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 He continues to have limiting exertional shortness of breath. No associated chest pain with it. No orthopnea, PND, leg edema. He said he has lot of mucus production but had stopped taking his mucolytics. He follows with Pulmonary in [place]. He has not had any prolonged palpitation irregular heartbeat. Denies any lightheadedness, syncope. No exertional chest pain. No bleeding issues or neurologic events. He said he was started on prolonged antibiotic therapy for COPD and he has lot of GI side effects. He lost lot of weight but now is doing better. [facility] Medical History Hx of cancer of lung Hx of radiation therapy History of chemotherapy Hiatal hernia On anticoagulant therapy HTN (hypertension) Tubular adenoma Arthritis Low back pain Diarrhea Oxygen dependent Emphysema/COPD BROWN (dyspnea on exertion) MANJEET (obstructive sleep apnea) Impaired fasting glucose Eye pain Obesity (BMI 30-39.9) Anxiety COPD (chronic obstructive pulmonary disease) Diabetes mellitus Pure hypercholesterolemia Diastolic heart failure Paroxysmal atrial fibrillation Surgical History History of right inguinal hernia repair (03/13/23) History of esophagogastroduodenoscopy (EGD) Deficient knowledge of leg surgery History of surgery History of cardioversion H/O prior ablation treatment History of colonoscopy Family History Father Medical history unknown Mother Myocardial infarction Social History Housing: House Are you a primary manager care to a significant other at home: No Do you presently have visiting nurse or other home services: Yes (respiratory) Alcohol intake: current Alcohol intake frequency: 3 or more drinks per day Alcohol type: beer Patient Tobacco Use Status: Former Tobacco user Quit Date: 2006 Tobacco use type: Cigarette e-Cigarette/Vaping Use: Never Used Second Hand Smoke Exposure: Yes Substance Use Type: Marijuana service: No Current occupational status: retired Cognitive needs: No Hearing needs: No Vision needs: Yes (reading glasses) Review of Systems Const Denies chills, Denies fatigue, Denies fever(s), Denies frequent falls, Denies weakness, Denies weight gain and Denies weight loss ENT Denies dizziness Card Denies chest pain, Denies leg edema, Denies lightheadedness, Denies palpitations, Denies dyspnea, Denies dyspnea on exertion, Denies orthopnea and Denies other (loss of consciousness) Resp Denies cough, Denies dyspnea and Denies dyspnea on exertion GI Denies hematochezia and Denies change in stool character Musc Denies abnormal gait, Denies muscle weakness, Denies numbness, Denies radiating pain into limb and Denies tingling Neuro Denies abnormal gait, Denies dizziness, Denies frequent falls, Denies numbness, Denies tingling and Denies weakness Endo Denies fatigue and Denies palpitations Physical Exam Vital Signs: Last Vital Signs Pulse 81 11/07/23 12:50 BP 120/80 11/07/23 12:50 BMI result Body Mass Index 29.5 Const General: cooperative, comfortable, no acute distress, alert, awake and anxious Nutritional Appearance: overweight Orientation/consciousness: patient oriented x3 Neck Neck: Yes trachea midline, Yes supple and Yes no JVD Chest Chest palpation & inspection: normal inspection of the chest Resp Effort & Inspection: normal respiratory effort Auscultation: clear to auscultation bilaterally and diminished lung sounds Cardio Jugular venous distension: no JVD Palpation: normal PMI Rate: regular rate Rhythm: abnormal rhythm with ectopic beats Heart sounds: S1 normal heart sound present, S2 normal heart sound present, no click, no gallops, no murmurs and no rubs GI Inspection: Yes obesity Auscultation: normal bowel sounds Skin General skin exam: no rashes or lesions noted and ecchymosis Neuro General: patient oriented x3 and no focal motor deficits Extrem General: Yes no clubbing, cyanosis or edema Psych Appearance: grossly normal Affect: Anxious affect present Office Procedures EKG Details: EKG shows normal sinus rhythm with right bundle-branch block with PACs [id number], Complete Assessment & Plan Assessment & Plan (1) Paroxysmal atrial fibrillation: Code(s): I48.0 - Paroxysmal atrial fibrillation Category: Medical Plan: Patient with highly symptomatic paroxysmal atrial fibrillation in the past has remained suppressed after ablation and on current Cardizem therapy. Avoidance of stimulants was discussed continue Cardizem therapy. No indication for antiarrhythmic drug therapy at this point time. Continue full oral anticoagulation, currently on dabigatran 150 mg b.i.d.. Semi annual renal function test should be pursued. Avoidance of alcohol use was discussed with him. (2) Diastolic heart failure: Code(s): I50.30 - Unspecified diastolic (congestive) heart failure Category: Medical Qualifiers: Heart failure chronicity: unspecified Qualified Code(s): I50.30 - Unspecified diastolic (congestive) heart failure Plan: Prior history of diastolic heart failure especially in the setting of atrial fibrillation. Since maintaining rhythm his heart failure syndrome has resolved. He continues to have significant exertional shortness of breath which I think is related to his COPD. Advised to follow-up with Pulmonary for management and follow through with recommendations. He has a tendency not to follow recommendations. Discussed with him the need for this. May need oxygen therapy. Also consider possible pulmonary rehab. Follow up in the clinic in 1 year's time after an echocardiogram. Thank you for allowing me to partake in his care Orders: Orders CA echo transthoracic complete 1 Year I48.0 - Paroxysmal atrial fibrillation Coding Level of Care Code Est Pt Level 4 (74729) Diagnoses Paroxysmal atrial fibrillation I48.0 Diastolic heart failure, unspecified HF chronicity I50.30 Heart failure chronicity: unspecified CPT Codes EKG - CPT: 37079-[id number], Complete ([id number])
== END 2023-11-07 13:26 | disposition home or self-care (01) ==
PROVIDERS: Visit Provider Internal Medicine Cardiovascular Disease
DX: I48.0 Paroxysmal atrial fibrillation (principal); I50.30 Unspecified diastolic (congestive) heart failure
CPT/HCPCS: 93010; 99214

== ENCOUNTER → 2023-11-07 12:37 | Outpatient (BNVA) | payer MEDICARE, OTHER, SELFPAY | PROVIDERS: Visit Provider Internal Medicine Cardiovascular Disease | DX: I48.0 Paroxysmal atrial fibrillation (principal); I50.30 Unspecified diastolic (congestive) heart failure | CPT/HCPCS: 93005; 99212 ==

== ENCOUNTER 2023-12-25 09:57 | Outpatient (REF) | payer MEDICARE, OTHER, SELFPAY ==
[2023-12-25 11:09] LABS: MANUAL DIFF FLAG NO
[2023-12-25 11:30] LABS: Basophils Percent Auto 0.4 % (0-2); Eosinophils Absolute Auto 0.1 X10*3/uL (0.0-0.4); Eosinophils Percent Auto 1.5 % (0-4); Hematocrit 40.8 % (42.0-52.0); Hemoglobin 14.1 g/dl (14.0-18.0); Imm Gran Abs Auto 0.03 X10*3/uL (0.00-0.03); Imm Gran Pct Auto 0.4 % (0.0-0.4); Lymphocytes Absolute Auto 0.7 X10*3/uL (1.2-4.9); Lymphocytes Percent Auto 8.7 % (20-40); Mean Corpuscular HGB Conc 34.6 g/dl (31.0-36.0); Mean Corpuscular Hemoglobin 30.5 pg (27.0-33.0); Mean Corpuscular Volume 88.3 fL (80.0-98.0); Mean Platelet Volume 8.6 fL (9.4-12.4); Monocytes Absolute Auto 0.6 X10*3/uL (0.1-1.2); Monocytes Percent Auto 7.8 % (2-11); Neutrophils Absolute Auto 6.3 x10*3/uL (2.0-8.3); Neutrophils Percent Auto 81.2 % (45-73); Platelet Count 265 X10*3/uL (160-400); Red Blood Count 4.62 X10*6/uL (4.60-5.80); Red Cell Distribution Width 15.6 % (11.0-16.0); White Blood Count 7.8 X10*3/uL (4.8-10.8)
[2023-12-25 12:04] LABS: Alanine Aminotransferase 32 U/L (0-40); Alkaline Phosphatase 32 U/L (39-117); Anion Gap 11 (12-20); Aspartate Amino Transferase 19 U/L (5-37); Bilirubin Total 0.3 mg/dL (0.0-1.0); Blood Urea Nitrogen 21 mg/dL (9-16); Calcium 10.1 mg/dL (8.4-10.2); Carbon Dioxide 26 mmol/L (22-29); Chloride 109 mmol/L (96-108); Estimated Glomerular Filt Rate > 60; Glucose Random 106 mg/dL (60-115); Potassium 4.3 mmol/L (3.3-5.1); Sodium 142 mmol/L (135-145); Total Protein 6.6 g/dL (6.5-8.0)
== END 2023-12-25 09:58 | disposition home or self-care (01) ==
LOC: HO.WFDLDS 09:57
PROVIDERS: Visit Provider Internal Medicine Hematology & Oncology
DX: C34.90 Malignant neoplasm of unspecified part of unspecified bronchus or lung (principal)
CPT/HCPCS: 36415; 80053; 85025

== ENCOUNTER 2024-01-13 12:20 | Outpatient (AMB) | payer MEDICARE, OTHER, SELFPAY ==
--- NOTE | 2024-01-13 12:34 | A.OFFPC_ITS ---
Vital Signs 01/13/24 12:37 Height 5 ft 6 in Weight 182 lb BMI 29.4 BP 130/70 Blood Pressure Location Lt brachial Position Sitting Pulse 91 Pulse Source Pulse Oximeter Pulse Oximetry (%) 97 Oxygen Delivery Method Room Air Intake Visit Reasons: annual exam Intake Note: Patient is here today for a physical. Customer Management Specialist Required: No Silviculturist: Not Required per policy Accompanied by: Self / Same As Patient Allergies No Known Allergies [No Known Allergies*] Allergy (Verified 01/13/24 12:47) Medication List - Last Reconciled 01/13/24 by Yoseph Acevedo MD albuterol sulfate 90 mcg/actuation 2 puffs inhalation Q4H PRN 30 days atorvastatin 40 mg PO BEDTIME bisacodyl (Dulcolax (bisacodyl)) 10 mg (2 x 5 mg) PO BEDTIME cholecalciferol (vitamin D3) 25 mcg PO DAILY coenzyme Q10 60 mg PO DAILY dabigatran etexilate 150 mg PO BID diltiazem HCl CD 120 mg PO DAILY famotidine (Pepcid) 20 mg PO BEDTIME ipratropium-albuterol 0.5 mg-3 mg(2.5 mg base)/3 mL 3 mL inhalation Q6H PRN polyethylene glycol 3350 (Miralax) 238 grams PO ONCE 1 day prednisone 4 tablets x 3 days, then 3 tablets x 3 days, then 2 tablets x 3 days, then 1 tablet x 3 days 12 days Tobacco use date assessed: 01/13/24 Fall risk assessment: No Falls in past year Last assessed Fall Risk: 01/13/24 Dental Screening Dental Screen Date: 01/13/24 Did you have a dental visit in the last 12 months?: Yes Did you have a dental problem in the last 6 months where you did not have access to dental care?: No Was dental information given to patient?: Patient has dentist HPI annual exam HPI Details Patient comes in today for his annual physical examination - was last seen by me over a year ago in August 2022 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 on 09/13/2022 Staging work up done at the time revealed NO metastasis and he was recommended to undergo concurrent chemoradiation therapy He was started then on Carboplatin and 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 He completed his radiation therapy on 01/04/2023 Patient states that he is presently still experiencing frequent and increased SOB and BROWN and is now again on an oral Prednisone taper, which he states he is not happy being on but feels that this is the only thing that helps effectively with his breathing He was just seen by cardiology a couple of months ago and was advised that he is doing well from cardiology standpoint and that his breathing issues are mostly due to his COPD and are not cardiac-related He denies any headaches or dizziness Denies any chest pains No nausea/vomiting, no abdominal pain No change in bowel habits noted He denies any acute urinary symptoms He had some labs done a few weeks ago but these are nonfasting He had his last screening colonoscopy done in May 2022 and is scheduled for his repeat colonoscopy in a few months on 05/12/2024 [facility] Medical History Gastritis and duodenitis Hx of cancer of lung Hx of radiation therapy History of chemotherapy Hiatal hernia On anticoagulant therapy HTN (hypertension) Tubular adenoma Arthritis Low back pain Diarrhea Oxygen dependent Emphysema/COPD BROWN (dyspnea on exertion) MANJEET (obstructive sleep apnea) Impaired fasting glucose Eye pain Obesity (BMI 30-39.9) Anxiety COPD (chronic obstructive pulmonary disease) Diabetes mellitus Pure hypercholesterolemia Diastolic heart failure Paroxysmal atrial fibrillation Surgical History History of right inguinal hernia repair (03/13/23) History of esophagogastroduodenoscopy (EGD) Deficient knowledge of leg surgery History of surgery History of cardioversion H/O prior ablation treatment History of colonoscopy Family History Father Medical history unknown Mother Myocardial infarction Social History Housing: House Are you a primary point of care technician to a significant other at home: No Do you presently have visiting nurse or other home services: Yes (respiratory) Alcohol intake: current Alcohol intake frequency: 3 or more drinks per day Alcohol type: beer Patient Tobacco Use Status: Former Tobacco user Tobacco use type: Cigarette e-Cigarette/Vaping Use: Never Used Second Hand Smoke Exposure: Yes Substance Use Type: Marijuana service: No Current occupational status: retired Cognitive needs: No Hearing needs: No Vision needs: Yes (reading glasses) Questionnaire PHQ-9 Over the last 2 weeks, how often have you been bothered by any of the following problems? 1. Little interest or pleasure in doing things: not at all 2. Feeling down, depressed, or hopeless: not at all 3. Trouble falling or staying asleep, or sleeping too much: not at all 4. Feeling tired or having little energy: not at all 5. Poor appetite or overeating: not at all 6. Feeling bad about yourself - or that you are a failure or have let yourself or your family down: not at all 7. Trouble concentrating on things, such as reading the newspaper or watching television: not at all 8. Moving or speaking so slowly that other people could have noticed. Or the opposite - being so fidgety or restless that you have been moving around a lot more than usual: not at all 9. Thoughts that you would be better off or of hurting yourself in some way: not at all Total score: 0 Depression Screening Interpretation: Negative Depression Screening Done: Yes 84841 - PHQ-9 Billing: Yes Source: Developed by Drs. Biju Pedroza, Felisha Roberson, Sergio Wang and colleagues, with an educational gary from [employer]. Thrive Questionnaire Date Thrive assessed: 01/13/24 I am a: Patient What is your living situation today?: I have a steady place to live Within the past 12 months, did the food you bought not last and you didn't have the money to get more?: Never true Within the past 12 months, did you worry whether your food would run out before you got money to buy more?: Never true Do you have trouble paying for medicines?: No Do you have trouble getting transportation to medical appointments?: No Do you have trouble paying your heating and electricity bill?: No Do you have trouble taking care of your child, family member or friend?: No Do you have trouble with day-to-day activities such as bathing, preparing meals, shopping, managing finances, etc.?: No Are you currently unemployed and looking for a job?: No Are you interested in more education?: No Currently or been in a relationship where the following occur: No concerns reported THRIVE Score: 0 AUDIT C Alcohol Use Questionnaire (AUDIT-C) 1. How often do you have a drink containing alcohol?: 2-4 times a month 2. How many drinks containing alcohol do you have on a typical day when you are drinking?: 1 or 2 3. How often do you have six or more drinks on one occasion?: Never Total Score: 2 Score Reviewed/Action Taken: Yes DANGELO-7 AMB Questionnaire DANGELO-7 Date DANGELO - 7 assessed: 01/13/24 Feeling nervous, anxious, or on edge: 0 = Not at all Not being able to stop or control worryin = Not at all Worrying too much about different things: 0 = Not at all Trouble relaxin = Not at all Being so restless that it is hard to sit still: 0 = Not at all Becoming easily annoyed or irritable: 0 = Not at all Feeling afraid as if something awful might happen: 0 = Not at all Total DANGELO-7 score (0-4 normal; 5-9 mild; 10-14 moderate; 15-21 severe): 0 Source: Developed by Drs. Biju Pedroza, Felisha Roberson, Sergio Wang and colleagues, with an educational gary from [employer]. Review of Systems Const Denies chills, Reports fatigue, Denies fever(s), Denies headache(s), Denies malaise and Denies weakness Eyes Denies blurry vision, Denies change in vision, Denies irritation and Denies itchy eyes ENT Denies dysphagia, Denies dizziness, Denies otalgia, Denies headache(s), Denies nasal congestion, Denies neck pain, Denies odynophagia and Denies sore throat Card Denies chest pain, Denies rapid heart rate, Denies irregular heart rhythm, Denies palpitations and Reports dyspnea on exertion Resp Denies chest congestion, Denies cough, Reports dyspnea on exertion and Denies wheezing GI Denies abdominal pain, Denies bloating, Denies constipation, Denies dysphagia, Denies heartburn, Denies diarrhea, Denies nausea, Denies odynophagia and Denies vomiting Denies hematuria, Denies difficulty urinating, Denies dysuria, Denies urinary frequency and Denies urinary urgency Musc Denies back pain, Denies arthralgias, Denies joint swelling, Denies muscle weakness and Denies neck pain Skin/Breast Denies change in pigmentation, Denies lesions, Denies rash and Denies unusual bruising Neuro Denies dizziness, Denies headache(s), Denies paresthesias and Denies weakness Psych Reports anxiety and Denies depression Endo Reports fatigue and Denies palpitations Aller/Immun Denies itchy eyes and Denies wheezing Physical exam (Primary Care) Vital Signs: Last Vital Signs Pulse 91 01/13/24 12:37 BP 130/70 01/13/24 12:37 Pulse Ox 97 01/13/24 12:37 Oxygen Delivery Method Room Air 01/13/24 12:37 BMI result Body Mass Index 29.4 Tobacco/Smoking Status: Tobacco use Status Tobacco use date assessed 01/13/24 01/13/24 12:38 Patient Tobacco Use Status Former Tobacco user 01/13/24 12:38 Tobacco use type Cigarette 01/13/24 12:38 e-Cigarette/Vaping Use Never Used 01/13/24 12:38 PHQ-9: PHQ-9 Score PHQ-9: Total score 0 01/13/24 15:08 Depression Screening Interpretation: Negative Thrive Assessment: Date of Thrive Assessment Date Thrive assessed 01/13/24 01/13/24 12:38 Currently or been in a relationship where the following occur: No concerns reported Const General: no acute distress, alert and awake Orientation/consciousness: patient oriented x3 HENMT Head: Yes normocephalic and Yes atraumatic Ears: external ears normal, TM's normal bilaterally and EAC's normal General nose exam: No nasal discharge present Face and sinus: Yes normal facial exam and Yes sinuses nontender Teeth and gingiva: dentition normal Throat: Yes posterior oropharynx normal and Yes tonsils normal (no TP congestion) Eyes Eyelids: Yes eyelids normal Conjunctivae: conjunctivae normal Pupils: Equal, round and reactive pupils present EOM: EOMs intact bilaterally Neck Neck: Yes no lymphadenopathy and Yes supple Thyroid: Thyroid normal Resp Auscultation: no crackles, no rales, rhonchi (scattered) throughout, no wheezes and diminished lung sounds bilateral Cardio Rate: regular rate Rhythm: regular rhythm Heart sounds: no murmurs GI Palpation (GI): Soft to palpation, nontender and No hepatosplenomegaly present Auscultation: normal bowel sounds General: Yes no CVA tenderness Back/Spine/Pelvis Back: no CVA tenderness Thoracic/Lumbar Spine: thoracic and lumbar spine normal to inspection Skin Lesions: no lesions Rashes: no rashes Neuro General: patient oriented x3, moves all extremities, no focal motor deficits and CN's II-XI intact bilaterally Cranial nerves: Yes Equal, round and reactive pupils present Cognition (Neuro): normal cognition Gait exam (Neuro): Normal gait present Extrem General: Yes no clubbing, cyanosis or edema Results Reviewed Results Reviewed: Laboratory Tests 12/25/23 10:00 WBC 7.8 Hgb 14.1 Hct 40.8 L Plt Count 265 Sodium 142 Potassium 4.3 Creatinine 0.92 Estimated GFR > 60 Random Glucose 106 Calcium 10.1 AST 19 ALT 32 Assessment and Plan Assessment & Plan (1) Annual physical exam: Code(s): Z00.00 - Encounter for general adult medical examination without abnormal findings Plan: Results of his labs done a few weeks ago reviewed and discussed with patient although advised that these are nonfasting labs and do not include his cholesterol levels and a few other labs that we normally check and monitor Will send him to the lab to complete his blood tests ALISHA He is also scheduled for his repeat screening colonoscopy in a few months on 05/12/2024 (2) Paroxysmal atrial fibrillation: Code(s): I48.0 - Paroxysmal atrial fibrillation Plan: Patient currently remains in sinus rhythm and has been rate-controlled over the past year on Diltiazem - was on Amiodarone 200 mg QD in the past S/P cardiac ablation at [facility] on 07/29/2018; cardiac rehab back then resulted in some improvement of his symptoms Continue Pradaxa 150 mg twice a day for thromboembolism prophylaxis Follow-up with cardiology as scheduled (3) Diastolic heart failure: Code(s): I50.30 - Unspecified diastolic (congestive) heart failure Qualifiers: Heart failure chronicity: unspecified Qualified Code(s): I50.30 - Unspecified diastolic (congestive) heart failure Plan: Compensated - reinforced fluid restriction Was on Furosemide in the past but patient has not required any diuretics lately (4) Pure hypercholesterolemia: Code(s): E78.00 - Pure hypercholesterolemia, unspecified Plan: Reinforced low cholesterol diet Patient had some labs done a few weeks ago but these are nonfasting; will send him to get fasting labs done, including his cholesterol levels, ALISHA Continue Atorvastatin 40 mg QD Will recheck his labs and fasting lipids in 4 months for follow up (5) Hx of cancer of lung: Comment: treated at [facility] Code(s): Z85.118 - Personal history of other malignant neoplasm of bronchus and lung Plan: Patient was diagnosed with 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 on 09/13/2022 Staging work up done at the time revealed NO metastasis and he was recommended to undergo concurrent chemoradiation therapy He was started then on Carboplatin and 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, completed Tx on 01/06/2023 He completed his radiation therapy on 01/04/2023 Follow-up with Pulmonary and Oncology as scheduled for continuing surveillance (6) COPD (chronic obstructive pulmonary disease): Code(s): J44.9 - Chronic obstructive pulmonary disease, unspecified Qualifiers: COPD type: unspecified COPD Qualified Code(s): J44.9 - Chronic obstructive pulmonary disease, unspecified Plan: He is currently again on oral Prednisone taper for a recent COPD exacerbation He was on Anoro Ellipta 1 inhalation QD, Daliresp 500 mcg QD and Albuterol HFA 2 puffs 4 times a day as needed but currently appears to be only using his Nebulizer with Duoneb updraft 4 tmies a day as needed Patient was also on prophylactic Azithromycin 250 mg 1 tablet 3 times a week before but this was also discontinued at some point Follow-up with [facility] (Dr. Johnson) as scheduled (7) Gastritis and duodenitis: Code(s): K29.90 - Gastroduodenitis, unspecified, without bleeding Plan: EGD done in May 2022 revealed (+) gastritis and duodenitis, and he was started on Pantoprazole 40 mg QD then He has reportedly been advised by GI that he may also have IBS and/or lactose intolerance Reinforced dietary restrictions Continue Ondansetron 4 mg Q 8 hours PRN for his nausea, Famotidine 20 mg Q HS and Pantoprazole 40 mg QD (8) Impaired fasting glucose: Code(s): R73.01 - Impaired fasting glucose Plan: In-office HgbA1c was at 5.5% and 5.8% when previously checked Reinforced low calorie diet/exercise as tolerated (9) Anxiety: Code(s): F41.9 - Anxiety disorder, unspecified Plan: He was previously on Sertraline 150 mg QD and Lorazepam 0.5 mg every 8 hours as needed for his anxiety but appears to have stopped taking both meds a while back Patient feels that he has been doing okay so far with regard to his mood disorder and he does not require any prescription or medication at this time (10) Depression: Code(s): F32.9 - Major depressive disorder, single episode, unspecified Qualifiers: Depression Type: major depressive disorder Major depression recurrence: recurrent Active/Remission status: currently active Major depression episode severity: unspecified Qualified Code(s): F33.9 - Major depressive disorder, recurrent, unspecified Plan: He was taking Sertraline 150 mg QD in the past but appears to have self- discontinued this Rx a while back - states that he has been doing okay without any Rx for his depression so far Will consider again referral to psychiatry if his symptoms recur or progress (11) Obesity (BMI 30-39.9): Code(s): E66.9 - Obesity, unspecified Plan: Reinforced diet/exercise as tolerated/ lose weight (12) Hearing loss: Code(s): H91.90 - Unspecified hearing loss, unspecified ear Qualifiers: Hearing loss type: unspecified Laterality: unspecified laterality Qualified Code(s): H91.90 - Unspecified hearing loss, unspecified ear Plan: Per request, will refer him for hearing evaluation Plan Follow up in 4 months Orders: Orders Comprehensive [place]. Panel Fast 01/13/24 E78.00 - Pure hypercholesterolemia, unspecified, Z00.00 - Encounter for general adult medical examination without abnormal findings Lipid Panel 01/13/24 E78.00 - Pure hypercholesterolemia, unspecified, Z00.00 - Encounter for general adult medical examination without abnormal findings Vitamin D 25-OH Total 01/13/24 E55.9 - Vitamin D deficiency, unspecified, Z00.00 - Encounter for general adult medical examination without abnormal findings Vitamin B12 and Folate 01/13/24 E53.8 - Deficiency of other specified B group vitamins, Z00.00 - Encounter for general adult medical examination without abnormal findings Complete Blood Count Auto Diff 4 Months D64.9 - Anemia, unspecified TSH reflex Free T4 4 Months E78.00 - Pure hypercholesterolemia, unspecified Hemoglobin A1c 01/13/24 E11.9 - Type 2 diabetes mellitus without complications, Z00.00 - Encounter for general adult medical examination without abnormal findings TSH reflex Free T4 01/13/24 E78.00 - Pure hypercholesterolemia, unspecified, Z00.00 - Encounter for general adult medical examination without abnormal findings UA CC w/rflx Micro + Cult 01/13/24 R30.0 - Dysuria, Z00.00 - Encounter for general adult medical examination without abnormal findings Prostate Specific Antigen 01/13/24 N40.0 - Benign prostatic hyperplasia without lower urinary tract symptoms, Z00.00 - Encounter for general adult medical examination without abnormal findings Comprehensive [place]. Panel Fast 4 Months E78.00 - Pure hypercholesterolemia, unspecified Lipid Panel 4 Months E78.00 - Pure hypercholesterolemia, unspecified UA CC w/rflx Micro + Cult 4 Months R30.0 - Dysuria Referrals Speech and Hearing Referral H91.90 - Unspecified hearing loss, unspecified ear Coding Level of Care Code Est Pt Prev Care >65y([id number]) Diagnoses Annual physical exam Z00.00 Paroxysmal atrial fibrillation I48.0 Diastolic heart failure, unspecified HF chronicity I50.30 Heart failure chronicity: unspecified Pure hypercholesterolemia E78.00 Hx of cancer of lung Z85.118 Chronic obstructive pulmonary disease, unspecified COPD type J44.9 COPD type: unspecified COPD Gastritis and duodenitis K29.90 Impaired fasting glucose R73.01 Anxiety F41.9 Episode of recurrent major depressive disorder, unspecified depression episode severity F33.9 Depression Type: major depressive disorder Major depression recurrence: recurrent Active/Remission status: currently active Major depression episode severity: unspecified Obesity (BMI 30-39.9) E66.9 Hearing loss, unspecified hearing loss type, unspecified laterality H91.90 Hearing loss type: unspecified Laterality: unspecified laterality
[2024-01-13 12:37] VITALS: BP 130/70; PULSE 91; O2SAT 97; BMI 29.4
== END 2024-01-13 13:21 | disposition home or self-care (01) ==
PROVIDERS: PCP Internal Medicine; Visit Provider Internal Medicine
DX: Z00.00 Encounter for general adult medical examination without abnormal findings (principal); I48.0 Paroxysmal atrial fibrillation; I50.30 Unspecified diastolic (congestive) heart failure; J44.9 Chronic obstructive pulmonary disease, unspecified; F33.9 Major depressive disorder, recurrent, unspecified; E78.00 Pure hypercholesterolemia, unspecified; Z85.118 Personal history of other malignant neoplasm of bronchus and lung; K29.90 Gastroduodenitis, unspecified, without bleeding; R73.01 Impaired fasting glucose; F41.9 Anxiety disorder, unspecified; E66.9 Obesity, unspecified
CPT/HCPCS: 99397

== ENCOUNTER 2024-01-29 09:19 | Outpatient (REF) | payer MEDICARE, OTHER, SELFPAY ==
[2024-01-29 11:28] LABS: Appearance Urine Clear; Color Urine Yellow; Glucose Urine UA Negative (Negative); Leukocyte Esterase Urine Small (1+) (Negative); Nitrite Urine Negative (Negative); Specific Gravity - Urine 1.025 (1.005-1.025); UMIC TRIGGER UACC YES; Urine Blood Moderate (2+) (Negative); Urine Ketones Negative (Negative); Urine Protein Negative (Neg-Trace)
[2024-01-29 11:31] LABS: MANUAL DIFF FLAG NO
[2024-01-29 11:35] LABS: Basophils Percent Auto 0.4 % (0-2); Eosinophils Percent Auto 0.4 % (0-4); Hematocrit 40.2 % (42.0-52.0); Hemoglobin 13.5 g/dl (14.0-18.0); Imm Gran Abs Auto 0.08 X10*3/uL (0.00-0.03); Imm Gran Pct Auto 0.8 % (0.0-0.4); Lymphocytes Absolute Auto 0.5 X10*3/uL (1.2-4.9); Lymphocytes Percent Auto 4.7 % (20-40); Mean Corpuscular HGB Conc 33.6 g/dl (31.0-36.0); Mean Corpuscular Hemoglobin 30.6 pg (27.0-33.0); Mean Corpuscular Volume 91.2 fL (80.0-98.0); Mean Platelet Volume 9.3 fL (9.4-12.4); Monocytes Absolute Auto 0.6 X10*3/uL (0.1-1.2); Monocytes Percent Auto 5.9 % (2-11); Neutrophils Absolute Auto 8.5 x10*3/uL (2.0-8.3); Neutrophils Percent Auto 87.8 % (45-73); Platelet Count 238 X10*3/uL (160-400); Red Blood Count 4.41 X10*6/uL (4.60-5.80); Red Cell Distribution Width 18.3 % (11.0-16.0); White Blood Count 9.6 X10*3/uL (4.8-10.8)
[2024-01-29 11:40] LABS: Bacteria Urine None Seen (None Seen); Hyaline Casts Urine 0-2 /LPF (0-2); Squamous Epithelial Cell Urine 0-2 /HPF (0-2); UACC Culture Trigger YES; WBC Urine 0-5 /HPF (0-5)
[2024-01-29 11:49] LABS: Estimated Average Glucose 126 mg/dL
[2024-01-29 12:05] LABS: Alanine Aminotransferase 30 U/L (0-40); Albumin Level 3.8 g/dL (3.5-5.0); Alkaline Phosphatase 23 U/L (39-117); Anion Gap 11 (12-20); Aspartate Amino Transferase 14 U/L (5-37); Bilirubin Total 0.5 mg/dL (0.0-1.0); Blood Urea Nitrogen 19 mg/dL (9-16); Calcium 9.6 mg/dL (8.4-10.2); Carbon Dioxide 26 mmol/L (22-29); Chloride 108 mmol/L (96-108); Cholesterol 182 mg/dL (<200); Estimated Glomerular Filt Rate > 60; Glucose Fasting 132 mg/dL (60-99); HDL Cholesterol 94 mg/dL (>40); LDL Cholesterol Calculated 75 mg/dL (<100); Potassium 3.7 mmol/L (3.3-5.1); Sodium 141 mmol/L (135-145); Total Protein 6.4 g/dL (6.5-8.0); Triglycerides 66 mg/dL (<150)
[2024-01-29 12:21] LABS: TSH reflex Free T4 1.09 uIU/mL (0.32-4.0)
[2024-01-29 12:23] LABS: Folate 12.3 ng/mL (> or = 4.0); Prostate Specific Antigen 1.38 ng/mL (<0.05-4.0); Vitamin B12 498 pg/mL (200-900)
== END 2024-01-29 09:20 | disposition home or self-care (01) ==
LOC: HO.WFDLDS 09:19
PROVIDERS: Nurse Practitioner Family; Visit Provider Internal Medicine
DX: Z00.00 Encounter for general adult medical examination without abnormal findings (principal); D64.9 Anemia, unspecified; E11.9 Type 2 diabetes mellitus without complications; E55.9 Vitamin D deficiency, unspecified; E53.8 Deficiency of other specified B group vitamins; N40.0 Benign prostatic hyperplasia without lower urinary tract symptoms; E78.00 Pure hypercholesterolemia, unspecified; Z12.5 Encounter for screening for malignant neoplasm of prostate
CPT/HCPCS: 36415; 80053; 80061; 81001; 82306; 82607; 82746; 83036; 84153; 84443; 85025; 87086

== ENCOUNTER 2024-03-19 13:37 | Outpatient (REF) | payer MEDICARE, OTHER, SELFPAY | END 2024-03-19 13:38 | disposition home or self-care (01) | LOC: HO.SH 13:37 | PROVIDERS: Visit Provider Internal Medicine | DX: Z01.118 Encounter for examination of ears and hearing with other abnormal findings (principal); H90.3 Sensorineural hearing loss, bilateral | CPT/HCPCS: 92557 ==

== ENCOUNTER 2024-05-19 08:17 | Outpatient (REF) | payer MEDICARE, OTHER, SELFPAY ==
[2024-05-19 11:09] LABS: MANUAL DIFF FLAG NO
[2024-05-19 11:19] LABS: Basophils Percent Auto 0.6 % (0-2); Eosinophils Absolute Auto 0.4 X10*3/uL (0.0-0.4); Eosinophils Percent Auto 5.2 % (0-4); Hematocrit 44.4 % (42.0-52.0); Hemoglobin 14.7 g/dl (14.0-18.0); Imm Gran Abs Auto 0.03 X10*3/uL (0.00-0.03); Imm Gran Pct Auto 0.4 % (0.0-0.4); Lymphocytes Absolute Auto 0.9 X10*3/uL (1.2-4.9); Lymphocytes Percent Auto 13.1 % (20-40); Mean Corpuscular HGB Conc 33.1 g/dl (31.0-36.0); Mean Corpuscular Hemoglobin 30.5 pg (27.0-33.0); Mean Corpuscular Volume 92.1 fL (80.0-98.0); Mean Platelet Volume 8.7 fL (9.4-12.4); Monocytes Absolute Auto 0.7 X10*3/uL (0.1-1.2); Neutrophils Percent Auto 70.7 % (45-73); Platelet Count 271 X10*3/uL (160-400); Red Blood Count 4.82 X10*6/uL (4.60-5.80); Red Cell Distribution Width 15.2 % (11.0-16.0); White Blood Count 7.1 X10*3/uL (4.8-10.8)
[2024-05-19 11:24] LABS: Appearance Urine Clear; Color Urine Yellow; Glucose Urine UA Negative (Negative); Leukocyte Esterase Urine Small (1+) (Negative); Nitrite Urine Negative (Negative); PH 8.5 (5.0-9.0); UMIC TRIGGER UACC YES; Urine Blood Trace (Negative); Urine Ketones Negative (Negative); Urine Protein Negative (Neg-Trace)
[2024-05-19 11:42] LABS: Bacteria Urine None Seen (None Seen); Hyaline Casts Urine 0-2 /LPF (0-2); Other Crystals Urine Present; RBC Urine 0-2 /HPF (0-2); Squamous Epithelial Cell Urine 0-2 /HPF (0-2); UACC Culture Trigger YES; WBC Urine 0-5 /HPF (0-5)
[2024-05-19 12:11] LABS: Alanine Aminotransferase 27 U/L (0-40); Alkaline Phosphatase 31 U/L (39-117); Anion Gap 10 (12-20); Aspartate Amino Transferase 21 U/L (5-37); Bilirubin Total 0.4 mg/dL (0.0-1.0); Blood Urea Nitrogen 12 mg/dL (9-16); Calcium 9.5 mg/dL (8.4-10.2); Carbon Dioxide 29 mmol/L (22-29); Chloride 107 mmol/L (96-108); Cholesterol 145 mg/dL (<200); Estimated Glomerular Filt Rate > 60; Glucose Fasting 102 mg/dL (60-99); HDL Cholesterol 62 mg/dL (>40); LDL Cholesterol Calculated 63 mg/dL (<100); Sodium 142 mmol/L (135-145); TSH reflex Free T4 1.42 uIU/mL (0.32-4.0); Triglycerides 100 mg/dL (<150)
== END 2024-05-19 08:18 | disposition home or self-care (01) ==
LOC: HO.WFDLDS 08:17
PROVIDERS: Visit Provider Internal Medicine
DX: E78.00 Pure hypercholesterolemia, unspecified (principal); D64.9 Anemia, unspecified; R30.0 Dysuria; E53.8 Deficiency of other specified B group vitamins; E55.9 Vitamin D deficiency, unspecified; I48.0 Paroxysmal atrial fibrillation; I50.30 Unspecified diastolic (congestive) heart failure; Z85.118 Personal history of other malignant neoplasm of bronchus and lung; J44.9 Chronic obstructive pulmonary disease, unspecified; R73.01 Impaired fasting glucose; F41.9 Anxiety disorder, unspecified; F33.9 Major depressive disorder, recurrent, unspecified; E66.9 Obesity, unspecified; Z79.899 Other long term (current) drug therapy
CPT/HCPCS: 36415; 80053; 80061; 81001; 84443; 85025; 87086; 96127; 99212

== ENCOUNTER 2024-05-19 11:02 | Outpatient (AMB) | payer MEDICARE, OTHER, SELFPAY ==
--- NOTE | 2024-05-19 11:14 | A.OFFPC_ITS ---
Vital Signs 05/19/24 11:33 Height 5 ft 6 in Weight 191 lb 2 oz BMI 30.8 BP 122/80 Blood Pressure Location Lt brachial Position Sitting Pulse 90 Pulse Source Pulse Oximeter Pulse Oximetry (%) 98 Oxygen Delivery Method Room Air Intake Visit Reasons: 4 Month F/U Glue Line Operator Required: No Accompanied by: Self / Same As Patient Allergies No Known Allergies [No Known Allergies*] Allergy (Verified 05/19/24 12:04) Medication List - Last Reconciled 05/19/24 by Yoseph Acevedo MD albuterol sulfate 90 mcg/actuation 2 puffs inhalation Q4H PRN 30 days atorvastatin 40 mg PO BEDTIME bisacodyl (Dulcolax (bisacodyl)) 20 mg (4 x 5 mg) PO ONCE 1 day bisacodyl (Dulcolax (bisacodyl)) 10 mg (2 x 5 mg) PO BEDTIME cholecalciferol (vitamin D3) 25 mcg PO DAILY coenzyme Q10 60 mg PO DAILY dabigatran etexilate 150 mg PO BID diltiazem HCl CD 120 mg PO DAILY famotidine (Pepcid) 20 mg PO BEDTIME ipratropium-albuterol 0.5 mg-3 mg(2.5 mg base)/3 mL 3 mL inhalation Q6H PRN polyethylene glycol 3350 (Miralax) 238 grams PO ONCE 1 day prednisone 4 tablets x 3 days, then 3 tablets x 3 days, then 2 tablets x 3 days, then 1 tablet x 3 days 12 days Tobacco use date assessed: 05/19/24 Last assessed Fall Risk: 05/19/24 Dental Screening Dental Screen Date: 05/19/24 HPI 4 Month F/U HPI Details Patient comes in today for his follow-up visit States that he feels okay He denies any headaches or dizziness Denies any chest pains, no increased shortness of breath States that his breathing has been fairly well controlled with his current Rx, which include Trelegy Ellipta, Daliresp and Albuterol inhaler He is requesting for a prescription for a short course of oral prednisone that he can use whenever he gets a flare-up of his COPD as he often has trouble calling into the office and getting prescriptions sent immediately and he is concerned that his COPD flare-up can get worse rapidly if it does not get addressed in time No nausea/vomiting, no abdominal pain No change in bowel habits noted He had his follow-up labs done earlier this morning - to discuss his results [facility] Medical History Gastritis and duodenitis Hx of cancer of lung Hx of radiation therapy History of chemotherapy Hiatal hernia On anticoagulant therapy HTN (hypertension) Tubular adenoma Arthritis Low back pain Diarrhea Oxygen dependent Emphysema/COPD BROWN (dyspnea on exertion) MANJEET (obstructive sleep apnea) Impaired fasting glucose Eye pain Obesity (BMI 30-39.9) Anxiety COPD (chronic obstructive pulmonary disease) Diabetes mellitus Pure hypercholesterolemia Diastolic heart failure Paroxysmal atrial fibrillation Surgical History History of right inguinal hernia repair (03/13/23) History of esophagogastroduodenoscopy (EGD) Deficient knowledge of leg surgery History of surgery History of cardioversion H/O prior ablation treatment History of colonoscopy Family History Father Medical history unknown Mother Myocardial infarction Social History Housing: House Are you a primary child care assistant to a significant other at home: No Do you presently have visiting nurse or other home services: Yes (respiratory) Alcohol intake: current Alcohol intake frequency: 3 or more drinks per day Alcohol type: beer Patient Tobacco Use Status: Former Tobacco user Tobacco use type: Cigarette e-Cigarette/Vaping Use: Never Used Second Hand Smoke Exposure: Yes Substance Use Type: Marijuana service: No Current occupational status: retired Cognitive needs: No Hearing needs: No Vision needs: Yes (reading glasses) Questionnaire PHQ-9 Over the last 2 weeks, how often have you been bothered by any of the following problems? 1. Little interest or pleasure in doing things: not at all 2. Feeling down, depressed, or hopeless: not at all 3. Trouble falling or staying asleep, or sleeping too much: not at all 4. Feeling tired or having little energy: not at all 5. Poor appetite or overeating: not at all 6. Feeling bad about yourself - or that you are a failure or have let yourself or your family down: not at all 7. Trouble concentrating on things, such as reading the newspaper or watching television: not at all 8. Moving or speaking so slowly that other people could have noticed. Or the opposite - being so fidgety or restless that you have been moving around a lot more than usual: not at all 9. Thoughts that you would be better off or of hurting yourself in some way: not at all Total score: 0 Depression Screening Interpretation: Negative Depression Screening Done: Yes 18647 - PHQ-9 Billing: Yes Source: Developed by Drs. Biju Pedroza, Felisha Roberson, Sergio Wang and colleagues, with an educational gary from [employer]. Thrive Questionnaire Date Thrive assessed: 05/19/24 I am a: Patient What is your living situation today?: I have a steady place to live Within the past 12 months, did the food you bought not last and you didn't have the money to get more?: Never true Within the past 12 months, did you worry whether your food would run out before you got money to buy more?: Never true Do you have trouble paying for medicines?: No Do you have trouble getting transportation to medical appointments?: No Do you have trouble paying your heating and electricity bill?: No Do you have trouble taking care of your child, family member or friend?: No Do you have trouble with day-to-day activities such as bathing, preparing meals, shopping, managing finances, etc.?: No Are you currently unemployed and looking for a job?: No Are you interested in more education?: No Please select the resources that you would like help with: None Currently or been in a relationship where the following occur: No concerns reported THRIVE Score: 0 AUDIT C Alcohol Use Questionnaire (AUDIT-C) 1. How often do you have a drink containing alcohol?: 2-4 times a month 2. How many drinks containing alcohol do you have on a typical day when you are drinking?: 1 or 2 3. How often do you have six or more drinks on one occasion?: Never Total Score: 2 Score Reviewed/Action Taken: Yes DANGELO-7 AMB Questionnaire DANGELO-7 Date DANGELO - 7 assessed: 05/19/24 Feeling nervous, anxious, or on edge: 0 = Not at all Not being able to stop or control worryin = Not at all Worrying too much about different things: 0 = Not at all Trouble relaxin = Not at all Being so restless that it is hard to sit still: 0 = Not at all Becoming easily annoyed or irritable: 0 = Not at all Feeling afraid as if something awful might happen: 0 = Not at all Total DANGELO-7 score (0-4 normal; 5-9 mild; 10-14 moderate; 15-21 severe): 0 Source: Developed by Drs. Biju Pedroza, Felisha Roberson, Sergio Wang and colleagues, with an educational gary from [employer]. Review of Systems Const Denies chills, Reports fatigue, Denies fever(s) and Denies headache(s) ENT Denies dysphagia, Denies dizziness, Denies otalgia, Denies headache(s), Denies neck pain, Denies odynophagia and Denies sore throat Card Denies chest pain, Denies irregular heart rhythm, Denies palpitations and Reports dyspnea on exertion (mild) Resp Denies chest congestion, Denies cough, Reports dyspnea on exertion (mild) and Denies wheezing GI Denies abdominal pain, Denies constipation, Denies dysphagia, Denies heartburn, Denies diarrhea, Denies nausea, Denies odynophagia and Denies vomiting Denies difficulty urinating, Denies dysuria and Denies urinary frequency Musc Denies back pain, Denies arthralgias and Denies neck pain Skin/Breast Denies rash Neuro Denies dizziness, Denies headache(s) and Denies paresthesias Psych Reports anxiety and Denies depression Endo Reports fatigue and Denies palpitations Aller/Immun Denies wheezing Physical exam (Primary Care) Vital Signs: Last Vital Signs Pulse 90 05/19/24 11:33 BP 122/80 05/19/24 11:33 Pulse Ox 98 05/19/24 11:33 Oxygen Delivery Method Room Air 05/19/24 11:33 BMI result Body Mass Index 30.8 Tobacco/Smoking Status: Tobacco use Status Tobacco use date assessed 05/19/24 05/19/24 11:17 Patient Tobacco Use Status Former Tobacco user 05/19/24 11:17 Tobacco use type Cigarette 05/19/24 11:17 e-Cigarette/Vaping Use Never Used 05/19/24 11:17 PHQ-9: PHQ-9 Score PHQ-9: Total score 0 05/19/24 12:05 Depression Screening Interpretation: Negative Thrive Assessment: Date of Thrive Assessment Date Thrive assessed 05/19/24 05/19/24 11:17 Currently or been in a relationship where the following occur: No concerns reported Results Reviewed Results Reviewed: Laboratory Tests 01/29/24 05/19/24 05/19/24 09:22 08:19 08:24 WBC 7.1 Hgb 14.7 Hct 44.4 Plt Count 271 Sodium 142 Potassium 4.0 Creatinine 0.82 Estimated GFR > 60 Fasting Glucose 102 H Hemoglobin A1c % 6.0 Calcium 9.5 AST 21 ALT 27 Triglycerides 100 Cholesterol 145 LDL Cholesterol, Calc 63 HDL Cholesterol 62 TSH 1.42 Ur Specific [place] 1.010 Urine Protein Negative Urine Glucose (UA) Negative Urine Blood Trace H Urine Nitrite Negative Ur Leukocyte Esterase Small (1+) H Coding Level of Care Code Est Pt Level 4 (45937) Diagnoses Paroxysmal atrial fibrillation I48.0 Diastolic heart failure, unspecified HF chronicity I50.30 Heart failure chronicity: unspecified Pure hypercholesterolemia E78.00 Hx of cancer of lung Z85.118 Chronic obstructive pulmonary disease, unspecified COPD type J44.9 COPD type: unspecified COPD Gastritis and duodenitis K29.90 Impaired fasting glucose R73.01 Anxiety F41.9 Episode of recurrent major depressive disorder, unspecified depression episode severity F33.9 Depression Type: major depressive disorder Major depression recurrence: recurrent Active/Remission status: currently active Major depression episode severity: unspecified Obesity (BMI 30-39.9) E66.9 Additional Codes PHQ-9 - 90457 - PHQ-9 Billing: Yes ([id number]) Assessment & Plan Assessment & Plan (1) Paroxysmal atrial fibrillation: Code(s): I48.0 - Paroxysmal atrial fibrillation Category: Medical Plan: Patient currently remains in sinus rhythm and has been rate-controlled over the past year on Diltiazem - was on Amiodarone 200 mg QD in the past S/P cardiac ablation at [facility] on 07/29/2018; cardiac rehab back then resulted in some improvement of his symptoms Continue Pradaxa 150 mg twice a day for thromboembolism prophylaxis Follow-up with cardiology as scheduled (2) Diastolic heart failure: Code(s): I50.30 - Unspecified diastolic (congestive) heart failure Category: Medical Qualifiers: Heart failure chronicity: unspecified Qualified Code(s): I50.30 - Unspecified diastolic (congestive) heart failure Plan: Compensated - reinforced fluid restriction He was on Furosemide in the past but patient has not required any diuretics lately (3) Pure hypercholesterolemia: Code(s): E78.00 - Pure hypercholesterolemia, unspecified Category: Medical Plan: Results of his labs done last week reviewed and discussed with patient Reinforced low cholesterol diet Continue Atorvastatin 40 mg QD Will recheck his labs and fasting lipids in 4 months for follow up (4) Hx of cancer of lung: Comment: treated at [facility] Code(s): Z85.118 - Personal history of other malignant neoplasm of bronchus and lung Category: Medical Plan: Patient was diagnosed with 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 on 09/13/2022 Staging work up done at the time revealed NO metastasis and he was recommended to undergo concurrent chemoradiation therapy He was started then on Carboplatin and SERVICE DEVELOPER-16, completed Tx on 01/06/2023 He completed his radiation therapy on 01/04/2023 Follow-up with Pulmonary and Oncology as scheduled for continuing surveillance (5) COPD (chronic obstructive pulmonary disease): Code(s): J44.9 - Chronic obstructive pulmonary disease, unspecified Category: Medical Qualifiers: COPD type: unspecified COPD Qualified Code(s): J44.9 - Chronic obstructive pulmonary disease, unspecified Plan: Patient was on prophylactic Azithromycin 250 mg 1 tablet 3 times a week before but this was also discontinued at some point States that his breathing has been fairly well controlled lately with his current Rx, which include Trelegy Ellipta, Daliresp and Albuterol inhaler Follow up with [facility] (Dr. Johnson) as scheduled As requested, Rx for prednisone was provided to patient keep on hand - states that he plans to use this only in emergency situations and acute flare-ups of his COPD (6) Gastritis and duodenitis: Code(s): K29.90 - Gastroduodenitis, unspecified, without bleeding Category: Medical Plan: EGD done in May 2022 revealed (+) gastritis and duodenitis, and he was started on Pantoprazole 40 mg QD then He has reportedly been advised by GI that he may also have IBS and/or lactose intolerance Reinforced dietary restrictions Continue Ondansetron 4 mg Q 8 hours PRN for his nausea, Famotidine 20 mg Q HS and Pantoprazole 40 mg QD (7) Impaired fasting glucose: Code(s): R73.01 - Impaired fasting glucose Category: Medical Plan: His HgbA1c was at 6.0% when last checked in December 2023; in-office HgbA1c was at 5.5% and 5.8% when previously checked Reinforced low calorie/low carb diet Exercise is unrealistic given patient's advanced COPD (8) Anxiety: Code(s): F41.9 - Anxiety disorder, unspecified Category: Medical Plan: He was previously on Sertraline 150 mg QD and Lorazepam 0.5 mg every 8 hours as needed for his anxiety but appears to have stopped taking both meds a while back Patient feels that he has been doing okay so far with regard to his mood disorder and he does not require any prescription or medication at this time (9) Depression: Code(s): F32.9 - Major depressive disorder, single episode, unspecified Category: Medical Qualifiers: Depression Type: major depressive disorder Major depression recurrence: recurrent Active/Remission status: currently active Major depression episode severity: unspecified Qualified Code(s): F33.9 - Major depressive disorder, recurrent, unspecified Plan: He was taking Sertraline 150 mg QD in the past but appears to have self- discontinued this Rx a while back - states that he has been doing okay without any Rx for his depression so far Will consider again referral to psychiatry if his symptoms recur or progress (10) Obesity (BMI 30-39.9): Code(s): E66.9 - Obesity, unspecified Category: Medical Plan: Reinforced diet; exercise and weight loss are not realistic given patient's COPD and other multiple comorbidities Plan Follow up in 3 months Orders: Orders Complete Blood Count Auto Diff 3 Months D64.9 - Anemia, unspecified Vitamin B12 and Folate 3 Months E53.8 - Deficiency of other specified B group vitamins Hemoglobin A1c 3 Months R73.01 - Impaired fasting glucose B Type Natriuretic Peptide 3 Months I50.9 - Heart failure, unspecified Comprehensive [place]. Panel Fast 3 Months E78.00 - Pure hypercholesterolemia, unspecified Lipid Panel 3 Months E78.00 - Pure hypercholesterolemia, unspecified TSH reflex Free T4 3 Months E78.00 - Pure hypercholesterolemia, unspecified UA CC w/rflx Micro + Cult 3 Months R30.0 - Dysuria Vitamin D 25-OH Total 3 Months E55.9 - Vitamin D deficiency, unspecified Medications: New prednisone Take as instructed as needed for SOB/chest tightness 20 mg PO DAILY PRN 30 tabs 0RF chest tightness/COPD exacerbation
[2024-05-19 11:33] VITALS: BP 122/80; PULSE 90; O2SAT 98; BMI 30.8
== END 2024-05-19 12:14 | disposition home or self-care (01) ==
PROVIDERS: PCP Internal Medicine; Visit Provider Internal Medicine
DX: I48.0 Paroxysmal atrial fibrillation (principal); I50.30 Unspecified diastolic (congestive) heart failure; J44.9 Chronic obstructive pulmonary disease, unspecified; F33.9 Major depressive disorder, recurrent, unspecified; E78.00 Pure hypercholesterolemia, unspecified; Z85.118 Personal history of other malignant neoplasm of bronchus and lung; K29.90 Gastroduodenitis, unspecified, without bleeding; R73.01 Impaired fasting glucose; F41.9 Anxiety disorder, unspecified; E66.9 Obesity, unspecified

== ENCOUNTER 2024-07-29 08:51 | Inpatient (IN) | payer MEDICARE, OTHER, SELFPAY ==
[2024-07-29] VITALS (7 sets, daily range): BP systolic 118–161; BP diastolic 70–79; PULSE 93–108; RESP 16–26; TEMP 36.4–37.2; O2SAT 93–96; BMI 30.7; BMI 31.3
--- NOTE | ~2024-07-29 | XR_ITS ---
EXAMINATION: XR CHEST CLINICAL INFORMATION: Shortness of breath COMPARISON: None available. TECHNIQUE: 2 views of the chest were obtained. FINDINGS: The cardiac, hilar, and mediastinal contours are normal. Aorta is calcified. Lungs are hyperaerated, with minimal linear atelectasis left base. Lungs otherwise clear. There is no pneumothorax or pleural effusion. There is no focal osseous or soft tissue abnormality. Degenerative changes in the spine. XR/XR chest 2V IMPRESSION: No active pulmonary disease. COPD. No interval change from prior exams. Electronically signed by: Jose M Wynn MD 07/29/2024 10:24 AM [facility] [place]
--- NOTE | 2024-07-29 09:18 | ECG_ITS ---
Test Reason : SOB Blood Pressure : */* mmHG Vent. Rate : 103 BPM Atrial Rate : 103 BPM P-R Int : 140 ms QRS Dur : 134 ms QT Int : 364 ms P-R-T Axes : 83 79 50 degrees QTcB Int : 476 ms Sinus tachycardia with frequent Premature ventricular complexes Right bundle branch block Abnormal ECG When compared with ECG of 22-Jun-2023 16:12, No significant change was found Referred By: Jennifer Perales Electronically Signed By: SARAH COMER
[2024-07-29] MEDS: Albuterol Sulfate 5 MG, Albuterol/Iprat 2.5/0.5MG 3 ML 3 ML INHALE (09:39)
[2024-07-29 09:41] LABS: Basophils Percent Auto 0.2 % (0-2); Eosinophils Percent Auto 0.2 % (0-4); Hematocrit 44.7 % (42.0-52.0); Hemoglobin 15.3 g/dl (14.0-18.0); Imm Gran Abs Auto 0.04 X10*3/uL (0.00-0.03); Imm Gran Pct Auto 0.5 % (0.0-0.4); Lymphocytes Absolute Auto 0.3 X10*3/uL (1.2-4.9); Lymphocytes Percent Auto 2.9 % (20-40); MANUAL DIFF FLAG SCAN; Mean Corpuscular HGB Conc 34.2 g/dl (31.0-36.0); Mean Corpuscular Hemoglobin 30.5 pg (27.0-33.0); Mean Platelet Volume 8.7 fL (9.4-12.4); Monocytes Absolute Auto 0.3 X10*3/uL (0.1-1.2); Monocytes Percent Auto 3.1 % (2-11); Neutrophils Absolute Auto 8.2 x10*3/uL (2.0-8.3); Neutrophils Percent Auto 93.1 % (45-73); Platelet Count 255 X10*3/uL (160-400); Red Blood Count 5.02 X10*6/uL (4.60-5.80); Red Cell Distribution Width 17.2 % (11.0-16.0); SCAN SMEAR FLAG 1; White Blood Count 8.8 X10*3/uL (4.8-10.8)
[2024-07-29] MEDS: methylPREDNISolone Sod Succ 125 MG/2 ML VIAL IVPUSH (09:42)
[2024-07-29 09:43] LABS: Venous Blood Gas Refer to POC result
[2024-07-29 09:43] LABS: VBG Base Excess 6.3 mmol/L; VBG HCO3 32 mmol/L (22-26); VBG pCO2 50 mmHg; VBG pH 7.41 (7.32-7.43); VBG pO2 44 mmHg
[2024-07-29 09:58] LABS: Lactic Acid 2.1 mmol/L (0.5-2.0)
[2024-07-29 09:59] LABS: B Type Natriuretic Peptide 67 pg/mL (<100)
--- NOTE | 2024-07-29 10:00 | ED_ITS ---
HPI - SOB/Dyspnea General Chief Complaint: Dyspnea Stated Complaint: Diff Breathing Time Seen by Provider: 07/29/24 09:13 Source: patient Mode of arrival: ambulatory History of Present Illness ED Provider: Diaz CHRISTIANSEN Narrative: 73-year-old male with history of everyday smoking and COPD, also on chronic anticoagulation states that since Saturday he has had multiple episodes of coughing that is nonproductive of sputum, reports chills but unsure about fevers, denies any nausea or vomiting has been attempting to use his nebulizer treatments but just continues to become more short of breath. Related Data Home Medications ?Medication ?Instructions ?Recorded ?Confirmed ipratropium 0.5 mg-albuterol 3 mg 3 ml inhalation Q6H PRN Shortness 05/19/20 05/19/24 (2.5 mg base)/3 mL nebulization Of Breath soln coenzyme Q10 60 mg tablet 60 mg PO DAILY 09/09/23 05/19/24 Previous Rx's ?Medication ?Instructions ?Recorded cholecalciferol (vitamin D3) 25 25 mcg PO DAILY #90 tabs 08/24/22 mcg (1,000 unit) tablet dabigatran etexilate 150 mg capsule 150 mg PO BID #180 caps 10/02/23 bisacodyl 5 mg tablet,delayed 10 mg (2 x 5 mg) PO BEDTIME #16 12/17/23 release (Dulcolax (bisacodyl)) tabs diltiazem HCl 120 mg 120 mg PO DAILY #90 caps 03/03/24 capsule,extended release 24 hr bisacodyl 5 mg tablet,delayed 20 mg (4 x 5 mg) PO ONCE 1 day #4 04/15/24 release (Dulcolax (bisacodyl)) tabs polyethylene glycol 3350 17 238 g PO ONCE 1 day #238 grams 04/15/24 gram/dose oral powder (Miralax) albuterol sulfate 90 mcg/actuation 2 puff inhalation Q4H PRN 04/23/24 aerosol inhaler shortness of breath or wheezing 30 days #8.5 grams lorazepam 0.5 mg tablet 0.5 mg PO TID PRN anxiety #90 tabs 06/03/24 atorvastatin 40 mg tablet 40 mg PO BEDTIME #90 tabs 07/09/24 famotidine 20 mg tablet 20 mg PO BEDTIME #90 tabs 07/09/24 prednisone 20 mg tablet 20 mg PO DAILY PRN chest 07/15/24 tightness/COPD exacerbation #30 tabs Allergies Allergy/AdvReac Type Severity Reaction Status Date / Time No Known Allergies Allergy Verified 07/29/24 09:06 [No Known Allergies*] Review of Systems 2 Review of Systems: Pertinent positives and negatives as stated in HPI [facility] Past Medical History Source: nursing notes reviewed Medical History Gastritis and duodenitis Hx of cancer of lung Hx of radiation therapy History of chemotherapy Hiatal hernia On anticoagulant therapy HTN (hypertension) Tubular adenoma Arthritis Low back pain Diarrhea Oxygen dependent Emphysema/COPD BROWN (dyspnea on exertion) MANJEET (obstructive sleep apnea) Impaired fasting glucose Eye pain Obesity (BMI 30-39.9) Anxiety COPD (chronic obstructive pulmonary disease) Diabetes mellitus Pure hypercholesterolemia Diastolic heart failure Paroxysmal atrial fibrillation Surgical History History of right inguinal hernia repair (03/13/23) History of esophagogastroduodenoscopy (EGD) Deficient knowledge of leg surgery History of surgery History of cardioversion H/O prior ablation treatment History of colonoscopy Family History Family History Father Medical history unknown Mother Myocardial infarction Social History Social History Housing: House Are you a primary animal daycare provider to a significant other at home: No Do you presently have visiting nurse or other home services: Yes (respiratory) Unable to assess alcohol history related to: Unable to respond Alcohol intake: current Alcohol intake frequency: a few times a week Alcohol type: beer Patient Tobacco Use Status: Former Tobacco user Tobacco use type: Cigarette Smoked in Last 30 Days: No e-Cigarette/Vaping Use: Never Used Second Hand Smoke Exposure: Yes Substance Use Type: Marijuana Advance Directives: No Advance Directives Information Provided: Yes Do you have a plan to hurt others: No Plan service: No Current occupational status: retired Cognitive needs: No Hearing needs: No Vision needs: Yes (reading glasses) Physical Exam 2 Vital Signs: Vital Signs: Last Vital Signs Temp 98.9 F 07/29/24 11:14 Pulse 104 H 07/29/24 11:14 Resp 26 H 07/29/24 11:14 BP 127/70 07/29/24 11:14 Pulse Ox 94 07/29/24 11:14 O2 Del Method Nasal Cannula 07/29/24 11:14 O2 Flow Rate 2 07/29/24 11:14 BMI result Body Mass Index 30.7 VITAL SIGNS: Reviewed. GENERAL: Well developed, well nourished, in no acute distress. HEAD: Normocephalic/atraumatic EYES: PERRLA, EOMI EARS: Ext canals without abnormality NOSE: Nares patent bilateral OROPHARYNX: no oral lesions noted, posterior pharynx clear NECK: Supple, no adenopathy LUNGS: Increased work of breathing with tachypnea, audible wheeze, decreased breath sounds throughout with rhonchi. SpO2<93> CARDIOVASCULAR: Regular rate and rhythm without noted murmurs, no JVD or lower extremity edema. ABDOMEN: Soft, non-tender, non-distended with bowel sounds. MUSCULOSKELETAL: No tenderness, deformities, or effusions noted on gross inspection. EXTREMITIES: No cyanosis, clubbing or edema. SKIN: Inspection of the skin reveals no rashes NEUROLOGIC: Alert and oriented x 4. Strength and sensation to light touch were grossly intact x 4. Medications Administered Discontinued Medications Generic Name Dose Route Start Last Admin Trade Name Freq PRN Reason Stop Dose Admin Albuterol Sulfate 5 mg/ 0 mg 07/29/24 09:31 07/29/24 09:39 Albuterol/Ipratropium 3 ml INHALE 07/29/24 09:32 1 each ONCE ONE Administration Methylprednisolone Sodium Succinate 125 mg 07/29/24 09:19 07/29/24 09:42 Methylprednisolone Sod Succ 125 Mg/2 Ml Vial IVPUSH 07/29/24 09:20 125 mg ONCE ONE Administration Medical Decision Making Medical Decision Making [facility] Narrative: 0918: 73-year-old male with history and clinical presentation, DD DX: COPD exacerbation, viral versus bacteria pneumonia, lower clinical suspicion for ACS. EKG: Sinus tachycardia with occasional PVCs, RBBB at baseline, no STEMI, IL/QTC/QTC are within normal limits and no significant changes when compared to prior other than on prior. INTERVENTION: ED bronch protocol, Solu-Medrol, cardiac monitoring, abx I reviewed and interpreted all investigations and there is no infectious leukocytosis, anemia, or thrombocytopenia. VBG does not demonstrate respiratory acidosis but there is hypercapnia consistent with patient's presenting symptoms with a pCO2-50. There is no demonstrate JOHANNE or electrolyte derangement, BNP is 67, liver enzymes are mildly elevated but likely associated with fatty liver as patient does not have any discrete right upper quadrant or epigastric discomfort. Chest x-ray on my interpretation does not demonstrate any acute infiltrate or interstitial edema and otherwise is in agreement with radiology's impression. Patient feeling somewhat improved but has required supplemental oxygen 2 L nasal cannula. Discussed with inpatient hospitalist for admission. Differential Diagnosis Differential Diagnoses: The differential diagnosis associated with the presentation includes See above Admission/Observation Consideration of admission/observation: Escalation of care including admission/observation considered See above, patient meets inpatient level of care Consult Healthcare Provider Management of the patient was discussed with: Hospitalist See above Lab Data MDM Lab Attestation statement: I reviewed the patient's lab results. See above 07/29/24 09:31 07/29/24 09:31 Labs: Lab Results 07/29/24 07/29/24 Range/Units 09:31 09:36 WBC 8.8 (4.8-10.8) X10*3/uL RBC 5.02 (4.60-5.80) X10*6/uL Hgb 15.3 (14.0-18.0) g/dl Hct 44.7 (42.0-52.0) % MCV 89.0 (80.0-98.0) fL MCH 30.5 (27.0-33.0) pg MCHC 34.2 (31.0-36.0) g/dl RDW 17.2 H (11.0-16.0) % Plt Count 255 (160-400) X10*3/uL MPV 8.7 L (9.4-12.4) fL Immature Gran % (Auto) 0.5 H (0.0-0.4) % Neut % (Auto) 93.1 H (45-73) % Lymph % (Auto) 2.9 L (20-40) % [place] % (Auto) 3.1 (2-11) % Eos % (Auto) 0.2 (0-4) % Baso % (Auto) 0.2 (0-2) % Lymph # (Auto) 0.3 L (1.2-4.9) X10*3/uL [place] # (Auto) 0.3 (0.1-1.2) X10*3/uL Eos # (Auto) 0.0 (0.0-0.4) X10*3/uL Baso # (Auto) 0.0 (0.0-0.2) X10*3/uL Abs Immat Gran (auto) 0.04 H (0.00-0.03) X10*3/uL Absolute Neuts (auto) 8.2 (2.0-8.3) x10*3/uL Absolute Nucleated RBC 0.000 (0.0-0.012) X10*3/uL Nucleated RBC % (auto) 0.0 (0.0-0.2) /100WBC Smear Tech's Comments VERIFIED VBG pH 7.41 (7.32-7.43) VBG pCO2 50 mmHg VBG pO2 44 mmHg VBG HCO3 32 H (22-26) mmol/L VBG O2 Saturation 70.0 % VBG Base Excess 6.3 mmol/L Sodium 140 (135-145) mmol/L Potassium 4.4 (3.3-5.1) mmol/L Chloride 104 (96-108) mmol/L Carbon Dioxide 27 (22-29) mmol/L Anion Gap 13 (12-20) BUN 18 H (9-16) mg/dL Creatinine 0.76 (0.5-1.4) mg/dL Estim Creat Clear Calc 87.7 Estimated GFR > 60 Random Glucose 146 H (60-115) mg/dL Lactic Acid 2.1 H* (0.5-2.0) mmol/L Calcium 9.9 (8.4-10.2) mg/dL Total Bilirubin 0.5 (0.0-1.0) mg/dL AST 42 H (5-37) U/L ALT 48 H (0-40) U/L Alkaline Phosphatase 29 L (39-117) U/L B-Natriuretic Peptide 67 (<100) pg/mL Total Protein 7.3 (6.5-8.0) g/dL Albumin 4.1 (3.5-5.0) g/dL Independent Interpretation I performed an independent interpretation of an: EKG and Plain X-Ray Interpretation: See above Radiology Impression Discussion of test interpretation with radiology: I have reviewed the radiologist's reading. Radiologist Impression: See above External Record Review External record reviewed: Prior outpatient labs and Prior outpatient radiology Chronic Conditions Patient?s care impacted by: Other (COPD) Critical Care Time Critical Care Time Critical Care Time: Yes Total Critical Care Time: 30 Attestation: I personally attest to this time spent taking care of the patient. Discharge Plan Discharge Clinical Impression: COPD exacerbation, Viral syndrome, Hypoxia Patient Disposition: Admitted As Inpatient Print Language: [place]an
[2024-07-29 10:02] LABS: SLIDE REVIEW VERIFIED
[2024-07-29 10:06] LABS: Alanine Aminotransferase 48 U/L (0-40); Albumin Level 4.1 g/dL (3.5-5.0); Anion Gap 13 (12-20); Aspartate Amino Transferase 42 U/L (5-37); Bilirubin Total 0.5 mg/dL (0.0-1.0); Blood Urea Nitrogen 18 mg/dL (9-16); Calcium 9.9 mg/dL (8.4-10.2); Carbon Dioxide 27 mmol/L (22-29); Chloride 104 mmol/L (96-108); Creatinine Clr Calc Pharmacy 87.7; Estimated Glomerular Filt Rate > 60; Glucose Random 146 mg/dL (60-115); Potassium 4.4 mmol/L (3.3-5.1); Sodium 140 mmol/L (135-145); Total Protein 7.3 g/dL (6.5-8.0)
[2024-07-29 11:02] LABS: Alkaline Phosphatase 29 U/L (39-117)
--- OUTSIDE RECORDS SUMMARY | 2024-07-29 11:19 | XMS_ITS | Clinical Summary ---
Author Organization [facility] Address [address] [place] [phone] Phone Care Team Providers Care Equine Intern Name Role Phone Yoseph Acevedo MD Primary Care Provider Allergies No known active allergies Medications Medication Sig Dispensed Refills Start Date End Date Status predniSONE (DELTASONE) 20 mg tablet TAKE 2 TABLET BY MOUTH EVERY DAY FOR 5 DAYS NEEDED FOR COPD EXACERBATION 02/05/2024 Active roflumilast (DALIRESP) 500 mcg tablet Take 500 mcg by mouth daily. 11/02/2023 Active fluticasone-umeclidi nium-vilanterol (Trelegy Ellipta) 100-62.5-25 mcg inhaler Inhale 1 Puff into the lungs daily. 11/02/2023 Active diclofenac (VOLTAREN) 1 % topical gel 10/06/2021 Active dilTIAZem XR (DILT-XR) 120 mg 24 hr capsule TAKE 1 CAPSULE BY MOUTH EVERY DAY MAKE AN APPT FOR FURTHER REFILLS, [id number] 09/11/2021 Active methylcellulose, laxative, 500 mg tablet TAKE 1 CAPLET BY MOUTH DAILY TAKE IT WITH FULL GLASS OF WATER 09/12/2021 Active albuterol HFA (PROAIR HFA ; PROVENTIL HFA ; VENTOLIN HFA) 90 mcg/actuation inhaler Inhale 2 Puffs into the lungs every 4 hours as needed for Wheezing for up to 30 days. 10/28/2023 Active dabigatran etexilate (PRADAXA) 150 mg capsule Take 1 capsule (150 mg total) by mouth 2 (two) times a day. 10/21/2017 Active ipratropium-albutero L (DUONEB) 0.5-2.5 mg/3 mL nebulizer solution USE 1 VIAL (3 ML) VIA UPDRAFT 4 TIMES A DAY 11/29/2017 Active miscellaneous medical supply misc 1 Units by Does not apply route 2 times daily as needed (hypoxemia). Monitor Oxygen Level at Home 01/13/2018 Active guaiFENesin (MUCINEX) 600 mg 12 hr tablet Take 1,200 mg by mouth 2 times daily. Active atorvastatin (LIPITOR) 40 mg tablet Take 1 tablet (40 mg total) by mouth daily. Active furosemide (LASIX) 80 mg tablet Take 80 mg by mouth daily. Active umeclidinium-vilante roL (ANORO ELLIPTA) 62.5-25 mcg/actuation inhaler Inhale by mouth. 05/07/2019 Active turmeric 400 mg capsule Take by mouth. Active sertraline 150 mg capsule Take 150 mg by mouth. Active Gavilax 17 gram/dose oral powder DISSOLVE IN WATER 238 GRAMS AND TAKE ORALLY ONCE FOR 1 DAY DIRECTED THE DAY BEFORE YOUR PROCEDURE 04/15/2024 Active pantoprazole (PROTONIX) 40 mg EC tablet Take 1 tablet (40 mg total) by mouth. Active ondansetron (ZOFRAN) 8 mg tablet Take 1 tablet (8 mg total) by mouth every 8 hours as needed. 10/23/2022 Active LORazepam (ATIVAN) 0.5 mg tablet Take 1 tablet (0.5 mg total) by mouth 3 (three) times a day if needed for anxiety. Active lidocaine-prilocaine (EMLA) 2.5-2.5 % cream Apply topically. 12/07/2022 Active levalbuterol (XOPENEX) 1.25 mg/3 mL nebulizer solution Inhale 3 mL (1.25 mg total) by mouth. Active lansoprazole (PREVACID) [address] capsule Take 1 capsule (30 mg total) by mouth 1 (one) time each day. Active fluticasone HFA (FLOVENT HFA) 110 mcg/actuation inhaler Inhale 2 puffs by mouth. 10/19/2019 Active famotidine (PEPCID) 20 mg tablet Take 1 tablet (20 mg total) by mouth. at bedtime. Active budesonide (PULMICORT) 0.25 mg/2 mL nebulizer solution USE 1 VIAL IN NEBULIZER TWICE DAILY - (Rinse Mouth After Each Treatment) 03/13/2024 Active Laxative, bisacodyl, 5 mg EC tablet TAKE 4 TABLETS ORALLY ONCE FOR 1 DAY TAKE AT NOON THE DAY BEFORE COLONOSCOPY 04/15/2024 Active beclomethasone dipropionate (QVAR REDIHALER) 80 mcg/actuation HFA aerosol breath activated inhaler Inhale by mouth. A ctive beclomethasone dipropionate (QVAR REDIHALER) 80 mcg/actuation HFA aerosol breath activated inhaler Inhale 80 mcg by mouth. 05/07/2019 Active arformoteroL (BROVANA) 15 mcg/2 mL nebulizer solution Take 1 vial by nebulization 2 (two) times a day. 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 He tolerated his procedure well and his wound shows no signs of infection or hematoma. I had a long discussion with him that this is likely small cell carcinoma of the lung and we discussed the diagnosis, staging, and treatment of lung cancer in detail. Plan from my standpoint will be to get a PET scan, brain MRI, as well as medical and radiation oncology referrals. We will also discuss him at our multidisciplinary conference next week. All questions were answered. Atrial fibrillation 09/06/2017 Overview (06/01/2024): Ablation 1.5.2017 Diabetes mellitus type 2, uncomplicated 09/07/19 18 Hypertension 09/06/2017 Hyperlipidemia 09/06/2017 Erythrocytosis 09/06/2017 Chronic obstructive pulmonary disease 08/23/2017 Encounters Date Type Department Care Team Description 07/23/2024 10:48 AM EST - 07/23/2024 11:59 PM EST Hospital Encounter [facility] CT Scan [address] [place] [phone] Other malignant neuroendocrine tumors (CMS/HCC) Discharge Disposition: Home or Self Care 07/15/2024 1:46 PM EST - 07/15/2024 11:59 PM EST Hospital Encounter [facility] Radiation Oncology [address] [phone] Pina Wynn NP Small cell carcinoma of lung, unspecified laterality, unspecified part of lung (CMS/HCC) (Primary Dx) Discharge Disposition: Home or Self Care 07/06/2024 9:52 AM EST - 07/06/2024 11:59 PM EST Hospital Encounter [facility] MRI [address] [place] [address] Malignant neoplasm of mediastinum, part unspecified (CMS/HCC) Discharge Disposition: Home or Self Care 07/02/[address] [facility] Radiation Oncology [address] [phone] Elzbieta Jeffries [place] 06/16/[address] [facility] Hematology Oncology [address] [place] [phone] Germaine Ballard MA CAP CT/Labs from Last 3 Months Immunizations Name Administration Dates Next Due Influenza Quadravalent, 0.5m l (Fluad) 65yo and older 04/18/2022 Influenza Quadravalent, 0.5m l (Fluzone High-dose) 65yo and older 03/26/2023,04/19/2020 Influenza Quadrivalent, 0.5m l, preservative free (Fluarix; FluLaval; Fluzone) ages 6mo and older (Afluria) 3yo and older 04/11/2021 Influenza trivalent, 0.5mL ( Fluad) 65yo and older 04/14/2024,03/24/2018 Influenza trivalent, 0.5mL ( Fluzone High-dose) 65yo and older 04/08/2019,03/22/2017,03/06/2016 Pneumococcal conjugate 20 va lent (Prevnar 20, PCV 20) 2mo and older 05/20/2023 RSV, bivalent, protein subun it RSVpreF, 0.5mL, Preservative Free (ABRYSVO) 60yo and older or 32 through 36 wks of 05/20/2023 Tdap Tetanus diptheria acell ular pertussis (Boostrix; Adacel) 7yo and older 06/04/2016 Surgical History Surgery Date Site/Laterality Comments ANKLE SURGERY 1966 Right PROCEDURE: HISTORICAL ANKLE SURGERY; COMMENT: ORIF CARDIAC ELECTROPHYSIOLOGY ST UDY AND ABLATION PROCEDURE:CARDIAC ELECTROPHYSIOLOGY STUDY AND ABLATION;COMMENT:CARDIAC ABLATIONS X 2 Medical History Medical History Date Comments Morbid obesity with BMI of 4 0.0-44.9, adult ([facility]) 08/23/2017 DX:Morbid obesity with BMI o f 40.0-44.9, adult ([facility]) Hyperlipidemia 09/06/2017 DX:Hyperlipidemi a Pulmonary emphysema ([facility]) 08/23/2017 DX :Pulmonary emphysema ([facility]) HTN (hypertension) 09/06/2017 DX:HTN (hyper tension) Diabetes mellitus type 2, uncomplicated ([facility]/HCC) 09/06/2017 DX:Diabetes mellitus type 2, uncomplicated ([facility]) Tobacco use 09/06/2017 DX:Tobacco use Polycythemia 09/06/2017 DX:Polycythemia Atrial fibrillation ([facility]) 09/06/2017 DX :Atrial fibrillation ([facility]); COMMENT: Ablation 1.5.2016 Atrial fibrillation ([facility]) DX :Atrial fibrillation ([facility]) GERD (gastroesophageal reflux disease) DX:GERD (gastroesophageal reflux disease) Hypertension DX:Hypertension Lung cancer ([facility]) DX:Lung ca ncer ([facility]) COPD (chronic obstructive pu lmonary disease) ([facility]) DX:COPD (chronic obstructive pulmonary disease) ([facility]) Psoriasis DX:Psoriasis Tinnitus DX:Tinnitus Arthritis DX:Arthritis Hyperlipidemia DX:Hyperlipidemi a Family History Medical History Relation Name Comments Coronary artery disease Mother Relation Name Status Comments Mother Social History Tobacco Use Types Packs/Day Years Used Date Smoking Tobacco: Former Cigarettes Q uit: 07/01/1996 Tobacco Cessation:Counseling Given: Not Answered Alcohol Use Standard Drinks/Week Comments Yes 0 (1 standard drink = 0.6 oz pur e alcohol) Sex and Gender Information Value Date Recorded Sex Assigned at Male 06/16/2024 9:42 AM EST Gender Identity Male 06/16/2024 9:42 AM EST Sexual Orientation Straight 06/16/2024 9: 42 AM EST Job Start Date Occupation Industry Not on file Not on file Not on file Obstetrics History Last Filed Vital Signs Vital Sign Reading Time Taken Comments Blood Pressure 108/62 07/15/2024 1:59 PM EST Pulse 103 07/15/2024 1:59 PM EST Temperature 36.6 ??C (97.8 ??F) 07/15/2024 1:59 PM ES T Respiratory Rate 20 07/15/2024 1:59 PM EST Oxygen Saturation 97% 07/15/2024 1:59 PM EST Inhaled Oxygen Concentration - - Weight 88.6 kg (195 lb 6.4 oz) 07/15/2024 1:59 P M EST Height 167.6 cm (5' 6 ) 07/15/2024 1:59 PM EST Body Mass Index 31.54 07/15/2024 1:59 PM EST Plan of Treatment Upcoming Encounters Date Type Department Care Team (Late st Contact Info) Description 08/04/2024 11:45 AM EST Office Visit [facility] Hematology Oncology [address] [place] [phone] Matteo Zuniga MD [address] [place] [phone] 01/07/2025 10:[address] [facility] Radiation Oncology [address] [place] [phone] Pina Wynn NP [address] [place] [address] [address] [place] [phone] Health Maintenance Due Date Last Done Comments Diabetes: Annual Foot Exam 10/10/1959 Diabetes: Annual Retina Eye Exam 10/10/1959 Hepatitis A Vaccines (1 of 2 - Risk 2-dose series) 1969 Zoster Vaccines (1 of 2) 1969 Abdominal Aortic Aneurysm (AAA) Screen 06/09/2022 Cholesterol Screening (Lipid Panel) 06/09/2022 Colorectal Cancer Screening: Colonoscopy 06/09/2022 Depression Screening 06/09/2022 Diabetes: Annual Urine Albumin-Creatinine Ratio (uACR) 06/09/2022 Diabetes: Blood Sugar Control Test (HGBA1C) 06/09/2022 Falls Risk Assessment 06/09/2022 Hepatitis C Screening 06/09/2022 Social Influencers of Health Screening 06/09/2022 Medicare Annual Wellness Visit 10/20/2022 10/20/2021 Diabetes: Annual GFR (Glomerular Filtration Rate) 07/06/2025 07/06/2024 Hypertension/CHF/CAD Annual BMP Blood Test 07/06/2025 07/06/2024 DTaP,Tdap,and Td Vaccines (2 - Td or Tdap) 06/04/2026 06/04/2016 Pneumococcal Vaccine: 65+ Years Completed 05/20/2023, 04/01/2013 RSV Immunization Patients 60+ Years Old Completed 05/20/2023 COVID-19 Vaccine Completed 04/14/2024, 05/2023, 04/03/2022, Additional history exists Influenza Vaccine Completed 04/14/2024, , 04/18/2022, Additional history exists HIB Vaccines Aged Out No longer eligi ble based on patient's age to complete this topic HPV Vaccines Aged Out No longer eligi ble based on patient's age to complete this topic Hepatitis B Vaccines Aged Out No long er eligible based on patient's age to complete this topic IPV Vaccines Aged Out No longer eligi ble based on patient's age to complete this topic MMR Vaccines Aged Out No longer eligi ble based on patient's age to complete this topic Meningococcal ACWY Vaccine Aged Out N o longer eligible based on patient's age to complete this topic RSV Immunization Patients Under 20 months Aged Out No longer eligible based on patient's age to complete this topic Varicella Vaccines Aged Out No longer eligible based on patient's age to complete this topic Procedures Procedure Name Priority Date/Time Associated Diagnosis Comments CT CHEST/ABDOMEN/PELVIS W CONTRAST Routine 07/23/2024 11:08 AM EST Other malignant neuroendocrine tumors (CMS/HCC) COMPLETE BLOOD COUNT Routine 07/06/2024 11:29 AM EST Lung cancer (CMS/HCC) COMPREHENSIVE METABOLIC PANEL Routine 07/06/2024 11:29 AM EST Lung cancer (CMS/HCC) MR BRAIN WO AND W CONTRAST Routine 07/06/2024 10:44 AM EST Malignant neoplasm of mediastinum, part unspecified (CMS/HCC) from Last 3 Months Results * CT Chest/Abdomen/Pelvis w Contrast (07/23/2024 11:08 AM EST) Anatomical Region Laterality Modality Body Computed Tomogra phy 07/28/2024 11:1 1 AM EST Impressions 07/28/2024 11:29 AM EST Impression: 1. New 8 x 5 mm spiculated right upper lobe nodule. This may be infectious/inflammatory or neoplastic. PET/CT versus short-term follow-up to be considered. 2. 17 x 12 mm confluent airspace opacity in the posteromedial right lower lobe at the level of the enlarged subcarinal node noted on the [address], possibly related to radiation treatment. Attention to this area on short-term follow-up is recommended. 3. No thoracic lymphadenopathy is seen. 4. No evidence of metastatic disease in the [place] ([id number]) -------- FINAL REPORT -------- Dictated By: Laura Angel Dictated Date: 07/28/2024 11:11 ET Assigned Physician: Laura Angel Reviewed and Electronically Signed By: Laura Angel Signed Date: 07/28/2024 11:29 ET Workstation ID: [id number] Transcribed By: Self Edit Transcribed Date: 07/28/2024 11:11 ET Narrative 07/28/2024 11:29 AM EST History: Neuroendocrine tumor. Comparison: 12/31/23, lung screening CT 08/07/22 Technique: Helical volumetric imaging of the chest, abdomen and pelvis was performed without oral contrast and during the uneventful intravenous administration of 90 cc Isovue-370. DLP: 1969.73 mGy/cm [employer] VCT Iterative reconstruction technique Findings: Chest: The trachea and central bronchial tree remain patent. Diffuse bronchial wall thickening is again seen bilaterally, suggesting underlying bronchitis. Severe centrilobular emphysema is again noted. Paraseptal emphysema is present, favoring the right lung apex. A new 8 x 5 mm spiculated nodule is seen in the right lung apex (image 64 series 3). A 17 x 12 mm area of confluent airspace opacity in the right lower lobe, involving the cephalad aspect of the gastroesophageal recess, is similar to the previous study, new from 06/19/23 (image 125 series 3). This may be related to prior radiation treatment as it is at the level of the abnormal subcarinal lymph node reported initially on the [address] Minimal subsegmental atelectasis is seen at the base of the left lower lobe. A 5 mm perifissural nodule at the base of the right upper lobe (image 148 series 3) is unchanged dating back to the 2022 screening exam. No pleural or pericardial effusions are seen. The heart is not enlarged. Severe, three-vessel coronary artery calcification is again seen. There is no suspicious thyroid nodule. Thickening of the chicas of the main bronchi are noted, right greater than left, similar to the most recent study, possibly the sequelae of radiation treatment. The previously enlarged subcarinal lymph node now measures 5 mm short axis, unchanged from the most recent study. No mediastinal or hilar lymphadenopathy is seen. Abdomen/pelvis: The liver remains normal in size and configuration. A 3 mm circumscribed round hypoattenuating lesion in the right hepatic lobe is unchanged, too small to accurately characterize, possibly a cyst. The portal and hepatic veins are patent. The gallbladder is physiologically distended. No evidence of biliary obstruction is seen. Spleen remains normal in size. Scattered subcentimeter hypoattenuating lesions are without significant change, possibly cysts. The pancreas is unremarkable. Mild low-density thickening of the adrenal glands is unchanged, possibly hyperplasia. The kidneys are normal in position and size, with symmetric, intact nephrograms and no evidence of hydronephrosis. No suspicious developing solid renal mass is seen. The abdominal aorta and its branches are atherosclerotic. No aortic aneurysm is identified. There is no ascites. No developing lymphadenopathy is seen. The prostate is enlarged. The urinary bladder appears unremarkable. No evidence of bowel obstruction is seen. Diverticulosis of the colon is present without specific findings of diverticulitis. The appendix is normal in caliber in the right lower quadrant. No abnormal perienteric or pericolonic fat stranding is seen. Musculoskeletal: No suspicious osseous destructive lesion is identified. Procedure Note Laura Angel MD - 07/28/2024 History: Neuroendocrine tumor. Comparison: 12/31/23, lung screening CT 08/07/22 Technique: Helical volumetric imaging of the chest, abdomen and pelvis wasperformed without oral contrast and during the uneventful intravenousadministration of 90 cc Isovue-370. DLP: 1969.73 mGy/cm [employer] VCT Iterative reconstruction technique Findings: Chest: The trachea and central bronchial tree remain patent. Diffuse bronchialwall thickening is again seen bilaterally, suggesting underlyingbronchitis. Severe centrilobular emphysema is again noted. Paraseptalemphysema is present, favoring the right lung apex. A new 8 x 5 mm spiculated nodule is seen in the right lung apex (image 64series 3). A 17 x 12 mm area of confluent airspace opacity in the right lower lobe,involving the cephalad aspect of the gastroesophageal recess, is similarto the previous study, new from 06/19/23 (image 125 series 3). This may berelated to prior radiation treatment as it is at the level of the abnormalsubcarinal lymph node reported initially on the [address]Minimal subsegmental atelectasis is seen at the base of the left lowerlobe. A 5 mm perifissural nodule at the base of the right upper lobe(image 148 series 3) is unchanged dating back to the 2022 screeningexam. No pleural or pericardial effusions are seen. The heart is not enlarged. Severe, three-vessel coronary arterycalcification is again seen. There is no suspicious thyroid nodule.Thickening of the chicas of the main bronchi are noted, right greater thanleft, similar to the most recent study, possibly the sequelae of radiationtreatment. The previously enlarged subcarinal lymph node now measures 5 mmshort axis, unchanged from the most recent study. No mediastinal or hilarlymphadenopathy is seen. Abdomen/pelvis: The liver remains normal in size and configuration. A 3 mm circumscribedround hypoattenuating lesion in the right hepatic lobe is unchanged, toosmall to accurately characterize, possibly a cyst. The portal and hepaticveins are patent. The gallbladder is physiologically distended. Noevidence of biliary obstruction is seen. Spleen remains normal in size. Scattered subcentimeter hypoattenuatinglesions are without significant change, possibly cysts. The pancreas isunremarkable. Mild low-density thickening of the adrenal glands isunchanged, possibly hyperplasia. The kidneys are normal in position and size, with symmetric, intactnephrograms and no evidence of hydronephrosis. No suspicious developingsolid renal mass is seen. The abdominal aorta and its branches are atherosclerotic. No aorticaneurysm is identified. There is no ascites. No developing lymphadenopathy is seen. The prostateis enlarged. The urinary bladder appears unremarkable. No evidence of bowel obstruction is seen. Diverticulosis of the colon ispresent without specific findings of diverticulitis. The appendix isnormal in caliber in the right lower quadrant. No abnormal perienteric orpericolonic fat stranding is seen. Musculoskeletal: No suspicious osseous destructive lesion is identified. IMPRESSION: Impression: 1. New 8 x 5 mm spiculated right upper lobe nodule. This may beinfectious/inflammatory or neoplastic. PET/CT versus short-term follow-upto be considered. 2. 17 x 12 mm confluent airspace opacity in the posteromedial right lowerlobe at the level of the enlarged subcarinal node noted on the [address], possibly related to radiation treatment. Attention to thisarea on short-term follow-up is recommended. 3. No thoracic lymphadenopathy is seen. 4. No evidence of metastatic disease in the abdomen and pelvis. [employer] [place] ([id number]) -------- FINAL REPORT -------- Dictated By: Laura Angel Dictated Date: 07/28/2024 11:11 ET Assigned Physician: Laura Angel Reviewed and Electronically Signed By: Laura Angel Signed Date: 07/28/2024 11:29 ET Workstation ID: [id number] Transcribed By: Self Edit Transcribed Date: 07/28/2024 11:11 ET Matteo Zuniga MD IMG CT PROCEDURES * (ABNORMAL) Complete blood count (07/06/2024 11:29 AM EST) [facility] WBC 9.6 4.8 - 10.8 K/mcL LAB HEMETOLOGY METHOD 07/06/2024 1:38 PM [facility] RBC 4.90 4.50 - 5.50 M/mcL LAB HEMETOLOGY METHOD 07/06/2024 1:38 PM [facility] Hemoglobin 14.8 13.5 - 17.5 g/dL LAB HEMETOLOGY METHOD 07/06/2024 1:38 PM [facility] Hematocrit 44.4 42.0 - 54.0 % LAB HEMETOLOGY METHOD 07/06/2024 1:38 PM [facility] MCV 89.9 79.0 - 98.0 FL LAB HEMETOLOGY METHOD 07/06/2024 1:38 PM [facility] MCH 30.0 27.0 - 32.0 pcg LAB HEMETOLOGY METHOD 07/06/2024 1:38 PM [facility] MCHC 33.3 32.0 - 37.0 g/dL LAB HEMETOLOGY METHOD 07/06/2024 1:38 PM [facility] RDW 16.1(H) 11.0 - 15.0 % LAB HEMETOLOGY METHOD 07/06/2024 1:38 PM [facility] Platelets 283 130 - 400 K/mcL LAB HEMETOLOGY METHOD 07/06/2024 1:38 PM [facility] MPV 8.9 7.0 - 11.0 FL LAB HEMETOLOGY METHOD 07/06/2024 1:38 PM [facility] NRBC 0.0 <1.0 % LAB HEMETOLOGY METHOD 07/06/2024 1:38 PM [facility] NRBC Absolute 0.00 <0.10 K/mcL LAB HEMETOLOGY METHOD 07/06/2024 1:38 PM [facility] Blood Venous blood specimen / Unknown Venipuncture / Unknown 07/06/2024 11:29 AM EST 07/06/2024 12:35 PM EST Matteo Zuniga MD LAB BLOOD ORDERABLE S [facility] [address] [place] [address], * (ABNORMAL) Comprehensive metabolic panel (07/06/2024 11:29 AM EST) Sodium 137 133 - 145 mmol/L LAB CHEMISTRY METHOD 07/06/2024 1:38 PM [facility] Potassium 4.7 3.5 - 5.5 mmol/L LAB CHEMISTRY METHOD 07/06/2024 1:38 PM [facility] Chloride 105 96 - 110 mmol/L LAB CHEMISTRY METHOD 07/06/2024 1:38 PM [facility] CO2 27 21 - 32 mmol/L LAB CHEMISTRY METHOD 07/06/2024 1:38 PM [facility] Anion Gap 5 3 - 11 LAB CHEMISTRY METHOD 07/06/2024 1:38 PM [facility] Glucose 129(H) 70 - 100 mg/dL LAB CHEMISTRY METHOD 07/06/2024 1:38 PM [facility] BUN 21 5 - 25 mg/dL LAB CHEMISTRY METHOD 07/06/2024 1:38 PM [facility] Creatinine 0.90 0.70 - 1.30 mg/dL LAB CHEMISTRY METHOD 07/06/2024 1:38 PM [facility] eGFR 90 >=60 mL/min/1. 73m2 LAB CHEMISTRY METHOD 07/06/2024 1:38 PM [facility] Comment:Calculation based on the??Chronic Kidney Disease Epidemiology Collaboration (CKD-EPI) equation refit??without adjustment for race. BUN/Creatinine Ratio 23.3 LAB CHEMISTRY METHOD 07/06/2024 1:38 PM [facility] Calcium 9.6 8.5 - 10.5 mg/dL LAB CHEMISTRY METHOD 07/06/2024 1:38 PM [facility] AST (SGOT) 12 10 - 42 unit/L LAB CHEMISTRY METHOD 07/06/2024 1:38 PM [facility] ALT (SGPT) 36 10 - 60 unit/L LAB CHEMISTRY METHOD 07/06/2024 1:38 PM [facility] Alkaline Phosphatase 34(L) 42 - 121 unit/L LAB CHEMISTRY METHOD 07/06/2024 1:38 PM [facility] Total Protein 6.6 6.0 - 8.0 g/dL LAB CHEMISTRY METHOD 07/06/2024 1:38 PM [facility] Albumin 3.5 3.2 - 5.0 g/dL LAB CHEMISTRY METHOD 07/06/2024 1:38 PM [facility] Total Bilirubin 0.4 0.0 - 1.4 mg/dL LAB CHEMISTRY METHOD 07/06/2024 1:38 PM [facility] Blood Venous blood specimen / Unknown Venipuncture / Unknown 07/06/2024 11:29 AM EST 07/06/2024 12:36 PM EST Matteo Zuniga MD LAB BLOOD ORDERABLE S [facility] [address] [place] [address], * MR Brain wo and w Contrast (07/06/2024 10:44 AM EST) Anatomical Region Laterality Modality Head and Neck Magnetic Resonan ce 07/10/2024 11:5 3 AM EST Impressions 07/10/2024 12:18 PM EST No evidence of metastatic disease. -------- FINAL REPORT -------- Dictated By: Nilesh Carrillo Dictated Date: 07/10/2024 11:53 ET Assigned Physician: Nilesh Carrillo Reviewed and Electronically Signed By: Nilesh Carrillo Signed Date: 07/10/2024 12:18 ET Workstation ID: [id number] Transcribed By: Self Edit Transcribed Date: 07/10/2024 11:53 ET Narrative 07/10/2024 12:18 PM EST MRI brain dated 07/10/2024. HISTORY: Small cell lung cancer, monitor. ??Limited stage small cell, status post chemoRT. Rule out brain metastasis.. TECHNIQUE: Multiplanar multisequence MRI of the brain with and without intravenous contrast. IV CONTRAST DOSE: 20 mL intravenous Dotarem from a 20 mL vial with 0 mL discarded. COMPARISON: 08/30/2023. FINDINGS: BRAIN: No diffusion abnormality. ??No mass or extra-axial fluid collection. ??No hydrocephalus. ??The major intracranial flow voids are preserved. Age commensurate ventricles and sulci. ??No abnormal enhancement. ??A few foci of T2 prolongation in the supratentorial white matter and patchy T2 signal in the central naz is nonspecific but likely sequela of mild chronic microvascular ischemic disease. ORBITS: Normal. SINUSES/MASTOIDS: Mild mucosal thickening in the inferior frontal sinuses, ethmoid air cells and inferior right maxillary antrum. ??Small amount of fluid in the right mastoid air cells. CALVARIUM: Normal. OTHER: The visualized skull base soft tissues are normal. ??Partially visible degenerative changes of the cervical spine. Procedure Note Nilesh Carrillo MD - 07/10/2024 MRI brain dated 07/10/2024. 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 Rule out brain metastasis.. TECHNIQUE: Multiplanar multisequence MRI of the brain with and withoutintravenous contrast. IV CONTRAST DOSE: 20 mL intravenous Dotarem from a 20 mL vial with 0 mLdiscarded. COMPARISON: 08/30/2023. FINDINGS: BRAIN: No diffusion abnormality. No mass or extra-axial fluid collection.No hydrocephalus. The major intracranial flow voids are preserved. Agecommensurate ventricles and sulci. No abnormal enhancement. A few fociof T2 prolongation in the supratentorial white matter and patchy T2 signalin the central naz is nonspecific but likely sequela of mild chronicmicrovascular ischemic disease. ORBITS: Normal. SINUSES/MASTOIDS: Mild mucosal thickening in the inferior frontal sinuses,ethmoid air cells and inferior right maxillary antrum. Small amount offluid in the right mastoid air cells. CALVARIUM: Normal. OTHER: The visualized skull base soft tissues are normal. Partiallyvisible degenerative changes of the cervical spine. IMPRESSION: No evidence of metastatic disease. -------- FINAL REPORT -------- Dictated By: Nilesh Carrillo Dictated Date: 07/10/2024 11:53 ET Assigned Physician: Nilesh Carrillo Reviewed and Electronically Signed By: Nilesh Carrillo Signed Date: 07/10/2024 12:18 ET Workstation ID: [id number] Transcribed By: Self Edit Transcribed Date: 07/10/2024 11:53 ET Cassandra Mann MD IMG MRI PROCEDURES from Last 3 Months Care Teams Equine Intern Relationship Specialty Start Date End Date Yoseph Acevedo MD [address] [place] [address] Dr [address] M[place] PCP - General Internal Medicine 07/29/17
--- OUTSIDE RECORDS SUMMARY | 2024-07-29 11:19 | XMS_ITS | Encounter Summary ---
Author Organization [facility] Address [address] [place] [address] Care Team Providers Care Sales Promotion Officer Name Role Phone Yoseph Acevedo MD Primary Care Provider + [phone] Encounter Details Date Type Department Care Team (Late st Contact Info) Description 04/03/2024 2:45 PM EDT Hospital Encounter TH HISTORIC ENCOUNTERS [facility] Matteo Zuniga MD [address] [place] [phone] Social History Tobacco Use Types Packs/Day [...] file Not on file Not on file documented as of this encounter Last Filed [...] 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 He is . He has 1 son. [...] Description 08/04/2024 11:45 AM EST Office Visit [facility] Hematology Oncology [address] [place] [phone] Matteo Zuniga MD [address] [place] [phone] 01/07/2025 10:30 AM EDT Appointment [facility] Radiation Oncology [address] [place] [phone] Pina Wynn NP [address] [place] [address] [place] [phone] documented as of this encounter Procedures Procedure Name Priority Date/Time Associated Diagnosis Comments HISTORICAL IMAGING SCAN RESULT 04/03/2024 documented in this encounter Results * HISTORICAL IMAGING SCAN RESULT (04/03/2024) Anatomical Region Laterality Modality Ultrasound Provider Onbase MD LI US PROCEDURES documented in this encounter Visit Diagnoses Not on filedocumented in this encounter Care Teams Sales Promotion Officer Relationship Specialty Start Date End Date Yoseph Acevedo MD [address] [place] [address] [address] [place] PCP - General Internal Medicine 07/29/17 documented as of this encounter
--- OUTSIDE RECORDS SUMMARY | 2024-07-29 11:19 | XMS_ITS | Encounter Summary ---
Author Organization [facility] Address [address] [place] [address] Care Team Providers Care Agricultural Service Worker Name Role Phone Yoseph Acevedo MD Primary Care Provider +[phone]- [phone] Encounter Details Date Type Department Care Team (Late st Contact Info) Description 04/03/2024 2:45 PM EDT Hospital Encounter TH HISTORIC ENCOUNTERS [facility] Matteo Zuniga MD [address] [place] [address] Social History Tobacco Use Types [...] on file documented as of this encounter Plan of Treatment Upcoming Encounters Date Type Department Care Team (Late st Contact Info) Description 08/04/2024 11:45 AM EST Office Visit [facility] Hematology Oncology [address] [place] [phone] Matteo Zuniga MD [address] [place] [phone] 01/07/2025 10:30 AM EDT Appointment [facility] Radiation Oncology [address] [place] [phone] Pina Wynn NP [address] [place] [address] [address] [place] [phone] documented as of this encounter Visit Diagnoses Not on filedocumented in this encounter Care Teams Agricultural Service Worker Relationship Specialty Start Date End Date Yoseph Acevedo MD [address] [place] [address] [address] [place] PCP - General Internal Medicine 07/29/17 documented as of this encounter
--- OUTSIDE RECORDS SUMMARY | 2024-07-29 11:20 | XMS_ITS | Encounter Summary ---
Author Organization [facility] Address [address] [place] [address] Care Team Providers Care Manager Strategic Sourcing Name Role Phone Yoseph Acevedo MD Primary Care Provider [phone]- [phone] Encounter Details Date Type Department Care Team Description 11/05/2022 Social Work [facility] Oncology Services [address] [place] [address] Adina Hernandez, [facility] Social History Tobacco Use Types Packs/Day Years Used Date Smoking Tobacco: Former Cigarettes 2 Q uit: 1996 Alcohol Use Standard Drinks/Week Comments Yes 0 (1 standard drink = 0.6 oz pur e alcohol) OCCASIONALLY Sex and Gender Information Value Date Recorded Sex Assigned at Male 10/29/2022 4:21 PM EDT Gender Identity Not on file Sexual Orientation Not on file Job Start Date Occupation Industry Not on file Not on file Not on file COVID-19 Exposure Response Date Recorded In the last 10 days, have yo u been in contact with someone who was confirmed or suspected to have Coronavirus/COVID-19? No / Unsure 11/05/2022 1:24 PM EDT documented as of this encounter Plan of Treatment Not on file documented as of this encounter Visit Diagnoses Not on filedocumented in this encounter Care Teams Manager Strategic Sourcing Relationship Specialty Start Date End Date Yoseph Acevedo MD [address] [place] [address] [place] [address] PCP - General Internal Medicine 09/24/22 documented as of this encounter
--- OUTSIDE RECORDS SUMMARY | 2024-07-29 11:20 | XMS_ITS | Encounter Summary ---
Author Organization [facility] Address [address] [place] [address] Care Team Providers Care Access Nurse Name Role Phone Yoseph Acevedo MD Primary Care Provider Reason for Referral * Imaging (Routine) - Closed Specialty Diagnoses / Procedures Referred By Contac t Referred To Contact Radiology Diagnoses Other malignant neuroendocrine tumors (CMS/HCC) Procedures CT Chest/Abdomen/Pelvis w Contrast Matteo Zuniga MD [address] [place] [phone] [phone] Referral ID Status Reason Start Date Expiration Date Visits Re quested Visits Authorized [id number] Closed 06/08/2024 06/08/2025 1 1 Reason for Visit * Imaging (Routine) - Closed Specialty Diagnoses / Procedures Referred By Contac t Referred To Contact Radiology Diagnoses Other malignant neuroendocrine tumors (CMS/HCC) Procedures CT Chest/Abdomen/Pelvis w Contrast Matteo Zuniga MD [address] [place] [phone] [phone] Referral ID Status Reason Start Date Expiration Date Visits Re quested Visits Authorized [id number] Closed 06/08/2024 06/08/2025 1 1 Encounter Details Date Type Department Care Team (Latest Contact Info) Description 07/23/2024 10:48 AM EST - 07/23/2024 11:59 PM EST Hospital Encounter [facility] CT Scan [address] [place] [address] Other malignant neuroendocrine tumors (CMS/HCC) Discharge Disposition: Home or Self Care Social History Tobacco Use Types Packs/Day Years [...] on file documented as of this encounter Medications at Time of Discharge Medication Sig Dispensed Refills Start Date End Date albuterol HFA (PROAIR HFA ; PROVENTIL HFA ; VENTOLIN HFA) 90 mcg/actuation inhaler Inhale 2 Puffs into the lungs every 4 hours as needed for Wheezing for up to 30 days. 10/28/2023 arformoteroL (BROVANA) 15 mcg/2 mL nebulizer solution Take 1 vial by nebulization 2 (two) times a day. 03/13/2024 atorvastatin (LIPITOR) 40 mg tablet Take 1 tablet (40 mg total) by mouth daily. beclomethasone dipropionate (QVAR REDIHALER) 80 mcg/actuation HFA aerosol breath activated inhaler Inhale by mouth. beclomethasone dipropionate (QVAR REDIHALER) 80 mcg/actuation HFA aerosol breath activated inhaler Inhale 80 mcg by mouth. 05/07/2019 budesonide (PULMICORT) 0.25 mg/2 mL nebulizer solution USE 1 VIAL IN NEBULIZER TWICE DAILY - (Rinse Mouth After Each Treatment) 03/13/2024 dabigatran etexilate (PRADAXA) 150 mg capsule Take 1 capsule (150 mg total) by mouth 2 (two) times a day. 10/21/2017 diclofenac (VOLTAREN) 1 % topical gel 10/06/2021 dilTIAZem XR (DILT-XR) 120 mg 24 hr capsule TAKE 1 CAPSULE BY MOUTH EVERY DAY MAKE AN APPT FOR FURTHER REFILLS, [id number] 09/11/2021 famotidine (PEPCID) 20 mg tablet Take 1 tablet (20 mg total) by mouth. at bedtime. fluticasone HFA (FLOVENT HFA) 110 mcg/actuation inhaler Inhale 2 puffs by mouth. 10/19/2019 fluticasone-umeclidinium -vilanterol (Trelegy Ellipta) 100-62.5-25 mcg inhaler Inhale 1 Puff into the lungs daily. 11/02/2023 furosemide (LASIX) 80 mg tablet Take 80 mg by mouth daily. Gavilax 17 gram/dose oral powder DISSOLVE IN WATER 238 GRAMS AND TAKE ORALLY ONCE FOR 1 DAY DIRECTED THE DAY BEFORE YOUR PROCEDURE 04/15/2024 guaiFENesin (MUCINEX) 600 mg 12 hr tablet Take 1,200 mg by mouth 2 times daily. ipratropium-albuteroL (DUONEB) 0.5-2.5 mg/3 mL nebulizer solution USE 1 VIAL (3 ML) VIA UPDRAFT 4 TIMES A DAY 11/29/2017 lansoprazole (PREVACID) [address] capsule Take 1 capsule (30 mg total) by mouth 1 (one) time each day. Laxative, bisacodyl, 5 mg EC tablet TAKE 4 TABLETS ORALLY ONCE FOR 1 DAY TAKE AT NOON THE DAY BEFORE COLONOSCOPY 04/15/2024 levalbuterol (XOPENEX) 1.25 mg/3 mL nebulizer solution Inhale 3 mL (1.25 mg total) by mouth. lidocaine-prilocaine (EMLA) 2.5-2.5 % cream Apply topically. 12/07/2022 LORazepam (ATIVAN) 0.5 mg tablet Take 1 tablet (0.5 mg total) by mouth 3 (three) times a day if needed for anxiety. methylcellulose, laxative, 500 mg tablet TAKE 1 CAPLET BY MOUTH DAILY TAKE IT WITH FULL GLASS OF WATER 09/12/2021 miscellaneous medical supply misc 1 Units by Does not apply route 2 times daily as needed (hypoxemia). Monitor Oxygen Level at Home 01/13/2018 ondansetron (ZOFRAN) 8 mg tablet Take 1 tablet (8 mg total) by mouth every 8 hours as needed. 10/23/2022 pantoprazole (PROTONIX) 40 mg EC tablet Take 1 tablet (40 mg total) by mouth. predniSONE (DELTASONE) 20 mg tablet TAKE 2 TABLET BY MOUTH EVERY DAY FOR 5 DAYS NEEDED FOR COPD EXACERBATION 02/05/2024 roflumilast (DALIRESP) 500 mcg tablet Take 500 mcg by mouth daily. 11/02/2023 sertraline 150 mg capsule Take 150 mg by mouth. turmeric 400 mg capsule Take by mouth. umeclidinium-vilanteroL (ANORO ELLIPTA) 62.5-25 mcg/actuation inhaler Inhale by mouth. 05/07/2019 documented as of this encounter Discharge Disposition Disposition Code Departure Means Destination Home or Self Care documented in this encounter Plan of Treatment Upcoming Encounters Date Type Department Care Team (Late st Contact Info) Description 08/04/2024 11:45 AM EST Office Visit [facility] Hematology Oncology [address] [place] [phone] Matteo Zuniga MD [address] [place] [phone] 01/07/2025 10:30 AM EDT Appointment [facility] Radiation Oncology [address] [place] [phone] Pina Wynn NP [address] [place] [address] [place] [phone] documented as of this encounter Procedures Procedure Name Priority Date/Time Associated Diagnosis Comments CT CHEST/ABDOMEN/PELV IS W CONTRAST Routine 07/23/2024 11:08 AM EST Other malignant neuroendocrine tumors (CMS/HCC) documented in this encounter Results * CT Chest/Abdomen/Pelvis w Contrast (07/23/2024 [...] in the abdomen [place] pelvis[place] ([id number]) -------- FINAL REPORT -------- Dictated By: Laura Angel Dictated Date: 07/28/2024 11:11 ET Assigned Physician: Laura Angel Reviewed and Electronically Signed By: Laura Angel Signed Date: 07/28/2024 11:29 ET Workstation ID: [id number] Transcribed By: Self Edit Transcribed Date: 07/28/2024 11:11 ET Narrative 07/28/2024 11:29 AM EST History: Neuroendocrine tumor. Comparison: 12/31/23, lung screening CT 08/07/22 Technique: Helical volumetric imaging of the chest, abdomen and pelvis was performed without oral contrast and during the uneventful intravenous administration of 90 cc Isovue-370. DLP: 1969.73 mGy/cm Inter[employer] FX VCT Iterative reconstruction technique Findings: Chest: The [...] of 90 cc Isovue-370. DLP: 1969.73 mGy/cm Interbank FX VCT Iterative reconstruction technique Findings: Chest: The [...] metastatic disease in the abdomen and pelvis[place] ([id number]) -------- FINAL REPORT -------- Dictated By: Laura Angel Dictated Date: 07/28/2024 11:11 ET Assigned Physician: Laura Angel Reviewed and Electronically Signed By: Laura Angel Signed Date: 07/28/2024 11:29 ET Workstation ID: [id number] Transcribed By: Self Edit Transcribed Date: 07/28/2024 11:11 ET Matteo Zuniga MD IMG CT PROCEDURES documented in this encounter Visit Diagnoses Diagnosis Other malignant neuroendocrine tumors (CMS/HCC) documented in this encounter Administered Medications Inactive Administered Medications - up to 3 most recent administrations Medication Order MAR Action Action Date Dose Rate Site iopamidoL (ISOVUE-370) 370 mg iodine /mL (76 %) injection 90 mL 90 mL, intravenous, Once in imaging, Starting on Miriam 07/23/24 at 1100, For 1 dose Given 07/23/2024 11:01 AM EST 90 mL sodium chloride 0.9 % flush 10 mL 10 mL, intravenous, Once, On Miriam 07/23/24 at 1130, For 1 dose Given 07/23/2024 11:05 AM EST 10 mL documented in this encounter Care Teams Access Nurse Relationship Specialty Start Date End Date Yoseph Acevedo MD [address] [place] [address] Dr [address] [place] PCP - General Internal Medicine 07/29/17 documented as of this encounter
--- OUTSIDE RECORDS SUMMARY | 2024-07-29 11:20 | XMS_ITS | Encounter Summary ---
Author Organization [facility] Address [address] [place] [address] Care Team Providers Care Rig Manager Name Role Phone Yoseph Acevedo MD Primary Care Provider +- [phone] Reason for Referral * Imaging (Routine) - Closed Specialty Diagnoses / Procedures Referred By Contac t Referred To Contact Radiology Diagnoses Malignant neoplasm of mediastinum, part unspecified (CMS/HCC) Procedures MR Brain wo and w Contrast Cassandra Mann MD [address] [place] [address] [facility] [address] [place] [phone] Referral ID Status Reason Start Date Expiration Date Visits Re quested Visits Authorized [id number] Closed 06/16/2024 06/16/2025 1 1 Reason for Visit * Imaging (Routine) - Closed Specialty Diagnoses / Procedures Referred By Contac t Referred To Contact Radiology Diagnoses Malignant neoplasm of mediastinum, part unspecified (CMS/HCC) Procedures MR Brain wo and w Contrast Cassandra Mann MD [address] [place] [address] [phone] Referral ID Status Reason Start Date Expiration Date Visits Re quested Visits Authorized [id number] Closed 06/16/2024 06/16/2025 1 1 Encounter Details Date Type Department Care Team (Latest Contact Info) Description 07/06/2024 9:52 AM EST - 07/06/2024 11:59 PM EST Hospital Encounter [facility] MRI [address] [place] [address] Malignant neoplasm of mediastinum, part unspecified (CMS/HCC) [...] DAY MAKE AN APPT FOR FURTHER REFILLS, [id number] 09/11/2021 fluticasone HFA (FLOVENT HFA) 110 mcg/actuation inhaler [...] VIA UPDRAFT 4 TIMES A DAY 11/29/2017 Laxative, bisacodyl, 5 mg EC tablet TAKE 4 TABLETS ORALLY ONCE FOR 1 DAY TAKE AT NOON THE DAY BEFORE COLONOSCOPY 04/15/2024 lidocaine-prilocaine (EMLA) 2.5-2.5 % cream Apply topically. 12/07/2022 methylcellulose, laxative, 500 mg tablet TAKE 1 CAPLET BY MOUTH DAILY TAKE IT WITH FULL GLASS OF WATER 09/12/2021 miscellaneous medical supply misc 1 Units by Does not apply route 2 times daily as needed (hypoxemia). Monitor Oxygen Level at Home 01/13/2018 ondansetron (ZOFRAN) 8 mg tablet Take 1 tablet (8 mg total) by mouth every 8 hours as needed. 10/23/2022 predniSONE (DELTASONE) 20 mg tablet TAKE 2 TABLET BY MOUTH EVERY DAY FOR 5 DAYS NEEDED FOR COPD EXACERBATION 02/05/2024 roflumilast (DALIRESP) 500 mcg tablet Take 500 mcg by mouth daily. 11/02/2023 umeclidinium-vilanteroL (ANORO ELLIPTA) 62.5-25 mcg/actuation inhaler Inhale by mouth. 05/07/2019 documented as of this encounter Discharge Disposition Disposition Code Departure Means Destination Home or Self Care documented in this encounter Plan of Treatment Upcoming Encounters Date Type Department Care Team (Late st Contact Info) Description 08/04/2024 11:45 AM EST Office Visit [facility] Hematology Oncology [address] [place] [phone] Matteo Zuniga MD [address] [place] [address] 01/07/2025 10:30 AM EDT Appointment [facility] Radiation Oncology [address] [facility] 2[address] [place] [phone] Pina Wynn NP [address] [place] [address] [place] [phone] documented as of this encounter Procedures Procedure Name Priority Date/Time Associated Diagnosis Comments MR BRAIN WO AND W CONTRAST Routine 07/06/2024 10:44 AM EST Malignant neoplasm of mediastinum, part unspecified (CMS/HCC) documented in this encounter Results * MR Brain wo and w Contrast [...] Signed Date: 07/10/2024 12:18 ET Workstation ID: [id number] Transcribed By: Self Edit Transcribed Date: 07/10/2024 [...] Signed Date: 07/10/2024 12:18 ET Workstation ID: [id number] Transcribed By: Self Edit Transcribed Date: 07/10/2024 11:53 ET Cassandra Mann MD IMG MRI PROCEDURES documented in this encounter Visit Diagnoses Diagnosis Malignant neoplasm of mediastinum, 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, part unspecified documented in this encounter Administered Medications Inactive Administered Medications - up to 3 most recent administrations Medication Order MAR Action Action Date Dose Rate Site gadoterate meglumine (CLARISCAN, DOTAREM) injection 20 mL 20 mL, intravenous, Once in imaging, Starting on Sat07/06/24 at 1043, For 1 dose Given 07/06/2024 10:43 AM EST 20 mL documented in this encounter Orders Medications Ordered That Zach ht Not Have Been Administered Count Last Ordered Date First Ordered Date gadoterate meglumine (SILVANA CAN, DOTAREM) injection 20 mL 1 07/06/2024 documented in this encounter Care Teams Rig Manager Relationship Specialty Start Date End Date Yoseph Acevedo MD [address] [place] [address] Dr [address] [place], [place] PCP - General Internal Medicine 07/29/17 documented as of this encounter
--- OUTSIDE RECORDS SUMMARY | 2024-07-29 11:20 | XMS_ITS | Encounter Summary ---
Author Organization [facility] Address [address] [place] [address] Care Team Providers Care Waste Disposal Plant Operator Name Role Phone Yoseph Acevedo MD Primary Care Provider [phone]- [phone] Encounter Details Date Type Department Care Team Description 10/12/2022 Social Work [facility] Oncology Services [address] [place] [address] Adina Hernandez, [facility] Social History Tobacco Use Types Packs/Day Years Used Date Smoking Tobacco: Never Assessed Sex and Gender Information Value Date Recorded [...] suspected to have Coronavirus/COVID-19? No / Unsure 10/03/2022 1:42 PM EDT documented as of this encounter Plan of Treatment Not on file documented as of this encounter Visit Diagnoses Not on filedocumented in this encounter Care Teams Waste Disposal Plant Operator Relationship Specialty Start Date End Date Yoseph Acevedo MD [address] [place] [address] [place] [address] PCP - General Internal Medicine 09/24/22 documented as of this encounter
--- OUTSIDE RECORDS SUMMARY | 2024-07-29 11:20 | XMS_ITS | Encounter Summary ---
Author Organization [facility] Address [address] [place] [address] Care Team Providers Care Etymology Teacher Name Role Phone Yoseph Acevedo MD Primary Care Provider + [phone] Reason for Referral * Imaging (Routine) - Authorized Specialty Diagnoses / Procedures Referred By Contac t Referred To Contact Radiology Diagnoses Small cell carcinoma of lung, unspecified laterality, unspecified part of lung (CMS/HCC) Procedures MR Brain wo and w Contrast Pina Wynn NP [address] [place] [address] [address] [place] [address] [address] Referral ID Status Reason Start Date Expiration Date V isits Requested Visits Authorized [id number] Authorized 07/15/2024 07/15/2025 1 1 Reason for Visit * Reason Comments Follow-up Encounter Details Date Type Department Care Team (Latest Contact Info) Description 07/15/2024 1:46 PM EST - 07/15/2024 11:59 PM EST Hospital Encounter [facility] Radiation Oncology [address] [address] Pina Wynn NP [address] [place] [address] [address] [place] [address] Small cell carcinoma of lung, unspecified laterality, unspecified part of lung (CMS/HCC) (Primary Dx) Discharge Disposition: Home or Self Care Social [...] Mass Index 31.54 07/15/2024 1:59 PM EST documented in this encounter Medications at Time of Discharge [...] tablet (40 mg total) by mouth daily. budesonide (PULMICORT) 0.25 mg/2 mL nebulizer solution USE 1 VIAL IN NEBULIZER TWICE DAILY - (Rinse Mouth After Each Treatment) 03/13/2024 dabigatran etexilate (PRADAXA) 150 mg capsule Take 1 capsule (150 mg total) by mouth 2 (two) times a day. 10/21/2017 dilTIAZem XR (DILT-XR) 120 mg 24 hr capsule TAKE 1 CAPSULE BY MOUTH EVERY DAY MAKE AN APPT FOR FURTHER REFILLS, [id number] 09/11/2021 famotidine (PEPCID) 20 mg tablet Take 1 tablet (20 mg total) by mouth. at bedtime. fluticasone HFA (FLOVENT HFA) 110 mcg/actuation inhaler Inhale 2 puffs by mouth. 10/19/2019 fluticasone-umeclidinium -vilanterol (Trelegy Ellipta) 100-62.5-25 mcg inhaler Inhale 1 Puff into the lungs daily. 11/02/2023 furosemide (LASIX) 80 mg tablet Take 80 mg by mouth daily. ipratropium-albuteroL (DUONEB) 0.5-2.5 mg/3 mL nebulizer solution USE 1 VIAL (3 ML) VIA UPDRAFT 4 TIMES A DAY 11/29/2017 LORazepam (ATIVAN) 0.5 mg tablet Take 1 tablet (0.5 mg total) by mouth 3 (three) times a day if needed for anxiety. miscellaneous medical supply misc 1 Units by Does not apply route 2 times daily as needed (hypoxemia). Monitor Oxygen Level at Home 01/13/2018 predniSONE (DELTASONE) 20 mg tablet TAKE 2 TABLET BY MOUTH EVERY DAY FOR 5 DAYS NEEDED FOR COPD EXACERBATION 02/05/2024 roflumilast (DALIRESP) 500 mcg tablet Take 500 mcg by mouth daily. 11/02/2023 umeclidinium-vilanteroL (ANORO ELLIPTA) 62.5-25 mcg/actuation inhaler Inhale by mouth. 05/07/2019 beclomethasone dipropionate (QVAR REDIHALER) 80 mcg/actuation HFA aerosol breath activated inhaler Inhale by mouth. beclomethasone dipropionate (QVAR REDIHALER) 80 mcg/actuation HFA aerosol breath activated inhaler Inhale 80 mcg by mouth. 05/07/2019 diclofenac (VOLTAREN) 1 % topical gel 10/06/2021 Gavilax 17 gram/dose oral powder DISSOLVE IN WATER 238 GRAMS AND TAKE ORALLY ONCE FOR 1 DAY DIRECTED THE DAY BEFORE YOUR PROCEDURE 04/15/2024 guaiFENesin (MUCINEX) 600 mg 12 hr tablet Take 1,200 mg by mouth 2 times daily. lansoprazole (PREVACID) [address] capsule Take [...] IT WITH FULL GLASS OF WATER 09/12/2021 ondansetron (ZOFRAN) 8 mg tablet Take 1 tablet (8 mg total) by mouth every 8 hours as needed. 10/23/2022 pantoprazole (PROTONIX) 40 mg EC tablet Take 1 tablet (40 mg total) by mouth. sertraline 150 mg capsule Take 150 mg by mouth. turmeric 400 mg capsule Take by mouth. documented as of this encounter Discharge Disposition Disposition Code Departure Means Destination Home or Self Care documented in this encounter Progress Notes * Pina Wynn NP - 07/15/2024 2:00 PM EST Images from the original note were not included. [address] [phone] RADIATION ONCOLOGY FOLLOW-UP Staff Physician: Pina Wynn NP Date of Service: 07/15/2024 Diagnosis: 1. 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 No primary lung source identified. Prior treatment: HPI: Ed Romeo returns for follow-up evaluation after a brain MRI. He continue to smoke marijuana and drinks a couple beers a week. He does endorse shortness of breath on exertion. He reports a lot ofstress and using Lorazepam. HPI ROS: Review of Systems HENT: Positive for hearing loss. Needs hearing aides per audiology. Respiratory: Positive for shortness of breath. Negative for cough and hemoptysis. Clear phlegm Gastrointestinal: Negative for vomiting. Musculoskeletal: Negative for gait problem. Skin: Negative for rash. Neurological: Negative for dizziness, extremity weakness, gait problem, headaches and speech difficulty. Medications: Current Outpatient Medications: albuterol HFA (PROAIR HFA ; PROVENTIL HFA ; VENTOLIN HFA) 90 mcg/actuation inhaler, Inhale 2 Puffs into the lungs every 4 hours as needed for Wheezing for up to 30 days., Disp: , Rfl: arformoteroL (BROVANA) 15 mcg/2 mL nebulizer solution, Take 1 vial by nebulization 2 (two) times a day., Disp: , Rfl: atorvastatin (LIPITOR) 40 mg tablet, Take 1 tablet (40 mg total) by mouth daily., Disp: , Rfl: budesonide (PULMICORT) 0.25 mg/2 mL nebulizer solution, USE 1 VIAL IN NEBULIZER TWICE DAILY - (Rinse Mouth After Each Treatment), Disp: , Rfl: dabigatran etexilate (PRADAXA) 150 mg capsule, Take 1 capsule (150 mg total) by mouth 2 (two) timesa day., Disp: , Rfl: dilTIAZem XR (DILT-XR) 120 mg 24 hr capsule, TAKE 1 CAPSULE BY MOUTH EVERY DAY MAKE AN APPT FOR FURTHER REFILLS, [id number], Disp: , Rfl: famotidine (PEPCID) 20 mg tablet, Take 1 tablet (20 mg total) by mouth. at bedtime., Disp: , Rfl: fluticasone HFA (FLOVENT HFA) 110 mcg/actuation inhaler, Inhale 2 puffs by mouth., Disp: , Rfl: jeooszsjwth-yfaijsdavxpl-vfvydrzwdg (Trelegy Ellipta) 100-62.5-25 mcg inhaler, Inhale 1 Puff into the lungs daily., Disp: , Rfl: furosemide (LASIX) 80 mg tablet, Take 80 mg by mouth daily., Disp: , Rfl: ipratropium-albuteroL (DUONEB) 0.5-2.5 mg/3 mL nebulizer solution, USE 1 VIAL (3 ML) VIA UPDRAFT 4 TIMES A DAY, Disp: , Rfl: LORazepam (ATIVAN) 0.5 mg tablet, Take 1 tablet (0.5 mg total) by mouth 3 (three) times a day if needed for anxiety., Disp: , Rfl: miscellaneous medical supply misc, 1 Units by Does not apply route 2 times daily as needed (hypoxemia). Monitor Oxygen Level at Home, Disp: , Rfl: predniSONE (DELTASONE) 20 mg tablet, TAKE 2 TABLET BY MOUTH EVERY DAY FOR 5 DAYS NEEDED FOR COPDEXACERBATION, Disp: , Rfl: roflumilast (DALIRESP) 500 mcg tablet, Take 500 mcg by mouth daily., Disp: , Rfl: umeclidinium-vilanteroL (ANORO ELLIPTA) 62.5-25 mcg/actuation inhaler, Inhale by mouth., Disp: , Rfl: beclomethasone dipropionate (QVAR REDIHALER) 80 mcg/actuation HFA aerosol breath activated inhaler,Inhale by mouth. (Patient not taking: Reported on 07/15/2024), Disp: , Rfl: beclomethasone dipropionate (QVAR REDIHALER) 80 mcg/actuation HFA aerosol breath activated inhaler,Inhale 80 mcg by mouth. (Patient not taking: Reported on 07/15/2024), Disp: , Rfl: diclofenac (VOLTAREN) 1 % topical gel, , Disp: , Rfl: Gavilax 17 gram/dose oral powder, DISSOLVE IN WATER 238 GRAMS AND TAKE ORALLY ONCE FOR 1 DAY DIRECTED THE DAY BEFORE YOUR PROCEDURE (Patient not taking: Reported on 07/15/2024), Disp: , Rfl: guaiFENesin (MUCINEX) 600 mg 12 hr tablet, Take 1,200 mg by mouth 2 times daily. (Patient not taking: Reported on 07/15/2024), Disp: , Rfl: lansoprazole (PREVACID) [address] capsule, Take 1 capsule (30 mg total) by mouth 1 (one) time each day., Disp: , Rfl: Laxative, bisacodyl, 5 mg EC tablet, TAKE 4 TABLETS ORALLY ONCE FOR 1 DAY TAKE AT NOON THE DAY BEFORE COLONOSCOPY (Patient not taking: Reported on 07/15/2024), Disp: , Rfl: levalbuterol (XOPENEX) 1.25 mg/3 mL nebulizer solution, Inhale 3 mL (1.25 mg total) by mouth. (Patient not taking: Reported on 07/15/2024), Disp: , Rfl: lidocaine-prilocaine (EMLA) 2.5-2.5 % cream, Apply topically. (Patient not taking: Reported on 07/15/2024), Disp: , Rfl: methylcellulose, laxative, 500 mg tablet, TAKE 1 CAPLET BY MOUTH DAILY TAKE IT WITH FULL GLASS OF WATER (Patient not taking: Reported on 07/15/2024), Disp: , Rfl: ondansetron (ZOFRAN) 8 mg tablet, Take 1 tablet (8 mg total) by mouth every 8 hours as needed. (Patient not taking: Reported on 07/15/2024), Disp: , Rfl: pantoprazole (PROTONIX) 40 mg EC tablet, Take 1 tablet (40 mg total) by mouth. (Patient not taking:Reported on 07/15/2024), Disp: , Rfl: sertraline 150 mg capsule, Take 150 mg by mouth. (Patient not taking: Reported on 07/15/2024), Disp:, Rfl: turmeric 400 mg capsule, Take by mouth. (Patient not taking: Reported on 07/15/2024), Disp: , Rfl: Imported vital signs, weight Visit Vitals Ht 1.676 m (66 ) BMI 29.86 kg/m?? Smoking Status Former BSA 1.93 m?? Smokes marijuana No data recorded Physical Exam: Physical Exam Constitutional: Appearance: Normal appearance. HENT: Head: Normocephalic. Cardiovascular: Rate and Rhythm: Regular rhythm. Tachycardia present. Heart sounds: Normal heart sounds. Comments: Mildly tachycardic Pulmonary: Effort: Pulmonary effort is normal. No tachypnea or bradypnea. Breath sounds: Normal breath sounds. Neurological: Mental Status: He is alert and oriented to person, place, and time. Cranial Nerves: Cranial nerves 2-12 are intact. Motor: Motor function is intact. Psychiatric: Mood and Affect: Mood normal. Behavior: Behavior normal. Thought Content: Thought content normal. Judgment: Judgment normal. Impression: Overall, doing well. No neurological symptoms. Shortness of breath on exertion. Brain MRI on 07/10/2024 show no evidence of metastatic disease. Contact us with any neurological symptoms. Plan: Brain MRI every six months and follow up with me after. CT 07/23/[address] Zuniga and following up with him after. Schedule an appointment with Dr. Johnson. Pina Wynn NP 07/15/24 2:12 PM EST documented in this encounter Plan of Treatment Upcoming Encounters Date Type Department Care Team (Late st Contact Info) Description 08/04/2024 11:45 AM EST Office Visit [facility] Hematology Oncology [address] [place] [phone] Matteo Zuniga MD [address] [place] [phone] 01/07/2025 10:30 AM EDT Appointment [facility] Radiation Oncology [address] [place] [phone] Pina Wynn NP [address] [place] [address] [facility] [place] [phone] Scheduled Orders Name Type Priority Associated Diagnoses Orde r Schedule MR Brain wo and w Contrast Imaging Routine Small cell carcinoma of lung, unspecified laterality, unspecified part of lung (CMS/HCC) Expected: 01/12/2025, Expires: 07/15/2025 documented as of this encounter Visit Diagnoses Diagnosis Small cell carcinoma of lung, unspecified laterality, unspecified part of lung (CMS/HCC)- Primary documented in this encounter Historical Medications * This list may reflect changes made after this encounter. Medication Sig Dispensed Refills Start Date End Date arformoteroL (BROVANA) 15 mcg/2 mL nebulizer solution Take 1 vial by nebulization 2 (two) times a day. 03/13/2024 beclomethasone dipropionate (QVAR REDIHALER) 80 mcg/actuation HFA aerosol breath activated inhaler Inhale 80 mcg by mouth. 05/07/2019 beclomethasone dipropionate (QVAR REDIHALER) 80 mcg/actuation HFA aerosol breath activated inhaler Inhale by mouth. Laxative, bisacodyl, 5 mg EC tablet TAKE 4 TABLETS ORALLY ONCE FOR 1 DAY TAKE AT NOON THE DAY BEFORE COLONOSCOPY 04/15/2024 budesonide (PULMICORT) 0.25 mg/2 mL nebulizer solution USE 1 VIAL IN NEBULIZER TWICE DAILY - (Rinse Mouth After Each Treatment) 03/13/2024 famotidine (PEPCID) 20 mg tablet Take 1 tablet (20 mg total) by mouth. at bedtime. fluticasone HFA (FLOVENT HFA) 110 mcg/actuation inhaler Inhale 2 puffs by mouth. 10/19/2019 lansoprazole (PREVACID) [address] capsule Take 1 capsule (30 mg total) by mouth 1 (one) time each day. levalbuterol (XOPENEX) 1.25 mg/3 mL nebulizer solution Inhale 3 mL (1.25 mg total) by mouth. lidocaine-prilocaine (EMLA) 2.5-2.5 % cream Apply topically. 12/07/2022 LORazepam (ATIVAN) 0.5 mg tablet Take 1 tablet (0.5 mg total) by mouth 3 (three) times a day if needed for anxiety. ondansetron (ZOFRAN) 8 mg tablet Take 1 tablet (8 mg total) by mouth every 8 hours as needed. 10/23/2022 pantoprazole (PROTONIX) 40 mg EC tablet Take 1 tablet (40 mg total) by mouth. Gavilax 17 gram/dose oral powder DISSOLVE IN WATER 238 GRAMS AND TAKE ORALLY ONCE FOR 1 DAY DIRECTED THE DAY BEFORE YOUR PROCEDURE 04/15/2024 sertraline 150 mg capsule Take 150 mg by mouth. turmeric 400 mg capsule Take by mouth. umeclidinium-vilanteroL (ANORO ELLIPTA) 62.5-25 mcg/actuation inhaler Inhale by mouth. 05/07/2019 added in this encounter Orders Appointment Requests Count Last Ordered Date Fi rst Ordered Date RAD ONC APPOINTMENT REQUEST 1 07/15/2024 documented in this encounter Care Teams Etymology Teacher Relationship Specialty Start Date End Date Yoseph Acevedo MD [address] [place] [address] [address] [place] PCP - General Internal Medicine 07/29/17 documented as of this encounter
--- OUTSIDE RECORDS SUMMARY | 2024-07-29 11:20 | XMS_ITS ---
Author Organization [facility] Address [address] [place] [address] Care Team Providers Care Home Aide Name Role Phone Yoseph Acevedo MD Primary Care Provider [phone] Active Problems Problem Noted Date Diagnosed Date Small cell lung cancer 10/03/2022 Current Oncology Plans No current plan information found. Past Plans ONCOLOGY TREATMENT Plan Name Start Date Discontinue Date Treatment Medications Discontinue Reason Plan Provider Cycles SF BCN OP IRINOTECAN days 1, 8 on 21 day cycle 3 09/08/2023 albuterol (PROVENTIL)atropined examethasone sod phosphate PF (DECADRON)diphenhydr AMINE (BENADRYL)EPINEPHrin efamotidine (PF) (PEPCID)hydrocortiso ne (SOLU-CORTEF) IVirinotecan (CAMPTOSAR) chemo infusionloperamide (IMODIUM) 2 MGmeperidine (DEMEROL) 25 MG/MLpalonosetron (ALOXI)prochlorperaz ine (COMPAZINE)Saline Flush 0.9 %sodium chloride (NS) 0.9 %sodium chloride 0.9% bolus (NS) Therapy Complete Matteo Zuniga MD 4 of 4 cycles started Radiation Treatments * No radiation treatments are documented for this patient in [facility]. Treatments may have been administered in another system.
--- OUTSIDE RECORDS SUMMARY | 2024-07-29 11:20 | XMS_ITS | Clinical Summary ---
Author Organization [facility] Address [address] [place] [address] Care Team Providers Care Digital Color Press Operator Name Role Phone Yoseph Acevedo MD Primary Care Provider [phone] Allergies No known active allergies Medications Medication Sig Dispensed Refills Start Date End Date Status dabigatran etexilate (PRADAXA) 150 MG capsu Take 1 capsule (150 mg total) by mouth 2 (two) times a day. 0 Active dilTIAZem (CARDIZEM CD) 240 MG 24 hr capsule Take 1 capsule (240 mg total) by mouth daily. 0 Active sertraline (ZOLOFT) 50 MG tablet Take 1 tablet (50 mg total) by mouth daily. 0 Active atorvastatin (LIPITOR) tablet 40 mg Take 1 tablet (40 mg total) by mouth daily. 0 Active albuterol (PROVENTIL) (2.5 MG/3ML) 0.083% nebulizer solution Take 3 mL (2.5 mg total) by nebulization every 6 (six) hours as needed for wheezing. 0 Active pantoprazole (PROTONIX) 40 MG tablet Take 1 tablet (40 mg total) by mouth every morning on an empty stomach. 0 Active Turmeric 400 MG CAPS Take by mouth. 0 Active ondansetron (ZOFRAN) 8 MG tablet Take 1 tablet (8 mg total) by mouth every 8 (eight) hours as needed for nausea. 30 tablet 3 10/23/2022 Active Additional Information Patient not taking.Reported on 10/10/2023 LORazepam (ATIVAN) 0.5 MG tablet 0 07/03/2021 Active Coenzyme Q10 (CoQ-10) 100 MG capsule Take 100 mg by mouth daily. 0 Active lidocaine-prilocai ne (EMLA) cream Apply topically as needed. 30 g 0 12/07/2022 Active Additional Information Patient not taking.Reported on 10/10/2023 valACYclovir (VALTREX) 1000 MG tablet Take 1 tablet (1,000 mg total) by mouth 3 (three) times a day. 21 tablet 0 01/19/2023 Active Additional Information Patient not taking.Reported on 10/10/2023 famotidine (PEPCID) 20 MG tablet Take 1 tablet (20 mg total) by mouth 2 (two) times a day. 0 Active lansoprazole 30 MG capsule Take 1 capsule (30 mg total) by mouth daily. 0 Active VITAMIN D, CHOLECALCIFEROL, PO Take by mouth. 0 Active PREDNISONE PO Take by mouth. 0 Active Active Problems Problem Noted Date Diagnosed Date Small cell lung cancer 10/03/2022 Social History Tobacco Use Types Packs/Day Years [...] file Not on file Not on file Last Filed Vital Signs Vital Sign Reading Time Taken Comments Blood Pressure 140/73 04/03/2024 2:49 PM EDT Pulse 91 04/03/2024 2:49 PM EDT Temperature 37.2 ??C (99 ??F) 04/03/2024 2:49 PM EDT Respiratory Rate 18 10/29/2022 1:08 PM EDT Oxygen Saturation 96% 04/03/2024 2:49 PM EDT Inhaled Oxygen Concentration - - Weight 85.7 kg (189 lb) 04/03/2024 2:49 PM EDT Height 168.9 cm (5' 6.5 ) 04/03/2024 2:49 PM EDT Body Mass Index 30.05 04/03/2024 2:49 PM EDT Plan of Treatment Health Maintenance Due Date Last Done Comments Hepatitis C Screening 1949 COVID-19 Vaccine (#1) 1954 Pneumococcal Vaccine (1 of 2 - PCV) 10/10/1955 Depression Screening 1961 Preventative Health Evaluation 10/10/1967 DTap / Tdap / Td (1 - Tdap) 1968 Shingrix-Zoster Vaccine (1 of 2) 1968 Colon Cancer Screening (Colonoscopy) 1994 Fall Risk Assessment 2014 Influenza Vaccine (#1) 2024 RSV Adult > 60+ Yrs or Pregn ant (1 - 1-dose 75+ series) 2024 Hepatitis B Vaccines Aged Out No long er eligible based on patient's age to complete this topic RSV Ped < 20 months Aged Out No longe r eligible based on patient's age to complete this topic Care Teams Digital Color Press Operator Relationship Specialty Start Date End Date Yoseph Acevedo MD [address] [place] [address] [place] [id number] PCP - General Internal Medicine 09/24/22
--- OUTSIDE RECORDS SUMMARY | 2024-07-29 11:20 | XMS_ITS | Encounter Summary ---
Author Organization [facility] Address [address] [place] [address] Care Team Providers Care Wire Steward Name Role Phone Yoseph Acevedo MD Primary Care Provider + [phone] Encounter Details Date Type Department Care Team (Late st Contact Info) Description 07/02/2024 Telephone [facility] Radiation Oncology [address] [phone] Elzbieta Jeffries MA Social History Tobacco Use Types Packs/Day Years [...] on file documented as of this encounter Progress Notes * Elzbieta Jeffries MA - 07/02/2024 11:22 AM EST No authorization needed for MRI Brain w/wo Appointment scheduled for 07/06/24 @ 10 am Spoke with patient and made him aware of this appointment. documented in this encounter Plan of Treatment Upcoming Encounters Date Type Department Care Team (Late st Contact Info) Description 08/04/2024 11:45 AM EST Office Visit [facility] Hematology Oncology [address] [place] [phone] Matteo Zuniga MD [address] [place] [address] 01/07/2025 10:30 AM EDT Appointment [facility] Radiation Oncology [address] [phone] Pina Wynn NP [address] [place] [address] [place] [phone] documented as of this encounter Visit Diagnoses Not on filedocumented in this encounter Care Teams Wire Steward Relationship Specialty Start Date End Date Yoseph Acevedo MD [address] [place] [address] [place] [address] [place] PCP - General Internal Medicine 07/29/17 documented as of this encounter
--- NOTE | 2024-07-29 11:22 | P.HPHOSP_ITS ---
History of Present Illness Date of Service: 07/29/24 Attending physician on admission: Delmi Stone Chief Complaint: SOB Pt is a 73-year-old male with a PMH significant for?paroxysmal AFib on Pradaxa s/p ablations x2, COPD not on home O2, non-small cell lung cancer s/p chemo and radiation in 2022, HFpEF, GERD, MANJEET on nocturnal O2, and anxiety who presents to the ED with?SOB, BROWN, and difficulty breathing on alleviated by home inhalers x3 days. When pt arrived to the ED was tripoding, tachypneic, speaking in 2-3 word sentences, and with audible wheezing and triage. Pt reports on Saturday developed a runny nose and sore throat. By Saturday began experiencing difficulty breathing and BROWN which continued to worsen until today. Pt has been experiencing dizziness, chest tightness, and abdominal pain associated with cough. Has chronic occasionally productive cough, though current cough has been nonproductive. Pt reports has been taking azithromycin, prednisone, and using his rescue inhaler ?every 5 minutes? to no effect. Breathing got so bad that he felt like he was going to . Denies fever, chills, nausea, vomiting. Mild diffuse abdominal wall pain associated with cough. Pt reports previously was on a maintenance program taking azithromycin 3 days a week, those taken off it a few years ago due to GI upset. Pt currently smokes marijuana daily and an unspecified amount cigarettes. In the ED pt was tachycardic up to 105, tachypneic up to 26, satting at 93% on RA. Labs were significant for lactic acid 2.1, and AST 42, ALT 48, and alk-phos 29. No leukocytosis. Stable H&H. No significant electrolyte abnormalities. Renal function WNL. Tested negative for flu, COVID, RSV. CXR showed no active pulmonary disease, redemonstrated COPD with no interval change from prior. EKG demonstrated sinus tachycardia of 140 frequent PVCs and RBBB, similar to prior. Pt was treated with DuoNebs, Solu-Medrol, and Zosyn. Pt will be admitted to the hospital for treatment and further evaluation of acute respiratory failure in the setting of COPD exacerbation. Review of Systems 2 Review of Systems: Negative except for that which is stated in the [facility] Medical History Gastritis and duodenitis Hx of cancer of lung Hx of radiation therapy History of chemotherapy Hiatal hernia On anticoagulant therapy HTN (hypertension) Tubular adenoma Arthritis Low back pain Diarrhea Oxygen dependent Emphysema/COPD BROWN (dyspnea on exertion) MANJEET (obstructive sleep apnea) Impaired fasting glucose Eye pain Obesity (BMI 30-39.9) Anxiety COPD (chronic obstructive pulmonary disease) Diabetes mellitus Pure hypercholesterolemia Diastolic heart failure Paroxysmal atrial fibrillation Family History Father Medical history unknown Mother Myocardial infarction Surgical History History of right inguinal hernia repair (03/13/23) History of esophagogastroduodenoscopy (EGD) Deficient knowledge of leg surgery History of surgery History of cardioversion H/O prior ablation treatment History of colonoscopy Social History Housing: House Are you a primary client care manager to a significant other at home: No Do you presently have visiting nurse or other home services: Yes (respiratory) Unable to assess alcohol history related to: Unable to respond Alcohol intake: current Alcohol intake frequency: a few times a week Alcohol type: beer Patient Tobacco Use Status: Former Tobacco user Tobacco use type: Cigarette Smoked in Last 30 Days: No e-Cigarette/Vaping Use: Never Used Second Hand Smoke Exposure: Yes Substance Use Type: Marijuana Advance Directives: No Advance Directives Information Provided: Yes Do you have a plan to hurt others: No Plan service: No Current occupational status: retired Cognitive needs: No Hearing needs: No Vision needs: Yes (reading glasses) Meds Allergies Allergy/AdvReac Type Severity Reaction Status Date / Time No Known Allergies Allergy Verified 07/29/24 09:06 [No Known Allergies*] Home Medications ?Medication ?Instructions ?Recorded ?Confirmed ?Last Taken ?Type ipratropium 0.5 mg-albuterol 3 mg 3 ml inhalation Q6H PRN Shortness 05/19/20 07/29/24 Unknown History (2.5 mg base)/3 mL nebulization Of Breath soln coenzyme Q10 60 mg capsule 60 mg PO DAILY 07/29/24 07/29/24 07/28/24 History fluticasone fur. 200 mcg-umeclid 1 ea inhalation DAILY 07/29/24 Unknown History 62.5 mcg-vilant 25 mcg inhalat.powder (Trelegy Ellipta) lorazepam 0.5 mg tablet 0.5 mg PO DAILY PRN anxiety 07/29/24 07/29/24 07/28/24 History jfmpsbbd-mo-epcro 300 mcg-K 60 1 tab PO DAILY 07/29/24 07/29/24 07/28/24 History mcg-lycop 600 mcg-lutein 300 mcg tablet (Centrum Silver Ultra Men's) roflumilast 500 mcg tablet 500 mcg PO DAILY 07/29/24 07/29/24 07/29/24 History Physical Exam 2 Vital Signs and Narrative: Vital Signs: Last Vital Signs Temp 98.9 F 07/29/24 11:14 Pulse 104 H 07/29/24 11:14 Resp 26 H 07/29/24 11:14 BP 127/70 07/29/24 11:14 Pulse Ox 94 07/29/24 11:14 O2 Del Method Nasal Cannula 07/29/24 11:14 O2 Flow Rate 2 07/29/24 11:14 BMI result Body Mass Index 30.7 Constitutional: Alert, in no acute distress. Mental Status: Oriented to person, place and time. Eyes: Pupils are equal, round, and reactive to light. Ear, Nose, and Throat: Oropharynx clear, mucous membranes moist. Ears and nose without deformities. Trachea midline. Respiratory: Audible wheezing. Capable of speaking in full sentences, though with increased work of breathing. Diaphoretic breathing. Significant diffuse bilateral wheezing upon auscultation. Cardiovascular: S1, S2 regular rhythm, tachycardic. No murmurs, rubs, or gallops. Gastrointestinal: Abdomen soft, non-tender, non-distended. Normal bowel sounds. Neurologic: Cranial nerves II-XII are grossly intact bilaterally. No focal neurological deficits. Moves all extremities spontaneously. Skin: Warm, dry. Extremities: 1+ bilateral pitting edema. Psychiatric: Normal mood and affect. Results Labs 07/29/24 09:31 07/29/24 09:31 Labs: Laboratory Results - last 24 hr 07/29/24 07/29/24 09:31 09:36 MCV 89.0 MCH 30.5 MCHC 34.2 RDW 17.2 H Plt Count 255 MPV 8.7 L Immature Gran % (Auto) 0.5 H Neut % (Auto) 93.1 H Lymph % (Auto) 2.9 L [place] % (Auto) 3.1 Eos % (Auto) 0.2 Baso % (Auto) 0.2 Lymph # (Auto) 0.3 L [place] # (Auto) 0.3 Eos # (Auto) 0.0 Baso # (Auto) 0.0 Abs Immat Gran (auto) 0.04 H Absolute Neuts (auto) 8.2 Absolute Nucleated RBC 0.000 Nucleated RBC % (auto) 0.0 Smear Tech's Comments VERIFIED VBG pH 7.41 VBG pCO2 50 VBG pO2 44 VBG HCO3 32 H VBG O2 Saturation 70.0 VBG Base Excess 6.3 Anion Gap 13 Estim Creat Clear Calc 87.7 Estimated GFR > 60 Random Glucose 146 H Lactic Acid 2.1 H* Calcium 9.9 Total Bilirubin 0.5 AST 42 H ALT 48 H Alkaline Phosphatase 29 L B-Natriuretic Peptide 67 Total Protein 7.3 Albumin 4.1 Imaging Radiologist's Impressions: Impressions Chest X-Ray 07/29/24 09:17 IMPRESSION: No active pulmonary disease. COPD. No interval change from prior exams. Electronically signed by: Jose M Wynn MD 07/29/2024 10:24 AM [facility] [place] Assessment and Plan (1) COPD exacerbation: Status: Acute (2) Acute hypoxic respiratory failure: Status: Acute Plan Pt is a 73-year-old male with a PMH significant for?paroxysmal AFib on Pradaxa s/p ablations x2, COPD not on home O2, non-small cell lung cancer s/p chemo and radiation in 2022, HFpEF, GERD, MANJEET on nocturnal O2, and anxiety who presents to the ED with?SOB, BROWN, and difficulty breathing on alleviated by home inhalers x3 days. Pt will be admitted to the hospital for treatment and further evaluation of acute respiratory failure in the setting of COPD exacerbation. Acute hypoxic respiratory failure in the setting of COPD exacerbation Pt with SOB, BROWN, increased work of breathing, and wheezing not alleviated home inhalers or treatments in the ED Desatting to No sepsis: Tachycardia secondary to albuterol use, leukocytosis or fever; CXR negative for pneumonia Will treat with DuoNebs, Solu-Medrol, guaifenesin Will cover with doxycycline for pleiotropic effects Titrate supplemental O2 >92, wean as tolerated Monitor respiratory status Paroxysmal AFib Continue Pradaxa, diltiazem HLD Continue statin HFpEF Not in acute exacerbation Not on chronic meds, takes Lasix prn GERD Continue famotidine Anxiety Continue lorazepam Full Code Attending:?Dr. Stone DVT Prophylaxis: On Pradaxa Pt will require a hospitalization of at least two nights for treatment of?acute hypoxic respiratory in the setting of acute COPD exacerbation. Given pt's comorbidities and pt was unable to perform ADLs at home due to BROWN, pt is at risk for further deterioration without hospital level of care for administration of IV steroids, breathing treatments, supplemental oxygen, and close monitoring respiratory status. Quality Stroke Does the patient have a stroke diagnosis?: No VTE Prior VTE?: No VTE Risk Level:: Medical - moderate - high VTE Device Contraindication: Treatment Not Indicated VTE Drug Contraindication: N/A - Med Ordered
[2024-07-29] MEDS: Piperacillin Sodium/Tazobactam 3.375 GM in 0.9 % Sodium Chloride 50 ML IV (11:30)
--- NOTE | 2024-07-29 11:32 | PC.NURSE ---
this nurse took over patient care at 11am from [facility], patient a&ox3, labs drawn, blood cultures obtained, quality assurance monitor final intact sinus tach with frequent pvcs, pt states he is 2L NC at night, in/ex wheezing throughout/non productive cough, call rodriguez within reach, plan of care ongoing
[2024-07-29 11:38] LABS: Reflex Lactate? Lactic Acid Added
[2024-07-29 12:17] LABS: Influenza A PCR NEGATIVE (Negative); Influenza B PCR NEGATIVE (Negative); Resp Syncy Virus RNA Qual PCR NEGATIVE (Negative); SARS COV2 PCR INHOUSE NEGATIVE (Negative)
--- NOTE | 2024-07-29 12:25 | PHA.MEDREC ---
Addendum entered by Cecilia Euceda [facility] 07/29/24 13:32: patient confirmed he does also use trellegy. Addendum entered by Cecilia Euceda [facility] 07/29/24 12:40: reviewed by [facility], will follow up on trellegy. Original Note: Pharmacy Consult ? Medication Reconciliation Pharmacy has completed the medication reconciliation. Spoke with patient and he confirmed his medications. Patient confirmed he is taking the Lorazepam 0.5mg tab and confirmed he is taking 1 tab daily as needed for anxiety instead of TID and he states hes been doing fine with taking 1 daily as needed. He confirmed he is taking the Prednisone 20mg tab as needed for Chest Tightness and stated he took 30mg (1 and 1/2 tab) this morning for it. The patient confirmed he took the Dabigatran etexilate 150 mg capsule, Diltiazem HCl 120 mg capsule,extended release 24 hr, Roflumilast 500mcg and Prednisone 20mg this morning and stated he took everything else yesterday.
[2024-07-29 12:56] LABS: ~Lactic Acid-LAB USE ONLY 5.3 mmol/L (0.5-2.0)
--- NOTE | 2024-07-29 13:03 | PM.SEPBOLA4 ---
Sepsis Bolus Exclusion Sepsis Bolus Exclusion CHF/Renal Failure Date of Occurrence: 07/29/24 This patient met severe sepsis criteria due to the following condition(s):: Lactate>=4mmol/L In my clinical judgement the administration of 30 ml/kg of crystalloid would be detrimental to this patient due to the patient's following conditions:: Concern for fluid overload Other (must be specific):: No sepsis, lactic acid secondary to bronchodilator use Replace the 30 mls/kg with (Zero amount not acceptable and all fluids for severe sepsis must be given at GREATER than 125 mls/hr) *Note: One of the fernández must be documented
[2024-07-29 13:08] LABS: Cancel Lactic Acid Canceled
[2024-07-29] MEDS: Doxycycline Hyclate 100 MG in 0.9 % Sodium Chloride 250 ML 166.67 MG IV (15:11)
[2024-07-29] MEDS: guaiFENesin DM 200/20/10 ML 10 ML SYRUP PO (18:10)
[2024-07-29] MEDS: Albuterol/Iprat 2.5/0.5MG 3 ML AMPUL.NEB INHALE ×2 (18:14→19:15)
--- NOTE | 2024-07-29 20:14 | MHC.EDTECH ---
This pct assumed care of Patient at 1915 , vitals taken ,Patient awake watching television ,Patient had an ice cream for snack .
[2024-07-29] MEDS: Atorvastatin Calcium 40 MG TABLET PO (20:52)
[2024-07-29] MEDS: Famotidine 20 MG TABLET PO (20:52)
[2024-07-29] MEDS: methylPREDNISolone Sod Succ 40 MG/ML VIAL IVPUSH (20:53)
[2024-07-29] MEDS: LORazepam 0.5 MG TABLET PO (21:00)
[2024-07-29] MEDS: 0.9 % Sodium Chloride Flush 3 ML SYRINGE IVFLUSH (22:35)
[2024-07-29] MEDS: Melatonin 3 MG TABLET 6 MG PO (22:35)
[2024-07-29] MEDS: Dabigatran Etexilate Mesylate 150 MG CAPSULE PO (22:35)
[2024-07-30] VITALS (9 sets, daily range): BP systolic 130–148; BP diastolic 66–75; PULSE 74–105; RESP 18–26; TEMP 36.2–36.8; O2SAT 92–97
[2024-07-30] MEDS: Doxycycline Hyclate 100 MG in 0.9 % Sodium Chloride 250 ML 166.67 MG IV (02:11)
[2024-07-30] MEDS: guaiFENesin DM 200/20/10 ML 10 ML SYRUP PO (02:25)
[2024-07-30] MEDS: Albuterol/Iprat 2.5/0.5MG 3 ML AMPUL.NEB INHALE ×2 (06:24→11:56)
[2024-07-30] MEDS: dilTIAZem HCL CD 120 MG CAP.ER.DEG PO (09:44)
[2024-07-30] MEDS: Dabigatran Etexilate Mesylate 150 MG CAPSULE PO ×2 (09:44→20:34)
[2024-07-30] MEDS: methylPREDNISolone Sod Succ 40 MG/ML VIAL IVPUSH ×2 (09:44→20:34)
[2024-07-30] MEDS: Roflumilast 500 MCG TABLET PO (09:44)
[2024-07-30] MEDS: Multivitamin TABLET 1 TAB PO (09:44)
[2024-07-30] MEDS: 0.9 % Sodium Chloride Flush 3 ML SYRINGE IVFLUSH ×2 (09:45→20:34)
--- NOTE | 2024-07-30 10:56 | P.PNIM_ITS ---
Subjective Subjective Date of Service: 07/30/24 Interval History: dyspnea + wheezing improving still hypoxic josselyn with ambulation Review of Systems Review of Systems: Yes all other systems are reviewed and are negative Physical Exam 2 Vital Signs: Vital Signs: Last Vital Signs Temp 97.1 F 07/30/24 07:47 Pulse 90 07/30/24 09:13 Resp 20 07/30/24 07:47 BP 130/71 07/30/24 09:13 Pulse Ox 96 07/30/24 09:13 O2 Del Method Nasal Cannula 07/30/24 07:47 O2 Flow Rate 2 07/30/24 07:47 BMI result Body Mass Index 31.3 Gen: in no acute distress HEENT: sclera anicteric, moist mucus membranes Neck: supple Lungs: expiratory wheezing Heart: regular rate and rhythm, no murmurs Abd: soft, non-tender, non-distended Ext: no edema Skin: warm/well-perfused Neuro: alert and oriented x3, no focal findings Psych: appropriate affect Objective Data Active Medications Acetaminophen (Acetaminophen 325 Mg Tablet) 650 mg PO Q6H PRN PRN Reason: Pain, Mild 1-3,fever,headache Albuterol/Ipratropium (Albuterol/Iprat 2.5/0.5mg 3 Ml Ampul.Neb) 3 ml INHALE RQ4H WHILE AWAKE [facility] Last Admin: 07/30/24 06:24 Dose: 3 ml Documented By: SISSY Albuterol/Ipratropium (Albuterol/Iprat 2.5/0.5mg 3 Ml Ampul.Neb) 3 ml INHALE RQ4H WHILE AWAKE PRN PRN Reason: Shortness of Breath/Wheezing Atorvastatin Calcium (Atorvastatin Calcium 40 Mg Tablet) 40 mg PO BEDTIME [facility] Last Admin: 07/29/24 20:52 Dose: 40 mg Documented By: CHYNA-NISH Calcium Carbonate (Calcium Carbonate 750 Mg Tab.Chew) 750 mg PO Q4H PRN PRN Reason: Heartburn Dabigatran (Dabigatran Etexilate Mesylate 150 Mg Capsule) 150 mg PO BID [facility] Last Admin: 07/30/24 09:44 Dose: 150 mg Documented By: WENDY Diltiazem HCl (Diltiazem Hcl Cd 120 Mg Cap.Er.Deg) 120 mg PO DAILY [facility]; Protocol Last Admin: 07/30/24 09:44 Dose: 120 mg Documented By: WENDY Famotidine (Famotidine 20 Mg Tablet) 20 mg PO BEDTIME [facility] Last Admin: 07/29/24 20:52 Dose: 20 mg Documented By: NICO Guaifenesin/Dextromethorphan (Guaifenesin Dm 200/20/10 Ml 10 Ml Syrup) 10 ml PO Q4H PRN PRN Reason: Cough Last Admin: 07/30/24 02:25 Dose: 10 ml Documented By: LOLY Doxycycline Hyclate 100 mg/ (Sodium Chloride) 250 mls @ 166.67 mls/hr IV Q12H [facility] Last Infusion: 07/30/24 03:59 Dose: Infused Documented By: LOLY Lorazepam (Lorazepam 0.5 Mg Tablet) 0.5 mg PO DAILY PRN PRN Reason: anxiety Last Admin: 07/29/24 21:00 Dose: 0.5 mg Documented By: NICO Magnesium Hydroxide (Milk Of Magnesia 30 Ml Oral.Susp) 30 ml PO DAILY PRN PRN Reason: Constipation Melatonin (Melatonin 3 Mg Tablet) 6 mg PO BEDTIME PRN PRN Reason: Insomnia Last Admin: 07/29/24 22:35 Dose: 6 mg Documented By: LOLY Methylprednisolone Sodium Succinate (Methylprednisolone Sod Succ 40 Mg/Ml Vial) 40 mg IVPUSH Q12H [facility] Last Admin: 07/30/24 09:44 Dose: 40 mg Documented By: WENDY Multivitamins/Vitamin C (Multivitamin Tablet) 1 tab PO DAILY [facility] Last Admin: 07/30/24 09:44 Dose: 1 tab Documented By: WENDY Ondansetron HCl (Ondansetron Hcl 4 Mg/2 Ml Vial) 4 mg IVPUSH Q8H PRN PRN Reason: Nausea and Vomiting Roflumilast (Roflumilast 500 Mcg Tablet) 500 mcg PO DAILY [facility] Last Admin: 07/30/24 09:44 Dose: 500 mcg Documented By: WENDY Sodium Chloride (0.9 % Sodium Chloride Flush 3 Ml Syringe) 3 ml IVFLUSH QSHIFT [facility] Last Admin: 07/30/24 09:45 Dose: 3 ml Documented By: WENDY Labs 07/29/24 09:31 07/29/24 09:31 Labs: Laboratory Results - last 24 hr 07/29/24 07/29/24 07/29/24 09:31 11:19 12:13 Lactic Acid F/U @ 2Hr 5.3 H* Alkaline Phosphatase 29 L Influenza Type A (PCR) NEGATIVE Influenza Type B (PCR) NEGATIVE RSV RNA Qual (PCR) NEGATIVE SARS-CoV-2 RNA (RT-PCR) NEGATIVE Assessment and Plan (1) COPD (chronic obstructive pulmonary disease): Status: Acute Plan d2 for 73yo M with pAF on dabigatran s/p ablation x2, COPD, NSCLC s/p chemo/XRT 2022, HFpEF, GERD, MANJEET on nighttime O2, anxiety presenting with 3d of dyspnea + cough, admitted for hypoxia due to COPD exacerbation AHRF due to COPD exacerbation - continue methylprednisolone, doxycycline 07/29-, nebs; wean O2 as tolerated; continue roflumilast pAF - continue diltiazem + dabigatran HLD - continue statin chronic HFpEF - not overloaded GERD - H2RA anxiety - continue lorazepam VTE ppx - dabigatran dispo - eventually home; home O2 eval prior to discharge In my clinical judgment, the patient requires continued inpatient hospitalization for the following reasons: hypoxia Total time managing care of this patient today: 35 minutes. Quality Stroke Does the patient have a stroke diagnosis?: No VTE Prior VTE?: No VTE Risk Level:: Medical - moderate - high VTE Device Contraindication: Treatment Not Indicated VTE Drug Contraindication: N/A - Med Ordered
[2024-07-30] MEDS: LORazepam 0.5 MG TABLET PO (10:57)
--- NOTE | 2024-07-30 11:19 | MHC.CM.PN ---
IMM 07/30/24 DELIEVERED TO PT AT [facility] AND PLACED IN CHART, PT W/COPD EXAC, CM MET W/PT INITIALLY DECLINED TO IMM HOWEVER AFTER READING DOCUMENT PT WAS AGREEABLE TO SIGN. PT REPORTS HE LIVES ALONE, IS INDEP W/ALL CARE, HAS A CANE HE DOES NOT NEED TO USE, NEBULIZER AND O2 CONCENTRATOR, PT REPORTS HE USES 2L NC AT NOC AND PRN NEEDED, PT DENIES HOME SERVICES AND DECLINES TO RECEIVE SERVICES AT HOME. PT VERIFIES PCP IS LORA CARVAJAL AND HAS BEEN EDUCATED ON AND DECLINES TO COMPLETE A NEW HCP AT THIS TIME.
[2024-07-30] MEDS: Doxycycline Hyclate 100 MG in 0.9 % Sodium Chloride 250 ML 166.7 MG IV (13:15)
[2024-07-30] MEDS: Famotidine 20 MG TABLET PO (20:34)
[2024-07-30] MEDS: Atorvastatin Calcium 40 MG TABLET PO (20:34)
[2024-07-30] MEDS: Melatonin 3 MG TABLET 6 MG PO (20:34)
--- NOTE | 2024-07-30 23:08 | PC.RT ---
Addendum entered by Phil Asencio 07/31/24 04:12: Sleep study end at [id number] Original Note: Sleep study started @ 2310 pt on RA
[2024-07-31] MEDS: Doxycycline Hyclate 100 MG in 0.9 % Sodium Chloride 250 ML 166.67 MG IV (00:37)
[2024-07-31 03:08] VITALS: PULSE 95; RESP 20
[2024-07-31 05:36] VITALS: BP 137/76; PULSE 88; RESP 20; TEMP 36.3; O2SAT 94
[2024-07-31 06:39] LABS: Venous Blood Gas Refer to POC result
[2024-07-31 06:48] LABS: VBG Base Excess 5.8 mmol/L; VBG HCO3 30 mmol/L (22-26); VBG pCO2 43 mmHg; VBG pH 7.45 (7.32-7.43); VBG pO2 75 mmHg
[2024-07-31 06:54] LABS: Anion Gap 11 (12-20); Blood Urea Nitrogen 22 mg/dL (9-16); Calcium 9.4 mg/dL (8.4-10.2); Carbon Dioxide 26 mmol/L (22-29); Chloride 109 mmol/L (96-108); Creatinine Clr Calc Pharmacy 94.8; Estimated Glomerular Filt Rate > 60; Glucose Random 156 mg/dL (60-115); Potassium 4.3 mmol/L (3.3-5.1); Sodium 142 mmol/L (135-145)
[2024-07-31 07:08] VITALS: BP 120/71; PULSE 88; RESP 18; TEMP 36.4; O2SAT 93
[2024-07-31] MEDS: predniSONE 20 MG TABLET 40 MG PO (08:50)
[2024-07-31] MEDS: dilTIAZem HCL CD 120 MG CAP.ER.DEG PO (08:51)
[2024-07-31] MEDS: Dabigatran Etexilate Mesylate 150 MG CAPSULE PO (08:51)
[2024-07-31] MEDS: Roflumilast 500 MCG TABLET PO (08:51)
[2024-07-31] MEDS: Multivitamin TABLET 1 TAB PO (08:51)
[2024-07-31] MEDS: LORazepam 1 MG TABLET PO (08:51)
[2024-07-31] MEDS: 0.9 % Sodium Chloride Flush 3 ML SYRINGE IVFLUSH (09:01)
--- NOTE | 2024-07-31 10:47 | PM.DS ---
DS: Providers Provider Date of Service: 07/31/24 Date of admission: 07/29/24 12:08 Date of discharge: 07/31/24 Primary care physician: Yoseph Acevedo MD DS: Diagnosis Discharge Diagnosis (1) COPD (chronic obstructive pulmonary disease): Status: Acute DS: Summary Hospital Course Hospital Course: HPI From admission H&P: Pt is a 73-year-old male with a PMH significant for?paroxysmal AFib on Pradaxa s/p ablations x2, COPD not on home O2, non-small cell lung cancer s/p chemo and radiation in 2022, HFpEF, GERD, MANJEET on nocturnal O2, and anxiety who presents to the ED with?SOB, BROWN, and difficulty breathing on alleviated by home inhalers x3 days. When pt arrived to the ED was tripoding, tachypneic, speaking in 2-3 word sentences, and with audible wheezing and triage. Pt reports on Saturday developed a runny nose and sore throat. By Saturday began experiencing difficulty breathing and BROWN which continued to worsen until today. Pt has been experiencing dizziness, chest tightness, and abdominal pain associated with cough. Has chronic occasionally productive cough, though current cough has been nonproductive. Pt reports has been taking azithromycin, prednisone, and using his rescue inhaler ?every 5 minutes? to no effect. Breathing got so bad that he felt like he was going to . Denies fever, chills, nausea, vomiting. Mild diffuse abdominal wall pain associated with cough. Pt reports previously was on a maintenance program taking azithromycin 3 days a week, those taken off it a few years ago due to GI upset. Pt currently smokes marijuana daily and an unspecified amount cigarettes. In the ED pt was tachycardic up to 105, tachypneic up to 26, satting at 93% on RA. Labs were significant for lactic acid 2.1, and AST 42, ALT 48, and alk-phos 29. No leukocytosis. Stable H&H. No significant electrolyte abnormalities. Renal function WNL. Tested negative for flu, COVID, RSV. CXR showed no active pulmonary disease, redemonstrated COPD with no interval change from prior. EKG demonstrated sinus tachycardia of 140 frequent PVCs and RBBB, similar to prior. Pt was treated with DuoNebs, Solu-Medrol, and Zosyn. Pt will be admitted to the hospital for treatment and further evaluation of acute respiratory failure in the setting of COPD exacerbation. Hospital Course: Patient was placed on supplemental oxygen, initiated on IV steroids, scheduled and p.r.n. bronchodilators and IV doxycycline. Over the course of his hospitalization the patient's symptoms have improved. He is tolerating room air at rest as well as with ambulation. He is no longer wheezing significantly. He will be transitioned to complete a course of p.o. prednisone and doxycycline. The patient's other chronic conditions remained stable while in the hospital. Final discharge diagnosis 1. Acute respiratory failure with hypoxia due to acute COPD exacerbation 2. Probable bacterial bronchitis 3. Paroxysmal AFib 4. Hyperlipidemia 5. HFpEF 6. GERD 7. Anxiety Time Attestation Discharge Coordination Time (in mins): 35 Quality: Safe Use of Opioids Does Pt have an Active Cancer Diagnosis on the Problem List?: No Quality: Stroke Does the patient have a stroke diagnosis?: No Physical Exam Vital Signs: Vital Signs: Last Vital Signs Temp 97.6 F 07/31/24 07:08 Pulse 88 07/31/24 07:08 Resp 18 07/31/24 07:08 BP 120/71 07/31/24 07:08 Pulse Ox 93 07/31/24 07:08 O2 Del Method Room Air 07/31/24 07:08 O2 Flow Rate 2 07/30/24 22:00 BMI result Body Mass Index 31.3 Const: Other: General - no acute distress, appears comfortable Cardiovascular - regular rate and rhythm, S1-S2 Lungs - normal respiratory effort, clear to auscultation bilaterally, no wheezing Abdomen - soft, nontender, no rebound or guarding Extremities - no edema bilaterally Neuro - awake and alert, no focal deficits DS: Data Data Completed and Pending Labs on day of discharge: Laboratory Results - last 24 hr 07/31/24 07/31/24 06:34 06:38 VBG pH 7.45 H VBG pCO2 43 VBG pO2 75 VBG HCO3 30 H VBG O2 Saturation 95.0 VBG Base Excess 5.8 Sodium 142 Potassium 4.3 Chloride 109 H Carbon Dioxide 26 Anion Gap 11 L BUN 22 H Creatinine 0.71 Estim Creat Clear Calc 94.8 Estimated GFR > 60 Random Glucose 156 H Calcium 9.4 Preliminary micro results at discharge 07/29/24 11:01 Blood Culture - Preliminary Blood - Venous No growth after 24 hours. 07/29/24 10:58 Blood Culture - Preliminary Blood - Venous No growth after 24 hours. Discharge Plan Discharge Anticipated Discharge Date/Time: 07/31/24 10:45 Patient Disposition: Home, Self-Care Discharge Diagnosis: COPD hypoxia Referrals: Yoseph Acevedo MD [Primary Care Provider] - 1 Week Discharge Medications: New doxycycline hyclate 100 mg capsule 100 mg PO BID Qty: 10 0RF prednisone 20 mg tablet 40 mg PO DAILY Qty: 10 0RF Continued dabigatran etexilate 150 mg capsule 150 mg PO BID Qty: 180 1RF diltiazem HCl 120 mg capsule,extended release 24hr 120 mg PO DAILY Qty: 90 3RF albuterol sulfate 90 mcg/actuation HFA aerosol inhaler 2 puff inhalation Q4H PRN (Reason: shortness of breath or wheezing) 30 Days Qty: 8.5 12RF famotidine 20 mg tablet 20 mg PO BEDTIME Qty: 90 3RF atorvastatin 40 mg tablet 40 mg PO BEDTIME Qty: 90 1RF prednisone 20 mg tablet 20 mg PO DAILY PRN (Reason: chest tightness/COPD exacerbation) Qty: 30 0RF Patient Comments: Took 30mg (1 and 1/2) tablet this morning. Rx Instructions: Take as instructed as needed for SOB/chest tightness roflumilast 500 mcg tablet 500 mcg PO DAILY coenzyme Q10 60 mg Capsule 60 mg PO DAILY Centrum Silver Ultra Men's [id number] mcg Tablet 1 tab PO DAILY lorazepam 0.5 mg tablet 0.5 mg PO DAILY PRN (Reason: anxiety) Trelegy Ellipta 200-62.5-25 mcg blister with device 1 ea inhalation DAILY ipratropium-albuterol 0.5 mg-3 mg(2.5 mg base)/3 mL solution for nebulization 3 ml inhalation Q6H PRN (Reason: Shortness Of Breath) Discharge Orders: Discharge Order (Routine); Ordered 07/31/24 Ordered By: Elieser Parra Diet: Advance to usual diet Activity on Discharge: As tolerated Stand Alone Forms: Patient Portal Discharge page Print Language: Setswana Care Plan Goals: To stay healthy and out of the hospital. Health Concerns: see d/c summary Plan of Treatment: see d/c summary Assessment: see d/c summary
--- NOTE | 2024-07-31 11:34 | MHC.CM.PN ---
pt medically cleared for dc home self care, pt to arrange transport
== END 2024-07-31 11:31 | disposition home or self-care (01) | DRG 190 ==
LOC: HO.ED 11:20 → HO.EDOVER 12:32 → HO.IMC 19:15
PROVIDERS: Family Medicine; Admitting Provider Student in an Organized Health Care Education/Training Program; Emergency Provider Student in an Organized Health Care Education/Training Program; PCP Internal Medicine; Visit Provider Family Medicine
DX: J44.1 Chronic obstructive pulmonary disease with (acute) exacerbation (principal); J96.01 Acute respiratory failure with hypoxia; I50.32 Chronic diastolic (congestive) heart failure; I48.0 Paroxysmal atrial fibrillation; G47.33 Obstructive sleep apnea (adult) (pediatric); E78.5 Hyperlipidemia, unspecified; J40 Bronchitis, not specified as acute or chronic; B96.89 Other specified bacterial agents as the cause of diseases classified elsewhere; K21.9 Gastro-esophageal reflux disease without esophagitis; F41.9 Anxiety disorder, unspecified; Z20.822 Contact with and (suspected) exposure to COVID-19; Z85.118 Personal history of other malignant neoplasm of bronchus and lung; Z79.52 Long term (current) use of systemic steroids; Z79.899 Other long term (current) drug therapy
CPT/HCPCS: 0241U; 36415; 71046; 80048; 80053; 82803; 83605; 83880; 85025; 87040; 93005; 94640; 97161; 99285; J2543; J2919

== ENCOUNTER → 2024-07-29 09:17 | Outpatient (BNV) | payer MEDICARE, OTHER, SELFPAY | PROVIDERS: Emergency Provider Student in an Organized Health Care Education/Training Program; PCP Internal Medicine; Visit Provider Radiology Diagnostic Radiology | DX: R06.02 Shortness of breath (principal) | CPT/HCPCS: 71046 ==

== ENCOUNTER → 2024-07-29 09:18 | Outpatient (BNV) | payer MEDICARE, OTHER, SELFPAY | PROVIDERS: Admitting Provider Student in an Organized Health Care Education/Training Program; Emergency Provider Student in an Organized Health Care Education/Training Program; PCP Internal Medicine; Visit Provider Internal Medicine | DX: I49.3 Ventricular premature depolarization (principal); I45.10 Unspecified right bundle-branch block; R00.0 Tachycardia, unspecified | CPT/HCPCS: 93010 ==

== ENCOUNTER → 2024-07-29 12:08 | Outpatient (BNV) | payer MEDICARE, OTHER, SELFPAY | PROVIDERS: Admitting Provider Student in an Organized Health Care Education/Training Program; Emergency Provider Student in an Organized Health Care Education/Training Program; PCP Internal Medicine; Visit Provider Student in an Organized Health Care Education/Training Program | DX: J44.9 Chronic obstructive pulmonary disease, unspecified (principal) | CPT/HCPCS: 99232 ==

== ENCOUNTER 2024-08-07 12:58 | Outpatient (AMB) | payer MEDICARE, OTHER, SELFPAY ==
--- NOTE | 2024-08-07 13:03 | MHC.PC.OV ---
Vital Signs 08/07/24 13:04 Height 5 ft 6 in Weight 199 lb BMI 32.1 BP 120/78 Blood Pressure Location Lt brachial Position Sitting Pulse 99 Pulse Source Pulse Oximeter Pulse Oximetry (%) 96 Oxygen Delivery Method Room Air Intake Visit Reasons: [facility] COPD 07/31 State Manager Required: No Accompanied by: Self / Same As Patient Allergies No Known Allergies [No Known Allergies*] Allergy (Verified 08/09/24 14:47) Medication List - Last Reconciled 08/07/24 by ALEJANDRO Parker albuterol sulfate 90 mcg/actuation 2 puffs inhalation Q4H PRN 30 days atorvastatin 40 mg PO BEDTIME coenzyme Q10 60 mg PO DAILY dabigatran etexilate 150 mg PO BID diltiazem HCl CD 120 mg PO DAILY doxycycline hyclate 100 mg PO BID famotidine 20 mg PO BEDTIME ozgewqoskjh-zgglcgopt-wpeswtrf 200-62.5-25 mcg (Trelegy Ellipta) 1 ea inhalation DAILY ipratropium-albuterol 0.5 mg-3 mg(2.5 mg base)/3 mL 3 mL inhalation Q6H PRN lorazepam 0.5 mg PO DAILY PRN kw-okf-vfily-W2-oimdwzy-pslngz 072-81-641-300 mcg (Centrum Silver Ultra Men's) 1 tab PO DAILY prednisone 40 mg (2 x 20 mg) PO DAILY prednisone 20 mg PO DAILY PRN roflumilast 500 mcg PO DAILY Tobacco use date assessed: 08/07/24 Fall risk assessment: No Falls in past year Last assessed Fall Risk: 08/07/24 Dental Screening Dental Screen Date: 08/07/24 Did you have a dental visit in the last 12 months?: Yes Did you have a dental problem in the last 6 months where you did not have access to dental care?: No Was dental information given to patient?: Patient has dentist HPI [facility] COPD 07/31 HPI Details The patient is a 73-year-old male presenting for post hospital admission. Patient of Dr. Acevedo, was last seen on 05/19/2024 in office PMH significant for?paroxysmal AFib on Pradaxa s/p ablations x2, COPD not on home O2, non-small cell lung cancer s/p chemo and radiation in 2022, HFpEF, GERD, MANJEET on nocturnal O2, and anxiety who presents to the ED with?SOB, BROWN, and difficulty breathing on alleviated by home inhalers x3 days. When pt arrived to the ED was tripoding, tachypneic, speaking in 2-3 word sentences, and with audible wheezing and triage. Pt reports on Saturday developed a runny nose and sore throat. By Saturday began experiencing difficulty breathing and BROWN which continued to worsen until today. Pt has been experiencing dizziness, chest tightness, and abdominal pain associated with cough. Has chronic occasionally productive cough, though current cough has been nonproductive. Pt reports has been taking azithromycin, prednisone, and using his rescue inhaler ?every 5 minutes? to no effect. Breathing got so bad that he felt like he was going to . Denies fever, chills, nausea, vomiting. Mild diffuse abdominal wall pain associated with cough. Pt reports previously was on a maintenance program taking azithromycin 3 days a week, those taken off it a few years ago due to GI upset. Pt currently smokes marijuana daily and an unspecified amount cigarettes. In the ED pt was tachycardic up to 105, tachypneic up to 26, satting at 93% on RA. Labs were significant for lactic acid 2.1, and AST 42, ALT 48, and alk-phos 29. No leukocytosis. Stable H&H. No significant electrolyte abnormalities. Renal function WNL. Tested negative for flu, COVID, RSV. CXR showed no active pulmonary disease, redemonstrated COPD with no interval change from prior. EKG demonstrated sinus tachycardia of 140 frequent PVCs and RBBB, similar to prior. Pt was treated with DuoNebs, Solu-Medrol, and Zosyn. Pt will be admitted to the hospital for treatment and further evaluation of acute respiratory failure in the setting of COPD exacerbation. Hospital Course: Patient was placed on supplemental oxygen, initiated on IV steroids, scheduled and p.r.n. bronchodilators and IV doxycycline. Over the course of his hospitalization the patient's symptoms have improved. He is tolerating room air at rest as well as with ambulation. He is no longer wheezing significantly. He will be transitioned to complete a course of p.o. prednisone and doxycycline. The patient's other chronic conditions remained stable while in the hospital The patient is presenting today requesting to restart doxycycline Reports that he feels some what better but not back to his baseline Patient reports that he has shortness of breath even when he does not have lung infection Reports that he is followed by Oncology at [facility] and that he has a lung nodule that was seen on CT scan Reports that the oncologist told him to follow up in 3 months Patient reports that he feels better when he uses the incentive spirometry Patient reports still smoking cigarettes and marijuana Patient reports that the only thing that makes his respiratory symptoms feel better his alcohol Patient reports that he used to be on long-term prednisone and that prednisone can stop you from getting drunk Discussed with patient that he is on a lot of medications that do not mesh well with alcohol The patient reports that he is 73 years old The patient also request an ophthalmology referral, reports that his vision has been declining He denies chest pain, reports ongoing shortness of breath, denies dizziness or heart palpitation Denies abdominal pain or change in bowel habits Denies urinary symptoms TCM TCM Information Date of Discharge 08/03/24 Discharged From [facility] Interactive Contact Date (Reference documentation from this date) 08/03/24 [facility] Medical History Acute hypoxic respiratory failure Hypoxia Viral syndrome COPD exacerbation Gastritis and duodenitis Hx of cancer of lung Hx of radiation therapy History of chemotherapy Hiatal hernia On anticoagulant therapy HTN (hypertension) Tubular adenoma Arthritis Low back pain Diarrhea Oxygen dependent Emphysema/COPD BROWN (dyspnea on exertion) MANJEET (obstructive sleep apnea) Impaired fasting glucose Eye pain Obesity (BMI 30-39.9) Anxiety COPD (chronic obstructive pulmonary disease) Diabetes mellitus Pure hypercholesterolemia Diastolic heart failure Paroxysmal atrial fibrillation Surgical History History of right inguinal hernia repair (03/13/23) History of esophagogastroduodenoscopy (EGD) Deficient knowledge of leg surgery History of surgery History of cardioversion H/O prior ablation treatment History of colonoscopy Family History Father Medical history unknown Mother Myocardial infarction Social History Household Members: None Housing: House Are you a primary patient care secretary to a significant other at home: No Do you presently have visiting nurse or other home services: No Unable to assess alcohol history related to: Unable to respond Alcohol intake: current Alcohol intake frequency: a few times a week Alcohol type: beer Patient Tobacco Use Status: Former Tobacco user Tobacco use type: Cigarette e-Cigarette/Vaping Use: Never Used Second Hand Smoke Exposure: Yes Substance Use Type: Marijuana Advance Directives: No Advance Directives Information Provided: No service: No Current occupational status: retired Cognitive needs: No Hearing needs: No Vision needs: Yes (reading glasses) Questionnaire PHQ-9 Over the last 2 weeks, how often have you been bothered by any of the following problems? 1. Little interest or pleasure in doing things: not at all 2. Feeling down, depressed, or hopeless: not at all 3. Trouble falling or staying asleep, or sleeping too much: not at all 4. Feeling tired or having little energy: not at all 5. Poor appetite or overeating: not at all 6. Feeling bad about yourself - or that you are a failure or have let yourself or your family down: not at all 7. Trouble concentrating on things, such as reading the newspaper or watching television: not at all 8. Moving or speaking so slowly that other people could have noticed. Or the opposite - being so fidgety or restless that you have been moving around a lot more than usual: not at all 9. Thoughts that you would be better off or of hurting yourself in some way: not at all Total score: 0 Depression Screening Interpretation: Negative Depression Screening Done: Yes 17998 - PHQ-9 Billing: Yes Source: Developed by Drs. Biju Pedroza, Felisha Roberson, Sergio Wang and colleagues, with an educational gary from [employer] Thrive Questionnaire Date Thrive assessed: 08/07/24 I am a: Patient What is your living situation today?: I have a steady place to live Within the past 12 months, did the food you bought not last and you didn't have the money to get more?: Never true Within the past 12 months, did you worry whether your food would run out before you got money to buy more?: Never true Do you have trouble paying for medicines?: No Do you have trouble getting transportation to medical appointments?: No Do you have trouble paying your heating and electricity bill?: No Do you have trouble taking care of your child, family member or friend?: No Do you have trouble with day-to-day activities such as bathing, preparing meals, shopping, managing finances, etc.?: No Are you currently unemployed and looking for a job?: No Are you interested in more education?: No Please select the resources that you would like help with: None Currently or been in a relationship where the following occur: No concerns reported THRIVE Score: 0 AUDIT C Alcohol Use Questionnaire (AUDIT-C) 1. How often do you have a drink containing alcohol?: 2-4 times a month 2. How many drinks containing alcohol do you have on a typical day when you are drinking?: 1 or 2 3. How often do you have six or more drinks on one occasion?: Never Total Score: 2 Score Reviewed/Action Taken: Yes DANGELO-7 AMB Questionnaire DANGELO-7 Date DANGELO - 7 assessed: 08/07/24 Feeling nervous, anxious, or on edge: 0 = Not at all Not being able to stop or control worryin = Not at all Worrying too much about different things: 0 = Not at all Trouble relaxin = Not at all Being so restless that it is hard to sit still: 0 = Not at all Becoming easily annoyed or irritable: 0 = Not at all Feeling afraid as if something awful might happen: 0 = Not at all Total DANGELO-7 score (0-4 normal; 5-9 mild; 10-14 moderate; 15-21 severe): 0 Source: Developed by Drs. Biju Pedroza, Felisha Roberson, Sergio Wang and colleagues, with an educational gary from [employer] DANGELO-7 Assessment Billing DANGELO-7 Assessment Tool: DANGELO-7 Assessment 38768 Review of Systems Const Details: Denies chills, Denies fatigue, Denies fever(s), Denies headache(s) and Denies weakness HEENT Denies change in vision, Denies dizziness, Denies headache(s), Denies hearing loss, Denies nasal congestion, Denies sinus pain, Denies sinus pressure and Denies sore throat Eyes: Reports decreased vision Card Denies chest pain, Denies lightheadedness, + dyspnea with exertion (ongoing) and Denies other (palpitations) Resp Denies cough, + dyspnea with exertion (ongoing) and Denies wheezing GI Denies abdominal pain, Denies melena, Denies hematochezia, Denies change in bowel habits, Denies dyspepsia and Denies nausea Denies hematuria and Denies dysuria Musc Denies abnormal gait, Denies myalgias, Denies arthralgias, Denies numbness and Denies tingling Skin/Breast Denies rash, Denies unusual bruising and Denies wounds Neuro Denies abnormal gait, Denies dizziness, Denies headache(s), Denies memory loss, Denies numbness, Denies Sensory deficit (Neuro), Denies tingling and Denies weakness Psych Denies anxiety, Denies depression and Denies memory loss Endo Denies cold intolerance, Denies fatigue, Denies heat intolerance, Denies polydipsia and Denies polyuria Reese/Lymph Denies easy bleeding and Denies easy bruising Aller/Immun Denies wheezing Physical exam (Primary Care) Vital Signs: Last Vital Signs Pulse 99 08/07/24 13:04 BP 120/78 08/07/24 13:04 Pulse Ox 96 08/07/24 13:04 Oxygen Delivery Method Room Air 08/07/24 13:04 BMI result Body Mass Index 32.1 Tobacco/Smoking Status: Tobacco use Status Tobacco use date assessed 08/07/24 08/07/24 13:09 Patient Tobacco Use Status Former Tobacco user 08/07/24 13:09 Tobacco use type Cigarette 08/07/24 13:09 e-Cigarette/Vaping Use Never Used 08/07/24 13:09 PHQ-9: PHQ-9 Score PHQ-9: Total score 0 08/07/24 13:46 Depression Screening Interpretation: Negative Thrive Assessment: Date of Thrive Assessment Date Thrive assessed 08/07/24 08/07/24 13:09 Currently or been in a relationship where the following occur: No concerns reported Const Other: General: no acute distress, well developed, alert and awake Nutritional Appearance: well nourished Orientation/consciousness: patient oriented x3 HENMT Head: Yes normocephalic and Yes atraumatic Ears: hearing grossly normal bilaterally and TM's normal bilaterally General nose exam: Normal external nose present and Normal nares present Mouth: Normal oral and palatal mucosa present and moist mucous membranes Eyes Pupils: Equal, round and reactive pupils present and Pupil accommodation reflex normal EOM: EOMs intact bilaterally Neck Neck: Yes normal visual inspection, Yes no lymphadenopathy Thyroid: Thyroid normal Chest Chest palpation & inspection: normal inspection of the chest Resp Effort & Inspection: normal respiratory effort Auscultation: clear to auscultation bilaterally Cardio Rate: regular rate Rhythm: regular rhythm Heart sounds: S1 normal heart sound present, S2 normal heart sound present, no gallops, no murmurs and no rubs GI Palpation (GI): Abdomen is soft and nontender the palpation Auscultation: normal bowel sounds General: Yes no CVA tenderness Back/Spine/Pelvis Back: no CVA tenderness Cervical Spine: cervical ROM normal and No Cervical spine tenderness Thoracic/Lumbar Spine: thoraco-lumbar ROM normal, No pain with thoraco-lumbar ROM, No thoracic spinal tenderness and No lumbar spinal tenderness Skin General: warm and dry. Normal skin color. Normal skin turgor Lesions: no lesions Nails: normal Neuro General: patient oriented x3, gait normal Cranial nerves: Yes Equal, round and reactive pupils present Cognition (Neuro): normal cognition Gait exam (Neuro): Normal gait present Extrem General: Yes normal to inspection, No edema and No calf tenderness Psych Appearance: grossly normal Affect: normal affect Attitude: cooperative Thought process: Normal thought process present Coding Level of Care Code TCM Mod MDM <= 7 Days Diagnoses Paroxysmal atrial fibrillation I48.0 Diastolic heart failure, unspecified HF chronicity I50.30 Heart failure chronicity: unspecified Hx of cancer of lung Z85.118 Chronic obstructive pulmonary disease, unspecified COPD type J44.9 COPD type: unspecified COPD Obesity (BMI 30-39.9) E66.9 Decreased vision in both eyes H54.3 Additional Codes PHQ-9 - 92840 - PHQ-9 Billing: Yes ([id number]) DANGELO-7 Assessment Billing - DANGELO-7 Assessment Tool: DANGELO-7 Assessment 44069 ([id number]) Time Spent (min) 36 Assessment & Plan Assessment & Plan (1) Paroxysmal atrial fibrillation: Code(s): I48.0 - Paroxysmal atrial fibrillation Category: Medical Plan: Patient currently remains in sinus rhythm and has been rate-controlled over the past year on Diltiazem - was on Amiodarone 200 mg QD in the past S/P cardiac ablation at [facility] on 07/29/2018; cardiac rehab back then resulted in some improvement of his symptoms Continue Pradaxa 150 mg twice a day for thromboembolism prophylaxis Follow-up with cardiology as scheduled (2) Diastolic heart failure: Code(s): I50.30 - Unspecified diastolic (congestive) heart failure Category: Medical Qualifiers: Heart failure chronicity: unspecified Qualified Code(s): I50.30 - Unspecified diastolic (congestive) heart failure Plan: Compensated - reinforced fluid restriction He was on Furosemide in the past but patient has not required any diuretics lately (3) Hx of cancer of lung: Comment: treated at [facility] Code(s): Z85.118 - Personal history of other malignant neoplasm of bronchus and lung Category: Medical Plan: 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 Reports that Oncology wants him to follow up in 3 months Follow-up with Pulmonary and Oncology as scheduled for continuing surveillance (4) COPD (chronic obstructive pulmonary disease): Code(s): J44.9 - Chronic obstructive pulmonary disease, unspecified Category: Medical Qualifiers: COPD type: unspecified COPD Qualified Code(s): J44.9 - Chronic obstructive pulmonary disease, unspecified Plan: Patient was on prophylactic Azithromycin 250 mg 1 tablet 3 times a week before but this was also discontinued at some point States that his breathing has been fairly well controlled lately with his current Rx, which include Trelegy Ellipta, Daliresp and Albuterol inhaler Follow up with [facility] (Dr. Johnson) as scheduled As requested, Rx for prednisone was provided to patient keep on hand - states that he plans to use this only in emergency situations and acute flare-ups of his COPD --patient was admitted on 07/29/2024 to 07/31/2024 for COPD exacerbation he was treated with DuoNebs, Solu-Medrol, and Zosyn --he was also placed on supplemental oxygen and IV doxycycline. The patient improved and was transitioned to p.o. prednisone and doxycycline --discussed with patient about smoking cessation to help prevent refractory COPD exacerbation. Encouraged the patient to use incentive spirometry, the patient reports that this improved his breathing and he also wanted to know how often he could use it. Discussed with patient that this could be done every hour when awake (5) Obesity (BMI 30-39.9): Code(s): E66.9 - Obesity, unspecified Category: Medical Plan: Reinforced diet; exercise and weight loss are not realistic given patient's COPD and other multiple comorbidities (6) Decreased vision in both eyes: Code(s): H54.3 - Unqualified visual loss, both eyes Category: Medical Plan: Ophthalmology referral placed Plan The patient has a follow up appointment on 08/26/[address] Acevedo. The patient to keep this appointment and to do his blood work prior to appointment for Re evaluation Orders: Referrals Ophthalmology Referral H54.3 - Unqualified visual loss, both eyes
[2024-08-07 13:04] VITALS: BP 120/78; PULSE 99; O2SAT 96; BMI 32.1
--- OUTSIDE RECORDS SUMMARY | 2024-08-07 13:36 | XMS_ITS | Clinical Summary ---
Author Organization [facility] Address [address] [place] [address] Care Team Providers Care [employer] Head [employer] Experience Strategy Name Role Phone Yoseph Acevedo MD Primary Care Provider +1- [phone] Allergies No known active allergies Medications Medication [...] age to complete this topic Care Teams [employer] Experience Strategy Relationship Specialty Start Date End Date Yoseph Acevedo MD [address] [place] [address] [place] [address] PCP - General Internal Medicine 09/24/22
--- OUTSIDE RECORDS SUMMARY | 2024-08-07 13:36 | XMS_ITS | Encounter Summary ---
Author Organization [facility] Address [address] [place] [address] Care Team Providers Care [employer] Crm Developer Name Role Phone Yoseph Acevedo MD Primary Care Provider [phone]- [phone] Encounter Details Date Type Department Care Team Description 10/12/2022 Social Work [facility] Oncology Services [address] [place] [address] Adina Hernandez, [facility] Social History Tobacco Use Types Packs/Day Years [...] on filedocumented in this encounter Care Teams [employer] Crm Developer Relationship Specialty Start Date End Date Yoseph Acevedo MD [address] [place] [address] [place] [address] PCP - General Internal Medicine 09/24/22 documented as of this encounter
--- OUTSIDE RECORDS SUMMARY | 2024-08-07 13:36 | XMS_ITS ---
Author Organization [facility] Address [address] [place] [address] Care Team Providers Care Fans Clerk Name Role Phone Yoseph Acevedo MD Primary Care Provider +1- [phone] Active Problems Problem Noted Date Diagnosed Date [...] treatments are documented for this patient in [facility]. Treatments may have been administered in another system.
--- OUTSIDE RECORDS SUMMARY | 2024-08-07 13:36 | XMS_ITS | Encounter Summary ---
Author Organization [facility] Address [address] [place] [address] Care Team Providers Care Assistant Casino Shift Manager Name Role Phone Yoseph Acevedo MD Primary Care Provider + [phone] Reason for Referral * Imaging (Routine) - Authorized Specialty Diagnoses / Procedures Referred By Contac t Referred To Contact Radiology Diagnoses Small cell carcinoma of lung, unspecified laterality, unspecified part of lung (CMS/HCC) Procedures MR Brain wo and w Contrast Pina Wynn NP [address] [place] [address] [address] [place] [address] [address] Referral ID Status Reason Start Date Expiration Date V isits Requested Visits Authorized [id number] Authorized 07/15/2024 07/15/2025 1 1 Reason for Visit * Reason Comments Follow-up Encounter Details Date Type Department Care Team (Latest Contact Info) Description 07/15/2024 1:46 PM EST - 07/15/2024 11:59 PM EST Hospital Encounter [facility] Radiation Oncology [address] [place] [address] [address] Pina Wynn NP [address] [place] [address] [address] [place] [address] Small cell carcinoma of lung, unspecified [...] DAY MAKE AN APPT FOR FURTHER REFILLS, [id number] 09/11/2021 famotidine (PEPCID) 20 mg tablet Take [...] from the original note were not included. [address] [phone] RADIATION ONCOLOGY FOLLOW-UP Staff Physician: Pina Wynn [...] DAY MAKE AN APPT FOR FURTHER REFILLS, [id number], Disp: , Rfl: famotidine (PEPCID) 20 mg tablet, Take 1 tablet (20 mg total) by mouth. at bedtime., Disp: , Rfl: fluticasone HFA (FLOVENT HFA) 110 mcg/actuation inhaler, Inhale 2 puffs by mouth., Disp: , Rfl: bfdjbywzovv-wwujvsddtves-elwsmetvdu (Trelegy Ellipta) 100-62.5-25 mcg inhaler, Inhale 1 [...] Care Team (Late st Contact Info) Description 01/07/2025 10:30 AM EDT Appointment [facility] Radiation Oncology [address] [place] [id number] Pina Wynn NP [address] [place] [address] [facility] [place] [id number] Scheduled Orders Name Type Priority Associated Diagnoses [...] 07/15/2024 documented in this encounter Care Teams Assistant Casino Shift Manager Relationship Specialty Start Date End Date Yoseph Acevedo MD [address] [place] [address] [address] [place], [place] PCP - General Internal Medicine 07/29/17 documented as of this encounter
--- OUTSIDE RECORDS SUMMARY | 2024-08-07 13:36 | XMS_ITS | Encounter Summary ---
Author Organization [facility] Address [address] [place] [address] Care Team Providers Care Fertilizer Applicator Name Role Phone Yoseph Acevedo MD Primary Care Provider + [phone] Encounter Details Date Type Department Care Team (Late st Contact Info) Description 04/03/2024 2:45 PM EDT Hospital Encounter TH HISTORIC ENCOUNTERS [facility] ONLY Matteo Zuniga MD [address] [place] [phone] Social History Tobacco Use Types Packs/Day [...] right paratracheal node revealed metastatic neuroendocrine carcinoma, [id number], chromogranin-positive, synaptophysin-positive, [id number]. 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 He is . He has 1 son. [...] Info) Description 01/07/2025 10:30 AM EDT Appointment [facility] Radiation Oncology [address]nd [place] [phone] Pina Wynn NP [address] [place] [address] [address] [place] [phone] documented as of this encounter Procedures Procedure Name Priority Date/Time Associated Diagnosis Comments HISTORICAL IMAGING SCAN RESULT 04/03/2024 documented in this encounter Results * HISTORICAL IMAGING SCAN RESULT (04/03/2024) Anatomical Region Laterality Modality Ultrasound Provider Onbase MD IMG US PROCEDURES documented in this encounter Visit Diagnoses Not on filedocumented in this encounter Care Teams Fertilizer Applicator Relationship Specialty Start Date End Date Yoseph Acevedo MD [address] [place] [address] Dr [address] [place] PCP - General Internal Medicine 07/29/17 documented as of this encounter
--- OUTSIDE RECORDS SUMMARY | 2024-08-07 13:36 | XMS_ITS | Encounter Summary ---
Author Organization [facility] Address [address] [place] [address] Care Team Providers Care Boiler Fitter Name Role Phone Yoseph Acevedo MD Primary Care Provider +- [phone] Encounter Details Date Type Department Care Team (Late Contact Info) Description 04/03/2024 2:45 PM EDT Hospital Encounter TH HISTORIC ENCOUNTERS [facility] ONLY Matteo Zuniga MD [address] [place] [address] Social History Tobacco Use Types [...] Info) Description 01/07/2025 10:30 AM EDT Appointment [facility] Radiation Oncology [address] [address] Pina Wynn NP [address] [place] [address] [address] [place] [address] documented as of this encounter Visit Diagnoses Not on filedocumented in this encounter Care Teams Boiler Fitter Relationship Specialty Start Date End Date Yoseph Acevedo MD [address] [facility] [address] [place] PCP - General Internal Medicine 07/29/17 documented as of this encounter
--- OUTSIDE RECORDS SUMMARY | 2024-08-07 13:36 | XMS_ITS | Encounter Summary ---
Author Organization [facility] Address [address] [place] [address] Care Team Providers Care [employer] Media Specialist Name Role Phone Yoseph Acevedo MD Primary Care Provider Reason for Referral * Imaging (Routine) - Closed Specialty Diagnoses / Procedures Referred By Contac t Referred To Contact Radiology Diagnoses Other malignant neuroendocrine tumors (CMS/HCC) Procedures CT Chest/Abdomen/Pelvis w Contrast Matteo Zuniga MD [address] [place] [phone] [address] Referral ID Status Reason Start Date Expiration Date Visits Re quested Visits Authorized [id number] Closed 06/08/2024 06/08/2025 1 1 Reason for Visit * Imaging (Routine) - Closed Specialty Diagnoses / Procedures Referred By Contac t Referred To Contact Radiology Diagnoses Other malignant neuroendocrine tumors (CMS/HCC) Procedures CT Chest/Abdomen/Pelvis w Contrast Matteo Zuniga MD [address] [place] [phone] [address] Referral ID Status Reason Start Date Expiration Date Visits Re quested Visits Authorized [id number] Closed 06/08/2024 06/08/2025 1 1 Encounter Details Date Type Department Care Team (Latest Contact Info) Description 07/23/2024 10:48 AM EST - 07/23/2024 11:59 PM EST Hospital Encounter [facility] CT Scan [address] [place] [address] Other malignant neuroendocrine tumors (CMS/HCC) [...] DAY MAKE AN APPT FOR FURTHER REFILLS, [id number] 09/11/2021 famotidine (PEPCID) 20 mg tablet Take [...] Info) Description 01/07/2025 10:30 AM EDT Appointment [facility] Radiation Oncology 271 [facility] 2nd [place] [phone] Pina Wynn NP [address] [place] [address] [place] [phone] documented as of this encounter Procedures [...] metastatic disease in the abdomen [place] pelvis[place] [employer] [place] ([id number]) -------- FINAL REPORT -------- Dictated By: Laura Angel Dictated Date: 07/28/2024 11:11 ET Assigned Physician: Laura Angel Reviewed and Electronically Signed By: Laura Angel Signed Date: 07/28/2024 11:29 ET Workstation ID: [id number] Transcribed By: Self Edit Transcribed Date: 07/28/2024 11:11 ET Narrative 07/28/2024 11:29 AM EST History: Neuroendocrine tumor. Comparison: 12/31/23, lung screening CT 08/07/22 Technique: Helical volumetric imaging of the chest, abdomen and pelvis was performed without oral contrast and during the uneventful intravenous administration of 90 cc Isovue-370. DLP: 1969.73 mGy/cm [employer] VCT Iterative reconstruction technique Findings: Chest: The [...] of 90 cc Isovue-370. DLP: 1969.73 mGy/cm [employer] VCT Iterative reconstruction technique Findings: Chest: The [...] disease in the abdomen and pelvis. [employer] ARCELIA ([id number]) -------- FINAL REPORT -------- Dictated By: Laura Angel Dictated Date: 07/28/2024 11:11 ET Assigned Physician: Laura Angel Reviewed and Electronically Signed By: Laura Angel Signed Date: 07/28/2024 11:29 ET Workstation ID: [id number] Transcribed By: Self Edit Transcribed Date: 07/28/2024 [...] mL documented in this encounter Care Teams [employer] Media Specialist Relationship Specialty Start Date End Date Yoseph Acevedo MD [address] [place] [address] Dr [address] [place] PCP - General Internal Medicine 07/29/17 documented as of this encounter
--- OUTSIDE RECORDS SUMMARY | 2024-08-07 13:36 | XMS_ITS | Encounter Summary ---
Author Organization [facility] Address [address] [place] [address] Care Team Providers Care Air Traffic Control Operator Name Role Phone Yoseph Acevedo MD Primary Care Provider + [phone] Reason for Referral * Imaging (Routine) - Authorized Specialty Diagnoses / Procedures Referred By Contac t Referred To Contact Radiology Diagnoses Small cell carcinoma of lung, unspecified laterality, unspecified part of lung (CMS/HCC) Procedures CT Chest wo Contrast Matteo Zuniga MD [address] [place] [address] [address] Referral ID Status Reason Start Date Expiration Date V isits Requested Visits Authorized [id number] Authorized 08/04/2024 08/04/2025 1 1 Encounter Details Date Type Department Care Team (Late st Contact Info) Description 08/04/2024 Telephone [facility] Hematology Oncology [address] [place] [phone] Matteo Zuniga MD [address] [place] [address] Social History Tobacco Use Types [...] as of this encounter Progress Notes * Matteo Zuniga MD - 08/04/2024 12:48 PM EST Schedule follow-up chest CT in 3 months, schedule appointment 1 week later * Lizeth Rios - 08/04/2024 10:53 AM EST Patient had to cancel today's appt, recently discharged from hospital and not feeling well still, just asking for ct scan results. Please call him at [phone] documented in this encounter Plan of Treatment Upcoming Encounters Date Type Department Care Team (Late st Contact Info) Description 01/07/2025 10:30 AM EDT Appointment [facility] Radiation Oncology 271 [facility] 2nd [place] [address] Pina Wynn NP [address] [place] [address] [place] [address] Scheduled Orders Name Type Priority Associated Diagnoses Orde r Schedule CT Chest wo Contrast Imaging Routine Small cell carcinoma of lung, unspecified laterality, unspecified part of lung (CMS/HCC) Expected: 11/01/2024, Expires: 08/04/2025 documented as of this encounter Visit Diagnoses Diagnosis Small cell carcinoma of lung, unspecified laterality, unspecified part of lung (CMS/HCC)- Primary documented in this encounter Care Teams Air Traffic Control Operator Relationship Specialty Start Date End Date Yoseph Acevedo MD 2 [facility] [place] [address] [place] PCP - General Internal Medicine 07/29/17 documented as of this encounter
--- OUTSIDE RECORDS SUMMARY | 2024-08-07 13:36 | XMS_ITS | Encounter Summary ---
Author Organization [facility] Address [address] [place] [address] Care Team Providers Care Transport Corps Officer Name Role Phone Yoseph Acevedo MD Primary Care Provider [phone] Encounter Details Date Type Department Care Team Description 11/05/2022 Social Work [facility] Oncology Services [address] [place] [address] Adina Hernandez, [facility] Social History Tobacco Use Types Packs/Day Years [...] on filedocumented in this encounter Care Teams Transport Corps Officer Relationship Specialty Start Date End Date Yoseph Acevedo MD [address] [place] [address] [place] [address] PCP - General Internal Medicine 09/24/22 documented as of this encounter
--- OUTSIDE RECORDS SUMMARY | 2024-08-07 13:36 | XMS_ITS | Clinical Summary ---
Author Organization [facility] Address [address] [place] [phone] Phone Care Team Providers Care Planting Machine Operator Name Role Phone Yoseph Acevedo MD Primary Care Provider [phone] Allergies No known active allergies Medications Medication [...] DAY MAKE AN APPT FOR FURTHER REFILLS, [id number] 09/11/2021 Active methylcellulose, laxative, 500 mg tablet [...] 2 (two) times a day. 03/13/2024 Active Trelegy Ellipta 200-62.5-25 mcg inhaler INHALE 1 PUFF INTO THE LUNGS DAILY FOR 30 DAYS. 60 each 11 07/31/2024 Active Active Problems Problem Noted Date Diagnosed [...] Encounters Date Type Department Care Team Description 08/04/2024 Telephone [facility] Hematology Oncology [address] [place] [address] Matteo Zuniga MD 07/23/2024 10:48 AM EST - 07/23/2024 11:59 PM EST Hospital Encounter [facility] CT Scan [address] [place] [phone] Other malignant neuroendocrine tumors (CMS/HCC) Discharge Disposition: Home or Self Care 07/15/2024 1:46 PM EST - 07/15/2024 11:59 PM EST Hospital Encounter [facility] Radiation Oncology [address] [place] [phone] Pina Wynn NP Small cell carcinoma of lung, unspecified laterality, unspecified part of lung (CMS/HCC) (Primary Dx) Discharge Disposition: Home or Self Care 07/06/2024 9:52 AM EST - 07/06/2024 11:59 PM EST Hospital Encounter [facility] MRI [address] [place] [address] Malignant neoplasm of mediastinum, part unspecified (CMS/HCC) Discharge Disposition: Home or Self Care 07/02/2024 Telephone [facility] Radiation Oncology [address] [place] [phone] Elzbieta Jeffries MA 06/16/2024 Telephone [facility] Hematology Oncology [address] [place] [phone] Germaine Ballard [place] CAP CT/Labs from Last [...] obesity with BMI of 4 0.0-44.9, adult (CMS/HCC) 08/23/2017 DX:Morbid obesity with BMI o f 40.0-44.9, adult ([facility]) Hyperlipidemia 09/06/2017 DX:Hyperlipidemi a Pulmonary emphysema (CMS/HCC) 08/23/2017 DX :Pulmonary emphysema (HCC) HTN (hypertension) 09/06/2017 DX:HTN (hyper tension) Diabetes mellitus type 2, uncomplicated (CMS/HCC) 09/06/2017 DX:Diabetes mellitus type 2, uncomplicated (HCC) Tobacco use 09/06/2017 DX:Tobacco use Polycythemia 09/06/2017 DX:Polycythemia Atrial fibrillation (CMS/HCC) 09/06/2017 DX :Atrial fibrillation (HCC); COMMENT: Ablation 1.5.2016 Atrial fibrillation (CMS/HCC) DX :Atrial fibrillation (HCC) GERD (gastroesophageal reflux disease) DX:GERD (gastroesophageal reflux disease) Hypertension DX:Hypertension Lung cancer (CMS/HCC) DX:Lung ca ncer ([facility]) COPD (chronic obstructive pu lmonary disease) (CMS/[facility]) DX:COPD (chronic obstructive pulmonary disease) ([facility]) Psoriasis DX:Psoriasis Tinnitus DX:Tinnitus Arthritis DX:Arthritis Hyperlipidemia [...] Info) Description 01/07/2025 10:30 AM EDT Appointment [facility] Radiation Oncology [address] [place] [address] Pina Wynn NP [address] [place] [address] [address] [place] [address] Health Maintenance Due Date Last Done [...] in the abdomen [place] [employer] [place] ([id number]) -------- FINAL REPORT -------- Dictated By: Laura Angel Dictated Date: 07/28/2024 11:11 ET Assigned Physician: Laura Angel Reviewed and Electronically Signed By: Laura Angel Signed Date: 07/28/2024 11:29 ET Workstation ID: [id number] Transcribed By: Self Edit Transcribed Date: 07/28/2024 11:11 ET Narrative 07/28/2024 11:29 AM EST History: Neuroendocrine tumor. Comparison: 12/31/23, lung screening CT 08/07/22 Technique: Helical volumetric imaging of the chest, abdomen and pelvis was performed without oral contrast and during the uneventful intravenous administration of 90 cc Isovue-370. DLP: 1969.73 mGy/cm [employer] VCT Iterative reconstruction technique Findings: Chest: The [...] of 90 cc Isovue-370. DLP: 1969.73 mGy/cm [employer] VCT Iterative reconstruction technique Findings: Chest: The [...] metastatic disease in the abdomen and pelvis. [employer] ARCELIA ([id number]) -------- FINAL REPORT -------- Dictated By: Laura Angel Dictated Date: 07/28/2024 11:11 ET Assigned Physician: Laura Angel Reviewed and Electronically Signed By: Laura Angel Signed Date: 07/28/2024 11:29 ET Workstation ID: [id number] Transcribed By: Self Edit Transcribed Date: 07/28/2024 11:11 ET Matteo Zuniga MD IMG CT PROCEDURES * (ABNORMAL) Complete blood count (07/06/2024 11:29 AM EST) [facility] WBC 9.6 4.8 - 10.8 K/mcL LAB HEMETOLOGY METHOD 07/06/2024 1:38 PM [facility] RBC 4.90 4.50 - 5.50 M/mcL LAB HEMETOLOGY METHOD 07/06/2024 1:38 PM [facility] Hemoglobin 14.8 13.5 - 17.5 g/dL LAB HEMETOLOGY METHOD 07/06/2024 1:38 PM [facility] Hematocrit 44.4 42.0 - 54.0 % LAB HEMETOLOGY METHOD 07/06/2024 1:38 PM [facility] MCV 89.9 79.0 - 98.0 FL LAB HEMETOLOGY METHOD 07/06/2024 1:38 PM [facility] MCH 30.0 27.0 - 32.0 pcg LAB HEMETOLOGY METHOD 07/06/2024 1:38 PM [facility] MCHC 33.3 32.0 - 37.0 g/dL LAB HEMETOLOGY METHOD 07/06/2024 1:38 PM [facility] RDW 16.1(H) 11.0 - 15.0 % LAB HEMETOLOGY METHOD 07/06/2024 1:38 PM [facility] Platelets 283 130 - 400 K/mcL LAB HEMETOLOGY METHOD 07/06/2024 1:38 PM [facility] MPV 8.9 7.0 - 11.0 FL LAB HEMETOLOGY METHOD 07/06/2024 1:38 PM [facility] NRBC 0.0 <1.0 % LAB HEMETOLOGY METHOD 07/06/2024 1:38 PM [facility] NRBC Absolute 0.00 <0.10 K/mcL LAB HEMETOLOGY METHOD 07/06/2024 1:38 PM [facility] Blood Venous blood specimen / Unknown Venipuncture / Unknown 07/06/2024 11:29 AM EST 07/06/2024 12:35 PM EST Matteo Zuniga MD LAB BLOOD ORDERABLE S [facility] [address] [place] [address], * (ABNORMAL) Comprehensive metabolic panel (07/06/2024 11:29 AM EST) Sodium 137 133 - 145 mmol/L LAB CHEMISTRY METHOD 07/06/2024 1:38 PM [facility] Potassium 4.7 3.5 - 5.5 mmol/L LAB CHEMISTRY METHOD 07/06/2024 1:38 PM [facility] Chloride 105 96 - 110 mmol/L LAB CHEMISTRY METHOD 07/06/2024 1:38 PM [facility] CO2 27 21 - 32 mmol/L LAB CHEMISTRY METHOD 07/06/2024 1:38 PM [facility] Anion Gap 5 3 - 11 LAB CHEMISTRY METHOD 07/06/2024 1:38 PM [facility] Glucose 129(H) 70 - 100 mg/dL LAB CHEMISTRY METHOD 07/06/2024 1:38 PM [facility] BUN 21 5 - 25 mg/dL LAB CHEMISTRY METHOD 07/06/2024 1:38 PM [facility] Creatinine 0.90 0.70 - 1.30 mg/dL LAB CHEMISTRY METHOD 07/06/2024 1:38 PM [facility] eGFR 90 >=60 mL/min/1. 73m2 LAB CHEMISTRY METHOD 07/06/2024 1:38 PM [facility] Comment:Calculation based on the??Chronic Kidney Disease Epidemiology Collaboration (CKD-EPI) equation refit??without adjustment for race. BUN/Creatinine Ratio 23.3 LAB CHEMISTRY METHOD 07/06/2024 1:38 PM [facility] Calcium 9.6 8.5 - 10.5 mg/dL LAB CHEMISTRY METHOD 07/06/2024 1:38 PM [facility] AST (SGOT) 12 10 - 42 unit/L LAB CHEMISTRY METHOD 07/06/2024 1:38 PM [facility] ALT (SGPT) 36 10 - 60 unit/L LAB CHEMISTRY METHOD 07/06/2024 1:38 PM [facility] Alkaline Phosphatase 34(L) 42 - 121 unit/L LAB CHEMISTRY METHOD 07/06/2024 1:38 PM [facility] Total Protein 6.6 6.0 - 8.0 g/dL LAB CHEMISTRY METHOD 07/06/2024 1:38 PM [facility] Albumin 3.5 3.2 - 5.0 g/dL LAB CHEMISTRY METHOD 07/06/2024 1:38 PM [facility] Total Bilirubin 0.4 0.0 - 1.4 mg/dL LAB CHEMISTRY METHOD 07/06/2024 1:38 PM [facility] Blood Venous blood specimen / Unknown Venipuncture / Unknown 07/06/2024 11:29 AM EST 07/06/2024 12:36 PM EST Matteo Zuniga MD LAB BLOOD ORDERABLE S [facility] [address] [place] [address], * MR Brain wo and w Contrast [...] Signed Date: 07/10/2024 12:18 ET Workstation ID: [id number] Transcribed By: Self Edit Transcribed Date: 07/10/2024 [...] Signed Date: 07/10/2024 12:18 ET Workstation ID: [id number] Transcribed By: Self Edit Transcribed Date: 07/10/2024 11:53 ET Cassandra Mann MD IMG MRI PROCEDURES from Last 3 Months Care Teams Planting Machine Operator Relationship Specialty Start Date End Date Yoseph Acevedo MD [address] [place] [address] [address] [place] PCP - General Internal Medicine 07/29/17
== END 2024-08-07 13:48 | disposition home or self-care (01) ==
PROVIDERS: PCP Internal Medicine
DX: I48.0 Paroxysmal atrial fibrillation (principal); Z68.32 Body mass index [BMI] 32.0-32.9, adult; E66.9 Obesity, unspecified; J44.9 Chronic obstructive pulmonary disease, unspecified; I50.30 Unspecified diastolic (congestive) heart failure; Z85.118 Personal history of other malignant neoplasm of bronchus and lung; H54.3 Unqualified visual loss, both eyes

== ENCOUNTER → 2024-08-07 12:58 | Outpatient (BNVA) | payer MEDICARE, OTHER, SELFPAY | PROVIDERS: PCP Internal Medicine | DX: I48.0 Paroxysmal atrial fibrillation (principal); I50.30 Unspecified diastolic (congestive) heart failure; J44.9 Chronic obstructive pulmonary disease, unspecified; E66.9 Obesity, unspecified; H54.3 Unqualified visual loss, both eyes; Z85.118 Personal history of other malignant neoplasm of bronchus and lung | CPT/HCPCS: 96127; 99495 ==

== ENCOUNTER 2024-08-08 10:53 | Emergency (ER) | payer MEDICARE, OTHER, SELFPAY ==
--- NOTE | ~2024-08-08 | US_ITS ---
CLINICAL HISTORY: pain, swelling, concern for DVT Left upper extremity venous duplex ultrasound Comparison: None Findings: The visualized deep veins are fully compressible with normal flow. The left basilic and cephalic veins are noncompressible with abnormal flow. Impression: No deep vein thrombosis. Positive for superficial thrombophlebitis. This document has been electronically signed by: Karena Garcia MD on 08/08/2024 13:53:21
[2024-08-08 11:07] VITALS: BP 142/78; PULSE 77; RESP 16; TEMP 36.4; O2SAT 98; BMI 30.7
--- NOTE | 2024-08-08 13:43 | ED.GENADULT ---
HPI - General Adult General Chief complaint: Skin/Abscess/Foreign Body Stated complaint: DVT Time Seen by Provider: 08/08/24 13:30 Source: patient Mode of arrival: ambulatory Limitations: no limitations History of Present Illness ED Provider: Manasa Winter aPRN HPI narrative: 73-year-old male with a PMH significant for?paroxysmal AFib on Pradaxa s/p ablations x2, COPD not on home O2, non-small cell lung cancer s/p chemo and radiation in 2022, HFpEF, GERD, MANJEET on nocturnal O2, and anxiety here with complaints of LUE swelling and redness x ?5days. Patient was discharged on 07/31 after being admitted for COPD exacerbation x 48 hrs. Discharged on prednisone and doxycycline. He reports he had multiple IVs placed in his LUE. He has been taking his pradaxa and has had no missed doses. He has chronic SOB but denies chest pain, leg swelling or leg pain. Related Data Home Medications ?Medication ?Instructions ?Recorded ?Confirmed ipratropium 0.5 mg-albuterol 3 mg 3 ml inhalation Q6H PRN Shortness 05/19/20 08/07/24 (2.5 mg base)/3 mL nebulization Of Breath soln coenzyme Q10 60 mg capsule 60 mg PO DAILY 07/29/24 08/07/24 fluticasone fur. 200 mcg-umeclid 1 ea inhalation DAILY 07/29/24 08/07/24 62.5 mcg-vilant 25 mcg inhalat.powder (Trelegy Ellipta) gvwbowgu-yx-dzenc 300 mcg-K 60 1 tab PO DAILY 07/29/24 08/07/24 mcg-lycop 600 mcg-lutein 300 mcg tablet (Centrum Silver Ultra Men's) roflumilast 500 mcg tablet 500 mcg PO DAILY 07/29/24 08/07/24 Previous Rx's ?Medication ?Instructions ?Recorded dabigatran etexilate 150 mg capsule 150 mg PO BID #180 caps 10/02/23 diltiazem HCl 120 mg 120 mg PO DAILY #90 caps 03/03/24 capsule,extended release 24 hr albuterol sulfate 90 mcg/actuation 2 puff inhalation Q4H PRN 04/23/24 aerosol inhaler shortness of breath or wheezing 30 days #8.5 grams atorvastatin 40 mg tablet 40 mg PO BEDTIME #90 tabs 07/09/24 famotidine 20 mg tablet 20 mg PO BEDTIME #90 tabs 07/09/24 prednisone 20 mg tablet 20 mg PO DAILY PRN chest 07/15/24 tightness/COPD exacerbation #30 tabs doxycycline hyclate 100 mg capsule 100 mg PO BID #10 caps 07/31/24 prednisone 20 mg tablet 40 mg (2 x 20 mg) PO DAILY #10 tabs 07/31/24 lorazepam 0.5 mg tablet 0.5 mg PO TID PRN anxiety 30 days 08/07/24 #90 tabs Allergies Allergy/AdvReac Type Severity Reaction Status Date / Time No Known Allergies Allergy Verified 08/08/24 11:13 [No Known Allergies*] Review of Systems Review of Systems: Yes all other systems are reviewed and are negative Constitutional: Constitutional: Reports no additional constitutional complaints, Denies body ache(s), Denies chills, Denies fever(s), Denies headache(s) and Denies weakness Eyes: Eyes: Reports no additional eye complaints and Denies change in vision ENT: Reports system reviewed and no additional complaints, except as documented, Denies dizziness, Denies headache(s), Denies nasal congestion, Denies nasal discharge and Denies neck pain Cardiovascular: Cardiovascular: Reports no additional cardiovascular complaints, Denies chest pain, Denies leg edema and Denies dyspnea Respiratory: Respiratory: Reports no additional respiratory complaints, Denies cough and Denies dyspnea Gastrointestinal: Gastrointestinal: Reports no additional gastrointestinal complaints, Denies abdominal pain, Denies diarrhea, Denies nausea and Denies vomiting Genitourinary: Genitourinary: Denies urinary incontinence Musculoskeletal: Musculoskeletal: Reports no additional musculoskeletal complaints, Denies back pain, Denies arthralgias, Denies joint swelling, Denies neck pain, Denies numbness and Denies tingling Integumentary/Breasts: Skin/Breast: Reports system reviewed and no additional complaints, except as docu, Reports swelling, Reports erythema and Denies rash Neurologic: Reports system reviewed and no additional complaints, except as documented, Denies Abnormal speech present, Denies dizziness, Denies headache(s), Denies numbness, Denies tingling and Denies weakness PMF Past Medical History Attestation statement: The following information was validated with the patient. Source: old records reviewed and nursing notes reviewed Medical History Acute hypoxic respiratory failure Hypoxia Viral syndrome COPD exacerbation Gastritis and duodenitis Hx of cancer of lung Hx of radiation therapy History of chemotherapy Hiatal hernia On anticoagulant therapy HTN (hypertension) Tubular adenoma Arthritis Low back pain Diarrhea Oxygen dependent Emphysema/COPD BROWN (dyspnea on exertion) MANJEET (obstructive sleep apnea) Impaired fasting glucose Eye pain Obesity (BMI 30-39.9) Anxiety COPD (chronic obstructive pulmonary disease) Diabetes mellitus Pure hypercholesterolemia Diastolic heart failure Paroxysmal atrial fibrillation Surgical History History of right inguinal hernia repair (03/13/23) History of esophagogastroduodenoscopy (EGD) Deficient knowledge of leg surgery History of surgery History of cardioversion H/O prior ablation treatment History of colonoscopy Family History Family History Father Medical history unknown Mother Myocardial infarction Social History Social History Household Members: None Housing: House Are you a primary patient care to a significant other at home: No Do you presently have visiting nurse or other home services: No Unable to assess alcohol history related to: Unable to respond Alcohol intake: current Alcohol intake frequency: a few times a week Alcohol type: beer Patient Tobacco Use Status: Former Tobacco user Tobacco use type: Cigarette e-Cigarette/Vaping Use: Never Used Second Hand Smoke Exposure: Yes Substance Use Type: Marijuana Advance Directives: No Advance Directives Information Provided: No service: No Current occupational status: retired Cognitive needs: No Hearing needs: No Vision needs: Yes (reading glasses) Physical Exam ED Vital Signs: Vital Signs - 24 hr 08/08/24 11:07 08/08/24 13:57 Temperature 97.6 F 98.6 F Pulse Rate 77 86 Respiratory Rate 16 14 Blood Pressure 142/78 H 125/77 Pulse Oximetry 98 98 Oxygen Delivery Method Room Air Room Air BMI result Body Mass Index 30.7 Const General: cooperative, healthy appearing, comfortable and no acute distress Orientation/consciousness: patient oriented x3 Limitations: no limitations HENMT Head: Yes normal to inspection Ears: hearing grossly normal bilaterally and TM's normal bilaterally General nose exam: Normal external nose present Face and sinus: Yes normal facial exam Mouth: Normal oral and palatal mucosa present Throat: Yes posterior oropharynx normal, Yes tonsils normal and Yes uvula midline Eyes General: appearance normal, both eyes and all related structures Pupils: Equal, round and reactive pupils present Neck Neck: Yes normal visual inspection, Yes full ROM, Yes no lymphadenopathy and Yes no meningeal signs Chest Chest palpation & inspection: normal inspection of the chest Resp Effort & Inspection: normal respiratory effort Auscultation: clear to auscultation bilaterally Cardio Rate: regular rate Rhythm: regular rhythm Peripheral pulses: Peripheral pulses 2+ throughout GI Inspection: Yes normal to inspection Palpation (GI): Soft to palpation and nontender Auscultation: normal bowel sounds Back/Spine/Pelvis Thoracic/Lumbar Spine: thoracic and lumbar spine normal to inspection Skin General skin exam: no rashes or lesions noted Neuro General: patient oriented x3, no meningeal signs, no focal motor deficits and normal sensation to monofilament Cranial nerves: Yes Equal, round and reactive pupils present Cognition (Neuro): normal cognition Speech: No Abnormal speech present Gait exam (Neuro): Normal gait present Motor exam (neuro): 5/5 motor strength present throughout Extrem Other: 2+ radial/ulnar pulses Compartments are soft and compressible Full range of motion both passive and actively of the affected joint and the proximal and distal joint General: Yes no pedal edema and Yes no calf tenderness Course Course Course Narrative: Ultrasound shows superficial thrombophlebitis. Reviewed findings with the patient. Recommend supportive measures at home. Reviewed worrisome signs and symptoms of when to return to the emergency room. Comfortable plan for discharge home. Medical Decision Making Medical Decision Making [facility] Narrative: 73-year-old male with a PMH significant for paroxysmal AFib on Pradaxa s/p ablations x2, COPD not on home O2, non-small cell lung cancer s/p chemo and radiation in 2022, HFpEF, GERD, MANJEET on nocturnal O2, and anxiety here with complaints of LUE swelling and redness x ?5days. Patient was discharged on 07/31 after being admitted for COPD exacerbation x 48 hrs. Discharged on prednisone and doxycycline. He reports he had multiple IVs placed in his LUE. He has been taking his pradaxa and has had no missed doses. He has chronic SOB but denies chest pain, leg swelling or leg pain.? To the dorsal left wrist there is some swelling and erythema which is not circumferential CMS intact Compartments soft/compressible More c/w with phlebitis. Will review US ordered from triage. Differential Diagnosis Differential Diagnoses: The differential diagnosis associated with the presentation includes Phlebitis Low suspicion for cellulitis, deeper space abscess, septic joint Will rule out DVT Admission/Observation Consideration of admission/observation: Escalation of care including admission/observation considered No evidence of deep vein thrombosis requiring advanced imaging, IV anticoagulation and admission Independent Interpretation I performed an independent interpretation of an: Ultrasound Interpretation: I independently viewed the ultrasound agree with the radiology report Radiology Impression Discussion of test interpretation with radiology: I have reviewed the radiologist's reading. Radiologist Impression: [address] [address] Ultrasound Report Signed Patient: Ed Romeo MR#: [id number] : 1950 Acct:[id number] Age/Sex: 73 / M ADM Date: 08/08/24 Loc: .ED Attending Dr: Ordering Physician: Ellyn Rodriguez Date of Service: 08/08/24 Procedure(s): US venous duplex UE LT Accession Number(s): [id number] cc: Yoseph Acevedo MD; Ellyn Rodriguez~ CLINICAL HISTORY: pain, swelling, concern for DVT Left upper extremity venous duplex ultrasound Comparison: None Findings: The visualized deep veins are fully compressible with normal flow. The left basilic and cephalic veins are noncompressible with abnormal flow. Impression: No deep vein thrombosis. Positive for superficial thrombophlebitis. Discharge Plan Discharge Clinical Impression: Superficial thrombophlebitis Patient Disposition: Home, Self-Care Instructions: Superficial Thrombophlebitis (ED) Additional Instructions: There is no clot in the deep vein Elevate the arm Use an Arsenio wrap to help with compression Apply warm compresses Follow-up with your primary care doctor for any continued symptoms Prescriptions: No Action dabigatran etexilate 150 mg capsule 150 mg PO BID Qty: 180 1RF diltiazem HCl 120 mg capsule,extended release 24hr 120 mg PO DAILY Qty: 90 3RF albuterol sulfate 90 mcg/actuation HFA aerosol inhaler 2 puff inhalation Q4H PRN (Reason: shortness of breath or wheezing) 30 Days Qty: 8.5 12RF famotidine 20 mg tablet 20 mg PO BEDTIME Qty: 90 3RF atorvastatin 40 mg tablet 40 mg PO BEDTIME Qty: 90 1RF prednisone 20 mg tablet 20 mg PO DAILY PRN (Reason: chest tightness/COPD exacerbation) Qty: 30 0RF Patient Comments: Took 30mg (1 and 1/2) tablet this morning. Rx Instructions: Take as instructed as needed for SOB/chest tightness lorazepam 0.5 mg tablet 0.5 mg PO TID PRN (Reason: anxiety) 30 Days Qty: 90 0RF roflumilast 500 mcg tablet 500 mcg PO DAILY coenzyme Q10 60 mg Capsule 60 mg PO DAILY Centrum Silver Ultra Men's [id number] mcg Tablet 1 tab PO DAILY Trelegy Ellipta 200-62.5-25 mcg blister with device 1 ea inhalation DAILY doxycycline hyclate 100 mg capsule 100 mg PO BID Qty: 10 0RF prednisone 20 mg tablet 40 mg PO DAILY Qty: 10 0RF ipratropium-albuterol 0.5 mg-3 mg(2.5 mg base)/3 mL solution for nebulization 3 ml inhalation Q6H PRN (Reason: Shortness Of Breath) Referrals: Yoseph Acevedo MD [Primary Care Provider] - 1 week Print Language: Yakut
[2024-08-08 13:57] VITALS: BP 125/77; PULSE 86; RESP 14; TEMP 37; O2SAT 98
[2024-08-08 14:34] VITALS: BP 125/77; PULSE 86; RESP 14; TEMP 37; O2SAT 98
== END 2024-08-08 14:34 | disposition home or self-care (01) ==
PROVIDERS: Emergency Provider Emergency Medicine; PCP Internal Medicine
DX: I80.8 Phlebitis and thrombophlebitis of other sites (principal); R06.02 Shortness of breath; E11.9 Type 2 diabetes mellitus without complications; I11.0 Hypertensive heart disease with heart failure; I50.30 Unspecified diastolic (congestive) heart failure; E78.00 Pure hypercholesterolemia, unspecified; I48.0 Paroxysmal atrial fibrillation; J44.9 Chronic obstructive pulmonary disease, unspecified; Z99.89 Dependence on other enabling machines and devices; Z79.01 Long term (current) use of anticoagulants; Z87.891 Personal history of nicotine dependence; I82.612 Acute embolism and thrombosis of superficial veins of left upper extremity
CPT/HCPCS: 93971; 99283; 99284

== ENCOUNTER → 2024-08-08 12:15 | Outpatient (BNV) | payer MEDICARE, OTHER, SELFPAY | PROVIDERS: Emergency Provider Emergency Medicine; PCP Internal Medicine; Visit Provider Radiology Diagnostic Radiology | DX: M79.602 Pain in left arm (principal) | CPT/HCPCS: 93971 ==

== ENCOUNTER 2024-08-18 09:53 | Outpatient (AMB) | payer MEDICARE, OTHER, SELFPAY ==
--- NOTE | 2024-08-18 10:18 | A.OFFPC_ITS ---
Vital Signs 08/18/24 10:20 Height 5 ft 6 in Weight 197 lb 6 oz BMI 31.9 BP 148/70 H Blood Pressure Location Lt brachial Position Sitting Pulse 94 Pulse Source Pulse Oximeter Temp 97.1 F Temp Source Temporal Artery Scan Pulse Oximetry (%) 98 Oxygen Delivery Method Room Air Intake Visit Reasons: UTI follow up Allergies No Known Allergies [No Known Allergies*] Allergy (Verified 08/09/24 14:47) Medication List - Last Reconciled 08/18/24 by ALEJANDRO Parker albuterol sulfate 90 mcg/actuation 2 puffs inhalation Q4H PRN 30 days atorvastatin 40 mg PO BEDTIME coenzyme Q10 60 mg PO DAILY dabigatran etexilate 150 mg PO BID diltiazem HCl CD 120 mg PO DAILY doxycycline hyclate 100 mg PO BID famotidine 20 mg PO BEDTIME umvasaoexzp-nwojeanun-povqvxzc 200-62.5-25 mcg (Trelegy Ellipta) 1 ea inhalation DAILY ipratropium-albuterol 0.5 mg-3 mg(2.5 mg base)/3 mL 3 mL inhalation Q6H PRN lorazepam 0.5 mg PO TID PRN 30 days [id number]-tyylm-[id number]-hqsisjx-rimqod [id number] mcg (Centrum Silver Ultra Men's) 1 tab PO DAILY prednisone 40 mg (2 x 20 mg) PO DAILY prednisone 20 mg PO DAILY PRN roflumilast 500 mcg PO DAILY tamsulosin (Flomax) 0.4 mg PO BEDTIME Tobacco use date assessed: 08/07/24 Dental Screening Dental Screen Date: 08/07/24 HPI UTI follow up HPI Details Patient is a 73 year old with significant past medical history history of lung cancer, gastritis, smoker, tubular adenoma, diabetes mellitus, diastolic heart failure, paroxysmal atrial fibrillation The patient is presenting today with concern of not emptying his bladder fully Reports that he has been peeing small amount each time and that mcc through urinating, he feels a pressure deep in his suprapubic area He reports at times, when he feels the urge to urinate, by the time he gets up, he starts dribbling and messing his clothes up reports that it is small amount of urine making round circles in his clothes Urinalysis in office negative for leukocytes negative nitrites, ketone, bilirubin and glucose but shows 3+ blood the urine No CVA tenderness noted The patient reports that he does not want to do a prostate exam if they are going to do one in urology The patient reports that he has not had sex in over 20 years so he know it is not STD will start the patient on flomax 0.4 mg and refer him urgently to urology. [facility] Medical History Acute hypoxic respiratory failure Hypoxia Viral syndrome COPD exacerbation Gastritis and duodenitis Hx of cancer of lung Hx of radiation therapy History of chemotherapy Hiatal hernia On anticoagulant therapy HTN (hypertension) Tubular adenoma Arthritis Low back pain Diarrhea Oxygen dependent Emphysema/COPD BROWN (dyspnea on exertion) MANJEET (obstructive sleep apnea) Impaired fasting glucose Eye pain Obesity (BMI 30-39.9) Anxiety COPD (chronic obstructive pulmonary disease) Diabetes mellitus Pure hypercholesterolemia Diastolic heart failure Paroxysmal atrial fibrillation Surgical History History of right inguinal hernia repair (03/13/23) History of esophagogastroduodenoscopy (EGD) Deficient knowledge of leg surgery History of surgery History of cardioversion H/O prior ablation treatment History of colonoscopy Family History Father Medical history unknown Mother Myocardial infarction Social History Household Members: None Housing: House Are you a primary health care legal assistant to a significant other at home: No Do you presently have visiting nurse or other home services: No Unable to assess alcohol history related to: Unable to respond Alcohol intake: current Alcohol intake frequency: a few times a week Alcohol type: beer Patient Tobacco Use Status: Former Tobacco user Tobacco use type: Cigarette e-Cigarette/Vaping Use: Never Used Second Hand Smoke Exposure: Yes Substance Use Type: Marijuana service: No Current occupational status: retired Cognitive needs: No Hearing needs: No Vision needs: Yes (reading glasses) Questionnaire Thrive Questionnaire Date Thrive assessed: 08/07/24 DANGELO-7 AMB Questionnaire DANGELO-7 Date DANGELO - 7 assessed: 08/07/24 Source: Developed by Drs. Biju Pedroza, Felisha Roberson, Sergio Wang and colleagues, with an educational gary from [employer]. Review of Systems Const Details: Denies chills, Denies fatigue, Denies fever(s), Denies headache(s) and Denies weakness HEENT Denies change in vision, Denies dizziness, Denies headache(s), Denies hearing loss, Denies nasal congestion, Denies sinus pain, Denies sinus pressure and Denies sore throat Card Denies chest pain, Denies lightheadedness, +chronic dyspnea and Denies other (palpitations) Resp Denies cough, +chronic dyspnea and Denies wheezing GI +suprapubic pressure mid-stream while urinating, Denies melena, Denies hematochezia, Denies change in bowel habits, Denies dyspepsia and Denies nausea Denies hematuria and +dysuria Musc Denies abnormal gait, Denies myalgias, Denies arthralgias, Denies numbness and Denies tingling Skin/Breast Denies rash, Denies unusual bruising and Denies wounds Neuro Denies abnormal gait, Denies dizziness, Denies headache(s), Denies memory loss, Denies numbness, Denies Sensory deficit (Neuro), Denies tingling and Denies weakness Physical exam (Primary Care) Vital Signs: Last Vital Signs Temp 97.1 F 08/18/24 10:20 Pulse 94 08/18/24 10:20 BP 148/70 H 08/18/24 10:20 Pulse Ox 98 08/18/24 10:20 Oxygen Delivery Method Room Air 08/18/24 10:20 BMI result Body Mass Index 31.9 Tobacco/Smoking Status: Tobacco use Status Tobacco use date assessed 08/07/24 08/18/24 10:18 Patient Tobacco Use Status Former Tobacco user 08/18/24 10:18 Tobacco use type Cigarette 08/18/24 10:18 e-Cigarette/Vaping Use Never Used 08/18/24 10:18 Thrive Assessment: Date of Thrive Assessment Date Thrive assessed 08/07/24 08/18/24 10:18 Const Other: General: no acute distress, well developed, alert and awake Nutritional Appearance: well nourished Orientation/consciousness: patient oriented x3 HENMT Head: Yes normocephalic and Yes atraumatic Eyes Pupils: Equal, round and reactive pupils present and Pupil accommodation reflex normal EOM: EOMs intact bilaterally Neck Neck: Yes normal visual inspection, Yes no lymphadenopathy and Yes trachea midline Thyroid: Thyroid normal Resp Effort & Inspection: normal respiratory effort Auscultation: clear to auscultation bilaterally Cardio Rate: regular rate Rhythm: regular rhythm Heart sounds: S1 normal heart sound present, S2 normal heart sound present, no gallops, no murmurs and no rubs Bruits: no abdominal aortic bruits and no carotid bruits GI Palpation (GI): Abdomen is soft and nontender to palpation Auscultation: normal bowel sounds General: Yes no CVA tenderness Back/Spine/Pelvis Back: no CVA tenderness Cervical Spine: cervical ROM normal and No Cervical spine tenderness Thoracic/Lumbar Spine: thoraco-lumbar ROM normal, No pain with thoraco-lumbar ROM, No thoracic spinal tenderness and No lumbar spinal tenderness Skin General: warm and dry. Normal skin color. Normal skin turgor Lesions: no lesions Nails: normal Extrem General: Yes normal to inspection, No edema and No calf tenderness Results AMB Hemoglobin A1c AMB Hemoglobin A1c 7.1 % Last Edit by BRADLEY Amaro on 08/18/24 10:28 AMB Urinalysis, Automated UA Leukoctes 0 Mariah/uL Last Edit by BRADLEY Amaro on 08/18/24 10:31 UA Nitrite Negative Last Edit by BRADLEY Amaro on 08/18/24 10:31 UA Urobilinogen 0 mg/dL Last Edit by BRADLEY Amaro on 08/18/24 10:31 UA Protein 15 mg/dL Last Edit by BRADLEY Amaro on 08/18/24 10:31 UA pH 6.0 Last Edit by BRADLEY Amaro on 08/18/24 10:31 UA Blood 200 Panfilo/uL Last Edit by BRADLEY Amaro on 08/18/24 10:31 UA Specific [place] 1.030 Last Edit by BRADLEY Amaro on 08/18/24 10:31 UA Ketone Negative Last Edit by BRADLEY Amaro on 08/18/24 10:31 UA Bilirubin 0 mg/dL Last Edit by BRADLEY Amaro on 08/18/24 10:31 UA Glucose 0 mg/dL Last Edit by BRADLEY Amaro on 08/18/24 10:31 Results Reviewed Results Reviewed: Laboratory Last Values Hgb A1c (Clinic) 7.1 % (4.0-6.0) H 08/18/24 10:12 Urine pH (Auto) 6.0 08/18/24 10:29 Specific [place] (Auto) 1.030 08/18/24 10:29 Urine Protein (Auto) 15 mg/dL 08/18/24 10:29 Glucose (UA)(Auto) 0 mg/dL 08/18/24 10:29 Urine Ketones (Auto) Negative 08/18/24 10:29 Urine Blood (Auto) 200 Panfilo/uL 08/18/24 10:29 Urine Nitrite (Auto) Negative 08/18/24 10:29 Urine Bilirubin (Auto) 0 mg/dL 08/18/24 10:29 Urine Urobilinogen (Auto) 0 mg/dL 08/18/24 10:29 Leukocyte Esterase (Auto) 0 Mariah/uL 08/18/24 10:29 Coding Level of Care Code Est Pt Level 4 (53942) Diagnoses Dysuria R30.0 Urinary frequency R35.0 Urge incontinence of urine N39.41 Urinary Incontinence type: urge incontinence Suprapubic pressure R10.2 Urinary retention R33.9 Time Spent (min) 36 Assessment & Plan Assessment & Plan (1) Dysuria: Code(s): R30.0 - Dysuria Category: Medical Plan: Urinalysis negative. Urine was sent for culture (2) Urinary frequency: Code(s): R35.0 - Frequency of micturition Category: Medical Plan: Same as above (3) Urinary incontinence: Code(s): R32 - Unspecified urinary incontinence Category: Medical Qualifiers: Urinary Incontinence type: urge incontinence Qualified Code(s): N39.41 - Urge incontinence Plan: Urinalysis negative. Urine was sent for culture We will refer the patient to Urology (4) Suprapubic pressure: Code(s): R10.2 - Pelvic and perineal pain Category: Medical Plan: Patient reports that he only feels a pressure midway through urinating Patient reports that he is not urinating a lot, but he is going frequently josselyn ecially at night (5) Urinary retention: Code(s): R33.9 - Retention of urine, unspecified Category: Medical Plan: Was started the patient on Flomax 0.4 mg at bedtime and refer the patient to Urology Orders: Orders AMB Hemoglobin A1c Today E11.9 - Type 2 diabetes mellitus without complications AMB Urinalysis Automated Today N39.0 - Urinary tract infection, site not specified UA CC w/rflx Micro + Cult Today R31.9 - Hematuria, unspecified Urine Culture Today R30.0 - Dysuria Referrals Urology Referral N39.41 - Urge incontinence, R10.2 - Pelvic and perineal pain, R30.0 - Dysuria, R33.9 - Retention of urine, unspecified, R35.0 - Frequency of micturition Medications: New tamsulosin (Flomax) 0.4 mg PO BEDTIME 30 caps 2RF
[2024-08-18 10:20] VITALS: BP 148/70; PULSE 94; TEMP 36.2; O2SAT 98; BMI 31.9
--- OUTSIDE RECORDS SUMMARY | 2024-08-18 10:39 | XMS_ITS | Encounter Summary ---
Author Organization [facility] Address [address] [place] [address] Care Team Providers Care District Fire Management Officer Name Role Phone Yoseph Acevedo MD Primary Care Provider + [phone] Reason for Referral * Imaging (Routine) - Authorized Specialty Diagnoses / Procedures Referred By Contac t Referred To Contact Radiology Diagnoses Small cell carcinoma of lung, unspecified laterality, unspecified part of lung (CMS/HCC) Procedures CT Chest wo Contrast Matteo Zuniga MD [address] [place] [phone] Phone: tel: fax: [address] [address] Phone: tel: Referral ID Status Reason Start Date Expiration Date V isits Requested Visits Authorized [id number] Authorized 08/04/2024 08/04/2025 1 1 Encounter Details Date Type Department Care Team (Late st Contact Info) Description 08/04/2024 Telephone [facility] Hematology Oncology [address] [place] [phone] Matteo Zuniga MD [address] [place] [phone] Social History Tobacco Use Types Packs/Day [...] AM EST documented as of this encounter Progress Notes * Matteo Zuniga MD - 08/04/2024 12:48 PM EST Schedule follow-up chest CT in 3 months, schedule appointment 1 week later * Lizeth Rios - 08/04/2024 10:53 AM EST Patient had to cancel today's appt, recently discharged from hospital and not feeling well still, just asking for ct scan results. Please call him at [phone] documented in this encounter Plan of Treatment Upcoming Encounters Date Type Department Care Team (Late st Contact Info) Description 01/07/2025 10:30 AM EDT Appointment [facility] Radiation Oncology [address] [place] [address] [address] [place] [phone] Pina Wynn NP [address] [place] [address] [place] [phone] Scheduled Orders Name Type Priority Associated Diagnoses Orde r Schedule CT Chest wo Contrast Imaging Routine Small cell carcinoma of lung, unspecified laterality, unspecified part of lung (CMS/HCC) Expected: 11/01/2024, Expires: 08/04/2025 documented as of this encounter Visit Diagnoses Diagnosis Small cell carcinoma of lung, unspecified laterality, unspecified part of lung (CMS/HCC)- Primary documented in this encounter Care Teams District Fire Management Officer Relationship Specialty Start Date End Date Yoseph Acevedo MD [address] [place] [address] Dr Caceres [facility] [place] PCP - General Internal Medicine 07/29/17 documented as of this encounter
--- OUTSIDE RECORDS SUMMARY | 2024-08-18 10:39 | XMS_ITS | Encounter Summary ---
Author Organization [facility] Address [address] [place] [address] Care Team Providers Care Draftsperson Name Role Phone Yoseph Acevedo MD Primary Care Provider +1- [phone] Encounter Details Date Type Department Care Team Description 11/05/2022 Social Work [facility] Oncology Services [address] [place] [address] Adina Hernandez, [facility] Social History Tobacco Use Types Packs/Day Years [...] on filedocumented in this encounter Care Teams Draftsperson Relationship Specialty Start Date End Date Yoseph Acevedo MD [address] [place] [address] [place] [address] PCP - General Internal Medicine 09/24/22 documented as of this encounter
--- OUTSIDE RECORDS SUMMARY | 2024-08-18 10:39 | XMS_ITS | Encounter Summary ---
Author Organization [facility] Address [address] [place] [address] Care Team Providers Care Public Information Director Name Role Phone Yoseph Acevedo MD Primary Care Provider +- [phone] Encounter Details Date Type Department Care Team (Late Contact Info) Description 04/03/2024 2:45 PM EDT Hospital Encounter TH HISTORIC ENCOUNTERS EASTERN CONVERSION ONLY Matteo Zuniga MD [address] [place] [address] Social History Tobacco Use Types [...] Info) Description 01/07/2025 10:30 AM EDT Appointment [facility] Radiation Oncology [address] [address] Pina Wynn NP [address] [place] [address] [address] [place] [phone] documented as of this encounter Visit Diagnoses Not on filedocumented in this encounter Care Teams Public Information Director Relationship Specialty Start Date End Date Yoseph Acevedo MD [address] [place] PCP - General Internal Medicine 07/29/17 documented as of this encounter
--- OUTSIDE RECORDS SUMMARY | 2024-08-18 10:39 | XMS_ITS | Encounter Summary ---
Author Organization [facility] Address [address] [place] [address] Care Team Providers Care Salad Chef Name Role Phone Yoseph Acevedo MD Primary Care Provider [phone]- [phone] Encounter Details Date Type Department Care Team Description 10/12/2022 Social Work [facility] Oncology Services [address] [place] [address] Adina Hernandez, [facility] Social History Tobacco Use [...] on filedocumented in this encounter Care Teams Salad Chef Relationship Specialty Start Date End Date Yoseph Acevedo MD [address] [place] [address] [place] [address] PCP - General Internal Medicine 09/24/22 documented as of this encounter
--- OUTSIDE RECORDS SUMMARY | 2024-08-18 10:39 | XMS_ITS | Encounter Summary ---
Author Organization [facility] Address [address] [place] [address] Care Team Providers Care Manager Branch Name Role Phone Yoseph Acevedo MD Primary Care Provider + [phone] Reason for Referral * Imaging (Routine) - Closed Specialty Diagnoses / Procedures Referred By Contac t Referred To Contact Radiology Diagnoses Other malignant neuroendocrine tumors (CMS/HCC) Procedures CT Chest/Abdomen/Pelvis w Contrast Matteo Zuniga MD [address] [place] [phone] Phone: tel: fax: [address] [address] Phone: tel: Referral ID Status Reason Start Date Expiration Date Visits Re quested Visits Authorized [id number] Closed 06/08/2024 06/08/2025 1 1 Reason for Visit * Imaging (Routine) - Closed Specialty Diagnoses / Procedures Referred By Contac t Referred To Contact Radiology Diagnoses Other malignant neuroendocrine tumors (CMS/HCC) Procedures CT Chest/Abdomen/Pelvis w Contrast Matteo Zuniga MD [address] [place] [phone] Phone: tel: fax: [address] [address] Phone: tel: Referral ID Status Reason Start Date Expiration Date Visits Re quested Visits Authorized [id number] Closed 06/08/2024 06/08/2025 1 1 Encounter Details Date Type Department Care Team (Latest Contact Info) Description 07/23/2024 10:48 AM EST - 07/23/2024 11:59 PM EST Hospital Encounter [facility] CT Scan [address] [place] [address] Other malignant neuroendocrine tumors (CMS/HCC) [...] AM EST documented as of this encounter Medications at Time of Discharge albuterol HFA (PROAIR HFA ; PROVENTIL HFA [...] DAY MAKE AN APPT FOR FURTHER REFILLS, [id number] 09/11/2021 famotidine (PEPCID) 20 mg tablet Take 1 tablet (20 mg total) by mouth. at bedtime. fluticasone HFA (FLOVENT HFA) 110 mcg/actuation inhaler Inhale 2 puffs by mouth. 10/19/2019 fluticasone-umecl idinium-vilantero l (Trelegy Ellipta) 100-62.5-25 mcg inhaler Inhale 1 Puff into the lungs daily. 11/02/2023 furosemide (LASIX) 80 mg tablet Take 80 mg by mouth daily. Gavilax 17 gram/dose oral powder DISSOLVE IN WATER 238 GRAMS AND TAKE ORALLY ONCE FOR 1 DAY DIRECTED THE DAY BEFORE YOUR PROCEDURE 04/15/2024 guaiFENesin (MUCINEX) 600 mg 12 hr tablet Take 1,200 mg by mouth 2 times daily. ipratropium-albut Isatu (DUONEB) 0.5-2.5 mg/3 mL nebulizer solution USE [...] 3 mL (1.25 mg total) by mouth. lidocaine-priloca ine (EMLA) 2.5-2.5 % cream Apply topically. 12/07/2022 [...] turmeric 400 mg capsule Take by mouth. umeclidinium-jenelle nteroL (ANORO ELLIPTA) 62.5-25 mcg/actuation inhaler Inhale by mouth. 05/07/2019 documented as of this encounter Discharge Disposition Disposition Code Departure Means Destination Home or Self Care documented in this encounter Plan of Treatment Upcoming Encounters Date Type Department Care Team (Late st Contact Info) Description 01/07/2025 10:30 AM EDT Appointment [facility] Radiation Oncology [address] [facility] 2nd [place] [address] Pina Wynn NP [address] [place] [address] [place] [phone] documented as of this encounter Procedures Procedure [...] metastatic disease in the abdomen and pelvis. Ki PANIAGUA ([id number]) -------- FINAL REPORT -------- Dictated By: Laura Angel Dictated Date: 07/28/2024 11:11 ET Assigned Physician: Laura Angel Reviewed and Electronically Signed By: Laura Angel Signed Date: 07/28/2024 11:29 ET Workstation ID: [id number] Transcribed By: Self Edit Transcribed Date: 07/28/2024 11:11 ET Narrative 07/28/2024 11:29 AM EST History: Neuroendocrine tumor. Comparison: 12/31/23, lung screening CT 08/07/22 Technique: Helical volumetric imaging of the chest, abdomen and pelvis was performed without oral contrast and during the uneventful intravenous administration of 90 cc Isovue-370. DLP: 1969.73 mGy/cm [employer] VCT Iterative reconstruction technique Findings: Chest: The [...] of 90 cc Isovue-370. DLP: 1969.73 mGy/cm [employer] VCT Iterative reconstruction technique Findings: Chest: The [...] in the [place] ([id number]) -------- FINAL REPORT -------- Dictated By: Laura Angel Dictated Date: 07/28/2024 11:11 ET Assigned Physician: Laura nAgel Reviewed and Electronically Signed By: Laura Angel Signed Date: 07/28/2024 11:29 ET Workstation ID: [id number] Transcribed By: Self Edit Transcribed Date: 07/28/2024 11:11 ET us Matteo Zuniga MD IMG CT PROCEDURES Final Res ult documented in this encounter Visit Diagnoses Diagnosis [...] mL documented in this encounter Care Teams Manager Branch Relationship Specialty Start Date End Date Yoseph Acevedo MD [address] [place] [address] Dr [address] M[place] PCP - General Internal Medicine 07/29/17 documented as of this encounter
--- OUTSIDE RECORDS SUMMARY | 2024-08-18 10:39 | XMS_ITS | Clinical Summary ---
Author Organization [facility] Address [address] [place] [address] Care Team Providers Care Foreign Service Officer Name Role Phone Yoseph Acevedo MD Primary Care Provider [phone]- [phone] Allergies No known active allergies Medications Medication [...] age to complete this topic Care Teams Foreign Service Officer Relationship Specialty Start Date End Date Yoseph Acevedo MD [address] [place] [address] [place] [address] PCP - General Internal Medicine 09/24/22
--- OUTSIDE RECORDS SUMMARY | 2024-08-18 10:39 | XMS_ITS | Clinical Summary ---
Author Organization [facility] Address [address] [place] [phone] Phone Care Team Providers Care Game Protector Name Role Phone Yoseph Acevedo MD Primary Care Provider [phone] Allergies No known active allergies Medications predniSONE (DELTASONE) 20 mg tablet TAKE 2 TABLET BY MOUTH EVERY DAY FOR 5 DAYS NEEDED FOR COPD EXACERBATION 4 Active roflumilast (DALIRESP) 500 mcg tablet Take 500 mcg by mouth daily. 4 Active fluticasone-umec lidinium-vilante rol (Trelegy Ellipta) 100-62.5-25 mcg inhaler Inhale 1 Puff into the lungs daily. 4 Active diclofenac (VOLTAREN) 1 % topical gel 2 Active dilTIAZem XR (DILT-XR) 120 mg 24 hr capsule TAKE 1 CAPSULE BY MOUTH EVERY DAY MAKE AN APPT FOR FURTHER REFILLS, [id number] 2 Active methylcellulose, laxative, 500 mg tablet TAKE 1 CAPLET BY MOUTH DAILY TAKE IT WITH FULL GLASS OF WATER 2 Active albuterol HFA (PROAIR HFA ; PROVENTIL HFA ; VENTOLIN HFA) 90 mcg/actuation inhaler Inhale 2 Puffs into the lungs every 4 hours as needed for Wheezing for up to 30 days. 4 Active dabigatran etexilate (PRADAXA) 150 mg capsule Take 1 capsule (150 mg total) by mouth 2 (two) times a day. 8 Active ipratropium-albu teroL (DUONEB) 0.5-2.5 mg/3 mL nebulizer solution USE 1 VIAL (3 ML) VIA UPDRAFT 4 TIMES A DAY 8 Active miscellaneous medical supply misc 1 Units by Does not apply route 2 times daily as needed (hypoxemia). Monitor Oxygen Level at Home 8 Active guaiFENesin (MUCINEX) 600 mg 12 hr tablet Take 1,200 mg by mouth 2 times daily. Active atorvastatin (LIPITOR) 40 mg tablet Take 1 tablet (40 mg total) by mouth daily. Active furosemide (LASIX) 80 mg tablet Take 80 mg by mouth daily. Active umeclidinium-callum anteroL (ANORO ELLIPTA) 62.5-25 mcg/actuation inhaler Inhale by mouth. 9 Active turmeric 400 mg capsule Take by mouth. Activ e sertraline 150 mg capsule Take 150 mg by mouth. Active Gavilax 17 gram/dose oral powder DISSOLVE IN WATER 238 GRAMS AND TAKE ORALLY ONCE FOR 1 DAY DIRECTED THE DAY BEFORE YOUR PROCEDURE 4 Active pantoprazole (PROTONIX) 40 mg EC tablet Take 1 tablet (40 mg total) by mouth. Active ondansetron (ZOFRAN) 8 mg tablet Take 1 tablet (8 mg total) by mouth every 8 hours as needed. 3 Active LORazepam (ATIVAN) 0.5 mg tablet Take 1 tablet (0.5 mg total) by mouth 3 (three) times a day if needed for anxiety. Active lidocaine-priloc tammi (EMLA) 2.5-2.5 % cream Apply topically. 12/08/19 2 3 Active levalbuterol (XOPENEX) 1.25 mg/3 mL nebulizer solution Inhale 3 mL (1.25 mg total) by mouth. Active lansoprazole (PREVACID) [address] capsule Take 1 capsule (30 mg total) by mouth 1 (one) time each day. Active fluticasone HFA (FLOVENT HFA) 110 mcg/actuation inhaler Inhale 2 puffs by mouth. 0 Active famotidine (PEPCID) 20 mg tablet Take 1 tablet (20 mg total) by mouth. at bedtime. Active budesonide (PULMICORT) 0.25 mg/2 mL nebulizer solution USE 1 VIAL IN NEBULIZER TWICE DAILY - (Rinse Mouth After Each Treatment) 4 Active Laxative, bisacodyl, 5 mg EC tablet TAKE 4 TABLETS ORALLY ONCE FOR 1 DAY TAKE AT NOON THE DAY BEFORE COLONOSCOPY 4 Active beclomethasone dipropionate (QVAR REDIHALER) 80 mcg/actuation HFA aerosol breath activated inhaler Inhale by mouth. Act belen beclomethasone dipropionate (QVAR REDIHALER) 80 mcg/actuation HFA aerosol breath activated inhaler Inhale 80 mcg by mouth. 9 Active arformoteroL (BROVANA) 15 mcg/2 mL nebulizer solution Take 1 vial by nebulization 2 (two) times a day. 4 Active Trelegy Ellipta 200-62.5-25 mcg inhaler INHALE 1 PUFF INTO THE LUNGS DAILY FOR 30 DAYS. 60 each 11 5 Active Active Problems Problem Noted Date Diagnosed [...] Type Department Care Team Description 08/04/2024 Telephone [facility] Hematology Oncology [address] [place] [address] Matteo Zuniga MD 07/23/2024 10:48 AM EST - 07/23/2024 11:59 PM EST Hospital Encounter [facility] CT Scan [address] [place] [address] Other malignant neuroendocrine tumors (CMS/HCC) Discharge Disposition: Home or Self Care 07/15/2024 1:46 PM EST - 07/15/2024 11:59 PM EST Hospital Encounter [facility] Radiation Oncology [address] [place] [phone] Pina Wynn, [place] Small cell carcinoma of lung, unspecified laterality, unspecified part of lung (CMS/HCC) (Primary Dx) Discharge Disposition: Home or Self Care 07/06/2024 9:52 AM EST - 07/06/2024 11:59 PM EST Hospital Encounter [facility] MRI [address] [place] [address] Malignant neoplasm of mediastinum, part unspecified (CMS/HCC) Discharge Disposition: Home or Self Care 07/02/2024 Telephone [facility] Radiation Oncology [address] [place] [phone] Elzbieta Jeffires [place] 06/16/2024 Telephone [facility] Hematology Oncology [address] [place] [phone] Germaine [address]adr [place] CAP CT/Labs from Last 3 Months [...] obesity with BMI o f 40.0-44.9, adult ([facility]) Hyperlipidemia 09/06/2017 DX:Hyperlipidemi a Pulmonary emphysema (CMS/HCC) [...] DX:Hypertension Lung cancer (CMS/HCC) DX:Lung ca ncer (HCC) COPD (chronic obstructive pu lmonary disease) (CMS/HCC) DX:COPD (chronic obstructive pulmonary disease) ([facility]) Psoriasis DX:Psoriasis Tinnitus DX:Tinnitus Arthritis DX:Arthritis Hyperlipidemia [...] Orientation Straight 06/16/2024 9: 42 AM EST Obstetrics History Last Filed Vital Signs Vital [...] Info) Description 01/07/2025 10:30 AM EDT Appointment [facility] Radiation Oncology [address] [place] [address] Pina Wynn NP [address] [place] [address] [address] [place] [address] Health Maintenance Due Date Last Done [...] Td or Tdap) 06/04/2026 06/04/2016 Pneumococcal Vaccine: 50+ Years Completed 05/20/2023, 04/01/2013 RSV Immunization Patients [...] patient's age to complete this topic Meningococcal B Vacine Aged Out No lo nger eligible based on patient's age to complete [...] in the abdomen [place] ([id number]) -------- FINAL REPORT -------- Dictated By: Laura Angel Dictated Date: 07/28/2024 11:11 ET Assigned Physician: Laura Angel Reviewed and Electronically Signed By: Laura Angel Signed Date: 07/28/2024 11:29 ET Workstation ID: [id number] Transcribed By: Self Edit Transcribed Date: 07/28/2024 11:11 ET Narrative 07/28/2024 11:29 AM EST History: Neuroendocrine tumor. Comparison: 12/31/23, lung screening CT 08/07/22 Technique: Helical volumetric imaging of the chest, abdomen and pelvis was performed without oral contrast and during the uneventful intravenous administration of 90 cc Isovue-370. DLP: 1969.73 mGy/cm [employer] VCT Iterative reconstruction technique Findings: Chest: The [...] of 90 cc Isovue-370. DLP: 1969.73 mGy/cm [employer] VCT Iterative reconstruction technique Findings: Chest: The [...] metastatic disease in the abdomen and pelvis. [employer] ARCELIA ([id number]) -------- FINAL REPORT -------- Dictated By: Laura Angel Dictated Date: 07/28/2024 11:11 ET Assigned Physician: Laura Angel Reviewed and Electronically Signed By: Laura Angel Signed Date: 07/28/2024 11:29 ET Workstation ID: [id number] Transcribed By: Self Edit Transcribed Date: 07/28/2024 11:11 ET us Matteo Zuniga MD IMG CT PROCEDURES Final Res ult * (ABNORMAL) Complete blood count (07/06/2024 11:29 AM EST) WBC 9.6 4.8 - 10.8 K/mcL LAB HEMETOLOGY METHOD 07/06/2024 1:38 PM [facility] RBC 4.90 4.50 - 5.50 M/mcL LAB HEMETOLOGY METHOD 07/06/2024 1:38 PM [facility] Hemoglobin 14.8 13.5 - 17.5 g/dL LAB HEMETOLOGY METHOD 07/06/2024 1:38 PM [facility] Hematocrit 44.4 42.0 - 54.0 % LAB HEMETOLOGY METHOD 07/06/2024 1:38 PM [facility] MCV 89.9 79.0 - 98.0 FL LAB HEMETOLOGY METHOD 07/06/2024 1:38 PM [facility] MCH 30.0 27.0 - 32.0 pcg LAB HEMETOLOGY METHOD 07/06/2024 1:38 PM [facility] MCHC 33.3 32.0 - 37.0 g/dL LAB HEMETOLOGY METHOD 07/06/2024 1:38 PM [facility] RDW 16.1(H) 11.0 - 15.0 % LAB HEMETOLOGY METHOD 07/06/2024 1:38 PM [facility] Platelets 283 130 - 400 K/mcL LAB HEMETOLOGY METHOD 07/06/2024 1:38 PM [facility] MPV 8.9 7.0 - 11.0 FL LAB HEMETOLOGY METHOD 07/06/2024 1:38 PM [facility] NRBC 0.0 <1.0 % LAB HEMETOLOGY METHOD 07/06/2024 1:38 PM [facility] NRBC Absolute 0.00 <0.10 K/mcL LAB HEMETOLOGY METHOD 07/06/2024 1:38 PM [facility] Blood Venous blood specimen / Unknown Venipuncture / Unknown 07/06/2024 11:29 AM EST 07/06/2024 12:35 PM EST us Matteo Zuniga MD LAB BLOOD ORDERABLES Final Result [facility] [address] [place] [address], [place] [phone] * (ABNORMAL) Comprehensive metabolic panel (07/06/2024 11:29 AM EST) Sodium 137 133 - 145 mmol/L LAB CHEMISTRY METHOD 07/06/2024 1:38 PM [facility] Potassium 4.7 3.5 - 5.5 mmol/L LAB CHEMISTRY METHOD 07/06/2024 1:38 PM [facility] Chloride 105 96 - 110 mmol/L LAB CHEMISTRY METHOD 07/06/2024 1:38 PM [facility] CO2 27 21 - 32 mmol/L LAB CHEMISTRY METHOD 07/06/2024 1:38 PM [facility] Anion Gap 5 3 - 11 LAB CHEMISTRY METHOD 07/06/2024 1:38 PM [facility] Glucose 129(H) 70 - 100 mg/dL LAB CHEMISTRY METHOD 07/06/2024 1:38 PM [facility] BUN 21 5 - 25 mg/dL LAB CHEMISTRY METHOD 07/06/2024 1:38 PM [facility] Creatinine 0.90 0.70 - 1.30 mg/dL LAB CHEMISTRY METHOD 07/06/2024 1:38 PM [facility] eGFR 90 >=60 mL/min/1. 73m2 LAB CHEMISTRY METHOD 07/06/2024 1:38 PM [facility] Comment:Calculation based on the??Chronic Kidney Disease Epidemiology Collaboration (CKD-EPI) equation refit??without adjustment for race. BUN/Creatinine Ratio 23.3 LAB CHEMISTRY METHOD 07/06/2024 1:38 PM [facility] Calcium 9.6 8.5 - 10.5 mg/dL LAB CHEMISTRY METHOD 07/06/2024 1:38 PM [facility] AST (SGOT) 12 10 - 42 unit/L LAB CHEMISTRY METHOD 07/06/2024 1:38 PM [facility] ALT (SGPT) 36 10 - 60 unit/L LAB CHEMISTRY METHOD 07/06/2024 1:38 PM [facility] Alkaline Phosphatase 34(L) 42 - 121 unit/L LAB CHEMISTRY METHOD 07/06/2024 1:38 PM [facility] Total Protein 6.6 6.0 - 8.0 g/dL LAB CHEMISTRY METHOD 07/06/2024 1:38 PM [facility] Albumin 3.5 3.2 - 5.0 g/dL LAB CHEMISTRY METHOD 07/06/2024 1:38 PM [facility] Total Bilirubin 0.4 0.0 - 1.4 mg/dL LAB CHEMISTRY METHOD 07/06/2024 1:38 PM [facility] Blood Venous blood specimen / Unknown Venipuncture / Unknown 07/06/2024 11:29 AM EST 07/06/2024 12:36 PM EST us Matteo Zuniga MD LAB BLOOD ORDERABLES Final Result [facility] [address] [place] [address], * MR Brain wo and w Contrast [...] Signed Date: 07/10/2024 12:18 ET Workstation ID: [id number] Transcribed By: Self Edit Transcribed Date: 07/10/2024 [...] Signed Date: 07/10/2024 12:18 ET Workstation ID: [id number] Transcribed By: Self Edit Transcribed Date: 07/10/2024 11:53 ET Cassandra Mann MD IMG MRI PROCEDURES Final Res ult from Last 3 Months Insurance MEDICARE [facility] Care Teams Game Protector Relationship Specialty Start Date End Date Yoseph Acevedo MD [address] [place] [address] [address] [place] PCP - General Internal Medicine 07/29/17
--- OUTSIDE RECORDS SUMMARY | 2024-08-18 10:39 | XMS_ITS | Encounter Summary ---
Author Organization [facility] Address [address] [place] [address] Care Team Providers Care Admission Nurse Coordinator Name Role Phone Yoseph Acevedo MD Primary Care Provider + [phone] Encounter Details Date Type Department Care Team (Late st Contact Info) Description 04/03/2024 2:45 PM EDT Hospital Encounter TH HISTORIC ENCOUNTERS 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 He is . He has 1 son. [...] Info) Description 01/07/2025 10:30 AM EDT Appointment [facility] Radiation Oncology [address] [place] [phone] Pina Wynn NP [address] [place] [address] [address] [place] [phone] documented as of this encounter Procedures Procedure Name Priority Date/Time Associated Diagnosis Comments HISTORICAL IMAGING SCAN RESULT 04/03/2024 documented in this encounter Results * HISTORICAL IMAGING SCAN RESULT (04/03/2024) Anatomical Region Laterality Modality Ultrasound us Provider Onbase IMG US PROCEDURES Final Resul t documented in this encounter Visit Diagnoses Not on filedocumented in this encounter Care Teams Admission Nurse Coordinator Relationship Specialty Start Date End Date Yoseph Acevedo MD [address] [place] [address] [address] [place] PCP - General Internal Medicine 07/29/17 documented as of this encounter
--- OUTSIDE RECORDS SUMMARY | 2024-08-18 10:39 | XMS_ITS ---
Author Organization [facility] Address [address] [place] [address] Care Team Providers Care Rn Informatics Name Role Phone Yoseph Acevedo MD Primary Care Provider +1- [phone] Active Problems Problem Noted Date Diagnosed Date [...] treatments are documented for this patient in [facility]. Treatments may have been administered in another system.
== END 2024-08-18 10:45 | disposition home or self-care (01) ==
PROVIDERS: PCP Internal Medicine
DX: R30.0 Dysuria (principal); R35.0 Frequency of micturition; N39.41 Urge incontinence; R10.2 Pelvic and perineal pain; R33.9 Retention of urine, unspecified; N39.0 Urinary tract infection, site not specified; E11.9 Type 2 diabetes mellitus without complications

== ENCOUNTER 2024-08-18 09:53 | Outpatient (REF) | payer MEDICARE, OTHER, SELFPAY ==
--- OUTSIDE RECORDS SUMMARY | 2024-08-18 11:35 | XMS_ITS | Encounter Summary ---
Author Organization [facility] Address [address] [place] [address] Care Team Providers Care Surgery Aide Name Role Phone Yoseph Acevedo MD Primary Care Provider + [phone] Encounter Details Date Type Department Care Team (Late st Contact Info) Description 04/03/2024 2:45 PM EDT Hospital Encounter TH HISTORIC ENCOUNTERS 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 [...] Info) Description 01/07/2025 10:30 AM EDT Appointment [facility] Radiation Oncology [address] [place] [phone] Pina Wynn NP [address] [place] [address] [address] [place] [phone] documented as of this encounter Procedures Procedure Name Priority Date/Time Associated Diagnosis Comments HISTORICAL IMAGING SCAN RESULT 04/03/2024 documented in this encounter Results * HISTORICAL IMAGING SCAN RESULT (04/03/2024) Anatomical Region Laterality Modality Ultrasound us Provider Onbase IMG US PROCEDURES Final Resul t documented in this encounter Visit Diagnoses Not on filedocumented in this encounter Care Teams Surgery Aide Relationship Specialty Start Date End Date Yoseph Acevedo MD [address] [place] [address] [address] M[place] PCP - General Internal Medicine 07/29/17 documented as of this encounter
--- OUTSIDE RECORDS SUMMARY | 2024-08-18 11:35 | XMS_ITS | Encounter Summary ---
Author Organization [facility] Address [address] [place] [address] Care Team Providers Care Milling Machine Operator Gear Name Role Phone Yoseph Acevedo MD Primary Care Provider +1- [phone] Encounter Details Date Type Department Care Team Description 11/05/2022 Social Work [facility] Oncology Services [address] [place] [address] Adina Hernandez, [facility] Social History Tobacco Use Types Packs/Day Years [...] on filedocumented in this encounter Care Teams Milling Machine Operator Gear Relationship Specialty Start Date End Date Yoseph Acevedo MD [address] [place] [address] [place] [address] PCP - General Internal Medicine 09/24/22 documented as of this encounter
--- OUTSIDE RECORDS SUMMARY | 2024-08-18 11:35 | XMS_ITS | Encounter Summary ---
Author Organization [facility] Address [address] [place] [address] Care Team Providers Care Soft Hat Binder Name Role Phone Yoseph Acevedo MD Primary Care Provider + [phone] Reason for Referral * Imaging (Routine) - Authorized Specialty Diagnoses / Procedures Referred By Contac t Referred To Contact Radiology Diagnoses Small cell carcinoma of lung, unspecified laterality, unspecified part of lung (CMS/HCC) Procedures CT Chest wo Contrast Matteo Zuniga MD [address] [place] [phone] Phone: tel: fax: [address] [address] Phone: tel: Referral ID Status Reason Start Date Expiration Date V isits Requested Visits Authorized [id number] Authorized 08/04/2024 08/04/2025 1 1 Encounter Details Date Type Department Care Team (Late st Contact Info) Description 08/04/2024 Telephone [facility] Hematology Oncology [address] [place] [phone] Matteo Zuniga MD [address] [place] [phone] Social History Tobacco Use Types Packs/Day [...] ct scan results. Please call him at [phone] documented in this encounter Plan of Treatment Upcoming Encounters Date Type Department Care Team (Late st Contact Info) Description 01/07/2025 10:30 AM EDT Appointment [facility] Radiation Oncology [address] [place] [address] 2[address] [place] [phone] Pina Wynn NP [address] [place] [address] [place] [address] Scheduled Orders Name Type Priority Associated Diagnoses Orde r Schedule CT Chest wo Contrast Imaging Routine Small cell carcinoma of lung, unspecified laterality, unspecified part of lung (CMS/HCC) Expected: 11/01/2024, Expires: 08/04/2025 documented as of this encounter Visit Diagnoses Diagnosis Small cell carcinoma of lung, unspecified laterality, unspecified part of lung (CMS/HCC)- Primary documented in this encounter Care Teams Soft Hat Binder Relationship Specialty Start Date End Date Yoseph Acevedo MD [address] [place] [address] Dr Caceres [facility] [place] PCP - General Internal Medicine 07/29/17 documented as of this encounter
--- OUTSIDE RECORDS SUMMARY | 2024-08-18 11:35 | XMS_ITS | Clinical Summary ---
Author Organization [facility] Address [address] [place] [phone] Phone Care Team Providers Care Meteorological Aide Name Role Phone Yoseph Acevedo MD Primary Care Provider Allergies No known active allergies Medications predniSONE [...] DAY MAKE AN APPT FOR FURTHER REFILLS, [id number] 2 Active methylcellulose, laxative, 500 mg tablet [...] Type Department Care Team Description 08/04/2024 Telephone [facility] Hematology Oncology [address] [place] [address] Matteo Zuniga MD 07/23/2024 10:48 AM EST - 07/23/2024 11:59 PM EST Hospital Encounter [facility] CT Scan [address] [place] [address] Other malignant neuroendocrine tumors (CMS/HCC) Discharge Disposition: Home or Self Care 07/15/2024 1:46 PM EST - 07/15/2024 11:59 PM EST Hospital Encounter [facility] Radiation Oncology [address] [place] [phone] Pina Wynn, [place] Small cell carcinoma of lung, unspecified laterality, unspecified part of lung (CMS/HCC) (Primary Dx) Discharge Disposition: Home or Self Care 07/06/2024 9:52 AM EST - 07/06/2024 11:59 PM EST Hospital Encounter [facility] MRI [address] [place] [address] Malignant neoplasm of mediastinum, part unspecified (CMS/HCC) Discharge Disposition: Home or Self Care 07/02/2024 Telephone [facility] Radiation Oncology [address] [place] [phone] Elzbieta Jeffries [place] 06/16/2024 Telephone [facility] Hematology Oncology [address] [place] [phone] Germaine [address] [place] CAP CT/Labs from Last [...] obesity with BMI o f 40.0-44.9, adult ([facility]) Hyperlipidemia 09/06/2017 DX:Hyperlipidemi a Pulmonary emphysema (CMS/HCC) [...] disease) (CMS/HCC) DX:COPD (chronic obstructive pulmonary disease) ([facility]) Psoriasis DX:Psoriasis Tinnitus DX:Tinnitus Arthritis DX:Arthritis Hyperlipidemia [...] Hospital Radiation Oncology [address] [place] [address] Pina Wynn NP [address] [place] [address] [address] [place] [address] Health Maintenance Due Date Last Done [...] in [place] ([id number]) -------- FINAL REPORT -------- Dictated By: Laura Angel Dictated Date: 07/28/2024 11:11 ET Assigned Physician: Laura Angel Reviewed and Electronically Signed By: Laura Angel Signed Date: 07/28/2024 11:29 ET Workstation ID: [id number] Transcribed By: Self Edit Transcribed Date: 07/28/2024 11:11 ET Narrative 07/28/2024 11:29 AM EST History: Neuroendocrine tumor. Comparison: 12/31/23, lung screening CT 08/07/22 Technique: Helical volumetric imaging of the chest, abdomen and pelvis was performed without oral contrast and during the uneventful intravenous administration of 90 cc Isovue-370. DLP: 1969.73 mGy/cm UBmatrix VCT Iterative reconstruction technique Findings: Chest: The [...] of 90 cc Isovue-370. DLP: 1969.73 mGy/cm UBmatrix VCT Iterative reconstruction technique Findings: Chest: The [...] metastatic disease in the abdomen and pelvis. [place] ARCELIA ([id number]) -------- FINAL REPORT -------- Dictated By: Laura Angel Dictated Date: 07/28/2024 11:11 ET Assigned Physician: Laura Angel Reviewed and Electronically Signed By: Laura Angel Signed Date: 07/28/2024 11:29 ET Workstation ID: [id number] Transcribed By: Self Edit Transcribed Date: 07/28/2024 11:11 ET us Matteo Zuniga MD IMG CT PROCEDURES Final Res ult * (ABNORMAL) Complete blood count (07/06/2024 11:29 AM EST) WBC 9.6 4.8 - 10.8 K/mcL LAB HEMETOLOGY METHOD 07/06/2024 1:38 PM [facility] RBC 4.90 4.50 - 5.50 M/mcL LAB HEMETOLOGY METHOD 07/06/2024 1:38 PM [facility] Hemoglobin 14.8 13.5 - 17.5 g/dL LAB HEMETOLOGY METHOD 07/06/2024 1:38 PM [facility] Hematocrit 44.4 42.0 - 54.0 % LAB HEMETOLOGY METHOD 07/06/2024 1:38 PM [facility] MCV 89.9 79.0 - 98.0 FL LAB HEMETOLOGY METHOD 07/06/2024 1:38 PM [facility] MCH 30.0 27.0 - 32.0 pcg LAB HEMETOLOGY METHOD 07/06/2024 1:38 PM [facility] MCHC 33.3 32.0 - 37.0 g/dL LAB HEMETOLOGY METHOD 07/06/2024 1:38 PM [facility] RDW 16.1(H) 11.0 - 15.0 % LAB HEMETOLOGY METHOD 07/06/2024 1:38 PM [facility] Platelets 283 130 - 400 K/mcL LAB HEMETOLOGY METHOD 07/06/2024 1:38 PM [facility] MPV 8.9 7.0 - 11.0 FL LAB HEMETOLOGY METHOD 07/06/2024 1:38 PM [facility] NRBC 0.0 <1.0 % LAB HEMETOLOGY METHOD 07/06/2024 1:38 PM [facility] NRBC Absolute 0.00 <0.10 K/mcL LAB HEMETOLOGY METHOD 07/06/2024 1:38 PM [facility] Blood Venous blood specimen / Unknown Venipuncture / Unknown 07/06/2024 11:29 AM EST 07/06/2024 12:35 PM EST us Matteo Zuniga MD LAB BLOOD ORDERABLES Final Result [facility] [address] [place] [address], [place] [phone] * (ABNORMAL) Comprehensive metabolic panel (07/06/2024 11:29 AM EST) Sodium 137 133 - 145 mmol/L LAB CHEMISTRY METHOD 07/06/2024 1:38 PM [facility] Potassium 4.7 3.5 - 5.5 mmol/L LAB CHEMISTRY METHOD 07/06/2024 1:38 PM [facility] Chloride 105 96 - 110 mmol/L LAB CHEMISTRY METHOD 07/06/2024 1:38 PM [facility] CO2 27 21 - 32 mmol/L LAB CHEMISTRY METHOD 07/06/2024 1:38 PM [facility] Anion Gap 5 3 - 11 LAB CHEMISTRY METHOD 07/06/2024 1:38 PM [facility] Glucose 129(H) 70 - 100 mg/dL LAB CHEMISTRY METHOD 07/06/2024 1:38 PM [facility] BUN 21 5 - 25 mg/dL LAB CHEMISTRY METHOD 07/06/2024 1:38 PM [facility] Creatinine 0.90 0.70 - 1.30 mg/dL LAB CHEMISTRY METHOD 07/06/2024 1:38 PM [facility] eGFR 90 >=60 mL/min/1. 73m2 LAB CHEMISTRY METHOD 07/06/2024 1:38 PM [facility] Comment:Calculation based on the??Chronic Kidney Disease Epidemiology Collaboration (CKD-EPI) equation refit??without adjustment for race. BUN/Creatinine Ratio 23.3 LAB CHEMISTRY METHOD 07/06/2024 1:38 PM [facility] Calcium 9.6 8.5 - 10.5 mg/dL LAB CHEMISTRY METHOD 07/06/2024 1:38 PM [facility] AST (SGOT) 12 10 - 42 unit/L LAB CHEMISTRY METHOD 07/06/2024 1:38 PM [facility] ALT (SGPT) 36 10 - 60 unit/L LAB CHEMISTRY METHOD 07/06/2024 1:38 PM [facility] Alkaline Phosphatase 34(L) 42 - 121 unit/L LAB CHEMISTRY METHOD 07/06/2024 1:38 PM [facility] Total Protein 6.6 6.0 - 8.0 g/dL LAB CHEMISTRY METHOD 07/06/2024 1:38 PM [facility] Albumin 3.5 3.2 - 5.0 g/dL LAB CHEMISTRY METHOD 07/06/2024 1:38 PM [facility] Total Bilirubin 0.4 0.0 - 1.4 mg/dL LAB CHEMISTRY METHOD 07/06/2024 1:38 PM [facility] Blood Venous blood specimen / Unknown Venipuncture / Unknown 07/06/2024 11:29 AM EST 07/06/2024 12:36 PM EST us Matteo Zuniga MD LAB BLOOD ORDERABLES Final Result [facility] [address] [place] [address], * MR Brain wo and w Contrast [...] Signed Date: 07/10/2024 12:18 ET Workstation ID: [id number] Transcribed By: Self Edit Transcribed Date: 07/10/2024 [...] Signed Date: 07/10/2024 12:18 ET Workstation ID: [id number] Transcribed By: Self Edit Transcribed Date: 07/10/2024 11:53 ET Cassandra Mann MD IMG MRI PROCEDURES Final Res ult from Last 3 Months Insurance MEDICARE [facility] Care Teams Meteorological Aide Relationship Specialty Start Date End Date Yoseph Acevedo MD [address] [place] [address] [address] [place] PCP - General Internal Medicine 07/29/17
--- OUTSIDE RECORDS SUMMARY | 2024-08-18 11:35 | XMS_ITS | Encounter Summary ---
Author Organization [facility] Address [address] [place] [address] Care Team Providers Care Aspnet Developer Name Role Phone Yoseph Acevedo MD Primary Care Provider +- [phone] Encounter Details Date Type Department Care Team (Late Contact Info) Description 04/03/2024 2:45 PM EDT Hospital Encounter TH HISTORIC ENCOUNTERS [facility] ONLY Matteo Zuniga MD [address] [place] [address] Social History Tobacco Use Types [...] Info) Description 01/07/2025 10:[address] [facility] Radiation Oncology [address] [address] Pina Wynn NP [address] [place] [address] [address] [place] [phone] documented as of this encounter Visit Diagnoses Not on filedocumented in this encounter Care Teams Aspnet Developer Relationship Specialty Start Date End Date Yoseph Acevedo MD [address] [place] PCP - General Internal Medicine 07/29/17 documented as of this encounter
--- OUTSIDE RECORDS SUMMARY | 2024-08-18 11:35 | XMS_ITS | Encounter Summary ---
Author Organization [facility] Address [address] [place] [address] Care Team Providers Care Water Reclamation Systems Operator Name Role Phone Yoseph Acevedo MD Primary Care Provider + [phone] Reason for Referral * Imaging (Routine) - Closed Specialty Diagnoses / Procedures Referred By Contac t Referred To Contact Radiology Diagnoses Other malignant neuroendocrine tumors (CMS/HCC) Procedures CT Chest/Abdomen/Pelvis w Contrast Matteo Zuniga MD [address] [place] [phone] Phone: tel: fax: [address] [address] Phone: tel: Referral ID Status Reason Start Date Expiration Date Visits Re quested Visits Authorized [id number] Closed 06/08/2024 06/08/2025 1 1 Reason for Visit * Imaging (Routine) - Closed Specialty Diagnoses / Procedures Referred By Contac t Referred To Contact Radiology Diagnoses Other malignant neuroendocrine tumors (CMS/HCC) Procedures CT Chest/Abdomen/Pelvis w Contrast Matteo Zuniga MD [address] [place] [address] Phone: tel: fax: [address] [address] Phone: tel: Referral ID Status Reason Start Date Expiration Date Visits Re quested Visits Authorized [id number] Closed 06/08/2024 06/08/2025 1 1 Encounter Details Date Type Department Care Team (Latest Contact Info) Description 07/23/2024 10:48 AM EST - 07/23/2024 11:59 PM EST Hospital Encounter [facility] CT Scan [address] [place] [address] Other malignant neuroendocrine tumors (CMS/HCC) [...] DAY MAKE AN APPT FOR FURTHER REFILLS, [id number] 09/11/2021 famotidine (PEPCID) 20 mg tablet Take [...] Info) Description 01/07/2025 10:30 AM EDT Appointment [facility] Radiation Oncology [address] [facility] 2nd [place] [address] Pina Wynn NP [address] [place] [address] [place] [phone] documented as of this encounter Procedures Procedure [...] in the abdomen and pelvis. Ki PANIAGUA ([id number]) -------- FINAL REPORT -------- Dictated By: Laura Angel Dictated Date: 07/28/2024 11:11 ET Assigned Physician: Laura Angel Reviewed and Electronically Signed By: Laura Angel Signed Date: 07/28/2024 11:29 ET Workstation ID: [id number] Transcribed By: Self Edit Transcribed Date: 07/28/2024 11:11 ET Narrative 07/28/2024 11:29 AM EST History: Neuroendocrine tumor. Comparison: 12/31/23, lung screening CT 08/07/22 Technique: Helical volumetric imaging of the chest, abdomen and pelvis was performed without oral contrast and during the uneventful intravenous administration of 90 cc Isovue-370. DLP: 1969.73 mGy/cm avVentapeLinguaLeo VCT Iterative reconstruction technique Findings: Chest: The [...] of 90 cc Isovue-370. DLP: 1969.73 mGy/cm [employer] VCT Iterative reconstruction technique Findings: Chest: The [...] in the abdomen [place] ([id number]) -------- FINAL REPORT -------- Dictated By: Laura Angel Dictated Date: 07/28/2024 11:11 ET Assigned Physician: Laura Angel Reviewed and Electronically Signed By: Laura Angel Signed Date: 07/28/2024 11:29 ET Workstation ID: [id number] Transcribed By: Self Edit Transcribed Date: 07/28/2024 [...] mL documented in this encounter Care Teams Water Reclamation Systems Operator Relationship Specialty Start Date End Date Yoseph Acevedo MD [address] [place] [address] Dr [address] [place] PCP - General Internal Medicine 07/29/17 documented as of this encounter
--- OUTSIDE RECORDS SUMMARY | 2024-08-18 11:35 | XMS_ITS | Encounter Summary ---
Author Organization [facility] Address [address] [place] [address] Care Team Providers Care Canteen Operator Name Role Phone Yoseph Acevedo MD Primary Care Provider +1- [phone] Encounter Details Date Type Department Care Team Description 10/12/2022 Social Work [facility] [address] [place] [address] Adina Hernandez, [facility] Social History Tobacco Use Types Packs/Day Years [...] on filedocumented in this encounter Care Teams Canteen Operator Relationship Specialty Start Date End Date Yoseph Acevedo MD [address] [place] [address] [place] [address] PCP - General Internal Medicine 09/24/22 documented as of this encounter
--- OUTSIDE RECORDS SUMMARY | 2024-08-18 11:35 | XMS_ITS ---
Author Organization [facility] Address [address] [place] [address] Care Team Providers Care Php Magento Developer Name Role Phone Yoseph Acevedo MD Primary Care Provider +1- [phone] Active Problems Problem Noted Date Diagnosed Date [...] treatments are documented for this patient in [facility]. Treatments may have been administered in another system.
--- OUTSIDE RECORDS SUMMARY | 2024-08-18 11:35 | XMS_ITS | Clinical Summary ---
Author Organization [facility] Address [address] [place] [address] Care Team Providers Care Tong Carrier Name Role Phone Yoseph Acevedo MD Primary Care Provider +1- [phone] Allergies No known active allergies Medications Medication [...] age to complete this topic Care Teams Tong Carrier Relationship Specialty Start Date End Date Yoseph Acevedo MD [address] [place] [address] [place] [address] PCP - General Internal Medicine 09/24/22
[2024-08-18 18:26] LABS: Appearance Urine Cloudy; Color Urine Yellow; Glucose Urine UA Negative (Negative); Leukocyte Esterase Urine Trace (Negative); Nitrite Urine Negative (Negative); PH 5.5 (5.0-9.0); Specific Gravity - Urine 1.025 (1.005-1.025); UMIC TRIGGER UACC YES; Urine Blood Moderate (2+) (Negative); Urine Ketones Negative (Negative); Urine Protein Trace mg/dL (Neg-Trace)
[2024-08-18 18:45] LABS: Bacteria Urine None Seen (None Seen); Hyaline Casts Urine 0-2 /LPF (0-2); Squamous Epithelial Cell Urine 0-2 /HPF (0-2); WBC Urine 0-5 /HPF (0-5)
== END 2024-08-18 09:54 | disposition home or self-care (01) ==
LOC: HO.LAB 09:53
PROVIDERS: PCP Internal Medicine
DX: R30.0 Dysuria (principal); E11.9 Type 2 diabetes mellitus without complications; N39.0 Urinary tract infection, site not specified; R31.9 Hematuria, unspecified; R35.0 Frequency of micturition; N39.41 Urge incontinence; R10.2 Pelvic and perineal pain; R33.9 Retention of urine, unspecified
CPT/HCPCS: 81001; 81003; 83036; 87086; 99212

== ENCOUNTER 2024-08-24 12:44 | Outpatient (REF) | payer MEDICARE, OTHER, SELFPAY ==
--- OUTSIDE RECORDS SUMMARY | 2024-08-24 14:26 | XMS_ITS | Clinical Summary ---
Author Organization [facility] Address [address] [place] [phone] Phone Care Team Providers Care Energy Assistant Name Role Phone Yoseph Acevedo MD Primary [...] DAY MAKE AN APPT FOR FURTHER REFILLS, [id number] 2 Active methylcellulose, laxative, 500 mg tablet [...] Type Department Care Team Description 08/04/2024 Telephone [facility] Hematology Oncology [address] [place] [address] Matteo Zuniga MD 07/23/2024 10:48 AM EST - 07/23/2024 11:59 PM EST Hospital Encounter [facility] CT Scan [address] [place] [address] Other malignant neuroendocrine tumors (CMS/HCC) Discharge Disposition: Home or Self Care 07/15/2024 1:46 PM EST - 07/15/2024 11:59 PM EST Hospital Encounter [facility] Radiation Oncology [address] [place] [address] Pina Wynn, ALTAGRACIA Small cell carcinoma of lung, unspecified laterality, unspecified part of lung (CMS/HCC) (Primary Dx) Discharge Disposition: Home or Self Care 07/06/2024 9:52 AM EST - 07/06/2024 11:59 PM EST Hospital Encounter [facility] MRI [address] [place] [address] Malignant neoplasm of mediastinum, part unspecified (CMS/HCC) Discharge Disposition: Home or Self Care 07/02/2024 Telephone [facility] Radiation Oncology [address] [place] [address] Elzbieta Jeffries MA 06/16/2024 Telephone [facility] Hematology Oncology [address] [place] [phone] Germaine Ballard [place] CAP CT/Labs from Last [...] 40.0-44.9, adult ([facility]) Hyperlipidemia 09/06/2017 DX:Hyperlipidemi a Pulmonary emphysema (CMS/HCC) [...] pulmonary disease) ([facility]) Psoriasis DX:Psoriasis Tinnitus DX:Tinnitus Arthritis DX:Arthritis Hyperlipidemia [...] Info) Description 01/07/2025 10:30 AM EDT Appointment [facility] Radiation Oncology [address] [place] [address] Pina Wynn NP [address] [place] [address] [address] [place] [address] Health Maintenance Due Date Last Done [...] in [place] abdomen [place] ([id number]) -------- FINAL REPORT -------- Dictated By: Laura Angel Dictated Date: 07/28/2024 11:11 ET Assigned Physician: Laura Angel Reviewed and Electronically Signed By: Laura Angel Signed Date: 07/28/2024 11:29 ET Workstation ID: [id number] Transcribed By: Self Edit Transcribed Date: 07/28/2024 11:11 ET Narrative 07/28/2024 11:29 AM EST History: Neuroendocrine tumor. Comparison: 12/31/23, lung screening CT 08/07/22 Technique: Helical volumetric imaging of the chest, abdomen and pelvis was performed without oral contrast and during the uneventful intravenous administration of 90 cc Isovue-370. DLP: 1969.73 mGy/cm [employer] VCT Iterative reconstruction technique Findings: Chest: The [...] of 90 cc Isovue-370. DLP: 1969.73 mGy/cm [employer]ays VCT Iterative reconstruction technique Findings: Chest: The [...] metastatic disease in the abdomen and pelvis. [employer] ARCELIA ([id number]) -------- FINAL REPORT -------- Dictated By: Laura Angel Dictated Date: 07/28/2024 11:11 ET Assigned Physician: Laura Angel Reviewed and Electronically Signed By: Laura Angel Signed Date: 07/28/2024 11:29 ET Workstation ID: [id number] Transcribed By: Self Edit Transcribed Date: 07/28/2024 [...] Zuniga MD LAB BLOOD ORDERABLES Final Result [facility] [address] [place] [address], [place] [phone] * (ABNORMAL) Comprehensive metabolic panel (07/06/2024 11:29 [...] Zuniga MD LAB BLOOD ORDERABLES Final Result [facility] [address] [place] [address], * MR Brain wo and w Contrast [...] Signed Date: 07/10/2024 12:18 ET Workstation ID: [id number] Transcribed By: Self Edit Transcribed Date: 07/10/2024 [...] Signed Date: 07/10/2024 12:18 ET Workstation ID: [id number] Transcribed By: Self Edit Transcribed Date: 07/10/2024 11:53 ET Cassandra Mann MD IMG MRI PROCEDURES Final Res ult from Last 3 Months Insurance MEDICARE [facility] Care Teams Energy Assistant Relationship Specialty Start Date End Date Yoseph Acevedo MD [address] [place] [address] [address] [place] PCP - General Internal Medicine 07/29/17
--- OUTSIDE RECORDS SUMMARY | 2024-08-24 14:26 | XMS_ITS ---
Author Organization [facility] Address [address] [place] [address] Care Team Providers Care Print Developer Name Role Phone Yoseph Acevedo MD Primary Care Provider +1- [phone] Active Problems Problem Noted Date Diagnosed Date [...] treatments are documented for this patient in [facility]. Treatments may have been administered in another system.
--- OUTSIDE RECORDS SUMMARY | 2024-08-24 14:26 | XMS_ITS | Encounter Summary ---
Author Organization [facility] Address [address] [place] [address] Care Team Providers Care Crematory Attendant Name Role Phone Yoseph Acevedo MD Primary Care Provider +1- [phone] Encounter Details Date Type Department Care Team Description 10/12/2022 Social Work [facility] Oncology Services [address] [place] [address] Adina Hernandez, [facility] Social History Tobacco Use Types Packs/Day Years [...] on filedocumented in this encounter Care Teams Crematory Attendant Relationship Specialty Start Date End Date Yoseph Acevedo MD [address] [place] [address] [place] [address] PCP - General Internal Medicine 09/24/22 documented as of this encounter
--- OUTSIDE RECORDS SUMMARY | 2024-08-24 14:26 | XMS_ITS | Encounter Summary ---
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 He is . He has 1 son. [...] Info) Description 01/07/2025 10:30 AM EDT Appointment [facility] Radiation Oncology [address] [place] [phone] Pina Wynn NP [address] [place] [address] [address] [place] [phone] documented as of this encounter Procedures Procedure Name Priority Date/Time Associated Diagnosis Comments HISTORICAL IMAGING SCAN RESULT 04/03/2024 documented in this encounter Results * HISTORICAL IMAGING SCAN RESULT (04/03/2024) Anatomical Region Laterality Modality Ultrasound us Provider Onbase IMG US PROCEDURES Final Resul t documented in this encounter Visit Diagnoses Not on filedocumented in this encounter Care Teams Research Engineer Relationship Specialty Start Date End Date Yoseph Acevedo MD [address] [place] [address] [address] [place] PCP - General Internal Medicine 07/29/17 documented as of this encounter
--- OUTSIDE RECORDS SUMMARY | 2024-08-24 14:26 | XMS_ITS | Clinical Summary ---
Author Organization [facility] Address [address] [place] [address] Care Team Providers Care Cattle Manager Name Role Phone Yoseph Acevedo MD Primary Care Provider +1- [phone] Allergies No known active allergies Medications Medication [...] age to complete this topic Care Teams Cattle Manager Relationship Specialty Start Date End Date Yoseph Acevedo MD [address] [place] [address] [place] [address] PCP - General Internal Medicine 09/24/22
--- OUTSIDE RECORDS SUMMARY | 2024-08-24 14:26 | XMS_ITS | Encounter Summary ---
Author Organization [facility] Address [address] [place] [address] Care Team Providers Care Dip Painter Name Role Phone Yoseph Acevedo MD Primary Care Provider +- [phone] Encounter Details Date Type Department Care Team (Late Contact Info) Description 04/03/2024 2:45 PM EDT Hospital Encounter TH HISTORIC ENCOUN[facility]S [facility] ONLY Matteo Zuniga MD [address] [place] [address] Social History Tobacco Use Types [...] Description 01/07/2025 10:30 AM EDT Appointment [facility] Radiation Oncology [address] [address] Pina Wynn NP [address] [place] [address] [address] [place] [address] documented as of this encounter Visit Diagnoses Not on filedocumented in this encounter Care Teams Dip Painter Relationship Specialty Start Date End Date Yoseph Acevedo MD [address] [place] PCP - General Internal Medicine 07/29/17 documented as of this encounter
--- OUTSIDE RECORDS SUMMARY | 2024-08-24 14:26 | XMS_ITS | Encounter Summary ---
Author Organization [facility] Address [address] [place] [address] Care Team Providers Care Grades 7 8 Tutor Name Role Phone Yoseph Acevedo MD Primary Care Provider + [phone] Reason for Referral * Imaging (Routine) - Authorized Specialty Diagnoses / Procedures Referred By Contac t Referred To Contact Radiology Diagnoses Small cell carcinoma of lung, unspecified laterality, unspecified part of lung (CMS/HCC) Procedures CT Chest wo Contrast Matteo Zuniga MD [address] [place] [address] Phone: tel: fax: [address] [address] Phone: tel: Referral ID Status Reason Start Date Expiration Date V isits Requested Visits Authorized [id number] Authorized 08/04/2024 08/04/2025 1 1 Encounter Details Date Type Department Care Team (Late st Contact Info) Description 08/04/2024 Telephone [facility] Hematology Oncology [address] [place] [address] Matteo Zuniga MD [address] [place] [address] Social History Tobacco Use Types Packs/Day [...] ct scan results. Please call him at [phone] documented in this encounter Plan of Treatment Upcoming Encounters Date Type Department Care Team (Late st Contact Info) Description 01/07/2025 10:30 AM EDT Appointment [facility] Radiation Oncology [address] [place] [address] [address] [place] [phone] Pina Wynn NP [address] [place] [address] [place] [address] Scheduled Orders Name Type Priority Associated Diagnoses Orde r Schedule CT Chest wo Contrast Imaging Routine Small cell carcinoma of lung, unspecified laterality, unspecified part of lung (CMS/HCC) Expected: 11/01/2024, Expires: 08/04/2025 documented as of this encounter Visit Diagnoses Diagnosis Small cell carcinoma of lung, unspecified laterality, unspecified part of lung (CMS/HCC)- Primary documented in this encounter Care Teams Grades 7 8 Tutor Relationship Specialty Start Date End Date Yoseph Acevedo MD [address] [place] [address] Dr Caceres [facility] [place] PCP - General Internal Medicine 07/29/17 documented as of this encounter
--- OUTSIDE RECORDS SUMMARY | 2024-08-24 14:26 | XMS_ITS | Encounter Summary ---
Author Organization [facility] Address [address] [place] [address] Care Team Providers Care Nougat Cutter Machine Name Role Phone Yoseph Acevedo MD Primary Care Provider +1- [phone] Encounter Details Date Type Department Care Team Description 11/05/2022 Social Work [facility] Oncology Services [address] [place] [address] Adina Hernandez, [facility] Social History Tobacco [...] on filedocumented in this encounter Care Teams Nougat Cutter Machine Relationship Specialty Start Date End Date Yoseph Acevedo MD [address] [place] [address] [place] [address] PCP - General Internal Medicine 09/24/22 documented as of this encounter
[2024-08-24 14:48] LABS: Urine Cytology See Pathology rpt
[2024-08-24 14:55] LABS: Color Urine Yellow; Glucose Urine UA Negative (Negative); Leukocyte Esterase Urine Negative (Negative); Nitrite Urine Negative (Negative); PH 5.5 (5.0-9.0); UMIC TRIGGER UACC YES; Urine Blood Small (1+) (Negative); Urine Ketones Negative (Negative); Urine Protein Negative (Neg-Trace)
[2024-08-24 14:56] LABS: Appearance Urine Hazy
[2024-08-24 15:13] LABS: Bacteria Urine None Seen (None Seen); Hyaline Casts Urine 0-2 /LPF (0-2); RBC Urine 0-2 /HPF (0-2); Squamous Epithelial Cell Urine 0-2 /HPF (0-2); WBC Urine 0-5 /HPF (0-5)
== END 2024-08-24 12:45 | disposition home or self-care (01) ==
LOC: HO.WFDLDS 12:44
PROVIDERS: Visit Provider Internal Medicine
DX: R31.9 Hematuria, unspecified (principal); R30.0 Dysuria
CPT/HCPCS: 81001; 88112

== ENCOUNTER 2024-08-25 08:37 | Outpatient (REF) | payer MEDICARE, OTHER, SELFPAY ==
--- OUTSIDE RECORDS SUMMARY | 2024-08-25 09:10 | XMS_ITS | Encounter Summary ---
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 He is . He has 1 son. [...] Description 01/07/2025 10:[address] [facility] Radiation Oncology [address] [place] [phone] Pina Wynn NP [address] [place] [address] [address] [place] [address] documented as of this encounter Procedures Procedure Name Priority Date/Time Associated Diagnosis Comments HISTORICAL IMAGING SCAN RESULT 04/03/2024 documented in this encounter Results * HISTORICAL IMAGING SCAN RESULT (04/03/2024) Anatomical Region Laterality Modality Ultrasound us Provider Onbase IMG US PROCEDURES Final Resul t documented in this encounter Visit Diagnoses Not on filedocumented in this encounter Care Teams Maintainer Operator Relationship Specialty Start Date End Date Yoseph Acevedo MD [address] [place] [address] [address] [place] PCP - General Internal Medicine 07/29/17 documented as of this encounter
--- OUTSIDE RECORDS SUMMARY | 2024-08-25 09:10 | XMS_ITS | Encounter Summary ---
Author Organization [facility] Address [address] [place] [address] Care Team Providers Care Assembler Carbon Brushes Name Role Phone Yoseph Acevedo MD Primary Care Provider +- [phone] Encounter Details Date Type Department Care Team (Late Contact Info) Description 04/03/2024 2:45 PM EDT Hospital Encounter TH HISTORIC [facility]NC[facility] ONLY Matteo Zuniga MD [address] [place] [address] Social History Tobacco Use Types [...] Info) Description 01/07/2025 10:30 AM EDT Appointment [facility] Radiation Oncology [address] [address] Pina Wynn NP [address] [place] [address] [address] [place] [address] documented as of this encounter Visit Diagnoses Not on filedocumented in this encounter Care Teams Assembler Carbon Brushes Relationship Specialty Start Date End Date Yoseph Acevedo MD [address] [facility] [address] [place] PCP - General Internal Medicine 07/29/17 documented as of this encounter
--- OUTSIDE RECORDS SUMMARY | 2024-08-25 09:10 | XMS_ITS | Encounter Summary ---
Author Organization [facility] Address [address] [place] [address] Care Team Providers Care Relations Director Name Role Phone Yoseph Acevedo MD Primary Care Provider +1- [phone] Encounter Details Date Type Department Care Team Description 11/05/2022 Social Work [facility] Oncology Services [address] [place] [address] Adina Hernandez, [facility] Social History Tobacco Use Types [...] on filedocumented in this encounter Care Teams Relations Director Relationship Specialty Start Date End Date Yoseph Acevedo MD [address] [place] [address] [place] [address] PCP - General Internal Medicine 09/24/22 documented as of this encounter
--- OUTSIDE RECORDS SUMMARY | 2024-08-25 09:10 | XMS_ITS | Clinical Summary ---
Author Organization [facility] Address [address] [place] [phone] Phone Care Team Providers Care Ordinary Seaman Name Role Phone Yoesph Acevedo MD Primary Care Provider [phone] Allergies No known active allergies Medications predniSONE [...] DAY MAKE AN APPT FOR FURTHER REFILLS, [id number] 2 Active methylcellulose, laxative, 500 mg tablet [...] Type Department Care Team Description 08/04/2024 Telephone [facility] Hematology Oncology [address] [place] [address] Matteo Zuniga MD 07/23/2024 10:48 AM EST - 07/23/2024 11:59 PM EST Hospital Encounter [facility] CT Scan [address] [place] [address] Other malignant neuroendocrine tumors (CMS/HCC) Discharge Disposition: Home or Self Care 07/15/2024 1:46 PM EST - 07/15/2024 11:59 PM EST Hospital Encounter [facility] Radiation Oncology [address] [place] [address] Pina Wynn, ALTAGRACIA Small cell carcinoma of lung, unspecified laterality, unspecified part of lung (CMS/HCC) (Primary Dx) Discharge Disposition: Home or Self Care 07/06/2024 9:52 AM EST - 07/06/2024 11:59 PM EST Hospital Encounter [facility] MRI [address] [place] [address] Malignant neoplasm of mediastinum, part unspecified (CMS/HCC) Discharge Disposition: Home or Self Care 07/02/2024 Telephone [facility] Radiation Oncology [address] [place] [address] Elzbieta Jeffries MA 06/16/2024 Telephone [facility] Hematology Oncology [address] [place] [phone] Germaine Ballard MA CAP CT/Labs from Last [...] obesity with BMI o f 40.0-44.9, adult ([facility]) Hyperlipidemia 09/06/2017 DX:Hyperlipidemi a Pulmonary emphysema (CMS/HCC) [...] disease) (CMS/HCC) DX:COPD (chronic obstructive pulmonary disease) ([facility]) Psoriasis DX:Psoriasis Tinnitus DX:Tinnitus Arthritis DX:Arthritis Hyperlipidemia [...] [facility] Radiation Oncology [address] [place] [address] Pina Wynn NP [address] [place] [address] [address] [place] [address] Health Maintenance Due Date Last Done [...] in [place] ([id number]) -------- FINAL REPORT -------- Dictated By: Laura Angel Dictated Date: 07/28/2024 11:11 ET Assigned Physician: Laura Angel Reviewed and Electronically Signed By: Laura Angel Signed Date: 07/28/2024 11:29 ET Workstation ID: [id number] Transcribed By: Self Edit Transcribed Date: 07/28/2024 11:11 ET Narrative 07/28/2024 11:29 AM EST History: Neuroendocrine tumor. Comparison: 12/31/23, lung screening CT 08/07/22 Technique: Helical volumetric imaging of the chest, abdomen and pelvis was performed without oral contrast and during the uneventful intravenous administration of 90 cc Isovue-370. DLP: 1969.73 mGy/cm [email or web address] VCT Iterative reconstruction technique Findings: Chest: The [...] of 90 cc Isovue-370. DLP: 1969.73 mGy/cm [email or web address] VCT Iterative reconstruction technique Findings: Chest: The [...] metastatic disease in the abdomen and pelvis. [employer] ARCELIA ([id number]) -------- FINAL REPORT -------- Dictated By: Laura Angel Dictated Date: 07/28/2024 11:11 ET Assigned Physician: Laura Angel Reviewed and Electronically Signed By: Laura Angel Signed Date: 07/28/2024 11:29 ET Workstation ID: [id number] Transcribed By: Self Edit Transcribed Date: 07/28/2024 [...] Zuniga MD LAB BLOOD ORDERABLES Final Result [facility] [address] [place] [address], [place] [phone] * (ABNORMAL) Comprehensive metabolic panel (07/06/2024 11:29 [...] Zuniga MD LAB BLOOD ORDERABLES Final Result [facility] [address] [place] [address], * MR Brain wo and w Contrast [...] Signed Date: 07/10/2024 12:18 ET Workstation ID: [id number] Transcribed By: Self Edit Transcribed Date: 07/10/2024 [...] Signed Date: 07/10/2024 12:18 ET Workstation ID: [id number] Transcribed By: Self Edit Transcribed Date: 07/10/2024 11:53 ET Cassandra Mann MD IMG MRI PROCEDURES Final Res ult from Last 3 Months Insurance MEDICARE [facility] Care Teams Ordinary Seaman Relationship Specialty Start Date End Date Yoseph Acevedo MD [address] [place] [address] [address] [place] PCP - General Internal Medicine 07/29/17
--- OUTSIDE RECORDS SUMMARY | 2024-08-25 09:10 | XMS_ITS | Clinical Summary ---
Author Organization [facility] Address [address] [place] [address] Care Team Providers Care Side Door Worker Name Role Phone Yoseph Acevedo MD Primary Care Provider +1- [phone] Allergies No known active allergies Medications Medication [...] age to complete this topic Care Teams Side Door Worker Relationship Specialty Start Date End Date Yoseph Acevedo MD [address] [place] [address] [place] [address] PCP - General Internal Medicine 09/24/22
--- OUTSIDE RECORDS SUMMARY | 2024-08-25 09:10 | XMS_ITS | Encounter Summary ---
Author Organization [facility] Address [address] [place] [address] Care Team Providers Care Engineering Document Control Clerk Name Role Phone Yoseph Acevedo MD Primary Care Provider + [phone] Reason for Referral * Imaging (Routine) - Authorized Specialty Diagnoses / Procedures Referred By Contac t Referred To Contact Radiology Diagnoses Small cell carcinoma of lung, unspecified laterality, unspecified part of lung (CMS/HCC) Procedures CT Chest wo Contrast Matteo Zuniga MD [address] [place] [address] Phone: tel: fax: [address] [address] Phone: tel: Referral ID Status Reason Start Date Expiration Date V isits Requested Visits Authorized [id number] Authorized 08/04/2024 08/04/2025 1 1 Encounter Details Date Type Department Care Team (Late st Contact Info) Description 08/04/2024 Telephone [facility] Hematology Oncology [address] [place] [address] Matteo Zuniga MD [address] [place] [address] Social History Tobacco Use Types Packs/Day [...] ct scan results. Please call him at [phone] documented in this encounter Plan of Treatment Upcoming Encounters Date Type Department Care Team (Late st Contact Info) Description 01/07/2025 10:30 AM EDT Appointment [facility] Radiation Oncology [address] [place] [address] [address] [place] [phone] Pina Wynn NP [address] [place] [address] [place] [address] Scheduled Orders Name Type Priority Associated Diagnoses Orde r Schedule CT Chest wo Contrast Imaging Routine Small cell carcinoma of lung, unspecified laterality, unspecified part of lung (CMS/HCC) Expected: 11/01/2024, Expires: 08/04/2025 documented as of this encounter Visit Diagnoses Diagnosis Small cell carcinoma of lung, unspecified laterality, unspecified part of lung (CMS/HCC)- Primary documented in this encounter Care Teams Engineering Document Control Clerk Relationship Specialty Start Date End Date Yoseph Acevedo MD [address] [place] [address] Dr Caceres [facility] [place] PCP - General Internal Medicine 07/29/17 documented as of this encounter
--- OUTSIDE RECORDS SUMMARY | 2024-08-25 09:10 | XMS_ITS | Encounter Summary ---
Author Organization [facility] Address [address] [place] [address] Care Team Providers Care Doffer Name Role Phone Yoseph Acevedo MD Primary Care Provider +1- [phone] Encounter Details Date Type Department Care Team Description 10/12/2022 Social Work [facility] Oncology Services [address] [place] [address] Adina Hernandez, [facility] Social History Tobacco Use Types [...] on filedocumented in this encounter Care Teams Doffer Relationship Specialty Start Date End Date Yoseph Acevedo MD [address] [place] [address] [place] [address] PCP - General Internal Medicine 09/24/22 documented as of this encounter
--- OUTSIDE RECORDS SUMMARY | 2024-08-25 09:10 | XMS_ITS ---
Author Organization [facility] Address [address] [place] [address] Care Team Providers Care It Intern Name Role Phone Yoseph Acevedo MD Primary Care Provider +1- [phone] Active Problems Problem Noted Date Diagnosed Date [...] treatments are documented for this patient in [facility]. Treatments may have been administered in another system.
[2024-08-25 11:51] LABS: B Type Natriuretic Peptide 12 pg/mL (<100)
[2024-08-25 12:05] LABS: Estimated Average Glucose 148 mg/dL; Hemoglobin A1C 175.3615 umol/L; Hemoglobin A1c % 6.8 % (<6.0); Total Hemoglobin (HGBA1C) 3472.2909 umol/L
[2024-08-25 12:29] LABS: Alanine Aminotransferase 31 U/L (0-40); Albumin Level 3.8 g/dL (3.5-5.0); Alkaline Phosphatase 30 U/L (39-117); Anion Gap 11 (12-20); Aspartate Amino Transferase 25 U/L (5-37); Bilirubin Total 0.2 mg/dL (0.0-1.0); Blood Urea Nitrogen 16 mg/dL (9-16); Calcium 9.6 mg/dL (8.4-10.2); Carbon Dioxide 27 mmol/L (22-29); Chloride 109 mmol/L (96-108); Cholesterol 168 mg/dL (<200); Estimated Glomerular Filt Rate > 60; Glucose Fasting 102 mg/dL (60-99); HDL Cholesterol 69 mg/dL (>40); LDL Cholesterol Calculated 87 mg/dL (<100); Potassium 4.5 mmol/L (3.3-5.1); Sodium 142 mmol/L (135-145); TSH reflex Free T4 1.69 uIU/mL (0.32-4.0); Total Protein 6.9 g/dL (6.5-8.0); Triglycerides 60 mg/dL (<150)
[2024-08-25 12:37] LABS: Folate 13.2 ng/mL (> or = 4.0); Vitamin B12 751 pg/mL (200-900)
== END 2024-08-25 08:38 | disposition home or self-care (01) ==
LOC: HO.WFDLDS 08:37
PROVIDERS: Visit Provider Internal Medicine
DX: R73.01 Impaired fasting glucose (principal); E78.00 Pure hypercholesterolemia, unspecified; E55.9 Vitamin D deficiency, unspecified; E53.8 Deficiency of other specified B group vitamins; I50.9 Heart failure, unspecified
CPT/HCPCS: 36415; 80053; 80061; 82306; 82607; 82746; 83036; 83880; 84443

== ENCOUNTER 2024-08-26 07:59 | Outpatient (REF) | payer MEDICARE, OTHER, SELFPAY ==
--- OUTSIDE RECORDS SUMMARY | 2024-08-26 09:17 | XMS_ITS | Encounter Summary ---
Author Organization [facility] Address [address] [place] [address] Care Team Providers Care Pathologist Assistant Name Role Phone Yoseph Acevedo MD Primary Care Provider +- [phone] Encounter Details Date Type Department Care Team (Late Contact Info) Description 04/03/2024 2:45 PM EDT Hospital Encounter [facility]OR[facility] ENCOUNTERS [facility] ONLY Matteo Zuniga MD [address] [place] [address] Social History Tobacco Use Types [...] Info) Description 01/07/2025 10:30 AM EDT Appointment Radiation Oncology [address] [address] Pina Wynn NP [address] [place] [address] [address] [place] [phone] documented as of this encounter Visit Diagnoses Not on filedocumented in this encounter Care Teams Pathologist Assistant Relationship Specialty Start Date End Date Yoseph Acevedo MD [address] [facility] [address] [place] PCP - General Internal Medicine 07/29/17 documented as of this encounter
--- OUTSIDE RECORDS SUMMARY | 2024-08-26 09:17 | XMS_ITS | Encounter Summary ---
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 He is . He has 1 [...] Appointment [facility] Radiation Oncology [address] [place] [phone] Pina Wynn NP [address] [place] [address] [address] [place] [phone] documented as of this encounter Procedures Procedure Name Priority Date/Time Associated Diagnosis Comments HISTORICAL IMAGING SCAN RESULT 04/03/2024 documented in this encounter Results * HISTORICAL IMAGING SCAN RESULT (04/03/2024) Anatomical Region Laterality Modality Ultrasound us Provider Onbase IMG US PROCEDURES Final Resul t documented in this encounter Visit Diagnoses Not on filedocumented in this encounter Care Teams Armor Senior Sergeant Relationship Specialty Start Date End Date Yoseph Acevedo MD [address] [place] [address] [address] [place] PCP - General Internal Medicine 07/29/17 documented as of this encounter
--- OUTSIDE RECORDS SUMMARY | 2024-08-26 09:17 | XMS_ITS | Clinical Summary ---
Author Organization [facility] Address [address] [place] [phone] Phone Care Team Providers Care Platform Material Handling Supervisor Name Role Phone Yoseph Acevedo MD Primary [...] DAY MAKE AN APPT FOR FURTHER REFILLS, [id number] 2 Active methylcellulose, laxative, 500 mg tablet [...] Department Care Team Description 08/04/2024 Telephone [facility] Hematology Oncology [address] [place] [address] Matteo Zuniga MD 07/23/2024 10:48 AM EST - 07/23/2024 11:59 PM EST Hospital Encounter [facility] CT Scan [address] [place] [address] Other malignant neuroendocrine tumors (CMS/HCC) Discharge Disposition: Home or Self Care 07/15/2024 1:46 PM EST - 07/15/2024 11:59 PM EST Hospital Encounter [facility] Radiation Oncology [address] [place] [phone] Pina Wynn, ALTAGRAC[place] Small cell carcinoma of lung, unspecified laterality, unspecified part of lung (CMS/HCC) (Primary Dx) Discharge Disposition: Home or Self Care 07/06/2024 9:52 AM EST - 07/06/2024 11:59 PM EST Hospital Encounter [facility] MRI [address] [place] [address] Malignant neoplasm of mediastinum, part unspecified (CMS/HCC) Discharge Disposition: Home or Self Care 07/02/2024 Telephone [facility] Radiation Oncology [address] [place] [phone] Elzbieta Jeffries MA 06/16/2024 Telephone [facility] Hematology Oncology [address] [place] [phone] Germaine Ballard [place] CAP CT/Labs from Last [...] obesity with BMI o f 40.0-44.9, adult ([facility]) Hyperlipidemia 09/06/2017 DX:Hyperlipidemi a Pulmonary emphysema [...] disease) (CMS/HCC) DX:COPD (chronic obstructive pulmonary disease) ([facility]) Psoriasis DX:Psoriasis Tinnitus DX:Tinnitus Arthritis DX:Arthritis [...] Description 01/07/2025 10:30 AM EDT Appointment [facility] Radiation Oncology [address] [place] [address] Pina Wynn NP [address] [place] [address] [address] [place] [address] Health Maintenance Due Date Last Done [...] in the abdomen [place] ([id number]) -------- FINAL REPORT -------- Dictated By: Laura Angel Dictated Date: 07/28/2024 11:11 ET Assigned Physician: Laura Angel Reviewed and Electronically Signed By: Laura Angel Signed Date: 07/28/2024 11:29 ET Workstation ID: [id number] Transcribed By: Self Edit Transcribed Date: 07/28/2024 11:11 ET Narrative 07/28/2024 11:29 AM EST History: Neuroendocrine tumor. Comparison: 12/31/23, lung screening CT 08/07/22 Technique: Helical volumetric imaging of the chest, abdomen and pelvis was performed without oral contrast and during the uneventful intravenous administration of 90 cc Isovue-370. DLP: 1969.73 mGy/cm [employer] VCT Iterative reconstruction technique Findings: Chest: The [...] of 90 cc Isovue-370. DLP: 1969.73 mGy/cm [employer] VCT Iterative reconstruction technique Findings: Chest: The [...] metastatic disease in the abdomen and pelvis. [employer] ARCELIA ([id number]) -------- FINAL REPORT -------- Dictated By: Laura Angel Dictated Date: 07/28/2024 11:11 ET Assigned Physician: Laura Angel Reviewed and Electronically Signed By: Laura Angel Signed Date: 07/28/2024 11:29 ET Workstation ID: [id number] Transcribed By: Self Edit Transcribed Date: 07/28/2024 11:11 ET us Matteo Zuniga MD IMG CT PROCEDURES Final Res ult * (ABNORMAL) Complete blood count (07/06/2024 11:29 AM EST) WBC 9.6 4.8 - 10.8 K/mcL LAB HEMETOLOGY METHOD 07/06/2024 1:38 PM [facility] RBC 4.90 4.50 - 5.50 M/mcL LAB HEMETOLOGY METHOD 07/06/2024 1:38 PM [facility] Hemoglobin 14.8 13.5 - 17.5 g/dL LAB HEMETOLOGY METHOD 07/06/2024 1:38 PM [facility] Hematocrit 44.4 42.0 - 54.0 % LAB HEMETOLOGY METHOD 07/06/2024 1:38 PM [facility] MCV 89.9 79.0 - 98.0 FL LAB HEMETOLOGY METHOD 07/06/2024 1:38 PM [facility] MCH 30.0 27.0 - 32.0 pcg LAB HEMETOLOGY METHOD 07/06/2024 1:38 PM [facility] MCHC 33.3 32.0 - 37.0 g/dL LAB HEMETOLOGY METHOD 07/06/2024 1:38 PM [facility] RDW 16.1(H) 11.0 - 15.0 % LAB HEMETOLOGY METHOD 07/06/2024 1:38 PM [facility] Platelets 283 130 - 400 K/mcL LAB HEMETOLOGY METHOD 07/06/2024 1:38 PM [facility] MPV 8.9 7.0 - 11.0 FL LAB HEMETOLOGY METHOD 07/06/2024 1:38 PM [facility] NRBC 0.0 <1.0 % LAB HEMETOLOGY METHOD 07/06/2024 1:38 PM [facility] NRBC Absolute 0.00 <0.10 K/mcL LAB HEMETOLOGY METHOD 07/06/2024 1:38 PM [facility] Blood Venous blood specimen / Unknown Venipuncture / Unknown 07/06/2024 11:29 AM EST 07/06/2024 12:35 PM EST us Matteo Zuniga MD LAB BLOOD ORDERABLES Final Result [facility] [address] [place] [address], [place] [phone] * (ABNORMAL) Comprehensive metabolic panel (07/06/2024 11:29 AM EST) Sodium 137 133 - 145 mmol/L LAB CHEMISTRY METHOD 07/06/2024 1:38 PM [facility] Potassium 4.7 3.5 - 5.5 mmol/L LAB CHEMISTRY METHOD 07/06/2024 1:38 PM [facility] Chloride 105 96 - 110 mmol/L LAB CHEMISTRY METHOD 07/06/2024 1:38 PM [facility] CO2 27 21 - 32 mmol/L LAB CHEMISTRY METHOD 07/06/2024 1:38 PM [facility] Anion Gap 5 3 - 11 LAB CHEMISTRY METHOD 07/06/2024 1:38 PM [facility] Glucose 129(H) 70 - 100 mg/dL LAB CHEMISTRY METHOD 07/06/2024 1:38 PM [facility] BUN 21 5 - 25 mg/dL LAB CHEMISTRY METHOD 07/06/2024 1:38 PM [facility] Creatinine 0.90 0.70 - 1.30 mg/dL LAB CHEMISTRY METHOD 07/06/2024 1:38 PM [facility] eGFR 90 >=60 mL/min/1. 73m2 LAB CHEMISTRY METHOD 07/06/2024 1:38 PM [facility] Comment:Calculation based on the??Chronic Kidney Disease Epidemiology Collaboration (CKD-EPI) equation refit??without adjustment for race. BUN/Creatinine Ratio 23.3 LAB CHEMISTRY METHOD 07/06/2024 1:38 PM [facility] Calcium 9.6 8.5 - 10.5 mg/dL LAB CHEMISTRY METHOD 07/06/2024 1:38 PM [facility] AST (SGOT) 12 10 - 42 unit/L LAB CHEMISTRY METHOD 07/06/2024 1:38 PM [facility] ALT (SGPT) 36 10 - 60 unit/L LAB CHEMISTRY METHOD 07/06/2024 1:38 PM [facility] Alkaline Phosphatase 34(L) 42 - 121 unit/L LAB CHEMISTRY METHOD 07/06/2024 1:38 PM [facility] Total Protein 6.6 6.0 - 8.0 g/dL LAB CHEMISTRY METHOD 07/06/2024 1:38 PM [facility] Albumin 3.5 3.2 - 5.0 g/dL LAB CHEMISTRY METHOD 07/06/2024 1:38 PM [facility] Total Bilirubin 0.4 0.0 - 1.4 mg/dL LAB CHEMISTRY METHOD 07/06/2024 1:38 PM [facility] Blood Venous blood specimen / Unknown Venipuncture / Unknown 07/06/2024 11:29 AM EST 07/06/2024 12:36 PM EST us Matteo Zuniga MD LAB BLOOD ORDERABLES Final Result [facility] [address] [place] [address], * MR Brain wo and w Contrast [...] Signed Date: 07/10/2024 12:18 ET Workstation ID: [id number] Transcribed By: Self Edit Transcribed Date: 07/10/2024 [...] Signed Date: 07/10/2024 12:18 ET Workstation ID: [id number] Transcribed By: Self Edit Transcribed Date: 07/10/2024 11:53 ET Cassandra Mann MD IMG MRI PROCEDURES Final Res ult from Last 3 Months Insurance MEDICARE [facility] Care Teams Platform Material Handling Supervisor Relationship Specialty Start Date End Date Yoseph Acevedo MD [address] [place] [address] [address] [place] PCP - General Internal Medicine 07/29/17
--- OUTSIDE RECORDS SUMMARY | 2024-08-26 09:18 | XMS_ITS ---
Author Organization [facility] Address [address] [place] [address] Care Team Providers Care Physician Office Secretary Name Role Phone Yoseph Acevedo MD Primary Care Provider +1- [phone] Active Problems Problem Noted Date Diagnosed Date [...] treatments are documented for this patient in [facility]. Treatments may have been administered in another system.
--- OUTSIDE RECORDS SUMMARY | 2024-08-26 09:18 | XMS_ITS | Encounter Summary ---
Author Organization [facility] Address [address] [place] [address] Care Team Providers Care Nurse Paralegal Name Role Phone Yoseph Acevedo MD Primary Care Provider + [phone] Reason for Referral * Imaging (Routine) - Authorized Specialty Diagnoses / Procedures Referred By Contac t Referred To Contact Radiology Diagnoses Small cell carcinoma of lung, unspecified laterality, unspecified part of lung (CMS/HCC) Procedures CT Chest wo Contrast Matteo Zuniga MD [address] [place] [phone] Phone: tel: fax: [address] [address] Phone: tel: Referral ID Status Reason Start Date Expiration Date V isits Requested Visits Authorized [id number] Authorized 08/04/2024 08/04/2025 1 1 Encounter Details Date Type Department Care Team (Late st Contact Info) Description 08/04/2024 Telephone [facility] Hematology Oncology [address] [place] [phone] Matteo Zuniga MD [address] [place] [phone] Social History Tobacco Use Types Packs/Day [...] ct scan results. Please call him at [phone] documented in this encounter Plan of Treatment Upcoming Encounters Date Type Department Care Team (Late st Contact Info) Description 01/07/2025 10:30 AM EDT Appointment [facility] Radiation Oncology [address] [place] [address] [address] [place] [phone] Pina Wynn NP [address] [place] [address] [place] [address] Scheduled Orders Name Type Priority Associated Diagnoses Orde r Schedule CT Chest wo Contrast Imaging Routine Small cell carcinoma of lung, unspecified laterality, unspecified part of lung (CMS/HCC) Expected: 11/01/2024, Expires: 08/04/2025 documented as of this encounter Visit Diagnoses Diagnosis Small cell carcinoma of lung, unspecified laterality, unspecified part of lung (CMS/HCC)- Primary documented in this encounter Care Teams Nurse Paralegal Relationship Specialty Start Date End Date Yoseph Acevedo MD [address] [place] [address] Dr Caceres [facility] [place] PCP - General Internal Medicine 07/29/17 documented as of this encounter
--- OUTSIDE RECORDS SUMMARY | 2024-08-26 09:18 | XMS_ITS | Encounter Summary ---
Author Organization [facility] Address [address] [place] [address] Care Team Providers Care Fisher Swordfish Name Role Phone Yoseph Acevedo MD Primary Care Provider +1- [phone] Encounter Details Date Type Department Care Team Description 10/12/[address] [facility] Oncology Services [address] [place] [address] Adina Hernandez, [facility] Social History Tobacco [...] on filedocumented in this encounter Care Teams Fisher Swordfish Relationship Specialty Start Date End Date Yoseph Acevedo MD [address] [place] [address] [place] [address] PCP - General Internal Medicine 09/24/22 documented as of this encounter
--- OUTSIDE RECORDS SUMMARY | 2024-08-26 09:18 | XMS_ITS | Encounter Summary ---
Author Organization [facility] Address [address] [place] [address] Care Team Providers Care Personnel Specialist Name Role Phone Yoseph Acevedo MD Primary Care Provider +1- [phone] Encounter Details Date Type Department Care Team Description 11/05/2022 Social Work [facility] Oncology Services [address] [place] [address] Adina Hernandez, [facility] [...] on filedocumented in this encounter Care Teams Personnel Specialist Relationship Specialty Start Date End Date Yoseph Acevedo MD [address] [place] [address] [place] [address] PCP - General Internal Medicine 09/24/22 documented as of this encounter
--- OUTSIDE RECORDS SUMMARY | 2024-08-26 09:18 | XMS_ITS | Clinical Summary ---
Author Organization [facility] Address [address] [place] [address] Care Team Providers Care Customer Care Associate Name Role Phone Yoseph Acevedo MD Primary Care Provider +1- [phone] Allergies No known active allergies Medications Medication [...] age to complete this topic Care Teams Customer Care Associate Relationship Specialty Start Date End Date Yoseph Acevedo MD [address] [place] [address] [place] [address] PCP - General Internal Medicine 09/24/22
[2024-08-26 16:20] LABS: Urine Cytology See Pathology rpt
== END 2024-08-26 08:00 | disposition home or self-care (01) ==
LOC: HO.LNP 07:59
PROVIDERS: PCP Internal Medicine; Visit Provider Nurse Practitioner Family
DX: R31.9 Hematuria, unspecified (principal); R30.0 Dysuria; N41.9 Inflammatory disease of prostate, unspecified; R39.12 Poor urinary stream; I48.0 Paroxysmal atrial fibrillation; I50.30 Unspecified diastolic (congestive) heart failure; E78.00 Pure hypercholesterolemia, unspecified; J44.9 Chronic obstructive pulmonary disease, unspecified; E11.9 Type 2 diabetes mellitus without complications; K29.90 Gastroduodenitis, unspecified, without bleeding; F41.9 Anxiety disorder, unspecified; F33.9 Major depressive disorder, recurrent, unspecified; E66.9 Obesity, unspecified; Z79.01 Long term (current) use of anticoagulants; Z79.899 Other long term (current) drug therapy; Z85.118 Personal history of other malignant neoplasm of bronchus and lung; Z87.891 Personal history of nicotine dependence
CPT/HCPCS: 51798; 81003; 88112; 96127; 99202; 99212

== ENCOUNTER 2024-08-26 07:59 | Outpatient (AMB) | payer MEDICARE, OTHER, SELFPAY ==
--- NOTE | 2024-08-26 08:05 | A.OFFVIS_ITS ---
Intake Visit Reasons: retention Intake Note: New Patient presents for initial visit for Urology Medications: Tamsulosin Blood Thinner: none PVR: 36ml's Clockmaker Required: No Accompanied by: Self / Same As Patient Allergies No Known Allergies [No Known Allergies*] Allergy (Verified 08/26/24 09:22) Medication List - Last Reconciled 08/26/[address] Saavedra- albuterol sulfate 90 mcg/actuation 2 puffs inhalation Q4H PRN 30 days atorvastatin 40 mg PO BEDTIME coenzyme Q10 60 mg PO DAILY dabigatran etexilate 150 mg PO BID diltiazem HCl CD 120 mg PO DAILY famotidine 20 mg PO BEDTIME jkniqdjuqov-ntaswxhyt-buvunyvh 200-62.5-25 mcg (Trelegy Ellipta) 1 ea inhalation DAILY ipratropium-albuterol 0.5 mg-3 mg(2.5 mg base)/3 mL 3 mL inhalation Q6H PRN lorazepam 0.5 mg PO TID PRN 30 days sz-tob-vgckd-E5-pnivzjc-rvdeot 602-55-108-300 mcg (Centrum Silver Ultra Men's) 1 tab PO DAILY prednisone 40 mg (2 x 20 mg) PO DAILY prednisone 20 mg PO DAILY PRN roflumilast 500 mcg PO DAILY tamsulosin (Flomax) 0.4 mg PO BEDTIME HPI Comments Details: Ed is a very pleasant 73-year-old male patient of Dr. Acevedo. He has a past medical history of COPD, gastritis, lung cancer currently in remission being treated at [facility] with Dr. Artis, history of radiation therapy last dose 01/17/2023, hiatal hernia, hypertension, arthritis, O2 dependent, obesity, type 2 diabetes, hypercholesteremia, diastolic heart failure, and paroxysmal AFib currently on anticoagulation. He presents to the office today as a new patient for ongoing lower urinary tract symptoms he has been experiencing. In discussion with the patient today he reports noting change in urinary stream, occasional dysuria, and perineal pain over the last 6-8 months. He reports recently starting Flomax and felt this has been somewhat helpful. He discusses at length his multiple hospital admissions due to ongoing pulmonary issues he continues to experience. In office urinalysis results reviewed with the patient today 2+ microscopic hematuria. He does report a longstanding history of nicotine dependence as well as recreational marijuana. However, quit 2-3 years ago. We discussed at length potential causes of lower urinary tract symptoms patient was experiencing as well as microscopic hematuria. We discussed reasons for blood in the urine may include but are not limited to kidney stones, cancer in the urinary tract, BPH, kidney stone disease or inflammatory conditions of the urinary tract. I have discussed workup to include cystoscopy evaluation. In review of patient's chart it appears patient with recent CT abdomen and pelvis with contrast from [facility] 07/25 notes the kidneys are normal in position in size, with symmetric, intact nephrograms and no evidence of hydronephrosis noted bilaterally. No suspicious developing solid renal masses are seen. The prostate is enlarged the urinary bladder appears unremarkable. These results were communicated with the patient today. He discusses new findings of right upper lobe nodule and will be following up with his oncologist in [address] LEFTY performed boggy prostate noted otherwise no nodules or masses palpated. PVR 36 mL. He otherwise denies incontinence, visible/gross hematuria, foul smelling urine, flank pain, fever, and or chills. He does endorse to episodes of nocturia however these episodes very. He denies any other issues or concerns at this time. [facility] Medical History (Updated 08/26/24 @ 10:37 by Gricelda Pham [facility]) Lower urinary tract symptoms Acute hypoxic respiratory failure Hypoxia Viral syndrome COPD exacerbation Gastritis and duodenitis Hx of cancer of lung Hx of radiation therapy History of chemotherapy Hiatal hernia On anticoagulant therapy HTN (hypertension) Tubular adenoma Arthritis Low back pain Diarrhea Oxygen dependent Emphysema/COPD BROWN (dyspnea on exertion) MNAJEET (obstructive sleep apnea) Impaired fasting glucose Eye pain Obesity (BMI 30-39.9) Anxiety COPD (chronic obstructive pulmonary disease) Diabetes mellitus Pure hypercholesterolemia Diastolic heart failure Paroxysmal atrial fibrillation Surgical History History of right inguinal hernia repair (03/13/23) History of esophagogastroduodenoscopy (EGD) Deficient knowledge of leg surgery History of surgery History of cardioversion H/O prior ablation treatment History of colonoscopy Family History Father Medical history unknown Mother Myocardial infarction Social History Household Members: None Housing: House Are you a primary managed care director to a significant other at home: No Do you presently have visiting nurse or other home services: No Unable to assess alcohol history related to: Unable to respond Alcohol intake: current Alcohol intake frequency: a few times a week Alcohol type: beer Patient Tobacco Use Status: Former Tobacco user Tobacco use type: Cigarette e-Cigarette/Vaping Use: Never Used Second Hand Smoke Exposure: Yes Substance Use Type: Marijuana service: No Current occupational status: retired Cognitive needs: No Hearing needs: No Vision needs: Yes (reading glasses) Review of Systems Eyes Reports no additional complaints ENT Reports no additional complaints Card Reports as per HPI Resp Reports as per HPI GI Reports as per HPI Reports as per HPI Musc Reports no additional complaints Neuro Reports no additional complaints Psych Reports no additional complaints Endo Reports as per HPI Physical Exam Const General: cooperative, comfortable, no acute distress, well developed, alert and awake Orientation/consciousness: patient oriented x3 HEENT Head: Yes normal to inspection, Yes normocephalic and Yes atraumatic Ears: hearing grossly normal bilaterally Eyes General: appearance normal, both eyes and all related structures Neck Neck: Yes normal visual inspection and Yes trachea midline Chest Chest palpation & inspection: normal inspection of the chest Resp Effort & Inspection: normal respiratory effort and able to speak in complete sentences Cardio Rate: regular rate GI Inspection: Yes normal to inspection General: Yes no CVA tenderness Back/Spine/Pelvis Back: no CVA tenderness Skin General skin exam: no rashes or lesions noted Neuro General: patient oriented x3 Extrem General: Yes normal to inspection Psych Appearance: grossly normal and well kempt Mental Status: mental status grossly normal Speech and movement: Normal speech and movement present and Clear speech present Affect: normal affect Attitude: cooperative Thought process: Normal thought process present Thought content: Normal thought content present Insight: Fair insight present (Psych) Judgement: Fair judgement present (Psych) Office Procedures Post Void Residual Post Residual Void Post Void Residual (PVR): 36 [id number]-[id number] Void Residual by ultrasound Results AMB Urinalysis, Automated UA Leukoctes 0 Mariah/uL Last Edit by Crystal Hernandez on 08/26/24 08:27 UA Nitrite Negative Last Edit by Crystal Hernandez on 08/26/24 08:27 UA Urobilinogen 0.2 mg/dL Last Edit by Crystal Hernandez on 08/26/24 08:27 UA Protein 0 mg/dL Last Edit by Crystal Hernandez on 08/26/24 08:27 UA pH 6.0 Last Edit by Crystal Hernandez on 08/26/24 08:27 UA Blood 80 Panfilo/uL Last Edit by Crystal Hernandez on 08/26/24 08:27 UA Specific [place] 1.015 Last Edit by Crystal Hernandez on 08/26/24 08:27 UA Ketone Negative Last Edit by Crystal Hernandez on 08/26/24 08:27 UA Bilirubin 0 mg/dL Last Edit by Crystal Hernandez on 08/26/24 08:27 UA Glucose 0 mg/dL Last Edit by Crystal Hernandez on 08/26/24 08:27 Results Reviewed Results Reviewed: Laboratory Last Values Urine pH (Auto) 6.0 08/26/24 08:10 Specific [place] (Auto) 1.015 08/26/24 08:10 Urine Protein (Auto) 0 mg/dL 08/26/24 08:10 Glucose (UA)(Auto) 0 mg/dL 08/26/24 08:10 Urine Ketones (Auto) Negative 08/26/24 08:10 Urine Blood (Auto) 80 Panfilo/uL 08/26/24 08:10 Urine Nitrite (Auto) Negative 08/26/24 08:10 Urine Bilirubin (Auto) 0 mg/dL 08/26/24 08:10 Urine Urobilinogen (Auto) 0.2 mg/dL 08/26/24 08:10 Leukocyte Esterase (Auto) 0 Mariah/uL 08/26/24 08:10 Assessment & Plan Assessment & Plan (1) Prostatitis: Code(s): N41.9 - Inflammatory disease of prostate, unspecified Category: Medical (2) Weak urinary stream: Code(s): R39.12 - Poor urinary stream Category: Medical (3) Dysuria: Code(s): R30.0 - Dysuria Category: Medical (4) Microscopic hematuria: Code(s): R31.29 - Other microscopic hematuria Category: Medical (5) History of nicotine dependence: Code(s): Z87.891 - Personal history of nicotine dependence Category: Medical Plan In office urinalysis results reviewed with the patient today; as noted above; will send for urine cytology PVR 36 mL. We discussed at length potential causes of lower urinary tract symptoms as well as microscopic hematuria; We discussed further workup in risks and benefits of these interventions. Start Bactrim as discussed and prescribed. Start finasteride as discussed and prescribed. Continue Flomax. Will obtain PSA. We discussed bladder triggers/irritants. We discussed importance of limiting fluids 2-3 hours prior to bed. We discussed importance of adequate hydration relation to lower urinary tract symptoms as well as overall health and well-being. Follow-up next available in office cystoscopy with lab to be completed prior; or sooner with any issues, concerns, and or questions. Orders: Orders AMB Urinalysis Automated Today Z13.9 - Encounter for screening, unspecified AMB Post Void Residual by ultrasound Today R33.9 - Retention of urine, unspecified Urine Cytology Today R31.9 - Hematuria, unspecified Prostate Specific Antigen Today R39.9 - Unspecified symptoms and signs involving the genitourinary system Medications: New sulfamethoxazole-trimethoprim 800-160 mg (Bactrim DS) 1 tab PO BID 28 tabs 0RF 14 days N39.0 - Urinary tract infection, site not specified finasteride 5 mg PO DAILY 90 tabs 1RF 90 days N13.8 - Other obstructive and reflux uropathy, N40.1 - Benign prostatic hyperplasia with lower urinary tract s ymptoms, R33.9 - Retention of urine, unspecified Patient Instructions: The patient had an opportunity to ask questions regarding the treatment plan. All questions were answered. Physical exam, labs, and imaging were discussed and reviewed in detail. As well as risks, benefits, and discussion of treatment choices. No major barriers to understanding were identified. The patient expressed understanding and agreement with the above treatment plan. The patient was made aware they should contact our office by phone for worsening of their current condition, the appearance of new symptoms, or with any questions or concerns. Compliance is encouraged with any medications and follow up testing that is ordered. It is a privilege to be allowed the opportunity to participate in? your urological care.? Again, if you have any questions or concerns If you have any questions or concerns please do not hesitate to contact me. The office is [phone]. This note is constructed using voice recognition software. While every effort has been made to ensure accuracy family preservation caseworker errors may have been included. Yours sincerely, TRACEE Saavedra Coding Level of Care Code New Pt Level 4 (14675) Diagnoses Prostatitis N41.9 Weak urinary stream R39.12 Dysuria R30.0 Microscopic hematuria R31.29 History of nicotine dependence Z87.891 CPT Codes Post Residual Void - PVR CPT Code: 17549-Aioh Void Residual by ultrasound ([id number])
--- OUTSIDE RECORDS SUMMARY | 2024-08-26 08:06 | XMS_ITS | Encounter Summary ---
Author Organization [facility] Address [address] [place] [id number] Care Team Providers Care Client Associate Name Role Phone Yoseph Acevedo MD Primary Care Provider [phone]- [phone] Encounter Details Date Type Department Care Team Description 10/12/2022 Social Work [facility] Oncology Services [address] [place] [address] Adina Hernandez, [facility] Social History Tobacco Use Types Packs/Day Years [...] on filedocumented in this encounter Care Teams Client Associate Relationship Specialty Start Date End Date Yoseph Acevedo MD [address] [place] [address] [place] [address] PCP - General Internal Medicine 09/24/22 documented as of this encounter
--- OUTSIDE RECORDS SUMMARY | 2024-08-26 08:06 | XMS_ITS ---
Author Organization [facility] Address [address] [place] [address] Care Team Providers Care Carbonation Tester Name Role Phone Yoseph Acevedo MD Primary Care Provider [phone]- [phone] Active Problems Problem Noted Date Diagnosed Date [...] treatments are documented for this patient in [facility]. Treatments may have been administered in another system.
--- OUTSIDE RECORDS SUMMARY | 2024-08-26 08:06 | XMS_ITS | Encounter Summary ---
Author Organization [facility] Address [address] [place] [address] Care Team Providers Care Vice President Business & Corporate Development Name Role Phone Yoseph Acevedo MD Primary Care Provider + [phone] Reason for Referral * Imaging (Routine) - Authorized Specialty Diagnoses / Procedures Referred By Contac t Referred To Contact Radiology Diagnoses Small cell carcinoma of lung, unspecified laterality, unspecified part of lung (CMS/HCC) Procedures CT Chest wo Contrast Matteo Zuniga MD [address] [place] [phone] Phone: tel: fax: [address] [address] Phone: tel: Referral ID Status Reason Start Date Expiration Date V isits Requested Visits Authorized [id number] Authorized 08/04/2024 08/04/2025 1 1 Encounter Details Date Type Department Care Team (Late st Contact Info) Description 08/04/2024 Telephone [facility] Hematology Oncology [address] [place] [phone] Matteo Zuniga MD [address] [place] [phone] Social History Tobacco Use Types Packs/Day [...] ct scan results. Please call him at [phone] documented in this encounter Plan of Treatment Upcoming Encounters Date Type Department Care Team (Late st Contact Info) Description 01/07/2025 10:30 AM EDT Appointment [facility] Radiation Oncology [address] [place] [address] [address] [place] [phone] Pina Wynn NP [address] [place] [address] [place] [phone] Scheduled Orders Name Type Priority Associated Diagnoses Orde r Schedule CT Chest wo Contrast Imaging Routine Small cell carcinoma of lung, unspecified laterality, unspecified part of lung (CMS/HCC) Expected: 11/01/2024, Expires: 08/04/2025 documented as of this encounter Visit Diagnoses Diagnosis Small cell carcinoma of lung, unspecified laterality, unspecified part of lung (CMS/HCC)- Primary documented in this encounter Care Teams Vice President Business & Corporate Development Relationship Specialty Start Date End Date Yoseph Acevedo MD [address] [place] [address] Dr Caceres [facility] [place] PCP - General Internal Medicine 07/29/17 documented as of this encounter
--- OUTSIDE RECORDS SUMMARY | 2024-08-26 08:06 | XMS_ITS | Encounter Summary ---
Author Organization [facility] Address [address] [place] [address] Care Team Providers Care Car Lubricator Name Role Phone Yoseph Acevedo MD Primary Care Provider [phone]- [phone] Encounter Details Date Type Department Care Team Description 11/05/2022 Social Work [facility] Oncology Services [address] [place] [address] Adina Hernandez, [facility] [place] History Tobacco Use Types Packs/Day Years [...] on filedocumented in this encounter Care Teams Car Lubricator Relationship Specialty Start Date End Date Yoseph Acevedo MD [address] [place] [address] [place] [address] PCP - General Internal Medicine 09/24/22 documented as of this encounter
--- OUTSIDE RECORDS SUMMARY | 2024-08-26 08:06 | XMS_ITS | Encounter Summary ---
Author Organization [facility] Address [address] [place] [address] Care Team Providers Care Internet Cafe Manager Name Role Phone Yoseph Acevedo MD Primary Care Provider +- [phone] Encounter Details Date Type Department Care Team (Late Contact Info) Description 04/03/2024 2:45 PM EDT Hospital Encounter TH HISTORIC ENCOUNTERS [facility] ONLY Matteo Zuniga MD [address] [place] [address] Social History Tobacco Use Types [...] Info) Description 01/07/2025 10:30 AM EDT Appointment [facility] Radiation Oncology [address] [phone] Pina Wynn NP [address] [place] [address] [address] [place] [phone] documented as of this encounter Visit Diagnoses Not on filedocumented in this encounter Care Teams Internet Cafe Manager Relationship Specialty Start Date End Date Yoseph Acevedo MD [address] [facility] [address] [place] PCP - General Internal Medicine 07/29/17 documented as of this encounter
--- OUTSIDE RECORDS SUMMARY | 2024-08-26 08:06 | XMS_ITS | Encounter Summary ---
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 He is . He has 1 son. [...] [facility] Radiation Oncology [address] [place] [phone] Pina Wynn NP [address] [place] [address] [address] [place] [phone] documented as of this encounter Procedures Procedure Name Priority Date/Time Associated Diagnosis Comments HISTORICAL IMAGING SCAN RESULT 04/03/2024 documented in this encounter Results * HISTORICAL IMAGING SCAN RESULT (04/03/2024) Anatomical Region Laterality Modality Ultrasound us Provider Onbase IMG US PROCEDURES Final Resul t documented in this encounter Visit Diagnoses Not on filedocumented in this encounter Care Teams Charge Preparation Technician Relationship Specialty Start Date End Date Yoseph Acevedo MD [address] [place] [address] [address] [place] PCP - General Internal Medicine 07/29/17 documented as of this encounter
--- OUTSIDE RECORDS SUMMARY | 2024-08-26 08:06 | XMS_ITS | Clinical Summary ---
Author Organization [facility] Address [address] [place] [phone] Phone Care Team Providers Care Oyster Culturist Name Role Phone Yoseph Acevedo MD Primary [...] DAY MAKE AN APPT FOR FURTHER REFILLS, [id number] 2 Active methylcellulose, laxative, 500 mg tablet [...] Type Department Care Team Description 08/04/2024 Telephone [facility] Hematology Oncology [address] [place] [address] Matteo Zuniga MD 07/23/2024 10:48 AM EST - 07/23/2024 11:59 PM EST Hospital Encounter [facility] CT Scan [address] [place] [address] Other malignant neuroendocrine tumors (CMS/HCC) Discharge Disposition: Home or Self Care 07/15/2024 1:46 PM EST - 07/15/2024 11:59 PM EST Hospital Encounter [facility] Radiation Oncology [address] [place] [phone] Pina Wynn, ALTAGRACIA Small cell carcinoma of lung, unspecified laterality, unspecified part of lung (CMS/HCC) (Primary Dx) Discharge Disposition: Home or Self Care 07/06/2024 9:52 AM EST - 07/06/2024 11:59 PM EST Hospital Encounter [facility] MRI [address] [place] [address] Malignant neoplasm of mediastinum, part unspecified (CMS/HCC) Discharge Disposition: Home or Self Care 07/02/2024 Telephone [facility] Radiation Oncology [address] [place] [phone] Elzbieta Jeffries MA 06/16/2024 Telephone [facility] Hematology Oncology [address] [place] [phone] Germaine Ballard [place] CAP CT/Labs from Last [...] with BMI o f 40.0-44.9, adult ([facility]) Hyperlipidemia 09/06/2017 DX:Hyperlipidemi a Pulmonary emphysema (CMS/HCC) [...] (CMS/HCC) DX:COPD (chronic obstructive pulmonary disease) ([facility]) Psoriasis DX:Psoriasis Tinnitus DX:Tinnitus Arthritis DX:Arthritis [...] Info) Description 01/07/2025 10:30 AM EDT Appointment [facility] Radiation Oncology [address] [place] [address] [place] [address] Pina Wynn NP [address] [place] [address] [address] [place] [phone] Health Maintenance Due Date Last Done [...] in [place] ([id number]) -------- FINAL REPORT -------- Dictated By: Laura Angel Dictated Date: 07/28/2024 11:11 ET Assigned Physician: Laura Angel Reviewed and Electronically Signed By: Laura Angel Signed Date: 07/28/2024 11:29 ET Workstation ID: [id number] Transcribed By: Self Edit Transcribed Date: 07/28/2024 11:11 ET Narrative 07/28/2024 11:29 AM EST History: Neuroendocrine tumor. Comparison: 12/31/23, lung screening CT 08/07/22 Technique: Helical volumetric imaging of the chest, abdomen and pelvis was performed without oral contrast and during the uneventful intravenous administration of 90 cc Isovue-370. DLP: 1969.73 mGy/cm [employer] VCT Iterative reconstruction technique Findings: Chest: The [...] of 90 cc Isovue-370. DLP: 1969.73 mGy/cm [employer] VCT Iterative reconstruction technique Findings: Chest: The [...] metastatic disease in the abdomen and pelvis. [employer] ARCELIA ([id number]) -------- FINAL REPORT -------- Dictated By: Laura Angel Dictated Date: 07/28/2024 11:11 ET Assigned Physician: Laura Angel Reviewed and Electronically Signed By: Laura Angel Signed Date: 07/28/2024 11:29 ET Workstation ID: [id number] Transcribed By: Self Edit Transcribed Date: 07/28/2024 11:11 ET us Matteo Zuniga MD IMG CT PROCEDURES Final Res ult * (ABNORMAL) Complete blood count (07/06/2024 11:29 AM EST) WBC 9.6 4.8 - 10.8 K/mcL LAB HEMETOLOGY METHOD 07/06/2024 1:[address] [facility] RBC 4.90 4.50 - 5.50 M/mcL LAB HEMETOLOGY METHOD 07/06/2024 1:[address] [facility] Hemoglobin 14.8 13.5 - 17.5 g/dL LAB HEMETOLOGY METHOD 07/06/2024 1:[address] [facility] Hematocrit 44.4 42.0 - 54.0 % LAB HEMETOLOGY METHOD 07/06/2024 1:[address] [facility] MCV 89.9 79.0 - 98.0 FL LAB HEMETOLOGY METHOD 07/06/2024 1:[address] [facility] MCH 30.0 27.0 - 32.0 pcg LAB HEMETOLOGY METHOD 07/06/2024 1:[address] [facility] MCHC 33.3 32.0 - 37.0 g/dL LAB HEMETOLOGY METHOD 07/06/2024 1:[address] [facility] RDW 16.1(H) 11.0 - 15.0 % LAB HEMETOLOGY METHOD 07/06/2024 1:[address] [facility] Platelets 283 130 - 400 K/mcL LAB HEMETOLOGY METHOD 07/06/2024 1:[address] [facility] MPV 8.9 7.0 - 11.0 FL LAB HEMETOLOGY METHOD 07/06/2024 1:[address] [facility] NRBC 0.0 <1.0 % LAB HEMETOLOGY METHOD 07/06/2024 1:[address] [facility] NRBC Absolute 0.00 <0.10 K/mcL LAB HEMETOLOGY METHOD 07/06/2024 1:[address] [facility] Blood Venous blood specimen / Unknown Venipuncture / Unknown 07/06/2024 11:29 AM EST 07/06/2024 12:35 PM EST us Matteo Zuniga MD LAB BLOOD ORDERABLES Final Result [facility] [address] [place] [address], [place] [phone] * (ABNORMAL) Comprehensive metabolic panel (07/06/2024 11:29 AM EST) Sodium 137 133 - 145 mmol/L LAB CHEMISTRY METHOD 07/06/2024 1:[address] [facility] Potassium 4.7 3.5 - 5.5 mmol/L LAB CHEMISTRY METHOD 07/06/2024 1:[address] [facility] Chloride 105 96 - 110 mmol/L LAB CHEMISTRY METHOD 07/06/2024 1:[address] [facility] CO2 27 21 - 32 mmol/L LAB CHEMISTRY METHOD 07/06/2024 1:[address] [facility] Anion Gap 5 3 - 11 LAB CHEMISTRY METHOD 07/06/2024 1:[address] [facility] Glucose 129(H) 70 - 100 mg/dL LAB CHEMISTRY METHOD 07/06/2024 1:[address] [facility] BUN 21 5 - 25 mg/dL LAB CHEMISTRY METHOD 07/06/2024 1:[address] [facility] Creatinine 0.90 0.70 - 1.30 mg/dL LAB CHEMISTRY METHOD 07/06/2024 1:[address] [facility] eGFR 90 >=60 mL/min/1. 73m2 LAB CHEMISTRY METHOD 07/06/2024 1:[address] [facility] Comment:Calculation based on the??Chronic Kidney Disease Epidemiology Collaboration (CKD-EPI) equation refit??without adjustment for race. BUN/Creatinine Ratio 23.3 LAB CHEMISTRY METHOD 07/06/2024 1:[address] [facility] Calcium 9.6 8.5 - 10.5 mg/dL LAB CHEMISTRY METHOD 07/06/2024 1:[address] [facility] AST (SGOT) 12 10 - 42 unit/L LAB CHEMISTRY METHOD 07/06/2024 1:[address] [facility] ALT (SGPT) 36 10 - 60 unit/L LAB CHEMISTRY METHOD 07/06/2024 1:[address] [facility] Alkaline Phosphatase 34(L) 42 - 121 unit/L LAB CHEMISTRY METHOD 07/06/2024 1:[address] [facility] Total Protein 6.6 6.0 - 8.0 g/dL LAB CHEMISTRY METHOD 07/06/2024 1:[address] [facility] Albumin 3.5 3.2 - 5.0 g/dL LAB CHEMISTRY METHOD 07/06/2024 1:[address] [facility] Total Bilirubin 0.4 0.0 - 1.4 mg/dL LAB CHEMISTRY METHOD 07/06/2024 1:[address] [facility] Blood Venous blood specimen / Unknown Venipuncture / Unknown 07/06/2024 11:29 AM EST 07/06/2024 12:36 PM EST us Matteo Zuniga MD LAB BLOOD ORDERABLES Final Result [facility] [address] [place] [address], * MR Brain wo and w Contrast [...] Signed Date: 07/10/2024 12:18 ET Workstation ID: [id number] Transcribed By: Self Edit Transcribed Date: 07/10/2024 [...] Signed Date: 07/10/2024 12:18 ET Workstation ID: [id number] Transcribed By: Self Edit Transcribed Date: 07/10/2024 11:53 ET Cassandra Mann MD IMG MRI PROCEDURES Final Res ult from Last 3 Months Insurance MEDICARE [facility] Care Teams Oyster Culturist Relationship Specialty Start Date End Date Yoseph Acevedo MD [address] [place] [address] [address] [place] PCP - General Internal Medicine 07/29/17
--- OUTSIDE RECORDS SUMMARY | 2024-08-26 08:06 | XMS_ITS | Clinical Summary ---
Author Organization [facility] Address [address] [place] [address] Care Team Providers Care Hydraulic Lift Driver Name Role Phone Yoseph Acevedo MD Primary Care Provider +1- [phone] Allergies No known active allergies Medications Medication [...] age to complete this topic Care Teams Hydraulic Lift Driver Relationship Specialty Start Date End Date Yoseph Acevedo MD [address] [place] [address] [place] [address] PCP - General Internal Medicine 09/24/22
== END 2024-08-26 09:05 | disposition home or self-care (01) ==
PROVIDERS: PCP Internal Medicine; Visit Provider Nurse Practitioner Family
DX: N41.9 Inflammatory disease of prostate, unspecified (principal); R39.12 Poor urinary stream; R30.0 Dysuria; R31.29 Other microscopic hematuria; Z87.891 Personal history of nicotine dependence; Z13.9 Encounter for screening, unspecified
CPT/HCPCS: 99204

== ENCOUNTER 2024-08-26 12:26 | Outpatient (AMB) | payer MEDICARE, OTHER, SELFPAY ==
[2024-08-26 12:32] VITALS: BP 126/82; PULSE 95; O2SAT 5; BMI 32.9
--- NOTE | 2024-08-26 12:32 | A.OFFPC_ITS ---
Vital Signs 08/26/24 12:32 Height 5 ft 6 in Weight 204 lb BMI 32.9 BP 126/82 Blood Pressure Location Lt brachial Position Sitting Pulse 95 Pulse Source Pulse Oximeter Pulse Oximetry (%) 5 L Oxygen Delivery Method Room Air Intake Visit Reasons: 3 Months f/u Rental Boats Caretaker Required: No Accompanied by: Self / Same As Patient Allergies No Known Allergies [No Known Allergies*] Allergy (Verified 08/26/24 13:00) Medication List - Last Reconciled 08/26/24 by Yoseph Acevedo MD albuterol sulfate 90 mcg/actuation 2 puffs inhalation Q4H PRN 30 days atorvastatin 40 mg PO BEDTIME coenzyme Q10 60 mg PO DAILY dabigatran etexilate 150 mg PO BID diltiazem HCl CD 120 mg PO DAILY famotidine 20 mg PO BEDTIME finasteride 5 mg PO DAILY 90 days ahsdydayoho-eqfxaaqcm-fbaqjpnw 200-62.5-25 mcg (Trelegy Ellipta) 1 ea inhalation DAILY ipratropium-albuterol 0.5 mg-3 mg(2.5 mg base)/3 mL 3 mL inhalation Q6H PRN lorazepam 0.5 mg PO TID PRN 30 days mh-zmb-vjaug-R7-zrowdpm-mrqujk 539-61-518-300 mcg (Centrum Silver Ultra Men's) 1 tab PO DAILY prednisone 40 mg (2 x 20 mg) PO DAILY prednisone 20 mg PO DAILY PRN roflumilast 500 mcg PO DAILY sulfamethoxazole-trimethoprim 800-160 mg (Bactrim DS) 1 tab PO BID 14 days tamsulosin (Flomax) 0.4 mg PO BEDTIME Tobacco use date assessed: 08/26/24 Fall risk assessment: No Falls in past year Last assessed Fall Risk: 08/26/24 Dental Screening Dental Screen Date: 08/26/24 Did you have a dental visit in the last 12 months?: Yes Did you have a dental problem in the last 6 months where you did not have access to dental care?: No Was dental information given to patient?: Patient has dentist HPI 3 Months f/u HPI Details Patient comes in today for his follow-up visit States that he feels okay He denies any headaches or dizziness Denies any chest pains, no increased shortness of breath - his breathing remains fairly well controlled with his current Rx, including Trelegy Ellipta, Daliresp and Albuterol inhaler No nausea/vomiting, no abdominal pain No change in bowel habits noted He had his follow-up labs done yesterday - to discuss his results [facility] Medical History Lower urinary tract symptoms Acute hypoxic respiratory failure Hypoxia Viral syndrome COPD exacerbation Gastritis and duodenitis Hx of cancer of lung Hx of radiation therapy History of chemotherapy Hiatal hernia On anticoagulant therapy HTN (hypertension) Tubular adenoma Arthritis Low back pain Diarrhea Oxygen dependent Emphysema/COPD BROWN (dyspnea on exertion) MANJEET (obstructive sleep apnea) Impaired fasting glucose Eye pain Obesity (BMI 30-39.9) Anxiety COPD (chronic obstructive pulmonary disease) Diabetes mellitus Pure hypercholesterolemia Diastolic heart failure Paroxysmal atrial fibrillation Surgical History History of right inguinal hernia repair (03/13/23) History of esophagogastroduodenoscopy (EGD) Deficient knowledge of leg surgery History of surgery History of cardioversion H/O prior ablation treatment History of colonoscopy Family History Father Medical history unknown Mother Myocardial infarction Social History Household Members: None Housing: House Are you a primary childcare teacher to a significant other at home: No Do you presently have visiting nurse or other home services: No Unable to assess alcohol history related to: Unable to respond Alcohol intake: current Alcohol intake frequency: a few times a week Alcohol type: beer Patient Tobacco Use Status: Former Tobacco user Tobacco use type: Cigarette e-Cigarette/Vaping Use: Never Used Second Hand Smoke Exposure: Yes Substance Use Type: Marijuana service: No Current occupational status: retired Cognitive needs: No Hearing needs: No Vision needs: Yes (reading glasses) Questionnaire PHQ-9 Over the last 2 weeks, how often have you been bothered by any of the following problems? 1. Little interest or pleasure in doing things: not at all 2. Feeling down, depressed, or hopeless: not at all 3. Trouble falling or staying asleep, or sleeping too much: not at all 4. Feeling tired or having little energy: not at all 5. Poor appetite or overeating: not at all 6. Feeling bad about yourself - or that you are a failure or have let yourself or your family down: not at all 7. Trouble concentrating on things, such as reading the newspaper or watching television: not at all 8. Moving or speaking so slowly that other people could have noticed. Or the opposite - being so fidgety or restless that you have been moving around a lot more than usual: not at all 9. Thoughts that you would be better off or of hurting yourself in some way: not at all Total score: 0 Depression Screening Interpretation: Negative Depression Screening Done: Yes 26812 - PHQ-9 Billing: Yes Source: Developed by Drs. Biju Pedroza, Felisha Roberson, Sergio Wang and colleagues, with an educational gary from [employer]. Thrive Questionnaire Date Thrive assessed: 08/26/24 I am a: Patient What is your living situation today?: I have a steady place to live Within the past 12 months, did the food you bought not last and you didn't have the money to get more?: Never true Within the past 12 months, did you worry whether your food would run out before you got money to buy more?: Never true Do you have trouble paying for medicines?: No Do you have trouble getting transportation to medical appointments?: No Do you have trouble paying your heating and electricity bill?: No Do you have trouble taking care of your child, family member or friend?: No Do you have trouble with day-to-day activities such as bathing, preparing meals, shopping, managing finances, etc.?: No Are you currently unemployed and looking for a job?: No Are you interested in more education?: No Please select the resources that you would like help with: None Currently or been in a relationship where the following occur: No concerns reported THRIVE Score: 0 AUDIT C Alcohol Use Questionnaire (AUDIT-C) 1. How often do you have a drink containing alcohol?: 2-4 times a month 2. How many drinks containing alcohol do you have on a typical day when you are drinking?: 1 or 2 3. How often do you have six or more drinks on one occasion?: Never Total Score: 2 Score Reviewed/Action Taken: Yes DANGELO-7 AMB Questionnaire DANGELO-7 Date DANGELO - 7 assessed: 08/26/24 Feeling nervous, anxious, or on edge: 0 = Not at all Not being able to stop or control worryin = Not at all Worrying too much about different things: 0 = Not at all Trouble relaxin = Not at all Being so restless that it is hard to sit still: 0 = Not at all Becoming easily annoyed or irritable: 0 = Not at all Feeling afraid as if something awful might happen: 0 = Not at all Total DANGELO-7 score (0-4 normal; 5-9 mild; 10-14 moderate; 15-21 severe): 0 Source: Developed by Drs. Biju Pedroza, Felisha Roberson, Sergio Wang and colleagues, with an educational gary from [employer]. Review of Systems Const Denies chills, Reports fatigue, Denies fever(s) and Denies headache(s) ENT Denies dysphagia, Denies dizziness, Denies otalgia, Denies headache(s), Denies neck pain, Denies odynophagia and Denies sore throat Card Denies chest pain, Denies irregular heart rhythm, Denies palpitations and Reports dyspnea on exertion (mild) Resp Denies chest congestion, Denies cough and Reports dyspnea on exertion (mild) GI Denies abdominal pain, Denies constipation, Denies dysphagia, Denies heartburn, Denies diarrhea, Denies nausea, Denies odynophagia and Denies vomiting Denies difficulty urinating, Denies dysuria and Denies urinary frequency Musc Denies back pain, Denies arthralgias and Denies neck pain Skin/Breast Denies rash Neuro Denies dizziness, Denies headache(s) and Denies paresthesias Psych Reports anxiety and Denies depression Endo Reports fatigue and Denies palpitations Physical exam (Primary Care) Vital Signs: Last Vital Signs Pulse 95 08/26/24 12:32 BP 126/82 08/26/24 12:32 Pulse Ox 5 L 08/26/24 12:32 Oxygen Delivery Method Room Air 08/26/24 12:32 BMI result Body Mass Index 32.9 Tobacco/Smoking Status: Tobacco use Status Tobacco use date assessed 08/26/24 08/26/24 12:40 Patient Tobacco Use Status Former Tobacco user 08/26/24 12:40 Tobacco use type Cigarette 08/26/24 12:40 e-Cigarette/Vaping Use Never Used 08/26/24 12:40 PHQ-9: PHQ-9 Score PHQ-9: Total score 0 08/26/24 12:40 Depression Screening Interpretation: Negative Thrive Assessment: Date of Thrive Assessment Date Thrive assessed 08/26/24 08/26/24 12:40 Currently or been in a relationship where the following occur: No concerns reported Const General: no acute distress and alert HENMT Ears: TM's normal bilaterally and EAC's normal Throat: Yes posterior oropharynx normal and Yes tonsils normal (no TP congestion) Neck Neck: Yes supple and No lymphadenopathy Thyroid: Thyroid normal Resp Auscultation: no crackles, no rales, rhonchi (scattered) throughout, no wheezes and diminished lung sounds bilateral Cardio Rate: regular rate Rhythm: regular rhythm Heart sounds: no murmurs GI Palpation (GI): Soft to palpation and nontender Auscultation: normal bowel sounds General: Yes no CVA tenderness Back/Spine/Pelvis Back: no CVA tenderness Thoracic/Lumbar Spine: No lumbar spinal tenderness Skin Rashes: no rashes Extrem General: Yes no clubbing, cyanosis or edema Results AMB Urinalysis, Automated UA Leukoctes 0 Mariah/uL Last Edit by Brandee Hernandez on 08/26/24 08:27 UA Nitrite Negative Last Edit by Brandee Hernandez on 08/26/24 08:27 UA Urobilinogen 0.2 mg/dL Last Edit by Brandee Hernandez on 08/26/24 08:27 UA Protein 0 mg/dL Last Edit by Brandee Hernandez on 08/26/24 08:27 UA pH 6.0 Last Edit by Brandee Hernandez on 08/26/24 08:27 UA Blood 80 Panfilo/uL Last Edit by Brandee Hernandez on 08/26/24 08:27 UA Specific [place] 1.015 Last Edit by Brandee Hernandez on 08/26/24 08:27 UA Ketone Negative Last Edit by Brandee Hernandez on 08/26/24 08:27 UA Bilirubin 0 mg/dL Last Edit by Brandee Hernandez on 08/26/24 08:27 UA Glucose 0 mg/dL Last Edit by Brandee Hernandez on 08/26/24 08:27 Results Reviewed Results Reviewed: Laboratory Tests 07/29/24 08/24/24 08/25/24 09:31 12:54 08:38 WBC 8.8 Hgb 15.3 Hct 44.7 Plt Count 255 Sodium 142 Potassium 4.5 Creatinine 0.82 Estimated GFR > 60 Fasting Glucose 102 H Hemoglobin A1c % 6.8 H Calcium 9.6 AST 25 ALT 31 B-Natriuretic Peptide 12 Triglycerides 60 Cholesterol 168 LDL Cholesterol, Calc 87 HDL Cholesterol 69 Vitamin B12 751 25-OH Vitamin D Total 31.0 TSH 1.69 Ur Specific [place] 1.020 Urine Protein Negative Urine Glucose (UA) Negative Urine Blood Small (1+) H Urine Nitrite Negative Ur Leukocyte Esterase Negative Coding Level of Care Code Est Pt Level 4 (16772) Diagnoses Paroxysmal atrial fibrillation I48.0 Diastolic heart failure, unspecified HF chronicity I50.30 Heart failure chronicity: unspecified Pure hypercholesterolemia E78.00 Hx of cancer of lung Z85.118 Chronic obstructive pulmonary disease, unspecified COPD type J44.9 COPD type: unspecified COPD Type 2 diabetes mellitus without complication, without long-term current use of insulin E11.9 Diabetes mellitus type: type 2 Diabetes mellitus shelter insulin use: without shelter use Diabetes mellitus complication status: without complication Gastritis and duodenitis K29.90 Anxiety F41.9 Episode of recurrent major depressive disorder, unspecified depression episode severity F33.9 Depression Type: major depressive disorder Major depression recurrence: recurrent Active/Remission status: currently active Major depression episode severity: unspecified Obesity (BMI 30-39.9) E66.9 Additional Codes PHQ-9 - 34878 - PHQ-9 Billing: Yes ([id number]) Assessment & Plan Assessment & Plan (1) Paroxysmal atrial fibrillation: Code(s): I48.0 - Paroxysmal atrial fibrillation Category: Medical Plan: Patient currently remains in sinus rhythm and has been rate-controlled over the past couple of years now on Diltiazem - he was on Amiodarone 200 mg QD in the past S/P cardiac ablation at [facility] on 07/29/2018; cardiac rehab back then resulted in some improvement of his symptoms Continue Pradaxa 150 mg twice a day for thromboembolism prophylaxis Follow-up with cardiology as scheduled (2) Diastolic heart failure: Code(s): I50.30 - Unspecified diastolic (congestive) heart failure Category: Medical Qualifiers: Heart failure chronicity: unspecified Qualified Code(s): I50.30 - Unspecified diastolic (congestive) heart failure Plan: Compensated - reinforced fluid restriction He was on Furosemide in the past but patient has not required any diuretics lately His BNP was normal on his recent labs (3) Pure hypercholesterolemia: Code(s): E78.00 - Pure hypercholesterolemia, unspecified Category: Medical Plan: Results of his labs done yesterday reviewed and discussed with patient - his cholesterol levels remain well-controlled on his recent labs Reinforced low cholesterol diet Continue Atorvastatin 40 mg QD Will recheck his labs and fasting lipids in 3 months for follow up (4) Hx of cancer of lung: Comment: treated at [facility] Code(s): Z85.118 - Personal history of other malignant neoplasm of bronchus and lung Category: Medical Plan: 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 on 09/13/2022 Staging work up done at the time revealed NO metastasis and he was recommended to undergo concurrent chemoradiation therapy He was started then on Carboplatin and HANDBELL CHOIR DIRECTOR-16, completed Tx on 01/06/2023 He completed his radiation therapy on 01/04/2023 Follow-up with Pulmonary and Oncology as scheduled for continuing surveillance (5) COPD (chronic obstructive pulmonary disease): Code(s): J44.9 - Chronic obstructive pulmonary disease, unspecified Category: Medical Qualifiers: COPD type: unspecified COPD Qualified Code(s): J44.9 - Chronic obstructive pulmonary disease, unspecified Plan: Patient was on prophylactic Azithromycin 250 mg 1 tablet 3 times a week before but this was also discontinued at some point States that his breathing has been fairly well controlled lately with his current Rx, which include Trelegy Ellipta, Daliresp and Albuterol inhaler Follow up with [facility] (Dr. Johnson) as scheduled He still has his Rx for prednisone that he keeps on hand and he plans to use this only in emergency situations and for acute flare-ups of his COPD (6) Diabetes mellitus: Comment: lost weight, A1C below 7--no meds Code(s): E11.9 - Type 2 diabetes mellitus without complications Category: Medical Qualifiers: Diabetes mellitus type: type 2 Diabetes mellitus shelter insulin use: without shelter use Diabetes mellitus complication status: without complication Qualified Code(s): E11.9 - Type 2 diabetes mellitus without complications Plan: His HgbA1c was at 6.8% on his labs done yesterday but it did go up to 7.1% earlier this month Have advised patient that with his recent HgbA1c numbers, he is now a diabetic and if he is not able to keep his HgbA1c done to <6.5%, then we will need to consider starting him on Rx for his diabetes Have advised him that his prednisone likely contributed to the rise in his blood sugar, especially if he has to take them frequently Discussed low carb/low calorie diet Will have him recheck his FBS and HgbA1c again in 3 months for follow up (7) Gastritis and duodenitis: Code(s): K29.90 - Gastroduodenitis, unspecified, without bleeding Category: Medical Plan: EGD done in May 2022 revealed (+) gastritis and duodenitis, and he was started on Pantoprazole 40 mg QD then He has reportedly been advised by GI that he may also have IBS and/or lactose intolerance Reinforced dietary restrictions Continue Ondansetron 4 mg Q 8 hours PRN for his nausea, Famotidine 20 mg Q HS and Pantoprazole 40 mg QD (8) Anxiety: Code(s): F41.9 - Anxiety disorder, unspecified Category: Medical Plan: He was previously on Sertraline 150 mg QD and Lorazepam 0.5 mg every 8 hours as needed for his anxiety but appears to have stopped taking both meds a while back Patient feels that he has been doing okay so far with regard to his mood disorder and he does not require any prescription or medication at this time other than Lorazepam PRN (9) Depression: Code(s): F32.9 - Major depressive disorder, single episode, unspecified Category: Medical Qualifiers: Depression Type: major depressive disorder Major depression recurrence: recurrent Active/Remission status: currently active Major depression episode severity: unspecified Qualified Code(s): F33.9 - Major depressive disorder, recurrent, unspecified Plan: He was taking Sertraline 150 mg QD in the past but appears to have self- discontinued this Rx a while back - states that he has been doing okay without any Rx for his depression so far Will consider again referral to psychiatry if his symptoms recur or progress (10) Obesity (BMI 30-39.9): Code(s): E66.9 - Obesity, unspecified Category: Medical Plan: Reinforced diet; exercise and weight loss are not realistic given patient's COPD and other multiple comorbidities Plan Follow up in 3 months Orders: Orders Hemoglobin A1c 3 Months E11.9 - Type 2 diabetes mellitus without complications Comprehensive [place]. Panel Fast 3 Months E78.00 - Pure hypercholesterolemia, unspecified Lipid Panel 3 Months E78.00 - Pure hypercholesterolemia, unspecified TSH reflex Free T4 3 Months E78.00 - Pure hypercholesterolemia, unspecified UA CC w/rflx Micro + Cult 3 Months R30.0 - Dysuria Vitamin D 25-OH Total 3 Months E55.9 - Vitamin D deficiency, unspecified Complete Blood Count Auto Diff 3 Months D64.9 - Anemia, unspecified B Type Natriuretic Peptide 3 Months I50.9 - Heart failure, unspecified
--- OUTSIDE RECORDS SUMMARY | 2024-08-26 15:16 | XMS_ITS | Encounter Summary ---
Author Organization [facility] Address [address] [place] [address] Care Team Providers Care Floor Scrubber Name Role Phone Yoseph Acevedo MD Primary Care Provider + [phone] Reason for Referral * Imaging (Routine) - Authorized Specialty Diagnoses / Procedures Referred By Contac t Referred To Contact Radiology Diagnoses Small cell carcinoma of lung, unspecified laterality, unspecified part of lung (CMS/HCC) Procedures CT Chest wo Contrast Matteo Zuniga MD [address] [place] [phone] Phone: tel: fax: [address] [phone] Phone: tel: Referral ID Status Reason Start Date Expiration Date V isits Requested Visits Authorized [id number] Authorized 08/04/2024 08/04/2025 1 1 Encounter Details Date Type Department Care Team (Late st Contact Info) Description 08/04/2024 Telephone [facility] Hematology Oncology [address] [place] [phone] Matteo Zuniga MD [address] [place] [phone] Social History Tobacco Use Types Packs/Day [...] ct scan results. Please call him at [phone] documented in this encounter Plan of Treatment Upcoming Encounters Date Type Department Care Team (Late st Contact Info) Description 01/07/2025 10:30 AM EDT Appointment [facility] Radiation Oncology [address] [phone] Pina Wynn NP [address] [place] [address] Scheduled Orders Name Type Priority Associated Diagnoses Orde r Schedule CT Chest wo Contrast Imaging Routine Small cell carcinoma of lung, unspecified laterality, unspecified part of lung (CMS/HCC) Expected: 11/01/2024, Expires: 08/04/2025 documented as of this encounter Visit Diagnoses Diagnosis Small cell carcinoma of lung, unspecified laterality, unspecified part of lung (CMS/HCC)- Primary documented in this encounter Care Teams Floor Scrubber Relationship Specialty Start Date End Date Yoseph Acevedo MD [address] [place] [address] [address] [place], [place] PCP - General Internal Medicine 07/29/17 documented as of this encounter
--- OUTSIDE RECORDS SUMMARY | 2024-08-26 15:16 | XMS_ITS | Encounter Summary ---
Author Organization [facility] Address [address] [place] [address] Care Team Providers Care Ehs Specialist Name Role Phone Yoseph Acevedo MD Primary Care Provider + [phone] Encounter Details Date Type Department Care Team (Late st Contact Info) Description 04/03/2024 2:45 PM EDT Hospital Encounter TH HISTORIC ENCOUNTERS [facility] ONLY Matteo Zuniga MD [address] [place] [phone] Social History Tobacco Use Types Packs/Day [...] right paratracheal node revealed metastatic neuroendocrine carcinoma, [id number]-6-brwprqdx, chromogranin-positive, synaptophysin-positive, Ki-67-high. 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 He is . He has 1 son. [...] [facility] Radiation Oncology [address] [phone] Pina Wynn NP [address] [place] [address] documented as of this encounter Procedures Procedure Name Priority Date/Time Associated Diagnosis Comments HISTORICAL IMAGING SCAN RESULT 04/03/2024 documented in this encounter Results * HISTORICAL IMAGING SCAN RESULT (04/03/2024) Anatomical Region Laterality Modality Ultrasound us Provider Onbase MD LI US PROCEDURES Final Resul t documented in this encounter Visit Diagnoses Not on filedocumented in this encounter Care Teams Ehs Specialist Relationship Specialty Start Date End Date Yoseph Acevedo MD [address] [place] [address] Dr [address] [place] PCP - General Internal Medicine 07/29/17 documented as of this encounter
--- OUTSIDE RECORDS SUMMARY | 2024-08-26 15:16 | XMS_ITS | Encounter Summary ---
Author Organization [facility] Address [address] [place] [address] Care Team Providers Care Support Analyst Name Role Phone Yoseph Acevedo MD Primary Care Provider [phone]- [phone] Encounter Details Date Type Department Care Team Description 11/05/2022 Social Work [facility] Oncology Services [address] [place] [address] Adina Hernandez, [facility] Social History Tobacco Use [...] on filedocumented in this encounter Care Teams Support Analyst Relationship Specialty Start Date End Date Yoseph Acevedo MD [address] [place] [address] [place] [address] PCP - General Internal Medicine 09/24/22 documented as of this encounter
--- OUTSIDE RECORDS SUMMARY | 2024-08-26 15:16 | XMS_ITS | Encounter Summary ---
Author Organization [facility] Address [address] [place] [address] Care Team Providers Care Wheel Buffer Name Role Phone Yoseph Acevedo MD Primary Care Provider [phone]- [phone] Encounter Details Date Type Department Care Team Description 10/12/[address] [facility] Oncology Services [address] [place] [address] Adina Hernandez, [facility] Social History Tobacco Use Types Packs/Day Years [...] on filedocumented in this encounter Care Teams Wheel Buffer Relationship Specialty Start Date End Date Yoseph Acevedo MD [address] [place] [address] [place] [address] PCP - General Internal Medicine 09/24/22 documented as of this encounter
--- OUTSIDE RECORDS SUMMARY | 2024-08-26 15:16 | XMS_ITS | Clinical Summary ---
Author Organization [facility] Address [address] [place] [phone] Phone Care Team Providers Care Application Technician Name Role Phone Yoseph Acevedo MD Primary Care Provider [phone] Allergies No known active allergies Medications predniSONE [...] DAY MAKE AN APPT FOR FURTHER REFILLS, [id number] 2 Active methylcellulose, laxative, 500 mg tablet [...] Type Department Care Team Description 08/04/2024 Telephone [facility] Hematology Oncology [address] [place] [address] Matteo Zuniga MD 07/23/2024 10:48 AM EST - 07/23/2024 11:59 PM EST Hospital Encounter [facility] CT Scan [address] [place] [address] Other malignant neuroendocrine tumors (CMS/HCC) Discharge Disposition: Home or Self Care 07/15/2024 1:46 PM EST - 07/15/2024 11:59 PM EST Hospital Encounter [facility] Radiation Oncology [address] [place] [phone] Pina Wynn, ALTAGRACIA Small cell carcinoma of lung, unspecified laterality, unspecified part of lung (CMS/HCC) (Primary Dx) Discharge Disposition: Home or Self Care 07/06/2024 9:52 AM EST - 07/06/2024 11:59 PM EST Hospital Encounter [facility] MRI [address] [place] [address] Malignant neoplasm of mediastinum, part unspecified (CMS/HCC) Discharge Disposition: Home or Self Care 07/02/2024 Telephone [facility] Radiation Oncology [address] [place] [phone] Elzbieta Jeffries MA 06/16/2024 Telephone [facility] Hematology Oncology [address] [place] [phone] Germaine Ballard MA CAP CT/Labs from Last [...] obesity with BMI o f 40.0-44.9, adult ([facility]) Hyperlipidemia 09/06/2017 DX:Hyperlipidemi a Pulmonary emphysema (CMS/HCC) [...] (gastroesophageal reflux disease) Hypertension DX:Hypertension Lung cancer ([facility]/HCC) DX:Lung ca ncer (HCC) COPD (chronic obstructive pu lmonary disease) (CMS/HCC) DX:COPD (chronic obstructive pulmonary disease) ([facility]) Psoriasis DX:Psoriasis Tinnitus DX:Tinnitus Arthritis DX:Arthritis Hyperlipidemia [...] Info) Description 01/07/2025 10:30 AM EDT Appointment [facility] Radiation Oncology [address] [phone] Pina Wynn NP [address] [place] [address] Health Maintenance Due Date Last Done Comments [...] in [place] ([id number]) -------- FINAL REPORT -------- Dictated By: Laura Angel Dictated Date: 07/28/2024 11:11 ET Assigned Physician: Laura Angel Reviewed and Electronically Signed By: Laura Angel Signed Date: 07/28/2024 11:29 ET Workstation ID: [id number] Transcribed By: Self Edit Transcribed Date: 07/28/2024 11:11 ET Narrative 07/28/2024 11:29 AM EST History: Neuroendocrine tumor. Comparison: 12/31/23, lung screening CT 08/07/22 Technique: Helical volumetric imaging of the chest, abdomen and pelvis was performed without oral contrast and during the uneventful intravenous administration of 90 cc Isovue-370. DLP: 1969.73 mGy/cm [employer] [place] VCT Iterative reconstruction technique Findings: Chest: The [...] of 90 cc Isovue-370. DLP: 1969.73 mGy/cm [employer] [place] VCT Iterative reconstruction technique Findings: Chest: The [...] metastatic disease in the abdomen and pelvis. [employer] [place] ([id number]) -------- FINAL REPORT -------- Dictated By: Laura Angel Dictated Date: 07/28/2024 11:11 ET Assigned Physician: Laura Angel Reviewed and Electronically Signed By: Laura Angel Signed Date: 07/28/2024 11:29 ET Workstation ID: [id number] Transcribed By: Self Edit Transcribed Date: 07/28/2024 11:11 ET us Matteo Zuniga MD IMG CT PROCEDURES Final Res ult * (ABNORMAL) Complete blood count (07/06/2024 11:29 AM EST) WBC 9.6 4.8 - 10.8 K/mcL LAB HEMETOLOGY METHOD 07/06/2024 1:38 PM [facility] RBC 4.90 4.50 - 5.50 M/mcL LAB HEMETOLOGY METHOD 07/06/2024 1:38 PM [facility] Hemoglobin 14.8 13.5 - 17.5 g/dL LAB HEMETOLOGY METHOD 07/06/2024 1:38 PM [facility] Hematocrit 44.4 42.0 - 54.0 % LAB HEMETOLOGY METHOD 07/06/2024 1:38 PM [facility] MCV 89.9 79.0 - 98.0 FL LAB HEMETOLOGY METHOD 07/06/2024 1:38 PM [facility] MCH 30.0 27.0 - 32.0 pcg LAB HEMETOLOGY METHOD 07/06/2024 1:38 PM [facility] MCHC 33.3 32.0 - 37.0 g/dL LAB HEMETOLOGY METHOD 07/06/2024 1:38 PM [facility] RDW 16.1(H) 11.0 - 15.0 % LAB HEMETOLOGY METHOD 07/06/2024 1:38 PM [facility] Platelets 283 130 - 400 K/mcL LAB HEMETOLOGY METHOD 07/06/2024 1:38 PM [facility] MPV 8.9 7.0 - 11.0 FL LAB HEMETOLOGY METHOD 07/06/2024 1:38 PM [facility] NRBC 0.0 <1.0 % LAB HEMETOLOGY METHOD 07/06/2024 1:38 PM [facility] NRBC Absolute 0.00 <0.10 K/mcL LAB HEMETOLOGY METHOD 07/06/2024 1:38 PM [facility] Blood Venous blood specimen / Unknown Venipuncture / Unknown 07/06/2024 11:29 AM EST 07/06/2024 12:35 PM EST us Matteo Zuniga MD LAB BLOOD ORDERABLES Final Result [facility] [address] [place] [address], [place] [phone] * (ABNORMAL) Comprehensive metabolic panel (07/06/2024 11:29 AM EST) Sodium 137 133 - 145 mmol/L LAB CHEMISTRY METHOD 07/06/2024 1:38 PM [facility] Potassium 4.7 3.5 - 5.5 mmol/L LAB CHEMISTRY METHOD 07/06/2024 1:38 PM [facility] Chloride 105 96 - 110 mmol/L LAB CHEMISTRY METHOD 07/06/2024 1:38 PM [facility] CO2 27 21 - 32 mmol/L LAB CHEMISTRY METHOD 07/06/2024 1:38 PM [facility] Anion Gap 5 3 - 11 LAB CHEMISTRY METHOD 07/06/2024 1:38 PM [facility] Glucose 129(H) 70 - 100 mg/dL LAB CHEMISTRY METHOD 07/06/2024 1:38 PM [facility] BUN 21 5 - 25 mg/dL LAB CHEMISTRY METHOD 07/06/2024 1:38 PM [facility] Creatinine 0.90 0.70 - 1.30 mg/dL LAB CHEMISTRY METHOD 07/06/2024 1:38 PM [facility] eGFR 90 >=60 mL/min/1. 73m2 LAB CHEMISTRY METHOD 07/06/2024 1:38 PM [facility] Comment:Calculation based on the??Chronic Kidney Disease Epidemiology Collaboration (CKD-EPI) equation refit??without adjustment for race. BUN/Creatinine Ratio 23.3 LAB CHEMISTRY METHOD 07/06/2024 1:38 PM [facility] Calcium 9.6 8.5 - 10.5 mg/dL LAB CHEMISTRY METHOD 07/06/2024 1:38 PM [facility] AST (SGOT) 12 10 - 42 unit/L LAB CHEMISTRY METHOD 07/06/2024 1:38 PM [facility] ALT (SGPT) 36 10 - 60 unit/L LAB CHEMISTRY METHOD 07/06/2024 1:38 PM [facility] Alkaline Phosphatase 34(L) 42 - 121 unit/L LAB CHEMISTRY METHOD 07/06/2024 1:38 PM [facility] Total Protein 6.6 6.0 - 8.0 g/dL LAB CHEMISTRY METHOD 07/06/2024 1:38 PM [facility] Albumin 3.5 3.2 - 5.0 g/dL LAB CHEMISTRY METHOD 07/06/2024 1:38 PM [facility] Total Bilirubin 0.4 0.0 - 1.4 mg/dL LAB CHEMISTRY METHOD 07/06/2024 1:38 PM [facility] Blood Venous blood specimen / Unknown Venipuncture / Unknown 07/06/2024 11:29 AM EST 07/06/2024 12:36 PM EST us Matteo Zuniga MD LAB BLOOD ORDERABLES Final Result [facility] [address] [place] [address], * MR Brain wo and w Contrast [...] Signed Date: 07/10/2024 12:18 ET Workstation ID: [id number] Transcribed By: Self Edit Transcribed Date: 07/10/2024 [...] Signed Date: 07/10/2024 12:18 ET Workstation ID: [id number] Transcribed By: Self Edit Transcribed Date: 07/10/2024 11:53 ET Cassandra Mann MD IMG MRI PROCEDURES Final Res ult from Last 3 Months Insurance MEDICARE [facility] Care Teams Application Technician Relationship Specialty Start Date End Date Yoseph Acevedo MD [address] [place] [address] [place] [address] [place] PCP - General Internal Medicine 07/29/17
--- OUTSIDE RECORDS SUMMARY | 2024-08-26 15:16 | XMS_ITS ---
Author Organization [facility] Address [address] [place] [address] Care Team Providers Care Cost Accounting Analyst Name Role Phone Yoseph Acevedo MD Primary Care Provider [phone] Active Problems Problem Noted Date Diagnosed Date [...] treatments are documented for this patient in [facility]. Treatments may have been administered in another system.
--- OUTSIDE RECORDS SUMMARY | 2024-08-26 15:16 | XMS_ITS | Clinical Summary ---
Author Organization [facility] Address [address] [place] [address] Care Team Providers Care Chief Scientist Name Role Phone Yoseph Acevedo MD Primary Care Provider [phone] Allergies No known active allergies Medications Medication [...] age to complete this topic Care Teams Chief Scientist Relationship Specialty Start Date End Date Yoseph Acevedo MD [address] [place] [address] [place] [address] PCP - General Internal Medicine 09/24/22
--- OUTSIDE RECORDS SUMMARY | 2024-08-26 15:16 | XMS_ITS | Encounter Summary ---
Author Organization Address [address] [place] [address] Care Team Providers Care Shochet Name Role Phone Yoseph Acevedo MD Primary Care Provider +- [phone] Encounter Details Date Type Department Care Team (Late st Contact Info) Description 04/03/2024 2:45 PM EDT Hospital Encounter TH HISTORIC ENCOUNTERS [facility]AST[facility] CONVERSION ONLY Matteo Zuniga MD [address] [place] [address] Social History Tobacco Use Types [...] Description 01/07/2025 10:30 AM EDT Appointment [facility] Radiation Oncology [address] [address] Pina Wynn NP [address] [place] [address] documented as of this encounter Visit Diagnoses Not on filedocumented in this encounter Care Teams Shochet Relationship Specialty Start Date End Date Yoseph Aceevdo MD [address] MARY Mendiola PCP - General Internal Medicine 07/29/17 documented as of this encounter
== END 2024-08-26 13:16 | disposition home or self-care (01) ==
PROVIDERS: PCP Internal Medicine; Visit Provider Internal Medicine
DX: E11.9 Type 2 diabetes mellitus without complications (principal); I48.0 Paroxysmal atrial fibrillation; I50.30 Unspecified diastolic (congestive) heart failure; J44.9 Chronic obstructive pulmonary disease, unspecified; F33.9 Major depressive disorder, recurrent, unspecified; E78.00 Pure hypercholesterolemia, unspecified; Z85.118 Personal history of other malignant neoplasm of bronchus and lung; K29.90 Gastroduodenitis, unspecified, without bleeding; F41.9 Anxiety disorder, unspecified; E66.9 Obesity, unspecified

== ENCOUNTER 2024-10-01 14:32 | Outpatient (REF) | payer MEDICARE, OTHER, SELFPAY ==
--- OUTSIDE RECORDS SUMMARY | 2024-10-01 16:03 | XMS_ITS | Clinical Summary ---
Author Organization [facility] Address [address] [place] [phone] Phone Care Team Providers Care Barber Apprentice Name Role Phone Yoseph Acevedo MD Primary [...] DAY MAKE AN APPT FOR FURTHER REFILLS, [id number] 2 Active methylcellulose, laxative, 500 mg tablet [...] Type Department Care Team Description 08/04/2024 Telephone [facility] Hematology Oncology [address] [place] [address] Matteo Zuniga MD 07/23/2024 10:48 AM EST - 07/23/2024 11:59 PM EST Hospital Encounter [facility] CT Scan [address] [place] [address] Other malignant neuroendocrine tumors (CMS/HCC) Discharge Disposition: Home or Self Care 07/15/2024 1:46 PM EST - 07/15/2024 11:59 PM EST Hospital Encounter [facility] Radiation Oncology [address] [address] Pina Wynn, ALTAGRACIA Small cell carcinoma of lung, unspecified laterality, unspecified part of lung (CMS/HCC) (Primary Dx) Discharge Disposition: Home or Self Care 07/06/2024 9:52 AM EST - 07/06/2024 11:59 PM EST Hospital Encounter [facility] MRI [address] [place] [address] Malignant neoplasm of mediastinum, part unspecified (CMS/HCC) Discharge Disposition: Home or Self Care from Last 3 Months Immunizations Name Administration [...] obesity with BMI of 4 0.0-44.9, adult ([facility]) 08/23/2017 DX:Morbid obesity with BMI o f 40.0-44.9, adult ([facility]) Hyperlipidemia 09/06/2017 DX:Hyperlipidemi a Pulmonary emphysema ([facility]) 08/23/2017 DX :Pulmonary emphysema (HCC) HTN (hypertension) 09/06/2017 DX:HTN (hyper tension) Diabetes mellitus type 2, uncomplicated 09/06/2017 DX:Diabetes mellitus type 2, uncomplicated (HCC) Tobacco use 09/06/2017 DX:Tobacco use Polycythemia 09/06/2017 DX:Polycythemia Atrial fibrillation ([facility]/HCC) 09/06/2017 DX :Atrial fibrillation (HCC); COMMENT: Ablation . Atrial fibrillation ([facility]/HCC) DX :Atrial fibrillation (HCC) GERD (gastroesophageal reflux disease) DX:GERD (gastroesophageal reflux disease) Hypertension DX:Hypertension Lung cancer ([facility]/HCC) DX:Lung ca ncer (HCC) COPD (chronic obstructive pu lmonary disease) ([facility]/HCC) DX:COPD (chronic obstructive pulmonary disease) ([facility]) Psoriasis DX:Psoriasis Tinnitus DX:Tinnitus Arthritis [...] Care Team (Late st Contact Info) Description 10/19/2024 10:00 AM EDT Appointment [facility] CT Scan [address] [place] [address] 10/26/2024 11:45 AM EDT Office Visit [facility] Hematology Oncology [address] [place] [address] Matteo Zuniga MD [address] [place] [address] 01/07/2025 10:30 AM EDT Appointment [facility] Radiation Oncology [address] [phone] Pina Wynn NP [address] [place] [address] Health Maintenance Due Date Last Done Comments Diabetes: Annual Foot Exam 10/10/1959 Diabetes: Annual Retina Eye Exam 10/10/1959 Zoster Vaccines (1 of 2) 1968 Abdominal [...] 50+ Years Completed 05/20/2023, 04/01/2013 RSV Immunization Adult Patients Completed 05/20/2023 COVID-19 Vaccine Completed 04/14/2024, 05/2023, 04/03/2022, Additional history exists Influenza Vaccine Completed 04/14/2024, , 04/18/2022, Additional history exists HIB Vaccines Aged Out No longer eligi ble based on patient's age to complete this topic HPV Vaccines Aged Out No longer eligi ble based on patient's age to complete this topic Hepatitis A Vaccines Aged Out No long er eligible [...] metastatic disease in the abdomen and pelvis. [employer] [place] ([address]) -------- FINAL REPORT -------- Dictated By: Laura Angel Dictated Date: 07/28/2024 11:11 ET Assigned Physician: Laura Angel Reviewed and Electronically Signed By: Laura Angel Signed Date: 07/28/2024 11:29 ET Workstation ID: [id number] Transcribed By: Self Edit Transcribed Date: 07/28/2024 11:11 ET Narrative 07/28/2024 11:29 AM EST History: Neuroendocrine tumor. Comparison: 12/31/23, lung screening CT 08/07/22 Technique: Helical volumetric imaging of the chest, abdomen and pelvis was performed without oral contrast and during the uneventful intravenous administration of 90 cc Isovue-370. DLP: 1969.73 mGy/cm [employer] VCT Iterative reconstruction technique Findings: Chest: The [...] of 90 cc Isovue-370. DLP: 1969.73 mGy/cm [employer] VCT Iterative reconstruction technique Findings: Chest: The [...] metastatic disease in the abdomen and pelvis. [employer] [place] (20003) -------- FINAL REPORT -------- Dictated By: Laura Angel Dictated Date: 07/28/2024 11:11 ET Assigned Physician: Laura Angel Reviewed and Electronically Signed By: Laura Angel Signed Date: 07/28/2024 11:29 ET Workstation ID: [id number] Transcribed By: Self Edit Transcribed Date: 07/28/2024 11:11 ET us Matteo Zuniga MD IMG CT PROCEDURES Final Res ult * (ABNORMAL) Complete blood count (07/06/2024 11:29 AM EST) WBC 9.6 4.8 - 10.8 K/mcL LAB HEMETOLOGY METHOD 07/06/2024 1:[address] [facility] RBC 4.90 4.50 - 5.50 M/mcL LAB HEMETOLOGY METHOD 07/06/2024 1:[address] [facility] Hemoglobin 14.8 13.5 - 17.5 g/dL LAB HEMETOLOGY METHOD 07/06/2024 1:[address] [facility] Hematocrit 44.4 42.0 - 54.0 % LAB HEMETOLOGY METHOD 07/06/2024 1:[address] [facility] MCV 89.9 79.0 - 98.0 FL LAB HEMETOLOGY METHOD 07/06/2024 1:[address] [facility] MCH 30.0 27.0 - 32.0 pcg LAB HEMETOLOGY METHOD 07/06/2024 1:[address] [facility] MCHC 33.3 32.0 - 37.0 g/dL LAB HEMETOLOGY METHOD 07/06/2024 1:[address] [facility] RDW 16.1(H) 11.0 - 15.0 % LAB HEMETOLOGY METHOD 07/06/2024 1:[address] [facility] Platelets 283 130 - 400 K/mcL LAB HEMETOLOGY METHOD 07/06/2024 1:[address] [facility] MPV 8.9 7.0 - 11.0 FL LAB HEMETOLOGY METHOD 07/06/2024 1:[address] [facility] NRBC 0.0 <1.0 % LAB HEMETOLOGY METHOD 07/06/2024 1:[address] [facility] NRBC Absolute 0.00 <0.10 K/mcL LAB HEMETOLOGY METHOD 07/06/2024 1:[address] [facility] Blood Venous blood specimen / Unknown Venipuncture / Unknown 07/06/2024 11:29 AM EST 07/06/2024 12:35 PM EST us Matteo Zuniga MD LAB BLOOD ORDERABLES Final Result [facility] [address] [place] [address], [place] [phone] * (ABNORMAL) Comprehensive metabolic panel (07/06/2024 11:29 AM EST) Sodium 137 133 - 145 mmol/L LAB CHEMISTRY METHOD 07/06/2024 1:[address] [facility] Potassium 4.7 3.5 - 5.5 mmol/L LAB CHEMISTRY METHOD 07/06/2024 1:[address] [facility] Chloride 105 96 - 110 mmol/L LAB CHEMISTRY METHOD 07/06/2024 1:[address] [facility] CO2 27 21 - 32 mmol/L LAB CHEMISTRY METHOD 07/06/2024 1:[address] [facility] Anion Gap 5 3 - 11 LAB CHEMISTRY METHOD 07/06/2024 1:[address] [facility] Glucose 129(H) 70 - 100 mg/dL LAB CHEMISTRY METHOD 07/06/2024 1:[address] [facility] BUN 21 5 - 25 mg/dL LAB CHEMISTRY METHOD 07/06/2024 1:[address] [facility] Creatinine 0.90 0.70 - 1.30 mg/dL LAB CHEMISTRY METHOD 07/06/2024 1:[address] [facility] eGFR 90 >=60 mL/min/1. 73m2 LAB CHEMISTRY METHOD 07/06/2024 1:[address] [facility] Comment:Calculation based on the??Chronic Kidney Disease Epidemiology Collaboration (CKD-EPI) equation refit??without adjustment for race. BUN/Creatinine Ratio 23.3 LAB CHEMISTRY METHOD 07/06/2024 1:[address] [facility] Calcium 9.6 8.5 - 10.5 mg/dL LAB CHEMISTRY METHOD 07/06/2024 1:[address] [facility] AST (SGOT) 12 10 - 42 unit/L LAB CHEMISTRY METHOD 07/06/2024 1:[address] [facility] ALT (SGPT) 36 10 - 60 unit/L LAB CHEMISTRY METHOD 07/06/2024 1:[address] [facility] Alkaline Phosphatase 34(L) 42 - 121 unit/L LAB CHEMISTRY METHOD 07/06/2024 1:[address] [facility] Total Protein 6.6 6.0 - 8.0 g/dL LAB CHEMISTRY METHOD 07/06/2024 1:[address] [facility] Albumin 3.5 3.2 - 5.0 g/dL LAB CHEMISTRY METHOD 07/06/2024 1:[address] [facility] Total Bilirubin 0.4 0.0 - 1.4 mg/dL LAB CHEMISTRY METHOD 07/06/2024 1:[address] [facility] Blood Venous blood specimen / Unknown Venipuncture / Unknown 07/06/2024 11:29 AM EST 07/06/2024 12:36 PM EST Matteo Zuniga MD LAB BLOOD ORDERABLES Final Result [facility] [address] [place] [address], * MR Brain wo and w Contrast [...] Signed Date: 07/10/2024 12:18 ET Workstation ID: [id number] Transcribed By: Self Edit Transcribed Date: 07/10/2024 [...] Signed Date: 07/10/2024 12:18 ET Workstation ID: [id number] Transcribed By: Self Edit Transcribed Date: 07/10/2024 11:53 ET Cassandra Mann MD IMG MRI PROCEDURES Final Res ult from Last 3 Months Insurance MEDICARE [facility] Care Teams Barber Apprentice Relationship Specialty Start Date End Date Yoseph Acevedo MD [address] [place] [address] [address] [place] PCP - General Internal Medicine 07/29/17
--- OUTSIDE RECORDS SUMMARY | 2024-10-01 16:03 | XMS_ITS | Encounter Summary ---
Author Organization [facility] Address [address] [place] [address] Care Team Providers Care Tick Eradicator Name Role Phone Yoseph Acevedo MD Primary Care Provider Encounter Details Date Type Department Care Team (Late st Contact Info) Description 04/03/2024 2:45 PM EDT Hospital Encounter TH HISTORIC ENCOUNTERS [facility]ASTERN CONVERSION ONLY Matteo Zuniga MD [address] [place] [address] Social History Tobacco Use Types [...] Info) Description 10/19/2024 10:[address] [facility] CT Scan [address] [place] [phone] 10/26/2024 11:45 AM EDT Office Visit [facility] Hematology Oncology [address] [place] [phone] Matteo Zuniga MD [address] [place] [phone] 01/07/2025 10:[address] [facility] Radiation Oncology [address] [phone] Pina Wynn NP [address] [place] [address] documented as of this encounter Visit Diagnoses Not on filedocumented in this encounter Care Teams Tick Eradicator Relationship Specialty Start Date End Date Yoseph Acevedo MD [address] [place] [address] [place] [address] PCP - General Internal Medicine 07/29/17 documented as of this encounter
--- OUTSIDE RECORDS SUMMARY | 2024-10-01 16:03 | XMS_ITS | Encounter Summary ---
Author Organization [facility] Address [address] [place] [address] Care Team Providers Care Sql Data Architect Name Role Phone Yoseph Acevedo MD Primary Care Provider + [phone] Encounter Details Date Type Department Care Team (Late st Contact Info) Description 04/03/2024 2:45 PM EDT Hospital Encounter TH HISTORIC ENCOUNTERS 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 He is . He has 1 son. [...] Info) Description 10/19/2024 10:00 AM EDT Appointment [facility] CT Scan [address] [place] [address] 10/26/2024 11:45 AM EDT Office Visit [facility] Hematology Oncology [address] [place] [phone] Matteo Zuniga MD [address] [place] [address] 01/07/2025 10:30 AM EDT Appointment [facility] Radiation Oncology [address] [place] [phone] Pina Wynn NP [address] [place] [address] documented as of this encounter Procedures Procedure Name Priority Date/Time Associated Diagnosis Comments HISTORICAL IMAGING SCAN RESULT 04/03/2024 documented in this encounter Results * HISTORICAL IMAGING SCAN RESULT (04/03/2024) Anatomical Region Laterality Modality Ultrasound us Provider Onbase [facility] US PROCEDURES Final Resul t documented in this encounter Visit Diagnoses Not on filedocumented in this encounter Care Teams Sql Data Architect Relationship Specialty Start Date End Date Yoseph Acevedo MD [address] [place] [address] Dr [address] [place] PCP - General Internal Medicine 07/29/17 documented as of this encounter
[2024-10-01 18:18] LABS: Prostate Specific Antigen 0.95 ng/mL (<0.05-4.0)
== END 2024-10-01 14:33 | disposition home or self-care (01) ==
LOC: HO.WFDLDS 14:32
PROVIDERS: Visit Provider Urology
DX: R39.9 Unspecified symptoms and signs involving the genitourinary system (principal); Z12.5 Encounter for screening for malignant neoplasm of prostate
CPT/HCPCS: 36415; 84153

== ENCOUNTER 2024-10-08 10:46 | Outpatient (AMB) | payer MEDICARE, OTHER, SELFPAY ==
--- NOTE | 2024-10-08 10:49 | A.OFFVIS_ITS ---
Intake Visit Reasons: cysto/PSA(psa?) Intake Note: Patient is present for Cystoscopy/PSA Urology Medication:FINASTERIDE,TAMSULOSIN Antibiotic Allergy:NONE Blood Thinner:NONE Lot:[id number] Exp:11/06/26 Diamond Selector Required: No Allergies No Known Allergies [No Known Allergies*] Allergy (Verified 10/08/24 10:50) HPI Comments Details: Ed is a pleasant male. He is a patient of Dr. Acevedo. He seen for the following urologic conditions - lower urinary tract symptoms Here for cystoscopy Enlarged prostate Lower urinary tract symptoms - change in urinary stream, occasional dysuria, and perineal pain over the last 6-8 months. He reports recently starting Flomax and felt this has been somewhat helpful. Microscopic hematuria On finasteride Low PSA [facility] Medical History (Updated 11/10/24 @ 13:15 by Kirby Pearson MD) Lower urinary tract symptoms Acute hypoxic respiratory failure Hypoxia Viral syndrome COPD exacerbation Gastritis and duodenitis Hx of cancer of lung Hx of radiation therapy History of chemotherapy Hiatal hernia On anticoagulant therapy HTN (hypertension) Tubular adenoma Arthritis Low back pain Diarrhea Oxygen dependent Emphysema/COPD BROWN (dyspnea on exertion) MANJEET (obstructive sleep apnea) Impaired fasting glucose Eye pain Obesity (BMI 30-39.9) Anxiety COPD (chronic obstructive pulmonary disease) Diabetes mellitus Pure hypercholesterolemia Diastolic heart failure Paroxysmal atrial fibrillation Surgical History History of right inguinal hernia repair (03/13/23) History of esophagogastroduodenoscopy (EGD) Deficient knowledge of leg surgery History of surgery History of cardioversion H/O prior ablation treatment History of colonoscopy Family History Father Medical history unknown Mother Myocardial infarction Social History Household Members: None Housing: House Are you a primary clinical care coordinator to a significant other at home: No Do you presently have visiting nurse or other home services: No Unable to assess alcohol history related to: Unable to respond Alcohol intake: current Alcohol intake frequency: a few times a week Alcohol type: beer Patient Tobacco Use Status: Former Tobacco user Tobacco use type: Cigarette e-Cigarette/Vaping Use: Never Used Second Hand Smoke Exposure: Yes Substance Use Type: Marijuana service: No Current occupational status: retired Cognitive needs: No Hearing needs: No Vision needs: Yes (reading glasses) Review of Systems Const Denies chills and Denies fever(s) Card Reports no additional complaints and Denies syncope Resp Denies cough GI Denies abdominal pain and Denies heartburn Reports as per HPI and Denies change in libido Neuro Denies syncope Psych Denies change in libido Endo Denies change in libido Physical Exam Const General: cooperative, healthy appearing, comfortable and no acute distress Orientation/consciousness: patient oriented x3 HEENT Face and sinus: Yes normal facial exam Mouth: moist mucous membranes Neck Neck: Yes normal visual inspection, Yes full ROM and Yes trachea midline Chest Chest palpation & inspection: normal inspection of the chest Resp Effort & Inspection: normal respiratory effort, able to speak in complete sentences and no respiratory distress GI Inspection: Yes normal to inspection Back/Spine/Pelvis Cervical Spine: normal cervical lordosis Thoracic/Lumbar Spine: thoracic and lumbar spine normal to inspection Skin General skin exam: no rashes or lesions noted Neuro General: patient oriented x3, gait normal, tone normal and moves all extremities Extrem General: Yes normal to inspection and Yes capillary refill normal Office Procedures Cystoscopy Consent Discussed risk and benefit or proposed procedure with the patient. Information consent for procedure given to the patient. Discussed technical aspects, risks, benefits and alternatives in full. Addressed all of the patient's questions and concerns regarding the procedure. The patient demonstrated knowledge and understanding. They wish to proceed with this procedure. Preparation The patient was prepped in the usual manner. A hat and cap sewer was present and in the room. Genitalia was prepped with betadine solution in a sterile manner. Lidocaine Jelly 2% was placed into the urethra and 16Fr flexible Olympus cystoscope was inserted into the meatus after adequate lubrication. Procedure Cystoscopy performed using a disposable Urovue digital 16 Occitan cystoscope. Meatus circumcised Urethra anterior and posterior urethra normal Prostatic Urethra tight prostate Bladder examination with retroflexion of cystoscope Bladder Orifices normal shape and position Bladder Capacity Normal Trabeculations grade 1 Cellule Formation None Diverticulum Formation None Mucosal Erythema None Bladder Tumor None [id number] DISPOSABLE SCOPE URO-G FLEXIBLE SCOPE Procedure code (CPT) selection complete Office Meds lidocaine HCl 2 % mucosal jelly in applicator Performing Provider: Adonis Hess MD [facility] Administered by: Terry Mercado LPN on 10/08/24 11:17 Dose Route Admin Location Dispensed Lot Number Expiration Date ND Direct Marketing Executive 10 mL intra-urethral 10 mL nitrofurantoin monohydrate/macrocrystals 100 mg capsule Performing Provider: Adonis Hess MD Performing Location: [facility] Administered by: Terry Mercado LPN on 10/08/24 11:17 Dose Route Admin Location Dispensed Lot Number Expiration Date NDC Direct Marketing Executive 100 mg PO 1 cap Results AMB Urinalysis, Automated UA Leukoctes 0 Mariah/uL Last Edit by BRADLEY Estes on 10/08/24 12:15 UA Nitrite Negative Last Edit by BRADLEY Estes on 10/08/24 12:15 UA Urobilinogen 0.2 mg/dL Last Edit by BRADLEY Estes on 10/08/24 12:1 5 UA Protein 0 mg/dL Last Edit by BRADLEY Estes on 10/08/24 12:15 UA pH 6.0 Last Edit by BRADLEY Estes on 10/08/24 12:15 UA Blood 25 Panfilo/uL Last Edit by BRADLEY Estes on 10/08/24 12:15 UA Specific [place] 1.015 Last Edit by BRADLEY Estes on 10/08/24 12: 15 UA Ketone Negative Last Edit by BRADLEY Estes on 10/08/24 12:15 UA Bilirubin 0 mg/dL Last Edit by BRADLEY Estes on 10/08/24 12:15 UA Glucose 0 mg/dL Last Edit by BRADLEY Estes on 10/08/24 12:15 Results Reviewed Results Reviewed: Laboratory Last Values Urine pH (Auto) 6.0 10/08/24 12:14 Specific [place] (Auto) 1.015 10/08/24 12:14 Urine Protein (Auto) 0 mg/dL 10/08/24 12:14 Glucose (UA)(Auto) 0 mg/dL 10/08/24 12:14 Urine Ketones (Auto) Negative 10/08/24 12:14 Urine Blood (Auto) 25 Panfilo/uL 10/08/24 12:14 Urine Nitrite (Auto) Negative 10/08/24 12:14 Urine Bilirubin (Auto) 0 mg/dL 10/08/24 12:14 Urine Urobilinogen (Auto) 0.2 mg/dL 10/08/24 12:14 Leukocyte Esterase (Auto) 0 Mariah/uL 10/08/24 12:14 Assessment & Plan Assessment & Plan (1) Urinary frequency: Code(s): R35.0 - Frequency of micturition Category: Medical (2) Hematuria: Code(s): R31.9 - Hematuria, unspecified Category: Medical Plan Six-month follow-up Orders: Orders AMB Cystoscopy 10/08/24 R39.9 - Unspecified symptoms and signs involving the genitourinary system, R39.12 - Poor urinary stream, N41.9 - Inflammatory disease of prostate, unspecified, R31.9 - Hematuria, unspecified, R33.9 - Retention of urine, unspecified AMB Urinalysis Automated 10/08/24 Z13.9 - Encounter for screening, unspecified Prostate Specific Antigen 10/01/24 R39.9 - Unspecified symptoms and signs involving the genitourinary system Patient Instructions: This note is constructed using voice recognition software. While every effort has been made to ensure accuracy orchestra conductor errors may have been included. Imaging studies, laboratory and physical exam results were discussed and reviewed in detail. No major barriers to patient understanding were identified. An opportunity to ask questions regarding the treatment plan was provided. All questions were answered. The patient expressed understanding and agreement with the above treatment plan. The patient is aware they should contact our office by phone for worsening of t heir current condition or the appearance of new urologic symptoms. Compliance is encouraged with any medications and followup testing that is ordered. It is a privilege to participate in the urologic care of your patient. If you have any questions or concerns regarding treatment for the above conditions, or other urologic issues, please do not hesitate to contact me. The office telephone contact is [phone]. Sincerely, Dr Adonis Hess MD, [facility] - Urology Compassionate Specialist Care for the Genitourinary System Coding Level of Care Code Est Pt Level 3 (38796) Diagnoses Urinary frequency R35.0 Hematuria R31.9 CPT Codes Cystoscopy - CPT: 90137-[id number] ([id number])
--- OUTSIDE RECORDS SUMMARY | 2024-10-08 12:50 | XMS_ITS | Encounter Summary ---
Author Organization [facility] Address [address] [place] [address] Care Team Providers Care Bus Greaser Name Role Phone Yoseph Acevedo MD Primary Care Provider +1- [phone] Encounter Details Date Type Department Care Team Description 11/05/2022 Social Work [facility] Oncology Services [address] [place] [address] Adina Hernandez, [facility] Social History Tobacco Use Types [...] on filedocumented in this encounter Care Teams Bus Greaser Relationship Specialty Start Date End Date Yoseph Aceevdo MD [address] [place] [address] [place] [address] PCP - General Internal Medicine 09/24/22 documented as of this encounter
--- OUTSIDE RECORDS SUMMARY | 2024-10-08 12:50 | XMS_ITS | Clinical Summary ---
Author Organization [facility] Address [address] [place] [phone] Phone Care Team Providers Care Drug Discovery Informatics Specialist Name Role Phone Yoseph Acevedo MD [...] DAY MAKE AN APPT FOR FURTHER REFILLS, [id number] 2 Active methylcellulose, laxative, 500 mg tablet [...] 07/08/2024 Chronic back pain 07/08/2024 Morbid obesity ([facility] V24, [facility] V28) 2024 Nondependent alcohol abuse, continuous drinking behavior 07/08/2024 Overview (07/08/2024): 4-6 Beers/day Obstructive sleep apnea syndrome 07/08/2024 Overview (07/08/2024): not on CPAP Osteoarthritis 07/08/2024 Type 2 diabetes mellitus ([facility] V24, [facility] V 28) 07/08/2024 Morbid obesity with BMI of 4 0.0-44.9, adult ([facility] V24, [facility] V28) 06/01/2024 Small cell lung cancer ([facility] V24, [facility] V28 ) 10/03/2022 Neuroendocrine carcinoma ([facility] V24, [facility] V 28) 09/24/2022 Overview (06/01/2024): Last Assessment & Plan: [...] week. All questions were answered. Atrial fibrillation ([facility] V24, [facility] V28) 0 09/06/2017 Overview (06/01/2024): Ablation 1.5.2017 Diabetes mellitus type 2, un complicated ([facility] V24, [facility] V28) 09/06/2017 Hypertension 09/06/2017 Hyperlipidemia 09/06/2017 Erythrocytosis 09/06/2017 Chronic obstructive pulmonar y disease ([facility] V24, [facility] V28) 08/23/2017 Encounters Date Type Department Care Team Description 08/04/2024 Telephone [facility] Hematology Oncology [address] [place] [address] Mattoe Zuniga MD 07/23/2024 10:48 AM EST - 07/23/2024 11:59 PM [facility] Hospital Encounter [facility] CT Scan [address] [place] [address] Other malignant neuroendocrine tumors ([facility] V24, [facility] V28) Discharge Disposition: Home or Self Care 07/15/2024 1:46 PM EST - 07/15/2024 11:59 PM [facility] Hospital Encounter [facility] Radiation Oncology [address] [address] Pina Wynn, [place] Small cell carcinoma of lung, unspecified laterality, unspecified part of lung ([facility] V24, [facility] V28) (Primary Dx) Discharge Disposition: Home or Self Care from [...] obesity with BMI of 4 0.0-44.9, adult ([facility] V24, [facility] V28) 08/23/2017 DX:Morbid obesity wit h BMI of 40.0-44.9, adult (HCC) Hyperlipidemia 09/06/2017 DX:Hyperlipidemi a Pulmonary emphysema ([facility] V24, [facility] V28) 08/23/2017 DX:Pulmonary emphysema (HCC) HTN (hypertension) 09/06/2017 DX:HTN (hyper tension) Diabetes mellitus type 2, uncomplicated (CMS/HCC V24, [facility] V28) 09/06/2017 DX:Diabetes mellitus type 2, uncomplicated (HCC) Tobacco use 09/06/2017 DX:Tobacco use Polycythemia 09/06/2017 DX:Polycythemia Atrial fibrillation (CMS/HCC V24, [facility] V28) 09/06/2017 DX:Atrial fibrillation (HCC) ; COMMENT: Ablation 1.5.2016 Atrial fibrillation ([facility] V24, [facility] V28) DX:Atrial fibrillation (HCC) GERD (gastroesophageal reflux disease) DX:GERD (gastroesophageal reflux disease) Hypertension DX:Hypertension Lung cancer ([facility] V24, [facility] V28) DX:Lung cancer (HCC) COPD (chronic obstructive pu lmonary disease) ([facility] V24, [facility] V28) DX:COPD (chronic o bstructive pulmonary disease) ([facility]) Psoriasis DX:Psoriasis Tinnitus DX:Tinnitus Arthritis DX:Arthritis Hyperlipidemia [...] Info) Description 10/19/2024 10:00 AM EDT Appointment [facility] CT Scan [address] [place] [address] 10/26/2024 11:45 AM EDT Office Visit [facility] Hematology Oncology [address] [place] [phone] Matteo Zuniga MD [address] [place] [phone] 01/07/2025 10:30 AM EDT Appointment [facility] Radiation Oncology [address] [facility] [address] [place] [address] Pina Wynn, [place] [address] [place] [address] Health Maintenance Due Date Last Done Comments [...] age to complete this topic Meningococcal B Vaccine Aged Out No l onger eligible based on patient's age to complete [...] 11:08 AM EST Other malignant neuroendocrine tumors (CMS/HCC V24, CMS/HCC V28) COMPREHENSIVE METABOLIC PANEL Routine 07/06/2024 11:29 AM EST Lung cancer (CMS/HCC V24, CMS/HCC V28) from Last 3 Months or Most Recently Relevant to Health Maintenance Results * CT Chest/Abdomen/Pelvis w Contrast (07/23/2024 [...] metastatic disease in the abdomen and pelvis. [employer] PANIAGUA ([id number]) -------- FINAL REPORT -------- Dictated By: Laura Angel Dictated Date: 07/28/2024 11:11 ET Assigned Physician: Laura Angel Reviewed and Electronically Signed By: Laura Angel Signed Date: 07/28/2024 11:29 ET Workstation ID: [id number] Transcribed By: Self Edit Transcribed Date: 07/28/2024 11:11 ET Narrative 07/28/2024 11:29 AM EST History: Neuroendocrine tumor. Comparison: 12/31/23, lung screening CT 08/07/22 Technique: Helical volumetric imaging of the chest, abdomen and pelvis was performed without oral contrast and during the uneventful intravenous administration of 90 cc Isovue-370. DLP: 1969.73 mGy/cm [employer] VCT Iterative reconstruction technique Findings: Chest: The [...] of 90 cc Isovue-370. DLP: 1969.73 mGy/cm [employer] VCT Iterative reconstruction technique Findings: Chest: The [...] metastatic disease in the abdomen and pelvis. [facility] [place] ([id number]) -------- FINAL REPORT -------- Dictated By: Laura Angel Dictated Date: 07/28/2024 11:11 ET Assigned Physician: Laura Angel Reviewed and Electronically Signed By: Laura Angel Signed Date: 07/28/2024 11:29 ET Workstation ID: [id number] Transcribed By: Self Edit Transcribed Date: 07/28/2024 11:11 ET Matteo Zuniga MD IMG CT PROCEDURES Final Res ult * (ABNORMAL) Comprehensive metabolic panel (07/06/2024 11:29 AM EST) Sodium 137 133 - 145 mmol/L LAB CHEMISTRY METHOD 07/06/2024 1:38 PM [facility] Potassium 4.7 3.5 - 5.5 mmol/L LAB CHEMISTRY METHOD 07/06/2024 1:38 PM [facility] Chloride 105 96 - 110 mmol/L LAB CHEMISTRY METHOD 07/06/2024 1:38 PM [facility] CO2 27 21 - 32 mmol/L LAB CHEMISTRY METHOD 07/06/2024 1:38 PM [facility] Anion Gap 5 3 - 11 LAB CHEMISTRY METHOD 07/06/2024 1:38 PM [facility] Glucose 129(H) 70 - 100 mg/dL LAB CHEMISTRY METHOD 07/06/2024 1:38 PM [facility] BUN 21 5 - 25 mg/dL LAB CHEMISTRY METHOD 07/06/2024 1:38 PM [facility] Creatinine 0.90 0.70 - 1.30 mg/dL LAB CHEMISTRY METHOD 07/06/2024 1:38 PM [facility] eGFR 90 >=60 mL/min/1. 73m2 LAB CHEMISTRY METHOD 07/06/2024 1:38 PM [facility] Comment:Calculation based on the??Chronic Kidney Disease Epidemiology Collaboration (CKD-EPI) equation refit??without adjustment for race. BUN/Creatinine Ratio 23.3 LAB CHEMISTRY METHOD 07/06/2024 1:38 PM [facility] Calcium 9.6 8.5 - 10.5 mg/dL LAB CHEMISTRY METHOD 07/06/2024 1:38 PM [facility] AST (SGOT) 12 10 - 42 unit/L LAB CHEMISTRY METHOD 07/06/2024 1:38 PM [facility] ALT (SGPT) 36 10 - 60 unit/L LAB CHEMISTRY METHOD 07/06/2024 1:38 PM [facility] Alkaline Phosphatase 34(L) 42 - 121 unit/L LAB CHEMISTRY METHOD 07/06/2024 1:38 PM [facility] Total Protein 6.6 6.0 - 8.0 g/dL LAB CHEMISTRY METHOD 07/06/2024 1:38 PM [facility] Albumin 3.5 3.2 - 5.0 g/dL LAB CHEMISTRY METHOD 07/06/2024 1:38 PM [facility] Total Bilirubin 0.4 0.0 - 1.4 mg/dL LAB CHEMISTRY METHOD 07/06/2024 1:38 PM [facility] Blood Venous blood specimen / Unknown Venipuncture / Unknown 07/06/2024 11:29 AM EST 07/06/2024 12:36 PM EST Matteo Zuinga MD LAB BLOOD ORDERABLES Final Result [facility] [address] [place] [address], from Last 3 Months or Most Recently Relevant to Health Maintenance Insurance MEDICARE [facility] Care Teams Drug Discovery Informatics Specialist Relationship Specialty Start Date End Date Yoseph Acevedo MD [address] [place] [address] [address] MARY Mendiola PCP - General Internal Medicine 07/29/17
--- OUTSIDE RECORDS SUMMARY | 2024-10-08 12:50 | XMS_ITS | Encounter Summary ---
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 He is . He has 1 [...] Info) Description 10/19/2024 10:00 AM EDT Appointment [facility] CT Scan [address] [place] [address] 10/26/2024 11:45 AM EDT Office Visit [facility] Hematology Oncology [address] [place] [phone] Matteo Zuniga MD [address] [place] [address] 01/07/2025 10:30 AM EDT Appointment [facility] Radiation Oncology [address] [place] [phone] Pina Wynn NP [address] [place] [address] documented as of this encounter Procedures Procedure Name Priority Date/Time Associated Diagnosis Comments HISTORICAL IMAGING SCAN RESULT 04/03/2024 documented in this encounter Results * HISTORICAL IMAGING SCAN RESULT (04/03/2024) Anatomical Region Laterality Modality Ultrasound us Provider Onbase [facility] US PROCEDURES Final Resul t documented in this encounter Visit Diagnoses Not on filedocumented in this encounter Care Teams Monomer Purification Operator Relationship Specialty Start Date End Date Yoseph Acevedo MD [address] [place] [address] Dr Nicki [address] [place] PCP - General Internal Medicine 07/29/17 documented as of this encounter
--- OUTSIDE RECORDS SUMMARY | 2024-10-08 12:50 | XMS_ITS | Clinical Summary ---
Author Organization [facility] Address [address] [place] [address] Care Team Providers Care Bulk Pigment Reducer Name Role Phone Yoseph Acevedo MD Primary Care Provider +1- [phone] Allergies No known active allergies Medications Medication [...] age to complete this topic Care Teams Bulk Pigment Reducer Relationship Specialty Start Date End Date Yoseph Acevedo MD [address] [place] [address] [place] [address] PCP - General Internal Medicine 09/24/22
--- OUTSIDE RECORDS SUMMARY | 2024-10-08 12:50 | XMS_ITS ---
Author Organization [facility] Address [address] [place] [address] Care Team Providers Care Unattended Ground Sensor Specialist Name Role Phone Yoseph Acevedo MD Primary Care Provider +1- [phone] Active Problems Problem Noted Date Diagnosed Date [...] treatments are documented for this patient in [facility]. Treatments may have been administered in another system.
--- OUTSIDE RECORDS SUMMARY | 2024-10-08 12:50 | XMS_ITS | Encounter Summary ---
Author Organization [facility] Address [address] [place] [id number] Care Team Providers Care Dyed Yarn Operator Name Role Phone Yoseph Acevedo MD Primary Care Provider +[phone]- [phone] Encounter Details Date Type Department Care Team Description 10/12/2022 Social Work [facility] Oncology Services [address] [place] [address] Adina Hernandez, [facility] Social History Tobacco Use [...] on filedocumented in this encounter Care Teams Dyed Yarn Operator Relationship Specialty Start Date End Date Yoseph Acevedo MD [address] [place] [address] [place] [address] PCP - General Internal Medicine 09/24/22 documented as of this encounter
--- OUTSIDE RECORDS SUMMARY | 2024-10-08 12:50 | XMS_ITS | Encounter Summary ---
Author Organization [facility] Address [address] [place] [address] Care Team Providers Care Side Laster Staple Name Role Phone Yoseph Acevedo MD Primary Care Provider +- [phone] Encounter Details Date Type Department Care Team (Late st Contact Info) Description 04/03/2024 2:45 PM EDT Hospital Encounter TH HISTORIC ENCOUNTERS EASTERN CONVERSION ONLY Matteo Zuniga MD [address] [place] [address] Social History Tobacco Use Types [...] Description 10/19/2024 10:00 AM EDT Appointment [facility] CT Scan [address] [place] [phone] 10/26/2024 11:45 AM EDT Office Visit [facility] Hematology Oncology [address] [place] [phone] Matteo Zuniga MD [address] [place] [phone] 01/07/2025 10:30 AM EDT Appointment [facility] Radiation Oncology [address] [phone] Pina Wynn NP [address] [place] [address] documented as of this encounter Visit Diagnoses Not on filedocumented in this encounter Care Teams Side Laster Staple Relationship Specialty Start Date End Date Yoseph Acevedo MD [address] [place] [address] [place] [address] PCP - General Internal Medicine 07/29/17 documented as of this encounter
== END 2024-10-08 11:46 | disposition home or self-care (01) ==
LOC: HO.HUSH 10:46
PROVIDERS: PCP Internal Medicine; Visit Provider Urology
DX: R39.9 Unspecified symptoms and signs involving the genitourinary system (principal); R39.12 Poor urinary stream; N41.9 Inflammatory disease of prostate, unspecified; R31.9 Hematuria, unspecified; R33.9 Retention of urine, unspecified; Z13.9 Encounter for screening, unspecified
CPT/HCPCS: 52000; 99213

== ENCOUNTER → 2024-10-08 10:46 | Outpatient (BNVA) | payer MEDICARE, OTHER, SELFPAY | PROVIDERS: PCP Internal Medicine; Visit Provider Urology | DX: R35.0 Frequency of micturition (principal); R31.9 Hematuria, unspecified | CPT/HCPCS: 52000; 81003; 99212 ==

== ENCOUNTER 2024-10-15 11:35 | Outpatient (REF) | payer MEDICARE, OTHER, SELFPAY ==
--- OUTSIDE RECORDS SUMMARY | 2024-10-15 14:27 | XMS_ITS ---
Author Organization [facility] Address [address] [place] [address] Care Team Providers Care International Account Manager Name Role Phone Yoseph Acevedo MD Primary Care Provider +[phone]- [phone] Active Problems Problem Noted Date Diagnosed Date [...]
--- OUTSIDE RECORDS SUMMARY | 2024-10-15 14:27 | XMS_ITS | Clinical Summary ---
Author Organization [facility] Address [address] [place] [address] Care Team Providers Care Sr. Media Manager Name Role Phone Yoseph Acevedo MD Primary Care Provider +1- [phone] Allergies No known active allergies Medications Medication [...] age to complete this topic Care Teams Sr. Media Manager Relationship Specialty Start Date End Date Yoseph Acevedo MD [address] [place] [address] [place] [address] PCP - General Internal Medicine 09/24/22
--- OUTSIDE RECORDS SUMMARY | 2024-10-15 14:27 | XMS_ITS | Encounter Summary ---
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 He is . He has 1 son. [...] Info) Description 10/19/2024 10:00 AM EDT Appointment [facility] CT Scan [address] [place] [address] 10/26/2024 11:45 AM EDT Office Visit [facility] Hematology Oncology [address] [place] [phone] Matteo Zuniga MD [address] [place] [address] 01/07/2025 10:30 AM EDT Appointment [facility] Radiation Oncology [address] [place] [phone] Pina Wynn NP [address] [place] [address] documented as of this encounter Procedures Procedure Name Priority Date/Time Associated Diagnosis Comments HISTORICAL IMAGING SCAN RESULT 04/03/2024 documented in this encounter Results * HISTORICAL IMAGING SCAN RESULT (04/03/2024) Anatomical Region Laterality Modality Ultrasound us Provider Onbase IM[facility] US PROCEDURES Final Resul t documented in this encounter Visit Diagnoses Not on filedocumented in this encounter Care Teams Body Maker Relationship Specialty Start Date End Date Yoseph Acevedo MD [address] [place] [address] Dr Nicki [address] [place] PCP - General Internal Medicine 07/29/17 documented as of this encounter
--- OUTSIDE RECORDS SUMMARY | 2024-10-15 14:27 | XMS_ITS | Encounter Summary ---
Author Organization [facility] Address [address] [place] [address] Care Team Providers Care Job Site Supervisor Name Role Phone Yoseph Acevedo MD Primary Care Provider + [phone] Reason for Visit * Reason Onset Date Comments Appointment 10/14/2024 Encounter Details Date Type Department Care Team (Late st Contact Info) Description 10/14/2024 Telephone [facility] Hematology Oncology [address] [place] [address] Kira Roberson MA Appointment Social History Tobacco Use Types Packs/Day Years [...] as of this encounter Progress Notes * Kira Roberson MA - 10/15/2024 10:41 AM EDT Order printed and faxed to [facility] going today around lunch time. * Matteo Zuniga MD - 10/14/2024 3:00 PM EDT Entered lab orders * Kira Roberson MA - 10/14/2024 2:36 PM EDT Patient requires blood work prior to ct scan on 10/19 states he had blood work done at [facility] but says it was only PSA Ed [phone] documented in this encounter Plan of Treatment Upcoming Encounters Date Type Department Care Team (Late st Contact Info) Description 10/19/2024 10:00 AM EDT Appointment [facility] CT Scan [address] [place] [address] 10/26/2024 11:45 AM EDT Office Visit [facility] Hematology Oncology [address] [place] [phone] Matteo Zuniga MD [address] [place] [address] 01/07/2025 10:30 AM EDT Appointment [facility] Radiation Oncology [address] [place] [phone] Pina Wynn NP [address] [place] [address] Scheduled Orders Name Type Priority Associated Diagnoses Orde r Schedule Comprehensive metabolic panel Lab Routine Small cell carcinoma of lung, unspecified laterality, unspecified part of lung (CMS/HCC V24, CMS/HCC V28) Expected: 10/15/2024 (Approximate), Expires: 10/14/2025 CBC and differential Lab Routine Small cell carcinoma of lung, unspecified laterality, unspecified part of lung (CMS/HCC V24, CMS/HCC V28) Expected: 10/15/2024 (Approximate), Expires: 10/14/2025 documented as of this encounter Visit Diagnoses Diagnosis Small cell carcinoma of lung, unspecified laterality, unspecified part of lung (CMS/HCC V24, CMS/HCC V28)- Primary documented in this encounter Care Teams Job Site Supervisor Relationship Specialty Start Date End Date Yoseph Acevedo MD [address] [facility] [address] MARY Mendiola PCP - General Internal Medicine 07/29/17 documented as of this encounter
--- OUTSIDE RECORDS SUMMARY | 2024-10-15 14:27 | XMS_ITS | Encounter Summary ---
Author Organization [facility] Address [address] [place] [address] Care Team Providers Care Crm Coordinator Name Role Phone Yoseph Acevedo MD Primary Care Provider [phone]- [phone] Encounter Details Date Type Department Care Team Description 11/05/2022 Social Work [facility] Oncology Services [address] [place] [address] Adina Hernandez, [facility] Social History Tobacco [...] on filedocumented in this encounter Care Teams Crm Coordinator Relationship Specialty Start Date End Date Yoseph Acevedo MD [address] [place] [address] [place] [address] PCP - General Internal Medicine 09/24/22 documented as of this encounter
--- OUTSIDE RECORDS SUMMARY | 2024-10-15 14:27 | XMS_ITS | Encounter Summary ---
Author Organization [facility] Address [address] [place] [address] Care Team Providers Care Centerless Grinder Operator Name Role Phone Yoseph Acevedo MD Primary Care Provider +- [phone] Encounter Details Date Type Department Care Team (Late st Contact Info) Description 04/03/2024 2:45 PM EDT Hospital Encounter TH HISTORIC ENCOUNTERS [facility]ASTERN CONVERSION ONLY Matteo Zuniga MD [address] [place] [address] Social History Tobacco Use Types [...] Info) Description 10/19/2024 10:00 AM EDT Appointment [facility] CT Scan [address] [place] [phone] 10/26/2024 11:45 AM EDT Office Visit [facility] Hematology Oncology [address] [place] [phone] Matteo Zuniga MD [address] [place] [phone] 01/07/2025 10:30 AM EDT Appointment [facility] Radiation Oncology [address] [phone] Pina Wynn NP [address] [place] [address] documented as of this encounter Visit Diagnoses Not on filedocumented in this encounter Care Teams Centerless Grinder Operator Relationship Specialty Start Date End Date Yoseph Acevedo MD [address] [place] [address] [place] [address] PCP - General Internal Medicine 07/29/17 documented as of this encounter
--- OUTSIDE RECORDS SUMMARY | 2024-10-15 14:27 | XMS_ITS | Encounter Summary ---
Author Organization [facility] Address [address] [place] [address] Care Team Providers Care Commercial Credit Head Name Role Phone Yoseph Acevedo MD Primary Care Provider +[phone]- [phone] Encounter Details Date Type Department Care Team Description 10/12/2022 Social Work [facility] Oncology Services [address] [place] [address] Adina Hernandez, [facility] Social History Tobacco Use [...] on filedocumented in this encounter Care Teams Commercial Credit Head Relationship Specialty Start Date End Date Yoseph Acevedo MD [address] [place] [address] [place] [address] PCP - General Internal Medicine 09/24/22 documented as of this encounter
--- OUTSIDE RECORDS SUMMARY | 2024-10-15 14:27 | XMS_ITS | Clinical Summary ---
Author Organization [facility] Address [address] [place] [phone] Phone Care Team Providers Care Crab Backer Name Role Phone Yoseph Acevedo MD Primary Care Provider [phone] Allergies No known active allergies Medications predniSONE [...] DAY MAKE AN APPT FOR FURTHER REFILLS, [id number] Active methylcellulose, laxative, 500 mg tablet [...] 07/08/2024 Chronic back pain 07/08/2024 Morbid obesity ([facility] V24, [facility] V28) 2024 Nondependent alcohol abuse, continuous drinking behavior 07/08/2024 Overview (07/08/2024): 4-6 Beers/day Obstructive sleep apnea syndrome 07/08/2024 Overview (07/08/2024): not on CPAP Osteoarthritis 07/08/2024 Type 2 diabetes mellitus ([facility] V24, [facility] V 28) 07/08/2024 Morbid obesity with BMI of 4 0.0-44.9, adult ([facility] V24, [facility] V28) 06/01/2024 Small cell lung cancer ([facility] V24, [facility] V28 ) 10/03/2022 Neuroendocrine carcinoma ([facility] V24, [facility] V 28) 09/24/2022 Overview (06/01/2024): Last Assessment [...] week. All questions were answered. Atrial fibrillation ([facility] V24, [facility] V28) 0 09/06/2017 Overview (06/01/2024): Ablation 1.5.2017 Diabetes mellitus type 2, un complicated ([facility] V24, [facility] V28) 09/06/2017 Hypertension 09/06/2017 Hyperlipidemia 09/06/2017 Erythrocytosis 09/06/2017 Chronic obstructive pulmonar y disease ([facility] V24, [facility] V28) 08/23/2017 Encounters Date Type Department Care Team Description 10/14/2024 Telephone [facility] Hematology Oncology [address] [place] [address] Kira Roberson MA Appointment 08/04/2024 Telephone [facility] Hematology Oncology [address] [place] [address] Matteo Zuniga MD 07/23/2024 10:48 AM EST - 07/23/2024 11:59 PM EST Hospital Encounter [facility] CT Scan [address] [place] [address] Other malignant neuroendocrine tumors ([facility] [place], [facility] V28) Discharge Disposition: Home or Self Care from [...] obesity with BMI of 4 0.0-44.9, adult ([facility] V24, [facility] V28) 08/23/2017 DX:Morbid obesity wit h BMI of 40.0-44.9, adult (HCC) Hyperlipidemia 09/06/2017 DX:Hyperlipidemi a Pulmonary emphysema ([facility] V24, [facility] V28) 08/23/2017 DX:Pulmonary emphysema (HCC) HTN (hypertension) 09/06/2017 DX:HTN (hyper tension) Diabetes mellitus type 2, uncomplicated ([facility] V24, [facility] V28) 09/06/2017 DX:Diabetes mellitus type 2, uncomplicated (HCC) Tobacco use 09/06/2017 DX:Tobacco use Polycythemia 09/06/2017 DX:Polycythemia Atrial fibrillation ([facility] V24, [facility] V28) 09/06/2017 DX:Atrial fibrillation (HCC) ; COMMENT: Ablation 1.5.2016 Atrial fibrillation ([facility] V24, [facility] V28) DX:Atrial fibrillation (HCC) GERD (gastroesophageal reflux disease) DX:GERD (gastroesophageal reflux disease) Hypertension DX:Hypertension Lung cancer ([facility] V24, [facility] V28) DX:Lung cancer (HCC) COPD (chronic obstructive pu lmonary disease) ([facility] V24, [facility] V28) DX:COPD (chronic o bstructive pulmonary disease) (HCC) Psoriasis DX:Psoriasis Tinnitus DX:Tinnitus Arthritis DX:Arthritis Hyperlipidemia [...] Info) Description 10/19/2024 10:00 AM EDT Appointment [facility] CT Scan [address] [place] [phone] 10/26/2024 11:45 AM EDT Office Visit [facility] Hematology Oncology [address] [place] [phone] Matteo Zuniga MD [address] [place] [phone] 01/07/2025 10:30 AM EDT Appointment [facility] Radiation Oncology [address] [address] Pina Wynn NP [address] [place] [address] Health Maintenance Due Date Last Done Comments [...] 06/09/2022 Medicare Annual Wellness Visit 10/20/2022 10/20/2021 COVID-19 Vaccine (7 - Moderna risk season) 2024 04/14/2024, 04/10/2023, 04/03/2022, Additional history exists Diabetes: Annual GFR (Glomerular Filtration Rate) 07/06/2025 07/06/2024 Hypertension/CHF/CAD Annual BMP Blood Test 07/06/2025 07/06/2024 DTaP,Tdap,and Td Vaccines (2 - Td or Tdap) 06/04/2026 06/04/2016 Pneumococcal Vaccine: 50+ Years Completed 05/20/2023, 04/01/2013 RSV Immunization Adult Patients Completed 05/20/2023 Influenza Vaccine Completed 04/14/2024, , 04/18/2022, Additional [...] in the abdomen and pelvis. Teler[facility] ARCELIA ([id number]) -------- FINAL REPORT -------- Dictated By: Laura Angel Dictated Date: 07/28/2024 11:11 ET Assigned Physician: Laura Angel Reviewed and Electronically Signed By: Laura Angel Signed Date: 07/28/2024 11:29 ET Workstation ID: [id number] Transcribed By: Self Edit Transcribed Date: 07/28/2024 11:11 ET Narrative 07/28/2024 11:29 AM EST History: Neuroendocrine tumor. Comparison: 12/31/23, lung screening CT 08/07/22 Technique: Helical volumetric imaging of the chest, abdomen and pelvis was performed without oral contrast and during the uneventful intravenous administration of 90 cc Isovue-370. DLP: 1969.73 mGy/cm BillGuard VCT Iterative reconstruction technique Findings: Chest: The [...] of 90 cc Isovue-370. DLP: 1969.73 mGy/cm BillGuard VCT Iterative reconstruction technique Findings: Chest: The [...] metastatic disease in the abdomen and pelvis. [employer] [place] ([id number]) -------- FINAL REPORT -------- Dictated By: Laura Angel Dictated Date: 07/28/2024 11:11 ET Assigned Physician: Laura Angel Reviewed and Electronically Signed By: Laura Angel Signed Date: 07/28/2024 11:29 ET Workstation ID: [id number] Transcribed By: Self Edit Transcribed Date: 07/28/2024 [...] Final Result [facility] [address] [place] [address], from Last 3 Months or Most Recently Relevant to Health Maintenance Insurance MEDICARE [employer] Care Teams Crab Backer Relationship Specialty Start Date End Date Yoseph Acevedo MD [address] [place] [address] Nicki [address] MARY Mendiola PCP - General Internal Medicine 07/29/17
[2024-10-15 14:48] LABS: Alanine Aminotransferase 31 U/L (0-40); Albumin Level 4.1 g/dL (3.5-5.0); Alkaline Phosphatase 29 U/L (39-117); Anion Gap 14 (12-20); Aspartate Amino Transferase 20 U/L (5-37); Bilirubin Total 0.3 mg/dL (0.0-1.0); Blood Urea Nitrogen 27 mg/dL (9-16); Calcium 9.9 mg/dL (8.4-10.2); Carbon Dioxide 30 mmol/L (22-29); Chloride 101 mmol/L (96-108); Estimated Glomerular Filt Rate > 60; Glucose Random 124 mg/dL (60-115); Potassium 4.3 mmol/L (3.3-5.1); Sodium 141 mmol/L (135-145)
== END 2024-10-15 11:36 | disposition home or self-care (01) ==
LOC: HO.WFDLDS 11:35
PROVIDERS: Visit Provider Internal Medicine Hematology & Oncology
DX: C34.90 Malignant neoplasm of unspecified part of unspecified bronchus or lung (principal)
CPT/HCPCS: 36415; 80053

== ENCOUNTER 2024-11-10 12:48 | Outpatient (AMB) | payer MEDICARE, OTHER, SELFPAY ==
[2024-11-10 12:49] VITALS: BP 136/84; PULSE 90; O2SAT 95; BMI 33.1
--- NOTE | 2024-11-10 12:49 | A.OFFVIS_ITS ---
Vital Signs 11/10/24 12:49 Height 5 ft 6 in Weight 205 lb 0.478 oz BMI 33.1 BP 136/84 Blood Pressure Location Lt brachial Position Sitting Pulse 90 Pulse Oximetry (%) 95 Intake Visit Reasons: 1 yr Intake Note: 1 year followup c/o sob and fatigue started antibiotic yesterday on his own ? lung infection Hydraulic Engineer Required: No Allergies No Known Allergies [No Known Allergies*] Allergy (Verified 10/08/24 10:50) Medication List - Last Reconciled 11/10/24 by Kirby Pearson MD albuterol sulfate 90 mcg/actuation 2 puffs inhalation Q4H PRN 30 days atorvastatin 40 mg PO BEDTIME coenzyme Q10 60 mg PO DAILY dabigatran etexilate 150 mg PO BID diltiazem HCl CD 120 mg PO DAILY famotidine 20 mg PO BEDTIME finasteride 5 mg PO DAILY 90 days djliouwtfry-upkerqays-fkigzyoh 200-62.5-25 mcg (Trelegy Ellipta) 1 ea inhalation DAILY furosemide 80 mg PO DAILY ipratropium-albuterol 0.5 mg-3 mg(2.5 mg base)/3 mL 3 mL inhalation Q6H PRN lorazepam 0.5 mg PO TID PRN 30 days hk-vaq-xdsqj-J2-vudkjln-ejkqtd 971-71-965-300 mcg (Centrum Silver Ultra Men's) 1 tab PO DAILY prednisone 20 mg PO DAILY PRN roflumilast 500 mcg PO DAILY tamsulosin (Flomax) 0.4 mg PO BEDTIME HPI Comments Details: Ed comes for cardiac follow-up for his atrial fibrillation heart failure. However he said he does not feel well. He said over the last week he did see Pulmonary and then over the last couple of days he has not been feeling well as having increasing shortness of breath and wheezing. He has self prescribed himself antibiotics and started taking azithromycin this morning and took 500 mg as well as been taking steroids 20 mg prednisone for the last month. He denies any other cardiac complaints. No fever or chills but he is not sure of whether he is having any febrile episodes at home. No prolonged palpitation irregular heartbeat. No bleeding issues or neurologic events. He said he smokes marijua na as well as take a couple of beers which makes him feel better. He said he has been abusing his bronchodilators which makes him tremulous. [facility] Medical History (Updated 11/10/24 @ 13:15 by Kirby Pearson MD) Lower urinary tract symptoms Acute hypoxic respiratory failure Hypoxia Viral syndrome COPD exacerbation Gastritis and duodenitis Hx of cancer of lung Hx of radiation therapy History of chemotherapy Hiatal hernia On anticoagulant therapy HTN (hypertension) Tubular adenoma Arthritis Low back pain Diarrhea Oxygen dependent Emphysema/COPD BROWN (dyspnea on exertion) MANJEET (obstructive sleep apnea) Impaired fasting glucose Eye pain Obesity (BMI 30-39.9) Anxiety COPD (chronic obstructive pulmonary disease) Diabetes mellitus Pure hypercholesterolemia Diastolic heart failure Paroxysmal atrial fibrillation Surgical History History of right inguinal hernia repair (03/13/23) History of esophagogastroduodenoscopy (EGD) Deficient knowledge of leg surgery History of surgery History of cardioversion H/O prior ablation treatment History of colonoscopy Family History Father Medical history unknown Mother Myocardial infarction Social History Household Members: None Housing: House Are you a primary toddler caregiver to a significant other at home: No Do you presently have visiting nurse or other home services: No Unable to assess alcohol history related to: Unable to respond Alcohol intake: current Alcohol intake frequency: a few times a week Alcohol type: beer Patient Tobacco Use Status: Former Tobacco user Tobacco use type: Cigarette e-Cigarette/Vaping Use: Never Used Second Hand Smoke Exposure: Yes Substance Use Type: Marijuana service: No Current occupational status: retired Cognitive needs: No Hearing needs: No Vision needs: Yes (reading glasses) Review of Systems Const Denies chills, Denies fatigue, Denies fever(s), Denies frequent falls, Denies weakness, Denies weight gain and Denies weight loss ENT Denies dizziness Card Denies chest pain, Denies leg edema, Denies lightheadedness, Denies palpitations, Denies dyspnea, Denies dyspnea on exertion, Denies orthopnea and Denies other (loss of consciousness) Resp Denies cough, Denies dyspnea and Denies dyspnea on exertion GI Denies hematochezia and Denies change in stool character Musc Denies abnormal gait, Denies muscle weakness, Denies numbness, Denies radiating pain into limb and Denies tingling Neuro Denies abnormal gait, Denies dizziness, Denies frequent falls, Denies numbness, Denies tingling and Denies weakness Endo Denies fatigue and Denies palpitations Physical Exam Vital Signs: Last Vital Signs Pulse 90 11/10/24 12:49 BP 136/84 11/10/24 12:49 Pulse Ox 95 11/10/24 12:49 BMI result Body Mass Index 33.1 Const General: cooperative, comfortable, no acute distress, alert, awake and anxious Nutritional Appearance: overweight Orientation/consciousness: patient oriented x3 Neck Neck: Yes trachea midline, Yes supple and Yes no JVD Chest Chest palpation & inspection: normal inspection of the chest Resp Effort & Inspection: normal respiratory effort Auscultation: wheezes scattered wheezes and diminished lung sounds Cardio Jugular venous distension: no JVD Palpation: normal PMI Rate: regular rate Rhythm: abnormal rhythm with ectopic beats Heart sounds: S1 normal heart sound present, S2 normal heart sound present, no click, no gallops, no murmurs and no rubs GI Inspection: Yes obesity Auscultation: normal bowel sounds Skin General skin exam: no rashes or lesions noted and ecchymosis Neuro General: patient oriented x3 and no focal motor deficits Extrem General: Yes no clubbing, cyanosis or edema Psych Appearance: grossly normal Affect: Anxious affect present Assessment & Plan Assessment & Plan (1) Paroxysmal atrial fibrillation: Code(s): I48.0 - Paroxysmal atrial fibrillation Category: Medical Plan: Patient with prior history of paroxysmal atrial fibrillation status post ablation with no clinical recurrence at this point time. At this point time will continue with oral anticoagulation therapy with Pradaxa. Semi annual renal function test should be pursued. Continue Cardizem therapy. Continue to optimize his pulmonary function. He has been recommended in the past to avoid alcohol use. (2) Diastolic heart failure: Code(s): I50.30 - Unspecified diastolic (congestive) heart failure Category: Medical Qualifiers: Heart failure chronicity: unspecified Qualified Code(s): I50.30 - Unspecified diastolic (congestive) heart failure Plan: Diastolic heart failure, patient's self report said he has not been taking his diuretic regimen. Clinically does not appear to be in marked fluid overload. Advised him to restart his diuretic therapy to avoid CHF exacerbation and hospitalization related to the same. He has done well with rhythm control approach will continue pursue rhythm control approach. Continue blood pressure control. (3) Emphysema/COPD: Comment: sees Dr Johnson, called for last note Code(s): J43.9 - Emphysema, unspecified Category: Medical Plan: COPD with what appears to be in mild exacerbation at this point time. Recommend him to follow up with Pulmonary. At this time I advised him to increase his steroids and take antibiotics with Zithromax but follow up with Pulmonary in the next week or so for further management plan. Optimization of pulmonary treatment and maybe switching his Proventil to Xopenex to reduce sympathetic side effects should be considered. Will follow with him in 1 year's time, sooner p.r.n.. Thank you for allowing me to partake in his care Coding Level of Care Code Est Pt Level 4 (46064) Complex EM visit Add On G2211 Diagnoses Paroxysmal atrial fibrillation I48.0 Diastolic heart failure, unspecified HF chronicity I50.30 Heart failure chronicity: unspecified Emphysema/COPD J43.9
--- OUTSIDE RECORDS SUMMARY | 2024-11-10 13:49 | XMS_ITS | Encounter Summary ---
Author Organization [facility] Address [address] [place] [address] Care Team Providers Care Music Intern Name Role Phone Yoseph Acevedo MD Primary Care Provider [phone] Encounter Details Date Type Department Care Team Description 11/05/2022 Social Work [facility] [address] [place] [address] Adina Hernandez, [facility] Social History Tobacco Use Types Packs/Day Years [...] on filedocumented in this encounter Care Teams Music Intern Relationship Specialty Start Date End Date Yoseph Acevedo MD [address] [place] [address] [place] [id number] PCP - General Internal Medicine 09/24/22 documented as of this encounter
--- OUTSIDE RECORDS SUMMARY | 2024-11-10 13:49 | XMS_ITS | Clinical Summary ---
Author Organization [facility] Address [address] [place] [phone] Phone Care Team Providers Care Paleontology Teacher Name Role Phone Yoseph Acevedo MD Primary Care Provider [phone] Allergies No known active allergies Medications predniSONE (DELTASONE) 20 mg tablet TAKE 2 TABLET BY MOUTH EVERY DAY FOR 5 DAYS NEEDED FOR COPD EXACERBATION 02/05/20 24 Active roflumilast (DALIRESP) 500 mcg tablet Take 500 mcg by mouth daily. 11/02/19 24 Active diclofenac (VOLTAREN) 1 % topical gel 10/07/19 22 Active dilTIAZem XR (DILT-XR) 120 mg 24 hr capsule TAKE 1 CAPSULE BY MOUTH EVERY DAY MAKE AN APPT FOR FURTHER REFILLS, [id number] 09/12/19 22 Active methylcellulose , laxative, 500 mg tablet 09/13/19 22 Active albuterol HFA (PROAIR HFA ; PROVENTIL HFA ; VENTOLIN HFA) 90 mcg/actuation inhaler Inhale 2 Puffs into the lungs every 4 hours as needed for Wheezing for up to 30 days. 10/28/19 24 Active dabigatran etexilate (PRADAXA) 150 mg capsule Take 1 capsule (150 mg total) by mouth 2 (two) times a day. 10/22/19 18 Active ipratropium-alb uteroL (DUONEB) 0.5-2.5 mg/3 mL nebulizer solution USE 1 VIAL (3 ML) VIA UPDRAFT 4 TIMES A DAY 11/30/19 18 Active miscellaneous medical supply misc 1 Units by Does not apply route 2 times daily as needed (hypoxemia). Monitor Oxygen Level at Home 01/14/20 18 Active guaiFENesin (MUCINEX) 600 mg 12 hr tablet Acti ve atorvastatin (LIPITOR) 40 mg tablet Take 1 tablet (40 mg total) by mouth daily. Active furosemide (LASIX) 80 mg tablet Take 80 mg by mouth daily. Active umeclidinium-vi lanteroL (ANORO ELLIPTA) 62.5-25 mcg/actuation inhaler Inhale by mouth. 05/07/20 19 Active turmeric 400 mg capsule Take by mouth. Activ e sertraline 150 mg capsule Take 150 mg by mouth. Active Gavilax 17 gram/dose oral powder 04/15/20 24 Active pantoprazole (PROTONIX) 40 mg EC tablet Take 1 tablet (40 mg total) by mouth. Active ondansetron (ZOFRAN) 8 mg tablet Take 1 tablet (8 mg total) by mouth every 8 hours as needed. 10/24/19 23 Active LORazepam (ATIVAN) 0.5 mg tablet Take 1 tablet (0.5 mg total) by mouth 3 (three) times a day if needed for anxiety. Active lidocaine-prilo carlos (EMLA) 2.5-2.5 % cream Apply topically. 12/08/19 23 Active levalbuterol (XOPENEX) 1.25 mg/3 mL nebulizer solution Inhale 3 mL (1.25 mg total) by mouth. Active lansoprazole (PREVACID) [address] capsule Take 1 capsule (30 mg total) by mouth 1 (one) time each day. Active famotidine (PEPCID) 20 mg tablet Take 1 tablet (20 mg total) by mouth. at bedtime. Active budesonide (PULMICORT) 0.25 mg/2 mL nebulizer solution USE 1 VIAL IN NEBULIZER TWICE DAILY - (Rinse Mouth After Each Treatment) 03/13/20 24 Active Laxative, bisacodyl, 5 mg EC tablet 04/15/20 24 Active arformoteroL (BROVANA) 15 mcg/2 mL nebulizer solution Take 1 vial by nebulization 2 (two) times a day. 03/13/20 24 Active Trelegy Ellipta 200-62.5-25 mcg inhaler INHALE 1 PUFF INTO THE LUNGS DAILY FOR 30 DAYS. 60 each 11 07/31/19 25 Active albuterol 2.5 mg /3 mL (0.083 %) nebulizer solutionIndicat ions:Chronic obstructive pulmonary disease, unspecified COPD type ([facility] [place], [facility] [place]) Take 3 mL (2.5 mg total) by nebulization every 4 (four) hours if needed for wheezing. 300 mL 11 10/24/19 25 2025 Active fluticasone-ume clidinium-vilan terol (Trelegy Ellipta) 100-62.5-25 mcg inhaler Inhale 1 Puff into the lungs daily. 11/02/19 24 2024 Discontinued fluticasone HFA (FLOVENT HFA) 110 mcg/actuation inhaler Inhale 2 puffs by mouth. 10/19/192024 Discontinued beclomethasone dipropionate (QVAR REDIHALER) 80 mcg/actuation HFA aerosol breath activated inhaler Inhale by mouth. 2024 Discontinued beclomethasone dipropionate (QVAR REDIHALER) 80 mcg/actuation HFA aerosol breath activated inhaler Inhale 80 mcg by mouth. 05/07/20 19 2024 Discontinued Active Problems Problem Noted Date Diagnosed Date Cannabis abuse 07/08/2024 Chronic back pain 07/08/2024 Morbid obesity ([facility] [place], [facility] [place]28) 2024 Nondependent alcohol abuse, continuous drinking behavior 07/08/2024 Overview (07/08/2024): 4-6 Beers/day Obstructive sleep apnea syndrome 07/08/2024 Overview (07/08/2024): not on CPAP Osteoarthritis 07/08/2024 Type 2 diabetes mellitus ([facility] [place], [facility] V 28) 07/08/2024 Morbid obesity with BMI of 4 0.0-44.9, adult ([facility] [place], [facility] V28) 06/01/2024 Small cell lung cancer ([facility] [place], [facility] [place]28 ) 10/03/2022 Neuroendocrine carcinoma ([facility] [place], [facility] V 28) 09/24/2022 Overview (06/01/2024): Last Assessment [...] week. All questions were answered. Atrial fibrillation (CMS/HCC V24, CMS/HCC V28) 0 09/06/2017 Overview (06/01/2024): Ablation 1.5.2016 Diabetes mellitus type 2, un complicated (CMS/HCC V24, CMS/HCC V28) 09/06/2017 Hypertension 09/06/2017 Hyperlipidemia 09/06/2017 Erythrocytosis 09/06/2017 Chronic obstructive pulmonar y disease (CMS/HCC V24, CMS/HCC V28) 08/23/2017 Encounters Date Type Department Care Team Description 10/26/2024 11:45 AM EDT Office Visit [facility] Hematology Oncology [address] [place] [phone] Matteo Zuniga MD Small cell carcinoma of lung, unspecified laterality, unspecified part of lung (CMS/HCC V24, CMS/HCC V28) (Primary Dx) 10/26/2024 Telephone Pulmonolgy - [place] [address] [phone] Annette Johnson MD Sleep Study 10/23/2024 10:45 AM EDT [facility] [address] [phone] Annette Johnson MD Chronic obstructive pulmonary disease, unspecified COPD type (CMS/HCC V24, CMS/HCC V28) (Primary Dx); Malignant neoplasm of lung, unspecified laterality, unspecified part of lung (CMS/HCC V24, CMS/HCC V28) 10/19/2024 9:54 AM EDT - 10/19/2024 11:59 PM EDT Hospital Encounter [facility] CT Scan [address] [place] [address] Small cell carcinoma of lung, unspecified laterality, unspecified part of lung ([facility] V24, [facility] V28) Discharge Disposition: Home or Self Care 10/14/2024 Telephone [facility] Hematology Oncology [address] [place] [address] Kira Roberson [place] Appointment from Last 3 Months Immunizations Name Administration [...] with BMI of 4 0.0-44.9, adult ([facility] V24, [facility] [place]) 08/23/2017 DX:Morbid obesity wit h BMI of 40.0-44.9, adult (HCC) Hyperlipidemia 09/06/2017 DX:Hyperlipidemi a Pulmonary emphysema ([facility] [place], [facility] V28) 08/23/2017 DX:Pulmonary emphysema (HCC) HTN (hypertension) 09/06/2017 DX:HTN (hyper tension) Diabetes mellitus type 2, uncomplicated ([facility] [place], [facility] V28) 09/06/2017 DX:Diabetes mellitus type 2, uncomplicated ([facility]) Tobacco use 09/06/2017 DX:Tobacco use Polycythemia 09/06/2017 DX:Polycythemia Atrial fibrillation ([facility] [place], [facility] [place]28) 09/06/2017 DX:Atrial fibrillation ([facility]) ; COMMENT: Ablation . Atrial fibrillation ([facility] [place], [facility] [place]) DX:Atrial fibrillation ([facility]) GERD (gastroesophageal reflux disease) DX:GERD (gastroesophageal reflux disease) Hypertension DX:Hypertension Lung cancer ([facility] [place], [facility] [place]) DX:Lung cancer ([facility]) COPD (chronic obstructive pu lmonary disease) ([facility] [place], [facility] [place]) DX:COPD (chronic o bstructive pulmonary disease) ([facility]) Psoriasis DX:Psoriasis Tinnitus DX:Tinnitus Arthritis [...] Sign Reading Time Taken Comments Blood Pressure 130/62 10/26/2024 11:55 AM EDT Pulse 95 10/26/2024 11:55 AM EDT Temperature 36.8 ??C (98.2 ??F) 10/26/2024 11:55 AM E DT Respiratory Rate 20 10/23/2024 10:50 AM EDT Oxygen Saturation 97% 10/26/2024 11:55 AM EDT Inhaled Oxygen Concentration - - Weight 92.5 kg (204 lb) 10/26/2024 11:55 AM EDT Height 167.6 cm (5' 6 ) 10/23/2024 10:50 AM EDT Body Mass Index 32.93 10/23/2024 10:50 AM EDT Plan of Treatment Upcoming Encounters Date Type Department Care Team (Late st Contact Info) Description 11/20/2024 11:30 AM EDT Ancillary Procedure Pulmonolgy - [place] 175 [facility] [address] [place] [phone] 01/07/2025 10:30 AM EDT Appointment [facility] Radiation Oncology [address] [place] [phone] Pina Wynn NP [address] [place] [address] 01/25/2025 11:30 AM EDT Office Visit [facility] Hematology Oncology [address] [place] [phone] Matteo Zuniga MD [address] [place] [address] Health Maintenance Due Date Last Done Comments [...] Risk Assessment 06/09/2022 Hepatitis C Screening 06/09/2022 Medicare Annual Wellness Visit 06/09/2022 Social Influencers of Health Screening 06/09/2022 COVID-19 Vaccine (7 - Moderna risk 2024-25 season) 10/13/2024 04/14/2024, 04/10/2023, 04/03/2022, Additional history exists Diabetes: [...] Procedure Name Priority Date/Time Associated Diagnosis Comments [place] SLEEP STUDY ATTENDED 10/27/2024 CT CHEST WO CONTRAST Routine 10/19/2024 10:05 AM EDT Small cell carcinoma of lung, unspecified laterality, unspecified part of lung (CMS/HCC V24, CMS/HCC V28) COMPREHENSIVE METABOLIC PANEL Routine 07/06/2024 11:29 AM EST Lung cancer (CMS/HCC V24, CMS/HCC V28) from Last 3 Months or Most Recently Relevant to Health Maintenance Results * General sleep study (10/27/2024) Provider [facility] ORDERABLES Final Result * CT Chest wo Contrast (10/19/2024 10:05 AM EDT) Anatomical Region Laterality Modality Body Computed Tomogra phy 10/20/2024 11:0 2 AM EDT Impressions 10/20/2024 11:19 AM EDT Impression: 1. No significant change in a right apical spiculated nodule. Continued short- term follow-up is recommended in 3 months. 2. No developing thoracic lymphadenopathy. Telerad PA ([id number]) -------- FINAL REPORT -------- Dictated By: Laura Angel Dictated Date: 10/20/2024 11:02 ET Assigned Physician: Laura Angel Reviewed and Electronically Signed By: Laura Angel Signed Date: 10/20/2024 11:19 ET Workstation ID: [id number] Transcribed By: Self Edit Transcribed Date: 10/20/2024 11:02 ET Narrative 10/20/2024 11:19 AM EDT History: Metastatic neuroendocrine carcinoma. Status post radiation treatment and chemotherapy. Follow-up pulmonary nodule. Comparison: 07/23/24 Technique: Helical volumetric imaging of the thorax was performed without IV contrast. DLP: 549.84 mGy/cm Core Stixer Iterative reconstruction technique Findings: A right apical spiculated nodule with stranding to the mediastinal pleura in the right lung apex is unchanged. Also stable is a small area of confluent airspace disease in the upper azygoesophageal recess of the right lower lobe. These findings may represent radiation treatment-related fibrosis in this setting. The trachea and central bronchial tree are patent. Diffuse bronchial wall thickening is again seen bilaterally, consistent with bronchitis. Centrilobular and paraseptal emphysema are again seen. No new nodule is seen. No pleural or pericardial effusions are identified. The heart remains normal in size. Atherosclerotic calcification of the thoracic aorta and coronary arteries is again seen. No recurrent mediastinal or hilar lymphadenopathy is identified. Included portions of the thyroid gland show no suspicious nodule. A small portion of the upper abdomen included on the lowest images through the thorax is remarkable for diffuse thickening of the adrenal glands, suggesting hyperplasia, unchanged. Diverticulosis of the partially imaged colon is noted. No suspicious osseous destructive lesion is seen. Procedure Note Spagnoli, Laura, MD - 10/20/2024 History: Metastatic neuroendocrine carcinoma. Status post radiationtreatment and chemotherapy. Follow-up pulmonary nodule. Comparison: 07/23/24 Technique: Helical volumetric imaging of the thorax was performed withoutIV contrast. DLP: 549.84 mGy/cm [employer] Iterative reconstruction technique Findings: A right apical spiculated nodule with stranding to the mediastinal pleurain the right lung apex is unchanged. Also stable is a small area ofconfluent airspace disease in the upper azygoesophageal recess of theright lower lobe. These findings may represent radiation treatment-relatedfibrosis in this setting. The trachea and central bronchial tree are patent. Diffuse bronchial wallthickening is again seen bilaterally, consistent with bronchitis.Centrilobular and paraseptal emphysema are again seen. No new nodule is seen. No pleural or pericardial effusions areidentified. The heart remains normal in size. Atherosclerotic calcification of thethoracic aorta and coronary arteries is again seen. No recurrent mediastinal or hilar lymphadenopathy is identified. Includedportions of the thyroid gland show no suspicious nodule. A small portion of the upper abdomen included on the lowest images throughthe thorax is remarkable for diffuse thickening of the adrenal glands,suggesting hyperplasia, unchanged. Diverticulosis of the partially imagedcolon is noted. No suspicious osseous destructive lesion is seen. IMPRESSION: Impression: 1. No significant change in a right apical spiculated nodule. Continuedshort- term follow-up is recommended in 3 months. 2. No developing thoracic lymphadenopathy. Telerad ARCELIA ([id number]) -------- FINAL REPORT -------- Dictated By: Laura Angel Dictated Date: 10/20/2024 11:02 ET Assigned Physician: Laura Angel Reviewed and Electronically Signed By: Laura Angel Signed Date: 10/20/2024 11:19 ET Workstation ID: [id number] Transcribed By: Self Edit Transcribed Date: 10/20/2024 11:02 ET us Matteo Zuniga MD IMG CT PROCEDURES Final Res ult * (ABNORMAL) Comprehensive metabolic panel (07/06/2024 11:29 AM EST) [facility] Signature Sodium 137 133 - 145 mmol/L LAB [...] unit/L LAB CHEMISTRY METHOD 07/06/2024 1:38 PM EST [facility] Total Protein 6.6 6.0 - 8.0 g/dL LAB CHEMISTRY METHOD 07/06/2024 1:38 PM EST [facility] Albumin 3.5 3.2 - 5.0 g/dL LAB CHEMISTRY METHOD 07/06/2024 1:38 PM EST [facility] Total Bilirubin 0.4 0.0 - 1.4 mg/dL LAB CHEMISTRY METHOD 07/06/2024 1:38 PM EST [facility] Blood Venous blood specimen / Unknown Venipuncture / Unknown 07/06/2024 11:29 AM EST 07/06/2024 12:36 PM EST us Matteo Zuniga MD LAB BLOOD ORDERABLES Final Result [facility] [address] [place] [address], from Last 3 Months or Most Recently Relevant to Health Maintenance Insurance MEDICARE [facility] Care Teams Paleontology Teacher Relationship Specialty Start Date End Date Yoseph Acevedo MD [address] [place] [address] [address] [place] PCP - General Internal Medicine 07/29/17
--- OUTSIDE RECORDS SUMMARY | 2024-11-10 13:49 | XMS_ITS | Clinical Summary ---
Author Organization [facility] Address [address] [place] [address] Care Team Providers Care Wire Saw Operator Name Role Phone Yoseph Acevedo MD Primary Care Provider [phone] Allergies No known active allergies Medications Medication [...] age to complete this topic Care Teams Wire Saw Operator Relationship Specialty Start Date End Date Yoseph Acevedo MD [address] [place] [address] [place] [address] PCP - General Internal Medicine 09/24/22
--- OUTSIDE RECORDS SUMMARY | 2024-11-10 13:49 | XMS_ITS | Encounter Summary ---
Author Organization [facility] Address [address] [place] [address] Care Team Providers Care Copy Chaser Name Role Phone Yoseph Acevedo MD Primary Care Provider + [phone] Encounter Details Date Type Department Care Team (Late st Contact Info) Description 04/03/2024 2:45 PM EDT Hospital Encounter [facility]OR[facility]NC[facility] ONLY Matteo Zuniga MD [address] [place] [phone] Social History Tobacco Use Types Packs/Day [...] right paratracheal node revealed metastatic neuroendocrine carcinoma, [id number], chromogranin-positive, synaptophysin-positive, [id number]. 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 He is . He has 1 son. [...] 11:30 AM EDT Ancillary Procedure Pulmonolgy - [place] 175 [facility] [address] [place] [phone] 01/07/2025 10:30 AM EDT Appointment [facility] Radiation Oncology [address] [place] [phone] Pina Wynn NP [address] [place] [address] 01/25/2025 11:30 AM EDT Office Visit [facility] Hematology Oncology [address] [place] [phone] Matteo Zuniga MD [address] [place] [address] documented as of this encounter Procedures Procedure Name Priority Date/Time Associated Diagnosis Comments HISTORICAL IMAGING SCAN RESULT 04/03/2024 documented in this encounter Results * HISTORICAL IMAGING SCAN RESULT (04/03/2024) Anatomical Region Laterality Modality Ultrasound us Provider [facility] US PROCEDURES Final Resul t documented in this encounter Visit Diagnoses Not on filedocumented in this encounter Care Teams Copy Chaser Relationship Specialty Start Date End Date Yoseph Acevedo MD [address] [place] [address] Dr [address] [place], [place] PCP - General Internal Medicine 07/29/17 documented as of this encounter
--- OUTSIDE RECORDS SUMMARY | 2024-11-10 13:49 | XMS_ITS | Encounter Summary ---
Author Organization [facility] Address [address] [place] [address] Care Team Providers Care Raise Drill Operator Name Role Phone Yoseph Acevedo MD Primary Care Provider [phone] Encounter Details Date Type Department Care Team Description 10/12/2022 Social Work [facility] Oncology Services [address] [place] [address] Adina Hernandez, [facility] Social History Tobacco Use Types Packs/Day Years [...] on filedocumented in this encounter Care Teams Raise Drill Operator Relationship Specialty Start Date End Date Yoseph Acevedo MD [address] [place] [address] [place] [address] PCP - General Internal Medicine 09/24/22 documented as of this encounter
--- OUTSIDE RECORDS SUMMARY | 2024-11-10 13:49 | XMS_ITS ---
Author Organization [facility] Address [address] [place] [address] Care Team Providers Care Wheel Roller Name Role Phone Yoseph Acevedo MD Primary Care Provider +[phone]- [phone] Active Problems Problem Noted Date Diagnosed Date [...] treatments are documented for this patient in [facility]. Treatments may have been administered in another system.
--- OUTSIDE RECORDS SUMMARY | 2024-11-10 13:49 | XMS_ITS | Encounter Summary ---
Author Organization [facility] Address [address] [place] [address] Care Team Providers Care Payroll Professional Name Role Phone Yoseph Acevedo MD Primary Care Provider [phone] Encounter Details Date Type Department Care Team (Late Contact Info) Description 04/03/2024 2:45 PM EDT Hospital Encounter TH HISTORIC ENCOUNTERS [facility] ONLY Matteo Zuniga MD [address] [place] [address] Social History Tobacco Use Types [...] 11:30 AM EDT Ancillary Procedure Pulmonolgy - [place] 175 [facility] [address] [place] [phone] 01/07/2025 10:30 AM EDT Appointment [facility] Radiation Oncology [address] [place] [phone] Pina Wynn NP [address] [place], [place] [phone] 01/25/2025 11:30 AM EDT Office Visit [facility] Hematology Oncology [address] [place] [address] Matteo Zuniga MD [address] [place] [address] documented as of this encounter Visit Diagnoses Not on filedocumented in this encounter Care Teams Payroll Professional Relationship Specialty Start Date End Date Yoseph Acevedo MD [address] [place] [address] Dr Caceres [address] [place] [address] PCP - General Internal Medicine 07/29/17 documented as of this encounter
== END 2024-11-10 13:14 | disposition home or self-care (01) ==
LOC: HO.HCS 12:48
PROVIDERS: PCP Internal Medicine; Visit Provider Internal Medicine Cardiovascular Disease
DX: I48.0 Paroxysmal atrial fibrillation (principal); I50.30 Unspecified diastolic (congestive) heart failure; J43.9 Emphysema, unspecified
CPT/HCPCS: 99214; G2211

== ENCOUNTER → 2024-11-10 12:48 | Outpatient (BNVA) | payer MEDICARE, OTHER, SELFPAY | PROVIDERS: PCP Internal Medicine; Visit Provider Internal Medicine Cardiovascular Disease | DX: I48.0 Paroxysmal atrial fibrillation (principal); I50.30 Unspecified diastolic (congestive) heart failure; J43.9 Emphysema, unspecified | CPT/HCPCS: 99212 ==

== ENCOUNTER → 2024-11-17 14:52 | Outpatient (REF) | payer MEDICARE, OTHER, SELFPAY ==
--- NOTE | 2024-11-17 14:55 | CA_ITS ---
Transthoracic Echocardiogram Patient (Last, First, Middle): Ed Romeo, Gender: Male Date of : 1950 Age: 74 Procedure Date: 11/17/2024 Procedure Type: Transthoracic Echocardiogram Location: OP Height: 167.64 cm Weight: 90.72 kg BSA: 2.00 m2 Heart Rate: bpm BP: 150 / 70 mmHg Terrazzo Finisher: TO Referring MD: Kirby Pearson MD Symptoms: I48.0 - Paroxysmal atrial fibrillation Study Quality: Adequate w contrast ECG Rhythm: Sinus Conclusions: - The left ventricular systolic function is normal. The calculated ejection fraction is 58% by biplane method. - No obvious valvular pathology seen on this study. Findings Procedure Information Contrast agent, definity, is being given per protocol without apparent complications. Left Ventricle Normal left ventricular cavity size. The left ventricular systolic function is normal. The calculated ejection fraction is 58% by biplane method. There is no evidence of regional wall motion abnormalities. Diastolic function is normal for age. There is mild septal asymmetric hypertrophy. Right Ventricle Mildly increased right ventricular cavity size. There is normal right ventricular systolic function. Atria Both atria are normal in size. Aortic Valve There is a normal trileaflet aortic valve. There is no aortic valve stenosis. There is no aortic valve regurgitation. Mitral Valve The mitral valve appears normal. There is no mitral valve regurgitation. There is no mitral valve stenosis. Pulmonic Valve There is trace to mild pulmonic valve regurgitation. Tricuspid Valve There is no tricuspid valve regurgitation. Tricuspid regurgitation envelope is inadequate for calculation of right ventricular systolic pressure. Great Vessels The asc aorta is normal in size. Venous The inferior vena cava is normal in size and collapses greater than 50% with inspiration. Pericardium/Pleural There is a trivial pericardial effusion. Prior Study Comparison No significant change compared to prior study dated: 10/18/2022. Recommendations, Care & Conclusions No obvious valvular pathology seen on this study. Measurements 2D Linear Measurements IVSd: 1.04 0.6-0.9/0.6-1.0 cm LVIDd: 4.85 3.9-5.3/4.2-5.9 cm LVIDd Index: 2.43 2.4-3.2/2.2-3.1 cm/m2 LVIDs: 3.53 2.0-3.6 cm LVPWd: 0.79 0.7-1.1 cm LA Diam: 3.60 2.7-3.8/3.0-4.0 cm LAIDs Index: 1.80 1.5-2.3 cm/m2 LV Mass: 190.80 67-162/88-224 g LV Mass Index: 95.40 43-95/49-115 g/m2 LVOT Diam: 2.20 3.0+(-)1.3 cm 2D Systolic Function EF 4C: 52.20 >55% EF 2C: 63.50 >55% EF BiP: 58.40 >55% Mitral Valve MV Pk E: 0.86 MV PK A: 0.56 MV Decel Time: 156.00 E/A: 1.50 E'Lateral: 8.05 E'Medial: 7.29 E/E' Med: 11.80 E/E' Lat: 10.70 PHT: 46.00 MVA PHT: 4.78 Decel [place]: 5.53 Aortic Valve AoV Pk Werner: 1.19 AoV Pk Grad: 6.00 LVOT LVOT Pk Werner: 0.90 LVOT Mn Werner: 0.57 LVOT VTI: 0.18 LVOT Pk Grad: 3.00 LVOT Mn Grad: 2.00 LVOT Diam: 2.20 LVOT Area: 3.80 Diastolic Function MV Pk E: 0.86 MV Pk A: 0.56 E/A: 1.50 E'Medial: 7.29 E/E' Med: 11.80 E' Laterial: 8.05 E/E' Lat: 10.70 Right Ventricle TAPSE (mm): 19.10 TVS' Werner: 9.93 Tricuspid Valve RA Press: 3.00 Great Vessels Aorta Sinus of Valsalva: 4.14 2.0-3.5 cm Ao Asc: 3.70 2.1-3.4 cm Updated in Other Vendor System with Status of Final Justus Pinto MD electronically signed on 11/18/2024 8:48:35 AM with status of Final
--- OUTSIDE RECORDS SUMMARY | 2024-11-17 16:03 | XMS_ITS | Clinical Summary ---
Author Organization [facility] Address [address] [place] [phone] Phone Care Team Providers Care Banking Services Advisor Name Role Phone Yoseph Acevedo MD Primary Care Provider [phone] Allergies No known active allergies Medications predniSONE [...] DAY MAKE AN APPT FOR FURTHER REFILLS, [id number] 09/12/19 22 Active methylcellulose , laxative, 500 [...] ions:Chronic obstructive pulmonary disease, unspecified COPD type ([facility] V24, [facility] V28) Take 3 mL (2.5 mg total) [...] 07/08/2024 Chronic back pain 07/08/2024 Morbid obesity ([facility] V24, [facility] V28) 2024 Nondependent alcohol abuse, continuous drinking behavior 07/08/2024 Overview (07/08/2024): 4-6 Beers/day Obstructive sleep apnea syndrome 07/08/2024 Overview (07/08/2024): not on CPAP Osteoarthritis 07/08/2024 Type 2 diabetes mellitus ([facility] V24, [facility] V 28) 07/08/2024 Morbid obesity with BMI of 4 0.0-44.9, adult ([facility] V24, [facility] V28) 06/01/2024 Small cell lung cancer ([facility] V24, [facility] V28 ) 10/03/2022 Neuroendocrine carcinoma ([facility] V24, [facility] V 28) 09/24/2022 Overview (06/01/2024): Last Assessment [...] Description 10/26/2024 11:45 AM EDT Office Visit [facility] Hematology Oncology [address] [place] [phone] Matteo Zuniga MD Small cell carcinoma of lung, unspecified laterality, unspecified part of lung (CMS/HCC V24, CMS/HCC V28) (Primary Dx) 10/26/2024 Telephone Pulmonolgy - [place] [address] [phone] Annette Johnson MD Sleep Study 10/23/2024 10:45 AM EDT [facility] [address] [phone] Annette Johnson MD Chronic obstructive pulmonary disease, unspecified COPD type (CMS/HCC V24, CMS/HCC V28) (Primary Dx); Malignant neoplasm of lung, unspecified laterality, unspecified part of lung (CMS/HCC V24, CMS/HCC V28) 10/19/2024 9:54 AM EDT - 10/19/2024 11:59 PM EDT Hospital Encounter [facility] CT Scan [address] [place] [address] Small cell carcinoma of lung, unspecified laterality, unspecified part of lung ([facility] V24, [facility] V28) Discharge Disposition: Home or Self Care 10/14/2024 Telephone [facility] Hematology Oncology [address] [place] [address] Kira Roberson MA Appointment from [...] obesity with BMI of 4 0.0-44.9, adult ([facility] V24, [facility] V28) 08/23/2017 DX:Morbid obesity wit h BMI of 40.0-44.9, adult (HCC) Hyperlipidemia 09/06/2017 DX:Hyperlipidemi a Pulmonary emphysema ([facility] V24, [facility] V28) 08/23/2017 DX:Pulmonary emphysema (HCC) HTN (hypertension) 09/06/2017 DX:HTN (hyper tension) Diabetes mellitus type 2, uncomplicated ([facility] V24, [facility] V28) 09/06/2017 DX:Diabetes mellitus type 2, uncomplicated ([facility]) Tobacco use 09/06/2017 DX:Tobacco use Polycythemia 09/06/2017 DX:Polycythemia Atrial fibrillation ([facility] V24, [facility] V28) 09/06/2017 DX:Atrial fibrillation ([facility]) ; COMMENT: Ablation . Atrial fibrillation ([facility] V24, [facility] V28) DX:Atrial fibrillation ([facility]) GERD (gastroesophageal reflux disease) DX:GERD (gastroesophageal reflux disease) Hypertension DX:Hypertension Lung cancer ([facility] V24, [facility] V28) DX:Lung cancer ([facility]) COPD (chronic obstructive pu lmonary disease) ([facility] V24, [facility] V28) DX:COPD (chronic o bstructive pulmonary disease) ([facility]) Psoriasis DX:Psoriasis Tinnitus DX:Tinnitus Arthritis DX:Arthritis Hyperlipidemia [...] 11:30 AM EDT Ancillary Procedure Pulmonolgy - [place] 175 [facility] [address] [place] [phone] 01/07/2025 10:30 AM EDT Appointment [facility] Radiation Oncology [address] [place] [phone] Pina Wynn NP [address] [place] [address] 01/25/2025 11:30 AM EDT Office Visit [facility] Hematology Oncology [address] [place] [phone] Matteo Zuniga MD [address] [place] [address] Health Maintenance Due Date Last [...] Procedure Name Priority Date/Time Associated Diagnosis Comments AR SLEEP STUDY ATTENDED 10/27/2024 CT CHEST WO [...] 2. No developing thoracic lymphadenopathy. Telerad PA ([id number]) -------- FINAL REPORT -------- Dictated By: Laura Angel Dictated Date: 10/20/2024 11:02 ET Assigned Physician: Laura Angel Reviewed and Electronically Signed By: Laura Angel Signed Date: 10/20/2024 11:19 ET Workstation ID: [id number] Transcribed By: Self Edit Transcribed Date: 10/20/2024 11:02 ET Narrative 10/20/2024 11:19 AM EDT History: Metastatic neuroendocrine carcinoma. Status post radiation treatment and chemotherapy. Follow-up pulmonary nodule. Comparison: 07/23/24 Technique: Helical volumetric imaging of the thorax was performed without IV contrast. DLP: 549.84 mGy/cm Sendorier Iterative reconstruction technique Findings: A right apical [...] was performed withoutIV contrast. DLP: 549.84 mGy/cm Sendorier Iterative reconstruction technique Findings: A right apical [...] months. 2. No developing thoracic lymphadenopathy. Telerad ARCELAI ([id number]) -------- FINAL REPORT -------- Dictated By: Laura Angel Dictated Date: 10/20/2024 11:02 ET Assigned Physician: Laura Angel Reviewed and Electronically Signed By: Laura Angel Signed Date: 10/20/2024 11:19 ET Workstation ID: [id number] Transcribed By: Self Edit Transcribed Date: 10/20/2024 11:02 ET us Matteo Zuniga MD IMG CT PROCEDURES Final Res ult * (ABNORMAL) Comprehensive metabolic panel (07/06/2024 11:29 AM EST) [facility] Signature Sodium 137 133 - 145 mmol/L [...] LAB CHEMISTRY METHOD 07/06/2024 1:38 PM EST [facility] Total Protein 6.6 6.0 - 8.0 g/dL LAB CHEMISTRY METHOD 07/06/2024 1:38 PM EST [facility] Albumin 3.5 3.2 - 5.0 g/dL LAB CHEMISTRY METHOD 07/06/2024 1:38 PM EST [facility] Total Bilirubin 0.4 0.0 - 1.4 mg/dL LAB CHEMISTRY METHOD 07/06/2024 1:38 PM EST [facility] Blood Venous blood specimen / Unknown Venipuncture / Unknown 07/06/2024 11:29 AM EST 07/06/2024 12:36 PM EST us Matteo Zuniga MD LAB BLOOD ORDERABLES Final Result [facility] [address] [place] [address], from Last 3 Months or Most Recently Relevant to Health Maintenance Insurance MEDICARE [facility] Care Teams Banking Services Advisor Relationship Specialty Start Date End Date Yoseph cAevedo MD [address] [place] [address] [address] [place] PCP - General Internal Medicine 07/29/17
--- OUTSIDE RECORDS SUMMARY | 2024-11-17 16:03 | XMS_ITS ---
Author Organization [facility] Address [address] [place] [address] Care Team Providers Care Student Success Counselor Name Role Phone Yoseph Acevedo MD Primary Care Provider [phone] Active Problems Problem Noted Date Diagnosed Date [...] treatments are documented for this patient in [facility]. Treatments may have been administered in another system.
--- OUTSIDE RECORDS SUMMARY | 2024-11-17 16:03 | XMS_ITS | Encounter Summary ---
Author Organization [facility] Address [address] [place] [address] Care Team Providers Care Lean Process Deployment Consultant Name Role Phone Yoseph Acevedo MD Primary Care Provider [phone] Encounter Details Date Type Department Care Team Description 10/12/[address] [facility] Oncology Services [address] [place] [address] Adina Hernandez, [facility] Social History Tobacco Use Types Packs/Day Years [...] on filedocumented in this encounter Care Teams Lean Process Deployment Consultant Relationship Specialty Start Date End Date Yoseph Acevedo MD [address] [place] [address] [place] [address] PCP - General Internal Medicine 09/24/22 documented as of this encounter
--- OUTSIDE RECORDS SUMMARY | 2024-11-17 16:03 | XMS_ITS | Encounter Summary ---
Author Organization [facility] Address [address] [place] [address] Care Team Providers Care Head Of Integrated Media Name Role Phone Yoseph Acevedo MD Primary Care Provider [phone] Encounter Details Date Type Department Care Team (Late Contact Info) Description 04/03/2024 2:45 PM EDT Hospital Encounter TH HISTORIC ENCOUNTERS [facility] ONLY Matteo Zuniga MD [address] [place] [address] Social History Tobacco Use Types [...] 11:30 AM EDT Ancillary Procedure Pulmonolgy - [place] 175 [facility] [address] [place] [phone] 01/07/2025 10:30 AM EDT Appointment [facility] Radiation Oncology [address] [place] [phone] Pina Wynn NP [address] [place], [place] [phone] 01/25/2025 11:30 AM EDT Office Visit [facility] Hematology Oncology [address] [place] [address] Matteo Zuniga MD [address] [place] [address] documented as of this encounter Visit Diagnoses Not on filedocumented in this encounter Care Teams Head Of Integrated Media Relationship Specialty Start Date End Date Yoseph Acevedo MD [address] [place] [address] Dr Caceres [address] [place] [address] PCP - General Internal Medicine 07/29/17 documented as of this encounter
--- OUTSIDE RECORDS SUMMARY | 2024-11-17 16:03 | XMS_ITS | Clinical Summary ---
Author Organization [facility] Address [address] [place] [address] Care Team Providers Care Turbine Engine Assembler Name Role Phone Yoseph Acevedo MD Primary Care Provider [phone] Allergies No known active allergies Medications Medication [...] age to complete this topic Care Teams Turbine Engine Assembler Relationship Specialty Start Date End Date Yoseph Acevedo MD [address] [place] [address] [place] [address] PCP - General Internal Medicine 09/24/22
--- OUTSIDE RECORDS SUMMARY | 2024-11-17 16:03 | XMS_ITS | Encounter Summary ---
Author Organization [facility] Address [address] [place] [address] Care Team Providers Care Position Classification Manager Name Role Phone Yoseph Acevedo MD Primary Care Provider [phone] Encounter Details Date Type Department Care Team (Late st Contact Info) Description 04/03/2024 2:45 PM EDT Hospital Encounter TH HISTORIC ENCOUNTERS [facility] ONLY Matteo Zuniga MD [address] [place] [phone] Social History Tobacco Use Types Packs/Day [...] right paratracheal node revealed metastatic neuroendocrine carcinoma, [id number], chromogranin-positive, synaptophysin-positive, Ki-[id number]-high. 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 He is . He has [...] 11:30 AM EDT Ancillary Procedure Pulmonolgy - [place] 175 [facility] [address] [place] [phone] 01/07/2025 10:30 AM EDT Appointment [facility] Radiation Oncology [address] [place] [phone] Pina Wynn NP [address] [place] [address] 01/25/2025 11:30 AM EDT Office Visit [facility] Hematology Oncology [address] [place] [phone] Matteo Zuniga MD [address] [place] [address] documented as of this encounter Procedures Procedure Name Priority Date/Time Associated Diagnosis Comments HISTORICAL IMAGING SCAN RESULT 04/03/2024 documented in this encounter Results * HISTORICAL IMAGING SCAN RESULT (04/03/2024) Anatomical Region Laterality Modality Ultrasound us Provider Onbase IMG US PROCEDURES Final Resul t documented in this encounter Visit Diagnoses Not on filedocumented in this encounter Care Teams Position Classification Manager Relationship Specialty Start Date End Date Yoseph Acevedo MD [address] [place] [address] Dr [address] [place], [place] PCP - General Internal Medicine 07/29/17 documented as of this encounter
--- OUTSIDE RECORDS SUMMARY | 2024-11-17 16:03 | XMS_ITS | Encounter Summary ---
Author Organization [facility] Address [address] [place] [address] Care Team Providers Care Solar Sales Representative Name Role Phone Yoseph Acevedo MD Primary Care Provider [phone] Encounter Details Date Type Department Care Team Description 11/05/2022 Social Work [facility] Oncology Services [address] [place] [address] [facility] Social History Tobacco Use Types Packs/Day Years [...] on filedocumented in this encounter Care Teams Solar Sales Representative Relationship Specialty Start Date End Date Yoseph Acevedo MD [address] [place] [address] [place] [address] PCP - General Internal Medicine 09/24/22 documented as of this encounter
== END ==
LOC: HO.CARD 14:52
PROVIDERS: PCP Internal Medicine; Visit Provider Internal Medicine Cardiovascular Disease
DX: I50.30 Unspecified diastolic (congestive) heart failure (principal); I48.0 Paroxysmal atrial fibrillation
CPT/HCPCS: 93306; Q9957

== ENCOUNTER → 2024-11-17 14:55 | Outpatient (BNV) | payer MEDICARE, OTHER, SELFPAY | PROVIDERS: PCP Internal Medicine; Visit Provider Internal Medicine | DX: I42.2 Other hypertrophic cardiomyopathy (principal); I37.1 Nonrheumatic pulmonary valve insufficiency; I31.39 Other pericardial effusion (noninflammatory) | CPT/HCPCS: 93306 ==

== ENCOUNTER 2025-01-04 12:36 | Outpatient (AMB) | payer MEDICARE, OTHER, SELFPAY ==
[2025-01-04 12:39] VITALS: BP 124/84; PULSE 91; O2SAT 94; BMI 32.3
--- NOTE | 2025-01-04 12:39 | MHC.PC.OV ---
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5 mg base)/3 mL 3 mL inhalation Q6H PRN lorazepam 0.5 mg PO TID PRN 30 days [id number]-hwv-zwkfn-[id number]-ojdcdny-gxlxpt 720-34-238-300 mcg (Centrum Silver Ultra Men's) 1 tab PO DAILY prednisone 20 mg PO DAILY PRN roflumilast 500 mcg PO DAILY tamsulosin (Flomax) 0.4 mg PO BEDTIME Tobacco use date assessed: 01/04/25 Fall risk assessment: No Falls in past year Last assessed Fall Risk: 01/04/25 Dental Screening Dental Screen Date: 01/04/25 Did you have a dental visit in the last 12 months?: Yes Did you have a dental problem in the last 6 months where you did not have access to dental care?: No Was dental information given to patient?: Patient has dentist HPI COPD, DM, HTN, hyperlipidemia, anxiety HPI Details Patient comes in today for his follow-up visit States that he feels okay He denies any headaches or dizziness Denies any chest pains, no increased shortness of breath - his breathing remains fairly well controlled with his current Rx, including Trelegy Ellipta, Daliresp and Albuterol inhaler No nausea/vomiting, no abdominal pain No change in bowel habits noted He was seen by both pulmonary at [facility] and by cardiology here at [facility] over the past few months - was advised to continue on all of his current Rx He was not able to get his follow up labs done prior to his appointment today [facility] Medical History Lower urinary tract symptoms Acute hypoxic respiratory failure Hypoxia Viral syndrome COPD exacerbation Gastritis and duodenitis Hx of cancer of lung Hx of radiation therapy History of chemotherapy Hiatal hernia On anticoagulant therapy HTN (hypertension) Tubular adenoma Arthritis Low back pain Diarrhea Oxygen dependent Emphysema/COPD BROWN (dyspnea on exertion) MANJEET (obstructive sleep apnea) Impaired fasting glucose Eye pain Obesity (BMI 30-39.9) Anxiety COPD (chronic obstructive pulmonary disease) Diabetes mellitus Pure hypercholesterolemia Diastolic heart failure Paroxysmal atrial fibrillation Surgical History History of right inguinal hernia repair (03/13/23) History of esophagogastroduodenoscopy (EGD) Deficient knowledge of leg surgery History of surgery History of cardioversion H/O prior ablation treatment History of colonoscopy Family History Father Medical history unknown Mother Myocardial infarction Social History Household Members: None Housing: House Are you a primary director of health care marketing to a significant other at home: No Do you presently have visiting nurse or other home services: No Unable to assess alcohol history related to: Unable to respond Alcohol intake: current Alcohol intake frequency: a few times a week Alcohol type: beer Patient Tobacco Use Status: Former Tobacco user Tobacco use type: Cigarette e-Cigarette/Vaping Use: Never Used Second Hand Smoke Exposure: Yes Substance Use Type: Marijuana service: No Current occupational status: retired Cognitive needs: No Hearing needs: No Vision needs: Yes (reading glasses) Questionnaire PHQ-9 Over the last 2 weeks, how often have you been bothered by any of the following problems? 1. Little interest or pleasure in doing things: nearly every day 2. Feeling down, depressed, or hopeless: nearly every day 3. Trouble falling or staying asleep, or sleeping too much: several days 4. Feeling tired or having little energy: nearly every day 5. Poor appetite or overeating: more than half the days 6. Feeling bad about yourself - or that you are a failure or have let yourself or your family down: more than half the days 7. Trouble concentrating on things, such as reading the newspaper or watching television: several days 8. Moving or speaking so slowly that other people could have noticed. Or the opposite - being so fidgety or restless that you have been moving around a lot more than usual: not at all 9. Thoughts that you would be better off or of hurting yourself in some way: several days Total score: 16 Depression Screening Interpretation: Positive Depression Screening Follow-up: Existing condition and Follow-up Visit Requested Depression Screening Done: Yes 02985 - PHQ-9 Billing: Yes Source: Developed by Drs. Biju Pedroza, Felisha Roberson, Sergio Wang and colleagues, with an educational gary from [employer]. Thrive Questionnaire Date Thrive assessed: 01/04/25 I am a: Patient What is your living situation today?: I have a steady place to live Within the past 12 months, did the food you bought not last and you didn't have the money to get more?: Never true Within the past 12 months, did you worry whether your food would run out before you got money to buy more?: Never true Do you have trouble paying for medicines?: No Do you have trouble getting transportation to medical appointments?: No Do you have trouble paying your heating and electricity bill?: No Do you have trouble taking care of your child, family member or friend?: No Do you have trouble with day-to-day activities such as bathing, preparing meals, shopping, managing finances, etc.?: Yes Are you currently unemployed and looking for a job?: No Are you interested in more education?: No Please select the resources that you would like help with: None Currently or been in a relationship where the following occur: No concerns reported THRIVE Score: 0 AUDIT C Alcohol Use Questionnaire (AUDIT-C) 1. How often do you have a drink containing alcohol?: 4 or more times a week 2. How many drinks containing alcohol do you have on a typical day when you are drinking?: 3 or 4 3. How often do you have six or more drinks on one occasion?: Never Total Score: 5 Score Reviewed/Action Taken: Yes DANGELO-7 AMB Questionnaire DANGELO-7 Date DANGELO - 7 assessed: 01/04/25 Feeling nervous, anxious, or on edge: 3 = Nearly every day Not being able to stop or control worryin = Nearly every day Worrying too much about different things: 3 = Nearly every day Trouble relaxin = Nearly every day Being so restless that it is hard to sit still: 1 = Several days Becoming easily annoyed or irritable: 2 = More than half the days Feeling afraid as if something awful might happen: 1 = Several days Total DANGELO-7 score (0-4 normal; 5-9 mild; 10-14 moderate; 15-21 severe): 16 Source: Developed by Drs. Biju Pedroza, Felisha Roberson, Sergio Wang and colleagues, with an educational gary from [employer]. Review of Systems Const Denies chills, Reports fatigue, Denies fever(s) and Denies headache(s) ENT Denies dysphagia, Denies dizziness, Denies otalgia, Denies headache(s), Denies neck pain, Denies odynophagia and Denies sore throat Card Denies chest pain, Denies irregular heart rhythm, Denies palpitations and Reports dyspnea on exertion (mild) Resp Denies chest congestion, Denies cough and Reports dyspnea on exertion (mild) GI Denies abdominal pain, Denies constipation, Denies dysphagia, Denies heartburn, Denies diarrhea, Denies nausea, Denies odynophagia and Denies vomiting Denies difficulty urinating, Denies dysuria and Denies urinary frequency Musc Denies back pain, Denies arthralgias and Denies neck pain Skin/Breast Denies rash Neuro Denies dizziness, Denies headache(s) and Reports paresthesias (states that he often has sensations of vibrations going on in his arms/legs) Psych Reports anxiety and Denies depression Endo Reports fatigue and Denies palpitations Physical exam (Primary Care) Vital Signs: Last Vital Signs Pulse 91 01/04/25 12:39 BP 124/84 01/04/25 12:39 Pulse Ox 94 01/04/25 12:39 Oxygen Delivery Method Room Air 01/04/25 12:39 BMI result Body Mass Index 32.3 Tobacco/Smoking Status: Tobacco use Status Tobacco use date assessed 01/04/25 01/04/25 12:48 Patient Tobacco Use Status Former Tobacco user 01/04/25 12:48 Tobacco use type Cigarette 01/04/25 12:48 e-Cigarette/Vaping Use Never Used 01/04/25 12:48 PHQ-9: PHQ-9 Score PHQ-9: Total score 16 01/04/25 13:04 Depression Screening Interpretation: Positive Depression Screening Follow-up: Existing condition and Follow-up Visit Requested Thrive Assessment: Date of Thrive Assessment Date Thrive assessed 01/04/25 01/04/25 12:48 Currently or been in a relationship where the following occur: No concerns reported Const General: no acute distress and alert HENMT Ears: TM's normal bilaterally and EAC's normal Throat: Yes posterior oropharynx normal and Yes tonsils normal (no TP congestion) Neck Neck: Yes supple and No lymphadenopathy Thyroid: Thyroid normal Resp Auscultation: no crackles, no rales, rhonchi (scattered) throughout, no wheezes and diminished lung sounds bilateral Cardio Rate: regular rate Rhythm: regular rhythm Heart sounds: no murmurs GI Palpation (GI): Soft to palpation and nontender Auscultation: normal bowel sounds General: Yes no CVA tenderness Back/Spine/Pelvis Back: no CVA tenderness Thoracic/Lumbar Spine: No lumbar spinal tenderness Skin Rashes: no rashes Extrem General: Yes no clubbing, cyanosis or edema Results AMB Hemoglobin A1c AMB Hemoglobin A1c 7.2 % Last Edit by ROME Quintero on 01/04/25 13:05 Coding Level of Care Code Est Pt Level 4 (07274) Diagnoses Paroxysmal atrial fibrillation I48.0 Diastolic heart failure, unspecified HF chronicity I50.30 Heart failure chronicity: unspecified Pure hypercholesterolemia E78.00 Hx of cancer of lung Z85.118 Chronic obstructive pulmonary disease, unspecified COPD type J44.9 COPD type: unspecified COPD Type 2 diabetes mellitus without complication, without long-term current use of insulin E11.9 Diabetes mellitus type: type 2 Diabetes mellitus 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 insulin use: without 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 use Diabetes mellitus complication status: without complication Gastritis and duodenitis K29.90 Anxiety F41.9 Episode of recurrent major depressive disorder, unspecified depression episode severity F33.9 Depression Type: major depressive disorder Major depression recurrence: recurrent Active/Remission status: currently active Major depression episode severity: unspecified Obesity (BMI 30-39.9) E66.9 Additional Codes PHQ-9 - 06897 - PHQ-9 Billing: Yes ([id number]) Assessment & Plan Assessment & Plan (1) Paroxysmal atrial fibrillation: Code(s): I48.0 - Paroxysmal atrial fibrillation Category: Medical Plan: Patient currently remains in sinus rhythm and has been rate-controlled over the past few years now on Diltiazem CD 120 mg QD - he was on Amiodarone 200 mg QD in the past S/P cardiac ablation at [facility] on 07/29/2018; cardiac rehab back then resulted in some improvement of his symptoms Continue Pradaxa 150 mg twice a day for thromboembolism prophylaxis Follow-up with cardiology as scheduled (2) Diastolic heart failure: Code(s): I50.30 - Unspecified diastolic (congestive) heart failure Category: Medical Qualifiers: Heart failure chronicity: unspecified Qualified Code(s): I50.30 - Unspecified diastolic (congestive) heart failure Plan: Compensated - reinforced fluid restriction Repeat echocardiogram done in October 2024 revealed (+) normal left ventricular systolic function, with the calculated ejection fraction at 58% by biplane method. No obvious valvular pathology was seen Continue Furosemide 80 mg QD (3) Pure hypercholesterolemia: Code(s): E78.00 - Pure hypercholesterolemia, unspecified Category: Medical Plan: He was not able to get his follow up labs done prior to his appointment today Reinforced low cholesterol diet Continue Atorvastatin 40 mg QD Will recheck his labs and fasting lipids in 3 months for follow up - will just have patient use his current orders (updated) for his next lab draw (4) Hx of cancer of lung: Comment: treated at [facility] Code(s): Z85.118 - Personal history of other malignant neoplasm of bronchus and lung Category: Medical Plan: 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 on 09/13/2022 Staging work up done at the time revealed NO metastasis and he was recommended to undergo concurrent chemoradiation therapy He was started then on 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, completed Tx on 01/06/2023 He completed his radiation therapy on 01/04/2023 Follow-up with Pulmonary and Oncology as scheduled for continuing surveillance (5) COPD (chronic obstructive pulmonary disease): Code(s): J44.9 - Chronic obstructive pulmonary disease, unspecified Category: Medical Qualifiers: COPD type: unspecified COPD Qualified Code(s): J44.9 - Chronic obstructive pulmonary disease, unspecified Plan: Patient was on prophylactic Azithromycin 250 mg 1 tablet 3 times a week before but this was also discontinued at some point States that his breathing has been fairly well controlled lately with his current Rx, which include Trelegy Ellipta, Daliresp and Albuterol inhaler Continue Prednisone 20 mg QD Follow up with [facility] (Dr. 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 insulin use: without custodial use Diabetes mellitus complication status: without complication Qualified Code(s): E11.9 - Type 2 diabetes mellitus without complications Plan: His in-office HgbA1c today is at 7.2%; HgbA1c was at 6.8% a few months ago Have advised patient that with his recent HgbA1c numbers, he is considered a diabetic and if he is not able to get his HgbA1c back down to <6.5%, then we will need to consider starting him on Rx for his diabetes Reinforced low carb/low calorie diet Will have him recheck his FBS and HgbA1c again in 3 months for follow up (7) Gastritis and duodenitis: Code(s): K29.90 - Gastroduodenitis, unspecified, without bleeding Category: Medical Plan: EGD done in May 2022 revealed (+) gastritis and duodenitis, and he was started on Pantoprazole 40 mg QD then He has reportedly been advised by GI that he may also have IBS and/or lactose intolerance Reinforced dietary restrictions Continue Ondansetron 4 mg Q 8 hours PRN for his nausea, Famotidine 20 mg Q HS and Pantoprazole 40 mg QD (8) Anxiety: Code(s): F41.9 - Anxiety disorder, unspecified Category: Medical Plan: He was previously on Sertraline 150 mg QD and Lorazepam 0.5 mg every 8 hours as needed for his anxiety but appears to have stopped taking both meds a while back Patient feels that he has been doing okay so far with regard to his mood disorder and he does not require any prescription or medication at this time other than Lorazepam PRN (9) Depression: Code(s): F32.9 - Major depressive disorder, single episode, unspecified Category: Medical Qualifiers: Depression Type: major depressive disorder Major depression recurrence: recurrent Active/Remission status: currently active Major depression episode severity: unspecified Qualified Code(s): F33.9 - Major depressive disorder, recurrent, unspecified Plan: He was taking Sertraline 150 mg QD in the past but appears to have self-discontinued this Rx a while back - states that he has been doing okay without any Rx for his depression so far Will consider again referral to psychiatry if his symptoms recur or progress (10) Obesity (BMI 30-39.9): Code(s): E66.9 - Obesity, unspecified Category: Medical Plan: Reinforced diet; exercise and weight loss are not realistic given patient's COPD and other multiple comorbidities Plan Follow up in 3 months Orders: Orders AMB Hemoglobin A1c Today Z13.9 - Encounter for screening, unspecified
--- OUTSIDE RECORDS SUMMARY | 2025-01-04 13:12 | XMS_ITS | Clinical Summary ---
Author Organization [facility] Address [address] [place] [phone] Phone Care Team Providers Care School Psychometrist Name Role Phone Yoseph Acevedo MD Primary Care Provider Allergies No known active allergies Medications predniSONE (DELTASONE) 20 mg tablet TAKE 2 TABLET BY MOUTH EVERY DAY FOR 5 DAYS NEEDED FOR COPD EXACERBATION 4 Active diclofenac (VOLTAREN) 1 % topical gel 2 Active dilTIAZem XR (DILT-XR) 120 mg 24 hr capsule TAKE 1 CAPSULE BY MOUTH EVERY DAY MAKE AN APPT FOR FURTHER REFILLS, [id number] 2 Active methylcellulose , laxative, 500 mg tablet 2 Active albuterol HFA (PROAIR HFA ; PROVENTIL HFA ; VENTOLIN HFA) 90 mcg/actuation inhaler Inhale 2 Puffs into the lungs every 4 hours as needed for Wheezing for up to 30 days. 4 Active dabigatran etexilate (PRADAXA) 150 mg capsule Take 1 capsule (150 mg total) by mouth 2 (two) times a day. 8 Active ipratropium-alb uteroL (DUONEB) 0.5-2.5 mg/3 mL [...] mouth. Active Gavilax 17 gram/dose oral powder 4 Active pantoprazole (PROTONIX) 40 mg EC [...] Active Laxative, bisacodyl, 5 mg EC tablet 4 Active arformoteroL (BROVANA) 15 mcg/2 mL nebulizer solution Take 1 vial by nebulization 2 (two) times a day. 4 Active Trelegy Ellipta 200-62.5-25 mcg inhaler INHALE 1 PUFF INTO THE LUNGS DAILY FOR 30 DAYS. 60 each 11 5 Active albuterol 2.5 mg /3 mL (0.083 %) nebulizer solutionIndicat ions:Chronic obstructive pulmonary disease, unspecified COPD type ([facility] V24, [facility] V28) Take 3 mL (2.5 mg total) by nebulization every 4 (four) hours if needed for wheezing. 300 mL 11 5 10/24/19 26 Active roflumilast (DALIRESP) 500 mcg tablet TAKE 1 TABLET BY MOUTH EVERY DAY 30 tablet 6 5 Active Active Problems Problem Noted Date Diagnosed Date Cannabis abuse 07/08/2024 Chronic back pain 07/08/2024 Morbid obesity ([facility] V24, [facility] V28) 2024 Nondependent alcohol abuse, continuous drinking behavior 07/08/2024 Overview (07/08/2024): 4-6 Beers/day Obstructive sleep apnea syndrome 07/08/2024 Overview (07/08/2024): not on CPAP Osteoarthritis 07/08/2024 Type 2 diabetes mellitus ([facility] V24, [facility] V 28) 07/08/2024 Morbid obesity with BMI of 4 0.0-44.9, adult ([facility] V24, [facility] V28) 06/01/2024 Small cell lung cancer ([facility] V24, [facility] V28 ) 10/03/2022 Neuroendocrine carcinoma ([facility] V24, [facility] V 28) 09/24/2022 Overview (06/01/2024): Last [...] week. All questions were answered. Atrial fibrillation ([facility] V24, [facility] V28) 0 09/06/2017 Overview (06/01/2024): Ablation 1.5.2017 Diabetes mellitus type 2, un complicated ([facility] V24, [facility] V28) 09/06/2017 Hypertension 09/06/2017 Hyperlipidemia 09/06/2017 Erythrocytosis 09/06/2017 Chronic obstructive pulmonar y disease ([facility] V24, [facility] V28) 08/23/2017 Encounters Date Type Department Care Team Description 12/28/2024 10:07 AM EDT - 12/28/2024 11:59 PM EDT Hospital Encounter [facility] MRI [address] [place] [phone] Small cell carcinoma of lung, unspecified laterality, unspecified part of lung ([facility] V24, [facility] V28) Discharge Disposition: Home or Self Care 11/20/2024 11:30 AM EDT Ancillary Procedure Pulmonolgy - [place] [address] [phone] Chronic obstructive pulmonary disease, unspecified COPD type ([facility] V24, [facility] V28) 10/26/2024 11:45 AM EDT Office Visit [facility] Hematology Oncology [address] [place] [phone] Matteo Zuniga MD Small cell carcinoma of lung, unspecified laterality, unspecified part of lung ([facility] V24, [facility] V28) (Primary Dx) 10/26/2024 Telephone Pulmonolgy - [place] [address] [phone] Annette Johnson MD Sleep Study 10/23/2024 10:45 AM EDT Office Visit Pulmonolgy [facility] [address] [phone] Annette Johnson MD Chronic obstructive pulmonary disease, unspecified COPD type ([facility] V24, [facility] V28) (Primary Dx); Malignant neoplasm of lung, unspecified laterality, unspecified part of lung ([facility] V24, [facility] V28) 10/19/2024 9:54 AM EDT - 10/19/2024 11:59 PM EDT Hospital Encounter [facility] CT Scan [address] [place] [phone] Small cell carcinoma of lung, unspecified laterality, unspecified part of lung ([facility] V24, [facility] V28) Discharge Disposition: Home or Self Care 10/14/2024 Telephone [facility] Hematology Oncology [address] [place] [phone] Kira Roberson MA Appointment from [...] obesity with BMI of 4 0.0-44.9, adult ([facility] V24, [facility] V28) 08/23/2017 DX:Morbid obesity wit h BMI of 40.0-44.9, adult ([facility]) Hyperlipidemia 09/06/2017 DX:Hyperlipidemi a Pulmonary emphysema ([facility] V24, [facility] V28) 08/23/2017 DX:Pulmonary emphysema (HCC) HTN (hypertension) 09/06/2017 DX:HTN (hyper tension) Diabetes mellitus type 2, uncomplicated ([facility] V24, [facility] V28) 09/06/2017 DX:Diabetes mellitus type 2, uncomplicated (HCC) Tobacco use 09/06/2017 DX:Tobacco use Polycythemia 09/06/2017 DX:Polycythemia Atrial fibrillation ([facility] V24, [facility] V28) 09/06/2017 DX:Atrial fibrillation (HCC) ; COMMENT: Ablation 07.05.2016 Atrial fibrillation ([facility] V24, [facility] V28) DX:Atrial fibrillation (HCC) GERD (gastroesophageal reflux disease) DX:GERD (gastroesophageal reflux disease) Hypertension DX:Hypertension Lung cancer ([facility] V24, [facility] V28) DX:Lung cancer ([facility]) COPD (chronic obstructive pu lmonary disease) ([facility] V24, [facility] V28) DX:COPD (chronic o bstructive pulmonary disease) ([facility]) Psoriasis DX:Psoriasis Tinnitus DX:Tinnitus Arthritis DX:Arthritis [...] 95 10/26/2024 11:55 AM EDT Temperature 36.8 C (98.2 F) 10/26/2024 11:55 AM EDT Respiratory Rate 20 10/23/2024 10:50 AM EDT [...] Description 01/07/2025 10:30 AM EDT Appointment [facility] Radiation Oncology [address] [place] [phone] Pina Wynn NP [address] [place] [address] 01/25/2025 11:30 AM EDT Office Visit [facility] Hematology Oncology [address] [place] [phone] Matteo Zuniga MD [address] [place] [phone] Health Maintenance Due Date Last [...] 06/09/2022 COVID-19 Vaccine (7 - Moderna risk season) 2024 04/14/2024, 04/10/2023, 04/03/2022, Additional history exists Influenza Vaccine (#1) 2025 , 03/26/2023, 04/18/2022, Additional history exists Diabetes: Annual GFR (Glomerular Filtration Rate) 07/06/2025 07/06/2024 Hypertension/CHF/CAD Annual BMP Blood Test 07/06/2025 07/06/2024 DTaP,Tdap,and Td Vaccines (2 - Td or Tdap) 06/04/2026 06/04/2016 Pneumococcal Vaccine: 50+ Years Completed 05/20/2023, 04/01/2013 RSV Immunization Adult Patients Completed 05/20/2023 HIB Vaccines Aged Out No longer eligi [...] MR BRAIN WO AND W CONTRAST Routine 12/28/2024 11:38 AM EDT Small cell carcinoma of lung, unspecified laterality, unspecified part of lung ([facility] V24, [facility] V28) PULMONARY FUNCTION TESTING Routine 11/20/2024 1:08 PM EDT Chronic obstructive pulmonary disease, unspecified COPD type (CMS/HCC V24, CMS/HCC V28) TX SLEEP STUDY ATTENDED 10/27/2024 CT CHEST WO CONTRAST Routine 10/19/2024 10:05 AM EDT Small cell carcinoma of lung, unspecified laterality, unspecified part of lung (CMS/HCC V24, CMS/HCC V28) COMPREHENSIVE METABOLIC PANEL Routine 07/06/2024 11:29 AM EST Lung cancer (CMS/HCC V24, CMS/HCC V28) from Last 3 Months or Most Recently Relevant to Health Maintenance Results * MR Brain wo and w Contrast (12/28/2024 11:38 AM EDT) Anatomical Region Laterality Modality Head and Neck Magnetic Resonan ce 12/28/2024 11:2 2 AM EDT Impressions 12/28/2024 12:06 PM EDT No acute findings or abnormal intracranial enhancement. No metastatic disease. -------- FINAL REPORT -------- Dictated By: EVERETT PECK Dictated Date: 12/28/2024 11:22 ET Assigned Physician: EVERETT PECK Reviewed and Electronically Signed By: EVERETT PECK Signed Date: 12/28/2024 12:06 ET Workstation ID: [id number] Transcribed By: Self Edit Transcribed Date: 12/28/2024 11:22 ET Narrative 12/28/2024 12:06 PM EDT PROCEDURE: Brain MRI INDICATION: Small cell lung cancer TECHNIQUE: Multiplanar, multisequence MRI of the brain without and with contrast. 20 mL Dotarem injected intravenously without complication from a 20 mL vial. COMPARISON: 07/06/2024 FINDINGS: No acute infarct, mass effect, or intracranial hemorrhage. Brain parenchyma is stable in signal with minimal chronic small vessel ischemic change throughout the supratentorial white matter. No abnormal intracranial enhancement or susceptibility artifact. Sella and foramen magnum are within normal limits. Mild diffuse cerebral volume loss with prominence of ventricles and sulci, similar compared to prior. No hydrocephalus. Major intracranial arterial flow voids are normal. Major dural venous sinuses enhance normally with contrast. Left greater than right mastoid fluid. Scattered mucosal thickening seen throughout the sinuses. Orbits and skull base soft tissues are normal. Calvarium is normal. Procedure Note Everett Peck MD - 12/28/2024 PROCEDURE: Brain MRI INDICATION: Small cell lung cancer TECHNIQUE: Multiplanar, multisequence MRI of the brain without and withcontrast. 20 mL Dotarem injected intravenously without complication froma 20 mL vial. COMPARISON: 07/06/2024 FINDINGS: No acute infarct, mass effect, or intracranial hemorrhage. Brain parenchyma is stable in signal with minimal chronic small vesselischemic change throughout the supratentorial white matter. No abnormalintracranial enhancement or susceptibility artifact. Sella and foramen magnum are within normal limits. Mild diffuse cerebral volume loss with prominence of ventricles and sulci,similar compared to prior. No hydrocephalus. Major intracranial arterial flow voids are normal. Major dural venoussinuses enhance normally with contrast. Left greater than right mastoid fluid. Scattered mucosal thickening seenthroughout the sinuses. Orbits and skull base soft tissues are normal. Calvarium is normal. IMPRESSION: No acute findings or abnormal intracranial enhancement. No metastaticdisease. -------- FINAL REPORT -------- Dictated By: EVERETT PECK Dictated Date: 12/28/2024 11:22 ET Assigned Physician: EVERETT PECK Reviewed and Electronically Signed By: EVERETT PECK Signed Date: 12/28/2024 12:06 ET Workstation ID: [id number] Transcribed By: Self Edit Transcribed Date: 12/28/2024 11:22 ET Pina Wynn REVIEW ASSISTANT IMG MRI PROCEDURES Fi nal Result * General sleep study (10/27/2024) Provider [facility] SLEEP CENTER ORDERABLES Final Result * CT Chest wo Contrast (10/19/2024 10:05 AM EDT) Anatomical Region Laterality Modality Body Computed Tomogra phy 10/20/2024 11:0 2 AM EDT Impressions 10/20/2024 11:19 AM EDT Impression: 1. No significant change in a right apical spiculated nodule. Continued short- term follow-up is recommended in 3 months. 2. No developing thoracic lymphadenopathy. [employer] ([id number]) -------- FINAL REPORT -------- Dictated By: Laura Angel Dictated Date: 10/20/2024 11:02 ET Assigned Physician: Laura Angel Reviewed and Electronically Signed By: Laura Angel Signed Date: 10/20/2024 11:19 ET Workstation ID: [id number] Transcribed By: Self Edit Transcribed Date: 10/20/2024 11:02 ET Narrative 10/20/2024 11:19 AM EDT History: Metastatic neuroendocrine carcinoma. Status post radiation treatment and chemotherapy. Follow-up pulmonary nodule. Comparison: 07/23/24 Technique: Helical volumetric imaging of the thorax was performed without IV contrast. DLP: 549.84 mGy/cm [employer] Iterative reconstruction technique Findings: A right apical [...] osseous destructive lesion is seen. Procedure Note Laura Angel MD - 10/20/2024 History: Metastatic neuroendocrine carcinoma. Status post radiationtreatment and chemotherapy. Follow-up pulmonary nodule. Comparison: 07/23/24 Technique: Helical volumetric imaging of the thorax was performed withoutIV contrast. DLP: 549.84 mGy/cm [employer] Iterative reconstruction technique Findings: A right apical [...] 2. No developing thoracic lymphadenopathy. [employer] [place] ([id number]) -------- FINAL REPORT -------- Dictated By: Laura Angel Dictated Date: 10/20/2024 11:02 ET Assigned Physician: Laura Angel Reviewed and Electronically Signed By: Laura Angel Signed Date: 10/20/2024 11:19 ET Workstation ID: [id number] Transcribed By: Self Edit Transcribed Date: 10/20/2024 11:02 ET Matteo Zuniga MD IMG CT PROCEDURES [...] PM [facility] Comment:Calculation based on the Chronic Kidney Disease Epidemiology Collaboration (CKD-EPI) equation refit without adjustment for race. BUN/Creatinine Ratio 23.3 LAB [...] Zuniga MD LAB BLOOD ORDERABLES Final Result [facility] [address] [place] [address], from Last 3 Months or Most Recently Relevant to Health Maintenance Insurance MEDICARE [facility] Care Teams School Psychometrist Relationship Specialty Start Date End Date Yoseph Acevedo MD [address] [place] [address] Dr [address] MARY Mendiola PCP - General Internal Medicine 07/29/17
--- OUTSIDE RECORDS SUMMARY | 2025-01-04 13:12 | XMS_ITS ---
Author Organization [facility] Address [address] [place] [address] Care Team Providers Care Solar Sales Consultant Name Role Phone Yoseph Acevedo MD Primary Care Provider [phone] Active Problems Problem Noted Date Diagnosed Date [...] treatments are documented for this patient in [facility]. Treatments may have been administered in another system.
== END 2025-01-04 13:35 | disposition home or self-care (01) ==
LOC: HO.HMCH 12:37
PROVIDERS: PCP Internal Medicine; Visit Provider Internal Medicine
DX: I48.0 Paroxysmal atrial fibrillation (principal); I50.30 Unspecified diastolic (congestive) heart failure; E78.00 Pure hypercholesterolemia, unspecified; Z85.118 Personal history of other malignant neoplasm of bronchus and lung; J44.9 Chronic obstructive pulmonary disease, unspecified; E11.9 Type 2 diabetes mellitus without complications; K29.90 Gastroduodenitis, unspecified, without bleeding; F41.9 Anxiety disorder, unspecified; F33.9 Major depressive disorder, recurrent, unspecified; E66.9 Obesity, unspecified; Z13.9 Encounter for screening, unspecified

== ENCOUNTER → 2025-01-04 12:36 | Outpatient (BNVA) | payer MEDICARE, OTHER, SELFPAY | PROVIDERS: PCP Internal Medicine; Visit Provider Internal Medicine | DX: I48.0 Paroxysmal atrial fibrillation (principal); I50.30 Unspecified diastolic (congestive) heart failure; E78.00 Pure hypercholesterolemia, unspecified; Z85.118 Personal history of other malignant neoplasm of bronchus and lung; J44.9 Chronic obstructive pulmonary disease, unspecified; E11.9 Type 2 diabetes mellitus without complications; K29.90 Gastroduodenitis, unspecified, without bleeding; F41.9 Anxiety disorder, unspecified; F33.9 Major depressive disorder, recurrent, unspecified; E66.9 Obesity, unspecified; Z68.32 Body mass index [BMI] 32.0-32.9, adult; Z71.3 Dietary counseling and surveillance | CPT/HCPCS: 83036; 96127; 99212 ==

== ENCOUNTER 2025-01-19 10:49 | Outpatient (REF) | payer MEDICARE, OTHER, SELFPAY ==
--- OUTSIDE RECORDS SUMMARY | 2025-01-19 12:06 | XMS_ITS | Clinical Summary ---
Author Organization [facility] Address [address] [place] [phone] Phone Care Team Providers Care Boat Wrapper Name Role Phone Yoseph Acevedo MD Primary Care Provider [phone] Allergies No known active allergies Medications predniSONE (DELTASONE) 20 mg tablet TAKE 2 TABLET BY MOUTH EVERY DAY FOR 5 DAYS NEEDED FOR COPD EXACERBATION 4 Active diclofenac (VOLTAREN) 1 % topical gel 2 Active dilTIAZem XR (DILT-XR) 120 mg 24 hr capsule TAKE 1 CAPSULE BY MOUTH EVERY DAY MAKE AN APPT FOR FURTHER REFILLS, [id number] 2 Active methylcellulose , laxative, 500 mg [...] ions:Chronic obstructive pulmonary disease, unspecified COPD type ([facility] V24, [facility] V28) Take 3 mL (2.5 mg total) by nebulization every 4 (four) hours if needed for wheezing. 300 mL 11 5 10/24/19 26 Active roflumilast (DALIRESP) 500 mcg tablet TAKE 1 TABLET BY MOUTH EVERY DAY 30 tablet 6 5 Active tamsulosin (FLOMAX) 0.4 mg 24 hr capsule Take 1 capsule (0.4 mg total) by mouth. at bedtime 5 Active finasteride (PROSCAR) 5 mg tablet Take 1 tablet (5 mg total) by mouth 1 (one) time each day. 5 Active Active Problems Problem Noted Date Diagnosed Date Cannabis abuse 07/08/2024 Chronic back pain 07/08/2024 Morbid obesity ([facility] V24, [facility] V28) 2024 Nondependent alcohol abuse, continuous drinking behavior 07/08/2024 Overview (07/08/2024): 4-6 Beers/day Obstructive sleep apnea syndrome 07/08/2024 Overview (07/08/2024): not on CPAP Osteoarthritis 07/08/2024 Type 2 diabetes mellitus ([facility] V24, [facility] V 28) 07/08/2024 Morbid obesity with BMI of 4 0.0-44.9, adult ([facility] V24, [facility] V28) 06/01/2024 Small cell lung cancer ([facility] V24, [facility] V28 ) 10/03/2022 Neuroendocrine carcinoma ([facility] V24, [facility] V 28) 09/24/2022 Overview (06/01/2024): Last Assessment [...] week. All questions were answered. Atrial fibrillation ([facility] V24, [facility] V28) 0 09/06/2017 Overview (06/01/2024): Ablation 1.5.2017 Diabetes mellitus type 2, un complicated ([facility] V24, [facility] V28) 09/06/2017 Hypertension 09/06/2017 Hyperlipidemia 09/06/2017 Erythrocytosis 09/06/2017 Chronic obstructive pulmonar y disease ([facility] V24, [facility] V28) 08/23/2017 Encounters Date Type Department Care Team Description 01/07/2025 10:19 AM EDT - 01/07/2025 11:59 PM EDT Hospital Encounter [facility] Radiation Oncology [address] [place] [phone] Pina Wynn, ALTAGRACIA Small cell carcinoma of lung, unspecified laterality, unspecified part of lung ([facility] V24, [facility] V28) Discharge Disposition: Home or Self Care 01/04/2025 Telephone Pulmonolgy - [place] [address] [phone] Annette Johnson MD Prior Auth 12/28/2024 10:07 AM EDT - 12/28/2024 11:59 PM EDT Hospital Encounter [facility] MRI [address] [place] [phone] Small cell carcinoma of lung, unspecified laterality, unspecified part of lung ([facility] V24, [facility] V28) Discharge Disposition: Home or Self Care 11/20/2024 11:30 AM EDT Ancillary Procedure Pulmonolgy - [place] [address] [phone] Chronic obstructive pulmonary disease, unspecified COPD type ([facility] V24, [facility] V28) 10/26/2024 11:45 AM EDT Office Visit [facility] Hematology Oncology [address] [place] [phone] Matteo Zuniga MD Small cell carcinoma of lung, unspecified laterality, unspecified part of lung ([facility] V24, [facility] V28) (Primary Dx) 10/26/2024 Telephone Pulmongy [facility] 175 [facility] [address] [place] [address] Annette Johnson MD Sleep Study 10/23/2024 10:45 AM EDT [facility] [address] [place] [address] Annette Johnson MD Chronic obstructive pulmonary disease, unspecified COPD type ([facility] V24, [facility] V28) (Primary Dx); Malignant neoplasm of lung, unspecified laterality, unspecified part of lung ([facility] V24, [facility] V28) from Last 3 Months Immunizations Name Administration [...] obesity with BMI of 4 0.0-44.9, adult ([facility] V24, [facility] V28) 08/23/2017 DX:Morbid obesity wit h BMI of 40.0-44.9, adult ([facility]) Hyperlipidemia 09/06/2017 DX:Hyperlipidemi a Pulmonary emphysema ([facility] V24, [facility] V28) 08/23/2017 DX:Pulmonary emphysema (HCC) HTN (hypertension) 09/06/2017 DX:HTN (hyper tension) Diabetes mellitus type 2, uncomplicated ([facility] V24, [facility] V28) 09/06/2017 DX:Diabetes mellitus type 2, uncomplicated ([facility]) Tobacco use 09/06/2017 DX:Tobacco use Polycythemia 09/06/2017 DX:Polycythemia Atrial fibrillation ([facility] V24, [facility] V28) 09/06/2017 DX:Atrial fibrillation (HCC) ; COMMENT: Ablation 1.5.2016 Atrial fibrillation ([facility] V24, [facility] V28) DX:Atrial fibrillation ([facility]) GERD (gastroesophageal reflux disease) DX:GERD (gastroesophageal reflux disease) Hypertension DX:Hypertension Lung cancer ([facility] V24, [facility] V28) DX:Lung cancer ([facility]) COPD (chronic obstructive pu lmonary disease) ([facility] V24, [facility] V28) DX:COPD (chronic o bstructive pulmonary disease) ([facility] [...] Sign Reading Time Taken Comments Blood Pressure 127/67 01/07/2025 10:22 AM EDT Pulse 96 01/07/2025 10:22 AM EDT Temperature 36.3 C (97.3 F) 01/07/2025 10:22 AM EDT Respiratory Rate 18 01/07/2025 10:22 AM EDT Oxygen Saturation 94% 01/07/2025 10:22 AM EDT Inhaled Oxygen Concentration - - Weight 91.7 kg (202 lb 3.2 oz) 01/07/2025 10:22 AM EDT Height 167.6 cm (5' 6 ) 01/07/2025 10:22 AM EDT Body Mass Index 32.64 01/07/2025 10:22 AM EDT Plan of Treatment Upcoming Encounters Date Type Department Care Team (Late st Contact Info) Description 01/25/2025 11:30 AM EDT Office Visit [facility] Hematology Oncology [address] [place] [phone] Matteo Zuniga MD [address] [place] [phone] Health Maintenance Due Date Last Done Comments Diabetes: Annual Foot Exam 10/10/1959 Diabetes: Annual Retina Eye Exam 10/10/1959 Hepatitis A Vaccines (1 of 2 - Risk 2-dose series) 1968 Zoster Vaccines (1 of 2) 1969 Abdominal Aortic Aneurysm (AAA) Screen 06/09/2022 Cholesterol Screening (Lipid Panel) 06/09/2022 Colorectal Cancer Screening: Colonoscopy 06/09/2022 Diabetes: Annual Urine Albumin-Creatinine Ratio (uACR) 06/09/2022 Diabetes: Blood Sugar Control Test (HGBA1C) 06/09/2022 Falls Risk Assessment 06/09/2022 Hepatitis C Screening 06/09/2022 Medicare Annual Wellness Visit 06/09/2022 Social Influencers of Health Screening 06/09/2022 Depression Screening 07/01/2024 COVID-19 Vaccine (7 - Moderna risk season) [...] lung, unspecified laterality, unspecified part of lung ([facility] V24, [facility] V28) PULMONARY FUNCTION TESTING Routine 11/20/2024 1:08 PM EDT Chronic obstructive pulmonary disease, unspecified COPD type (CMS/HCC V24, CMS/HCC V28) MO SLEEP STUDY ATTENDED 10/27/2024 COMPREHENSIVE METABOLIC PANEL Routine 07/06/2024 11:29 AM EST Lung cancer ([facility] V24, [facility] V28) from Last 3 Months or Most Recently Relevant to Health Maintenance Results * MR Brain wo and w Contrast (12/28/2024 11:38 AM EDT) Anatomical Region Laterality Modality Head and Neck Magnetic Resonan ce 12/28/2024 11:2 2 AM EDT Impressions 12/28/2024 12:06 PM EDT No acute findings or abnormal intracranial enhancement. No metastatic disease. -------- FINAL REPORT -------- Dictated By: EVERETT PATTERSON Dictated Date: 12/28/2024 11:22 ET Assigned Physician: EVERETT PATTERSON Reviewed and Electronically Signed By: EVERETT PATTERSON Signed Date: 12/28/2024 12:06 ET Workstation ID: [id number] Transcribed By: Self Edit Transcribed Date: 12/28/2024 [...] normal. Calvarium is normal. Procedure Note Everett Patterson MD - 12/28/2024 PROCEDURE: Brain MRI INDICATION: [...] -------- FINAL REPORT -------- Dictated By: EVERETT PATTERSON Dictated Date: 12/28/2024 11:22 ET Assigned Physician: EVERETT PATTERSON Reviewed and Electronically Signed By: EVERETT PATTERSON Signed Date: 12/28/2024 12:06 ET Workstation ID: [id number] Transcribed By: Self Edit Transcribed Date: 12/28/2024 11:22 ET Pina Wynn SKIVER COUNTER IMG MRI PROCEDURES Fi nal Result * General sleep study (10/27/2024) us Provider [facility] ORDERABLES Final Result * (ABNORMAL) Comprehensive metabolic panel (07/06/2024 11:29 [...] [facility] Comment:Calculation based on the Chronic Kidney [...] Final Result [facility] [address] [place] [address], [place] [phone] from Last 3 Months or Most Recently Relevant to Health Maintenance Insurance MEDICARE [facility] Care Teams Boat Wrapper Relationship Specialty Start Date End Date Yosehp Acevedo MD [address] [place] [address] [address]i [address] MARY Mendiola PCP - General Internal Medicine 07/29/17
--- OUTSIDE RECORDS SUMMARY | 2025-01-19 12:07 | XMS_ITS | Clinical Summary ---
Author Organization [facility] Address [address] [place] [phone] Phone Care Team Providers Care Computer Installation Engineer Name Role Phone Yoseph Acevedo MD Primary Care Provider [phone] Allergies No known active allergies Medications albuterol 2.5 mg /3 mL (0.083 %) nebulizer solution Take 2.5 mg by nebulization every 6 (six) hours as needed. Active albuterol 90 mcg/actuation inhaler Inhale 2 Puffs into the lungs every 4 hours as needed for Wheezing for up to 30 days. 4 Active arformoterol (BROVANA) 15 mcg/2 mL Nebu Inhale 1 vial into the lungs. 4 Active beclomethasone (QVAR REDIHALER) 80 mcg/actuation inhaler Inhale into the lungs. Active budesonide (PULMICORT) 0.25 mg/2 mL nebulizer solution USE 1 VIAL IN NEBULIZER TWICE DAILY - (Rinse Mouth After Each Treatment) 4 Active atorvastatin (LIPITOR) 40 MG tablet Take 40 mg by mouth daily. Active dilTIAZem (CARDIZEM CD) 120 MG 24 hr capsule Take by mouth daily. Active dabigatran etexilate (PRADAXA) 150 mg capsu Take 150 mg by mouth 2 (two) times a day. Active TRELEGY ELLIPTA 200-62.5-25 mcg inhaler INHALE 1 PUFF INTO THE LUNGS DAILY FOR 30 DAYS. 5 Active levalbuterol (XOPENEX) 1.25 mg/3 mL nebulizer solution Inhale 1.25 mg into the lungs. Active LORazepam (ATIVAN) 0.5 MG tablet Take 0.5 mg by mouth 3 (three) times a day as needed. Active predniSONE (DELTASONE) 20 MG tablet Take 40 mg by mouth daily. Active roflumilast (DALIRESP) 500 mcg Tab Take 500 mcg by mouth daily. Active sertraline (ZOLOFT) 50 MG tablet Take 50 mg by mouth daily. Active therapeutic multivitamin tablet Take 1 tablet by mouth daily. Active coenzyme Q10 100 mg capsule Take 100 mg by mouth daily. Active Active Problems Problem Noted Date Diagnosed Date Cannabis abuse 07/08/2024 Chronic back pain 07/08/2024 Morbid obesity 07/08/2024 Osteoarthritis 07/08/2024 Obstructive sleep apnea syndrome 07/08/2024 Overview (08/08/2024): not on CPAP Nondependent alcohol abuse, continuous drinking behavior 07/08/2024 Overview (08/08/2024): 4-6 Beers/day Small cell lung cancer 10/03/2022 Neuroendocrine carcinoma 09/24/2022 Overview (08/08/2024): Last Assessment & Plan: 71-year-old male longtime [...] questions were answered. Atrial fibrillation 09/06/2017 Overview (08/08/2024): Ablation 1.5.2017 Diabetes mellitus type 2, uncomplicated 09/07/19 18 Hyperlipidemia 09/06/2017 Hypertension 09/06/2017 Chronic obstructive pulmonary disease 08/23/2017 Social History Tobacco Use Types Packs/Day Years Used Date Smoking Tobacco: Former Cigarettes Smokeless Tobacco: Never Tobacco Cessation:Counseling Given: Not Answered Education Answer Date Recorded Are you interested in more education? Not on dar e 08/08/2024 Are you concerned about learning? Not on file 08/08/2024 No 08/08/2024 No 08/08/2024 Digital Access Answer Date Recorded No 08/08/2024 No 08/08/2024 Reliable internet access at home? Not on file 08/08/2024 Device with a working camera? Not on file Sex and Gender Information Value Date Recorded Sex Assigned at Not on file Legal Sex Male 9:31 AM EST Gender Identity Not on file Sexual Orientation Not on file Last Filed Vital Signs Vital Sign Reading Time Taken Comments Blood Pressure 141/88 08/08/2024 10:02 AM EST Pulse 80 08/08/2024 10:02 AM EST Temperature 37 C (98.6 F) 08/08/2024 10:02 AM EST Respiratory Rate 18 08/08/2024 10:02 AM EST Oxygen Saturation 96% 08/08/2024 10:02 AM EST Inhaled Oxygen Concentration - - Weight - - Height - - Body Mass Index - - Plan of Treatment Health Maintenance Due Date Last Done Comments CREATININE LEVEL 1949 HEMOGLOBIN A1C 1949 DEPRESSION SCREENING 1961 SMOKING Hx and SMOKELESS TOBACCO SCREENING 1962 HEPATITIS C SCREENING 10/10/1967 ZOSTER VACCINES (1 of 2) 1968 COLOGUARD 1994 COLONOSCOPY 1994 COLORECTAL CANCER SCREENING 1994 FIT TEST 1994 FOBT 1994 SIGMOIDOSCOPY 1994 VIRTUAL COLONOSCOPY 1994 DIABETIC EYE EXAM 08/08/2024 URINE MICROALBUMIN/CREATININE RATIO 08/08/2024 COVID-19 VACCINE ( season) 2024 04/14/2024, 04/10/2023, 04/03/2022, Additional history exists BLOOD PRESSURE 02/05/2025 08/08/2024 Adult Td,Tdap Booster 06/04/2026 06/04/2016 PNEUMOCOCCAL VACCINES (50+ years) Completed 05/20/2023, 04/01/2013 RSV VACCINE Completed 05/20/2023 HEPATITIS A VACCINES Aged Out No long er eligible based on patient's age to complete this topic HIB VACCINES Aged Out No longer eligi ble based on patient's age to complete this topic MENINGOCOCCAL VACCINES (ACWY) Aged Out No longer eligible based on patient's age to complete this topic MENINGOCOCCAL VACCINES (B) Aged Out N o longer eligible based on patient's age to complete this topic Medical Devices Not on file Insurance [employer] MEDIC[employer] SUPPLEMENT MEDICARE PART A & B [employer] MED[employer] SUPPLEMENT MEDICARE PART A & B [facility] [employer] MEDICARE SUPPLEMENT MEDICARE PART A & B [facility] [employer] MEDICARE SUPPLEMENT MEDICARE PART A & B [facility] [employer] MEDICARE SUPPLEMENT MEDICARE PART A & B [facility] [employer] MEDICARE SUPPLEMENT MEDICARE PART A & B Care Teams Computer Installation Engineer Relationship Specialty Start Date End Date Yoseph Acevedo MD [address] [place] [address] [place] [address] PCP - General Internal Medicine 08/08/24 Additional Source Comments The information contained in this document represents components of the legal health record. It is not the complete legal health record.[facility]
--- OUTSIDE RECORDS SUMMARY | 2025-01-19 12:07 | XMS_ITS ---
Author Organization [facility] Address [address] [place] [address] Care Team Providers Care Drilling Rig Operator Name Role Phone Yoseph Acevedo MD Primary Care Provider [phone] Active Problems Problem Noted Date Diagnosed Date [...] are documented for this patient in [facility]. Treatments may have been administered in another system.
[2025-01-19 14:08] LABS: MANUAL DIFF FLAG NO
[2025-01-19 14:16] LABS: Hematocrit 45.9 % (42.0-52.0); Hemoglobin 15.5 g/dl (14.0-18.0); Imm Gran Abs Auto 0.05 X10*3/uL (0.00-0.03); Imm Gran Pct Auto 0.6 % (0.0-0.4); Lymphocytes Absolute Auto 0.7 X10*3/uL (1.2-4.9); Mean Corpuscular HGB Conc 33.8 g/dl (31.0-36.0); Mean Corpuscular Hemoglobin 30.2 pg (27.0-33.0); Mean Corpuscular Volume 89.3 fL (80.0-98.0); NRBC Abs Auto 0.000 X10*3/uL (0.0-0.012); NRBC Pct Auto 0.0 /100WBC (0.0-0.2); Platelet Count 239 X10*3/uL (160-400); Red Blood Count 5.14 X10*6/uL (4.60-5.80); White Blood Count 8.6 X10*3/uL (4.8-10.8)
[2025-01-19 14:49] LABS: Alanine Aminotransferase 39 U/L (0-40); Albumin Level 4.3 g/dL (3.5-5.0); Alkaline Phosphatase 27 U/L (39-117); Anion Gap 15 (12-20); Aspartate Amino Transferase 24 U/L (5-37); Blood Urea Nitrogen 22 mg/dL (9-16); Calcium 9.6 mg/dL (8.4-10.2); Carbon Dioxide 30 mmol/L (22-29); Chloride 103 mmol/L (96-108); Estimated Glomerular Filt Rate > 60; Potassium 3.8 mmol/L (3.3-5.1); Sodium 144 mmol/L (135-145); Total Protein 6.8 g/dL (6.5-8.0)
== END 2025-01-19 10:50 | disposition home or self-care (01) ==
LOC: HO.WFDLDS 10:49
PROVIDERS: Visit Provider Internal Medicine Hematology & Oncology
DX: C34.90 Malignant neoplasm of unspecified part of unspecified bronchus or lung (principal)
CPT/HCPCS: 36415; 80053; 85025

== ENCOUNTER 2025-04-02 14:33 | Outpatient (AMB) | payer MEDICARE, OTHER, SELFPAY ==
--- OUTSIDE RECORDS SUMMARY | 2024-04-03 14:45 | XMS_ITS | Encounter Summary ---
Author Organization [facility] Address [address] [place] [address] Care Team Providers Care Nuclear Medicine Physician Name Role Phone Yoseph Acevedo MD Primary Care Provider Encounter Details Date Type Department Care Team (Late st Contact Info) Description 04/03/2024 2:45 PM EDT Hospital Encounter TH HISTORIC ENCOUNTERS [facility] CONVERSION ONLY Matteo Zuniga MD [address] [place] [address] Social History Tobacco Use Types Packs/Day Years Used Date Smoking Tobacco: Former Cigarettes Q uit: 07/01/1996 Alcohol Use Standard Drinks/Week Comments Yes 0 (1 standard drink = 0.6 oz pur e alcohol) Sex and Gender Information Value Date Recorded Sex Assigned at Male 06/16/2024 9:42 AM EST Legal Sex Male 9:26 AM EST Gender Identity Male 06/16/2024 9:42 AM EST Sexual Orientation Straight 06/16/2024 9: 42 AM EST documented as of this encounter Plan of Treatment Upcoming Encounters Date Type Department Care Team (Late st Contact Info) Description 04/05/2025 10:45 AM EDT Office Visit Pulmonology - [place] [address] [phone] Annette Johnson MD [address] [address] 05/04/2025 1:[address] [facility] CT Scan [address] [place] [address] 05/17/2025 11:15 AM EST Office Visit [facility] Hematology Oncology [address] [place] [phone] Matteo Zuniga MD [address] [place] [phone] documented as of this encounter Visit Diagnoses Not on filedocumented in this encounter Care Teams Nuclear Medicine Physician Relationship Specialty Start Date End Date Yoseph Acevedo MD [address] [place] [address] Dr Nicki [address] [place] [address] PCP - General Internal Medicine 07/29/17 documented as of this encounter
--- OUTSIDE RECORDS SUMMARY | 2024-04-03 14:45 | XMS_ITS | Encounter Summary ---
Author Organization [facility] Address [address] [place] [address] Care Team Providers Care Cable Puller Name Role Phone Yoseph Acevedo MD Primary Care Provider + [phone] Encounter Details Date Type Department Care Team (Late st Contact Info) Description 04/03/2024 2:45 PM EDT Hospital Encounter TH HISTORIC ENCOUNTERS [facility] ONLY Matteo Zuniga MD [address] [place] [phone] Social History Tobacco Use Types Packs/Day [...] AM EST documented as of this encounter Last Filed Vital Signs Vital Sign Reading Time Taken Comments Blood Pressure 140/73 04/03/2024 2:49 PM EDT Sitting Left arm Pulse 91 04/03/2024 2:49 PM EDT Temperature - - Respiratory Rate - - Oxygen Saturation - - Inhaled Oxygen Concentration - - Weight 85.7 kg (189 lb) 04/03/2024 2:49 PM EDT Height 168.9 cm (5' 6.5 ) 04/03/2024 2: 49 PM EDT Body Mass Index 30.05 04/03/2024 2:49 PM EDT documented in this encounter Progress Notes * Matteo Zuniga MD - 04/03/2024 2:45 PM EDT Diagnosis/treatment: Limited stage small cell lung cancer, diagnosed in 08/2022. He started irinotecan 65 mg per metered squared on days 1 and 8 q. 21 days on 10/29/2022 and completed 4 cycles. He started concurrent radiation with cycle 2 and completed radiation on 01/04/2023. Interval history: The patient is a 73-year-old smoking gentleman who is followed with screening chest CTs in the LungCancer Screening Program. A chest CT without contrast 07/24/2019 was unremarkable. A chest CT without contrast on 08/05/2021 showed a new 1.2 cm subcarinal node. A chest CT on 08/07/2022 showed a 2.5 x 1.3 cm subcarinal node and was otherwise unremarkable. He underwent a bronchoscopy with EBUS on 09/13/[address] Mathur and FNAs taken from 2 subcarinal nodes and a right paratracheal node revealed metastatic neuroendocrine carcinoma, [id number], chromogranin-positive, synaptophysin-positive, Ki-67-high. A brain MRI with contrast on 09/17/2022 was unremarkable. A PET/CT on 2022 showed uptakein a subcarinal node with SUV 3.2 and no other sites of uptake. He reports chronic diarrhea. He tolerated irinotecan reasonably well. He reports mild worsening of baseline cognitive changes, which returned to baseline. He developed a zoster infection in left mid-back in 12/2022. He completed a course of acyclovir and the rash resolved. He tolerated radiation well without side effects. A C/A/P CT with IV and with oral contrast on 03/21/2023 showed a decreasing 1.3 cm subcarinal node and was otherwise unremarkable. A brain MRI with contrast on 06/14/2023 was unremarkable. A C/A/P CT with IV and with oral contrast on 06/19/2023 showed resolution of the subcarinal node and was otherwise unremarkable. A C/A/P CT with IV contrast and without oral contrast on 12/31/2023 was unremarkable. A brain MRI with contrast on 01/08/2024 was unremarkable. He reports episodic dyspnea on exertion due to COPD. He denies cough or hemoptysis. He denies headaches or visual changes. He denies nausea or abdominal pain. He denies unusual bone pain. He reports a stable appetite and weight. He admits memory issues. He admits hearing loss. He reports chronic bilateral tinnitus. Past medical history: Atrial fibrillation, hypertension, hyperlipidemia, COPD. Current medications: Albuterol, atorvastatin, Pradaxa, Cardizem, Protonix, Zoloft. Allergies: No known drug allergies. Family history: His parents, 2 sisters, and son have no history of cancer. 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 He is . He has 1 son. He started smoking at age 14 and smoked up to 2 packs a day and quit tobacco in 1996, but does continue to smoke cigars. He smokes marijuana. He drinks alcohol occasionally. Review of systems: The remainder of a 10 point review of systems was unremarkable. Physical examination: HEENT: Sclerae anicteric, normal oropharyngeal membrane. Neck: No lymphadenopathy. Lungs: Clear to auscultation. Heart: No murmurs. Abdomen: Soft, nontender, no organomegaly or masses. Extremities: No edema. Skin: Small erythematous papular rash just left of midline in the mid-back. Neurologic: Normal gait. Assessment/plan: The patient is a 73-year-old gentleman who was diagnosed in 08/2022 with a limited stage small cell lung cancer. We plan for chemoradiation with irinotecan x4 cycles. He has been referred to Radiation Oncology. He started radiation with cycle 2. He is not a good candidate for cisplatin chemotherapy due to his baseline hearing loss and tinnitus. I discussed potential adverse effects of irinotecan chemotherapy, including fatigue, reversible hair loss, nausea, diarrhea, cytopenias, and infection. He tolerated irinotecan reasonably well. He reports mild worsening of baseline cognitive changes, which returned to baseline. He developed a zoster infection in left mid-back in 12/2022. He completed a course of acyclovir and the rash resolved. He tolerated radiation well without side effects. Restaging CTs in late 03/2023 showed a marked decrease in the subcarinal lymphadenopathy. A brain MRI in mid-05/2023 was unremarkable. Restaging CTs in late 05/2023 showed resolution of the subcarinal lymphadenopathy. Restaging CTs in early 12/2023 were unremarkable. A brain MRI in mid-01/2024 was unremarkable. We will monitor CTs and brain MRIs. There is no clinical evidence of recurrent small cell lung cancer. documented in this encounter Plan of Treatment Upcoming Encounters Date Type Department Care Team (Late st Contact Info) Description 04/05/2025 10:45 AM EDT Office Visit Pulmonology - [place] [facility] [address] [place] [phone] Annette Johnson MD [address] [facility] [address] [place] [phone] 05/04/2025 1:[address] [facility] CT Scan [address] [place] [phone] 05/17/2025 11:15 AM EST Office Visit [facility] Hematology Oncology [address] [place] [phone] Matteo Zuniga MD [address] [place] [phone] documented as of this encounter Procedures Procedure Name Priority Date/Time Associated Diagnosis Comments HISTORICAL IMAGING SCAN RESULT 04/03/2024 documented in this encounter Results * HISTORICAL IMAGING SCAN RESULT (04/03/2024) Anatomical Region Laterality Modality Ultrasound us Provider Onbase IMG US PROCEDURES Final Resul t documented in this encounter Visit Diagnoses Not on filedocumented in this encounter Care Teams Cable Puller Relationship Specialty Start Date End Date Yoseph Acevedo MD [address] [place] [address] Dr [address] [place] PCP - General Internal Medicine 07/29/17 documented as of this encounter
--- OUTSIDE RECORDS SUMMARY | 2025-04-02 14:35 | XMS_ITS | Clinical Summary ---
Author Organization [facility] Address [address] [place] [phone] Phone Care Team Providers Care Administrative Liaison Name Role Phone Yoseph Acevedo MD Primary [...] DAY MAKE AN APPT FOR FURTHER REFILLS, [id number] 2 Active methylcellulose , laxative, 500 mg [...] 30 DAYS. 60 each 11 5 Active roflumilast (DALIRESP) 500 mcg tablet TAKE 1 TABLET BY MOUTH EVERY DAY 30 tablet 6 5 Active tamsulosin (FLOMAX) 0.4 mg 24 hr capsule Take 1 capsule (0.4 mg total) by mouth. at bedtime 5 Active finasteride (PROSCAR) 5 mg tablet Take 1 tablet (5 mg total) by mouth 1 (one) time each day. 5 Active albuterol 2.5 mg /3 mL (0.083 %) nebulizer solutionIndicat ions:Chronic obstructive pulmonary disease, unspecified COPD type ([facility] V24, [facility] V28) Take 3 mL (2.5 mg total) by nebulization every 4 (four) hours if needed for wheezing. 300 mL 4 5 05/19/20 25 Active Active Problems Problem Noted Date Diagnosed Date Cannabis abuse 07/08/2024 Chronic back pain 07/08/2024 Morbid obesity ([facility] V24, [facility] V28) 2024 Nondependent alcohol abuse, continuous drinking behavior 07/08/2024 Overview (07/08/2024): 4-6 Beers/day Obstructive sleep apnea syndrome 07/08/2024 Overview (07/08/2024): not on CPAP Osteoarthritis 07/08/2024 Type 2 diabetes mellitus ([facility] V24, [facility] V 28) 07/08/2024 Morbid obesity with BMI of 4 0.0-44.9, adult ([facility] V24, [facility] V28) 06/01/2024 Small cell lung cancer ([facility] V24, [facility] V28 ) 10/03/2022 Neuroendocrine carcinoma ([facility] V24, [facility] V 28) 09/24/2022 Overview (06/01/2024): Last Assessment [...] week. All questions were answered. Atrial fibrillation ([facility] V24, [facility] V28) 0 09/06/2017 Overview (06/01/2024): Ablation 1.5.2017 Diabetes mellitus type 2, un complicated ([facility] V24, [facility] V28) 09/06/2017 Hypertension 09/06/2017 Hyperlipidemia 09/06/2017 Erythrocytosis 09/06/2017 Chronic obstructive pulmonar y disease ([facility] V24, [facility] V28) 08/23/2017 Encounters Date Type Department Care Team Description 03/15/2025 Telephone [facility] Hematology Oncology [address] [place] [phone] Germaine Ballard [place] 02/12/2025 11:00 AM EDT Office Visit [facility] Hematology Oncology [address] [place] [phone] Matteo Zuniga MD Small cell carcinoma of lung, unspecified laterality, unspecified part of lung ([facility] V24, [facility] V28) (Primary Dx) 02/12/2025 Telephone [facility] Hematology Oncology [address] [place] [phone] Zachariah Koroma [place] 01/29/2025 Telephone Pulmonology [facility] [address] [phone] Annette Johnson MD 01/22/2025 Telephone Pulmonology [facility] [address] [phone] Annette Johnson MD 01/07/2025 10:19 AM EDT - 01/07/2025 11:59 PM EDT Hospital Encounter [facility] Radiation Oncology [address] [place] [phone] Pina Wynn, [place] Small cell carcinoma of lung, unspecified laterality, unspecified part of lung ([facility] V24, [facility] V28) Discharge Disposition: Home or Self Care 01/04/2025 Telephone Pulmonology - [place] [address] [facility] [address] [place] [address] Annette Johnson MD from Last 3 Months Immunizations Immunization Administration Dates Next Due Influenza Quadravalent, 0.5m [...] subun it RSVpreF, 0.5mL, Preservative Free (ABRYSVO) 50yo and older or 32 through 36 wks [...] obesity with BMI of 4 0.0-44.9, adult (CMS/HCC V24, CMS/HCC V28) 08/23/2017 DX:Morbid obesity wit h BMI of 40.0-44.9, adult (HCC) Hyperlipidemia 09/06/2017 DX:Hyperlipidemi a Pulmonary emphysema (CMS/HCC V24, CMS/HCC V28) 08/23/2017 DX:Pulmonary emphysema (HCC) HTN (hypertension) 09/06/2017 DX:HTN (hyper tension) Diabetes mellitus type 2, uncomplicated (CMS/HCC V24, CMS/HCC V28) 09/06/2017 DX:Diabetes mellitus type 2, uncomplicated (HCC) Tobacco use 09/06/2017 DX:Tobacco use Polycythemia 09/06/2017 DX:Polycythemia Atrial fibrillation ([facility] V24, [facility] V28) 09/06/2017 DX:Atrial fibrillation ([facility]) ; COMMENT: Ablation 1. Atrial fibrillation ([facility] V24, [facility] V28) DX:Atrial fibrillation (HCC) GERD (gastroesophageal reflux disease) DX:GERD (gastroesophageal reflux disease) Hypertension DX:Hypertension Lung cancer ([facility] V24, [facility] V28) DX:Lung cancer ([facility]) COPD (chronic obstructive pu lmonary disease) ([facility] V24, [facility] V28) DX:COPD (chronic o bstructive pulmonary disease) ([facility]) Psoriasis DX:Psoriasis Tinnitus DX:Tinnitus Arthritis DX:Arthritis Hyperlipidemia [...] Sign Reading Time Taken Comments Blood Pressure 117/69 02/12/2025 10:58 AM EDT Pulse 92 02/12/2025 10:58 AM EDT Temperature 36.8 C (98.2 F) 02/12/2025 10:58 AM EDT Respiratory Rate 18 01/07/2025 10:22 AM EDT Oxygen Saturation 95% 02/12/2025 10:58 AM EDT Inhaled Oxygen Concentration - - Weight 90.3 kg (199 lb) 02/12/2025 10:58 AM EDT Height 167.6 cm (5' 6 ) 01/07/2025 10:22 AM EDT Body Mass Index 32.12 01/07/2025 10:22 AM EDT Plan of Treatment Upcoming Encounters Date Type Department Care Team (Late st Contact Info) Description 04/05/2025 10:45 AM EDT Office Visit Pulmonology - [place] 175 [facility] [address] [place] [phone] Annette Johnson MD [address] [facility] [address] [place] [address] 05/04/2025 1:00 PM EST Appointment [facility] CT Scan [address] [place] [phone] 05/17/2025 11:15 AM EST Office Visit [facility] Hematology Oncology [address] [place] [address] Matteo Zuniga MD [address] [place] [address] Health Maintenance Due Date Last Done Comments Colorectal Cancer Screening: Colonoscopy 1949 Diabetes: Annual Foot Exam 10/10/1959 Diabetes: Annual Retina Eye Exam 10/10/1959 Hepatitis A Vaccines (1 of 2 - Risk 2-dose series) 1968 Zoster Vaccines (1 of 2) 1969 Abdominal Aortic Aneurysm (AAA) Screen 06/09/2022 Cholesterol Screening (Lipid Panel) 06/09/2022 Diabetes: Annual Urine Albumin-Creatinine Ratio (uACR) 06/09/2022 Diabetes: Blood Sugar Control Test (HGBA1C) 06/09/2022 Falls Risk Assessment 06/09/2022 Hepatitis C Screening 06/09/2022 Medicare Annual Wellness Visit 06/09/2022 Social Influencers of Health Screening 06/09/2022 Depression Screening 07/01/2024 COVID-19 Vaccine (7 - Moderna risk season) 2025 04/14/2024, 04/10/2023, 04/03/2022, Additional history exists Influenza [...] Procedure Name Priority Date/Time Associated Diagnosis Comments COMPREHENSIVE METABOLIC PANEL Routine 07/06/2024 11:29 AM EST Lung cancer ([facility] V24, [facility] V28) from Last 3 Months or Most Recently Relevant to Health Maintenance Results * (ABNORMAL) Comprehensive metabolic panel (07/06/2024 11:29 AM EST) Sodium 137 133 - 145 mmol/L LAB CHEMISTRY METHOD 07/06/2024 1:38 PM EST [facility] Potassium 4.7 3.5 - 5.5 mmol/L LAB CHEMISTRY METHOD 07/06/2024 1:38 PM EST [facility] Chloride 105 96 - 110 mmol/L LAB CHEMISTRY METHOD 07/06/2024 1:38 PM EST [facility] CO2 27 21 - 32 mmol/L LAB CHEMISTRY METHOD 07/06/2024 1:38 PM EST [facility] Anion Gap 5 3 - 11 LAB CHEMISTRY METHOD 07/06/2024 1:38 PM [facility] Glucose 129(H) 70 - 100 mg/dL LAB CHEMISTRY METHOD 07/06/2024 1:38 PM [facility] BUN 21 5 - 25 mg/dL LAB CHEMISTRY METHOD 07/06/2024 1:38 PM [facility] Creatinine 0.90 0.70 - 1.30 mg/dL LAB CHEMISTRY METHOD 07/06/2024 1:38 PM [facility] eGFR 90 >=60 mL/min/1. 73m2 LAB CHEMISTRY METHOD 07/06/2024 1:38 PM [facility] Comment:Calculation based on the Chronic Kidney Disease Epidemiology Collaboration (CKD-EPI) equation refit without adjustment for race. BUN/Creatinine Ratio 23.3 LAB CHEMISTRY METHOD 07/06/2024 1:38 PM [facility] Calcium 9.6 8.5 - 10.5 mg/dL LAB CHEMISTRY METHOD 07/06/2024 1:38 PM [facility] AST (SGOT) 12 10 - 42 unit/L LAB CHEMISTRY METHOD 07/06/2024 1:38 PM [facility] ALT (SGPT) 36 10 - 60 unit/L LAB CHEMISTRY METHOD 07/06/2024 1:38 PM [facility] Alkaline Phosphatase 34(L) 42 - 121 unit/L LAB CHEMISTRY METHOD 07/06/2024 1:38 PM [facility] Total Protein 6.6 6.0 - 8.0 g/dL LAB CHEMISTRY METHOD 07/06/2024 1:38 PM [facility] Albumin 3.5 3.2 - 5.0 g/dL LAB CHEMISTRY METHOD 07/06/2024 1:38 PM [facility] Total Bilirubin 0.4 0.0 - 1.4 mg/dL LAB CHEMISTRY METHOD 07/06/2024 1:38 PM [facility] Blood Venous blood specimen / Unknown Venipuncture / Unknown 07/06/2024 11:29 AM EST 07/06/2024 12:36 PM EST us Matteo Zuniga MD LAB BLOOD ORDERABLES Final Result [place] ([facility]) [facility] [address] [place] [address], from Last 3 Months or Most Recently Relevant to Health Maintenance Insurance MEDICARE [facility] Care Teams Administrative Liaison Relationship Specialty Start Date End Date Yoseph Acevedo MD [address] [place] [address] [address] MARY Mendiola PCP - General Internal Medicine 07/29/17
--- NOTE | 2025-04-02 14:36 | MHC.PC.OV ---
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 Required: No Accompanied by: Self / Same As Patient Allergies No Known Allergies (No Known Allergies*) Allergy (Verified 04/02/25 15:06) Medication List - Last Reconciled 04/02/25 by ALEJANDRO Parker albuterol sulfate 90 mcg/actuation 2 puffs inhalation Q4H PRN 30 days atorvastatin 40 mg PO BEDTIME coenzyme Q10 60 mg PO DAILY dabigatran etexilate 150 mg PO BID diltiazem HCl CD 120 mg PO DAILY famotidine 20 mg PO BEDTIME finasteride 5 mg PO DAILY 90 days aozlfccscnl-uvddkhxir-fbnxwdyv 200-62.5-25 mcg (Trelegy Ellipta) 1 ea inhalation DAILY furosemide 80 mg PO DAILY ipratropium-albuterol 0.5 mg-3 mg(2.5 mg base)/3 mL 3 mL inhalation Q6H PRN lorazepam 0.5 mg PO TID PRN 30 days ky-gyy-fuomm-U6-cwdhdla-yiiaxm 847-09-925-300 mcg (Centrum Silver Ultra Men's) 1 tab PO DAILY prednisone 20 mg PO DAILY PRN roflumilast 500 mcg PO DAILY tamsulosin (Flomax) 0.4 mg PO BEDTIME Tobacco use date assessed: 04/02/25 Fall risk assessment: No Falls in past year Last assessed Fall Risk: 04/02/25 Dental Screening Dental Screen Date: 04/02/25 Did you have a dental visit in the last 12 months?: Yes Did you have a dental problem in the last 6 months where you did not have access to dental care?: No Was dental information given to patient?: Patient has dentist HPI [facility] HPI Details The patient is a 74-year-old male presenting for a preop clearance. Patient of Dr. Acevedo, was last seen in office on 01/04/2025. Patient is presenting for preop clearance for cataract surgery for right eye. Reports that the left thigh we will be done 20 days after. Patient reports longstanding cataracts causing blurriness and double vision. Date: 04/08/2025 Surgeon/location: Patient reports that he is not sure of which 1 of the doctors is going to do his surgery. Surgery will be completed through [facility], at [place], [place] Anesthesia: MAC. Patient denies any allergies to anesthesia. Patient denies any postoperative hypothermia. The patient is on Xarelto for AFib and was encouraged to continue this medication due to the risks versus benefits. The patient has a history of Type 2 Diabetes Mellitus, with previous A1c levels exceeding 7.0%, indicating a diabetic range. Recent A1c was reported at 6.7%, suggesting improved glycemic control. The patient is concerned about his diabetic status and has been advised to manage his condition through lifestyle modifications. The patient has a history of Atrial Fibrillation, which was previously undiagnosed for an extended period, leading to episodes of tachycardia with heart rates reaching 190 bpm. He is currently on anticoagulation therapy with Xarelto to manage the risk of thromboembolic events. The patient has a history of emphysema and COPD, with chronic shortness of breath and reliance on albuterol via nebulizer for symptomatic relief. He has a history of smoking tobacco, which he has since quit, but continues to smoke marijuana occasionally. Patient has a history of diastolic heart failure relies on Lasix 80 mg daily. He continues to have bilateral lower extremity edema. Right leg slightly bigger than left. Positive CMS. Patient denies chest pain, dizziness or heart palpitation Chronic shortness of breath but no increasing shortness of breath [facility], LAT[facility] Medical History Lower urinary tract symptoms Acute hypoxic respiratory failure Hypoxia Viral syndrome COPD exacerbation Gastritis and duodenitis Hx of cancer of lung Hx of radiation therapy History of chemotherapy Hiatal hernia On anticoagulant therapy HTN (hypertension) Tubular adenoma Arthritis Low back pain Diarrhea Oxygen dependent Emphysema/COPD BROWN (dyspnea on exertion) MANJEET (obstructive sleep apnea) Impaired fasting glucose Eye pain Obesity (BMI 30-39.9) Anxiety COPD (chronic obstructive pulmonary disease) Diabetes mellitus Pure hypercholesterolemia Diastolic heart failure Paroxysmal atrial fibrillation Surgical History History of right inguinal hernia repair (03/13/23) History of esophagogastroduodenoscopy (EGD) Deficient knowledge of leg surgery History of surgery History of cardioversion H/O prior ablation treatment History of colonoscopy Family History Father Medical history unknown Mother Myocardial infarction Social History Household Members: None Housing: House Are you a primary career development manager to a significant other at home: No Do you presently have visiting nurse or other home services: No Alcohol intake: current Alcohol intake frequency: a few times a week Alcohol type: beer Patient Tobacco Use Status: Former Tobacco user Tobacco use type: Cigarette e-Cigarette/Vaping Use: Never Used Second Hand Smoke Exposure: Yes Substance Use Type: Marijuana service: No Current occupational status: retired Cognitive needs: No Hearing needs: No Vision needs: Yes (reading glasses) Questionnaire Thrive Questionnaire Date Thrive assessed: 01/04/25 I am a: Patient What is your living situation today?: I have a steady place to live Within the past 12 months, did the food you bought not last and you didn't have the money to get more?: Never true Within the past 12 months, did you worry whether your food would run out before you got money to buy more?: Never true Do you have trouble paying for medicines?: No Do you have trouble getting transportation to medical appointments?: No Do you have trouble paying your heating and electricity bill?: No Do you have trouble taking care of your child, family member or friend?: No Do you have trouble with day-to-day activities such as bathing, preparing meals, shopping, managing finances, etc.?: Yes Are you currently unemployed and looking for a job?: No Are you interested in more education?: No Please select the resources that you would like help with: None Currently or been in a relationship where the following occur: No concerns reported THRIVE Score: 0 DANGELO-7 AMB Questionnaire DANGELO-7 Date DANGELO - 7 assessed: 01/04/25 Source: Developed by Drs. Biju Pedroza, Felisha Roberson, Sergio Wang and colleagues, with an educational gary from [employer]. Review of Systems Const Denies headache(s) Eyes Reports blurry vision, Reports diplopia and Denies loss of vision ENT Denies vertigo, Denies dizziness, Denies headache(s) and Denies sore throat Card Denies chest pain, Reports leg edema, Denies lightheadedness, Reports dyspnea and Reports dyspnea on exertion Resp Denies cough, Denies hemoptysis, Reports dyspnea, Reports dyspnea on exertion and Denies wheezing GI Denies abdominal pain, Denies melena, Denies constipation, Denies diarrhea and Denies vomiting Denies dysuria, Denies urinary frequency and Denies urinary urgency Musc Denies arthralgias, Denies joint swelling, Denies numbness and Denies tingling Neuro Denies Abnormal speech present, Denies behavioral changes, Denies vertigo, Denies dizziness, Denies headache(s), Denies loss of vision, Denies memory loss, Denies numbness and Denies tingling Psych Denies anxiety, Denies behavioral changes, Denies depression, Denies memory loss and Denies panic attacks Reese/Lymph Denies easy bleeding and Denies easy bruising Aller/Immun Denies wheezing Physical exam (Primary Care) Vital Signs: Last Vital Signs Temp 97.3 F 04/02/25 14:37 Pulse 84 04/02/25 14:37 Resp 18 04/02/25 14:37 BP 138/70 04/02/25 14:37 Pulse Ox 94 04/02/25 14:37 Oxygen Delivery Method Room Air 04/02/25 14:37 BMI result Body Mass Index 32.4 Tobacco/Smoking Status: Tobacco use Status Tobacco use date assessed 04/02/25 04/02/25 14:43 Patient Tobacco Use Status Former Tobacco user 04/02/25 14:43 Tobacco use type Cigarette 04/02/25 14:43 e-Cigarette/Vaping Use Never Used 04/02/25 14:43 Thrive Assessment: Date of Thrive Assessment Date Thrive assessed 01/04/25 04/02/25 14:43 Currently or been in a relationship where the following occur: No concerns reported Const General: healthy appearing, no acute distress, alert and awake Nutritional Appearance: well nourished Orientation/consciousness: oriented to person, oriented to place and oriented to time HENMT Ears: TM's normal bilaterally General nose exam: Normal nasal mucous membranes and turbinates present Eyes Conjunctivae: conjunctivae normal Sclerae: sclerae normal Pupils: Equal, round and reactive pupils present Neck Neck: Yes no lymphadenopathy and Yes no JVD Thyroid: Thyroid normal Carotids: no bruits Resp Effort & Inspection: normal respiratory effort and not tachypneic Auscultation: no crackles, no rales, no rhonchi and no wheezes Cardio Rate: regular rate Rhythm: abnormal rhythm irregularly irregular Heart sounds: no murmurs and normal S1 and S2 Peripheral pulses: Peripheral pulses 2+ throughout GI Palpation (GI): Soft to palpation, nontender, no hepatomegaly and no splenomegaly Auscultation: normal bowel sounds Skin General skin exam: no rashes or lesions noted and dry skin Neuro General: oriented to person, oriented to place and oriented to time Cranial nerves: Yes Equal, round and reactive pupils present Speech: No Abnormal speech present Gait exam (Neuro): Normal gait present Motor exam (neuro): no tremor noted Extrem Right upper extremity: full ROM Left upper extremity: full ROM Right lower extremity: full ROM and edema Details: pitting and 2+ Left lower extremity: full ROM and edema Details: pitting and 2+ Psych Mental Status: mental status grossly normal Speech and movement: Normal speech and movement present Affect: normal affect Attitude: cooperative Thought process: Normal thought process present Coding Level of Care Code Est Pt Level 4 (96765) Diagnoses Preoperative clearance Z01.818 Cataract of both eyes, unspecified cataract type H26.9 Cataract type: unspecified Laterality: bilateral Paroxysmal atrial fibrillation I48.0 Diastolic heart failure, unspecified HF chronicity I50.30 Heart failure chronicity: unspecified Hx of cancer of lung Z85.118 Chronic obstructive pulmonary disease, unspecified COPD type J44.9 COPD type: unspecified COPD Type 2 diabetes mellitus without complication, without long-term current use of insulin E11.9 Diabetes mellitus type: type 2 Diabetes mellitus fpc insulin use: without fpc use Diabetes mellitus complication status: without complication Anxiety F41.9 Episode of recurrent major depressive disorder, unspecified depression episode severity F33.9 Depression Type: major depressive disorder Major depression recurrence: recurrent Active/Remission status: currently active Major depression episode severity: unspecified Obesity (BMI 30-39.9) E66.9 Time Spent (min) 41 Assessment & Plan Assessment & Plan (1) Preoperative clearance: Code(s): Z01.818 - Encounter for other preprocedural examination Category: Medical Plan: Regarding preop clearance, the patient is at acceptable risk for proposed surgery. Reviewed with the patient that no surgery is completely free of risk and that this examination is to assist the surgeon in reviewing informed consent. (2) Cataract: Code(s): H26.9 - Unspecified cataract Category: Medical Qualifiers: Cataract type: unspecified Laterality: bilateral Qualified Code(s): H26.9 - Unspecified cataract Plan: The patient is scheduled for cataract surgery, starting with the right eye on 04/08/2025, followed by the left eye approximately 20 days later. (3) Paroxysmal atrial fibrillation: Code(s): I48.0 - Paroxysmal atrial fibrillation Category: Medical Plan: Patient currently remains in sinus rhythm and has been rate-controlled over the past few years now on Diltiazem CD 120 mg QD - he was on Amiodarone 200 mg QD in the past S/P cardiac ablation at [facility] on 07/29/2018; cardiac rehab back then resulted in some improvement of his symptoms Continue Pradaxa 150 mg twice a day for thromboembolism prophylaxis Follow-up with cardiology as scheduled (4) Diastolic heart failure: Code(s): I50.30 - Unspecified diastolic (congestive) heart failure Category: Medical Qualifiers: Heart failure chronicity: unspecified Qualified Code(s): I50.30 - Unspecified diastolic (congestive) heart failure Plan: Compensated - reinforced fluid restriction Repeat echocardiogram done in October 2024 revealed (+) normal left ventricular systolic function, with the calculated ejection fraction at 58% by biplane method. 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 on 09/13/2022 Staging work up done at the time revealed NO metastasis and he was recommended to undergo concurrent chemoradiation therapy He was started then on Carboplatin and METAL MACHINIST-16, completed Tx on 01/06/2023 He completed his radiation therapy on 01/04/2023 Follow-up with Pulmonary and Oncology as scheduled for continuing surveillance (6) COPD (chronic obstructive pulmonary disease): Code(s): J44.9 - Chronic obstructive pulmonary disease, unspecified Category: Medical Qualifiers: COPD type: unspecified COPD Qualified Code(s): J44.9 - Chronic obstructive pulmonary disease, unspecified Plan: Patient was on prophylactic Azithromycin 250 mg 1 tablet 3 times a week before but this was also discontinued at some point States that his breathing has been fairly well controlled lately with his current Rx, which include Trelegy Ellipta, Daliresp and Albuterol inhaler Continue Prednisone 20 mg QD Follow up with [facility] (Dr. Johnson) as scheduled (7) Diabetes mellitus: Comment: lost weight, A1C below 7--no meds Code(s): E11.9 - Type 2 diabetes mellitus without complications Category: Medical Qualifiers: Diabetes mellitus type: type 2 Diabetes mellitus intermediate manager insulin use: without fpc use Diabetes mellitus complication status: without complication Qualified Code(s): E11.9 - Type 2 diabetes mellitus without complications Plan: His in-office HgbA1c today is at 7.2%; HgbA1c was at 6.8% a few months ago Have advised patient that with his recent HgbA1c numbers, he is considered a diabetic and if he is not able to get his HgbA1c back down to <6.5%, then we will need to consider starting him on Rx for his diabetes Reinforced low carb/low calorie diet Will have him recheck his FBS and HgbA1c again in 3 months for follow up (8) Anxiety: Code(s): F41.9 - Anxiety disorder, unspecified Category: Medical Plan: He was previously on Sertraline 150 mg QD and Lorazepam 0.5 mg every 8 hours as needed for his anxiety but appears to have stopped taking both meds a while back Patient feels that he has been doing okay so far with regard to his mood disorder and he does not require any prescription or medication at this time other than Lorazepam PRN (9) Depression: Code(s): F32.9 - Major depressive disorder, single episode, unspecified Category: Medical Qualifiers: Depression Type: major depressive disorder Major depression recurrence: recurrent Active/Remission status: currently active Major depression episode severity: unspecified Qualified Code(s): F33.9 - Major depressive disorder, recurrent, unspecified Plan: He was taking Sertraline 150 mg QD in the past but appears to have self-discontinued this Rx a while back - states that he has been doing okay without any Rx for his depression so far Will consider again referral to psychiatry if his symptoms recur or progress (10) Obesity (BMI 30-39.9): Code(s): E66.9 - Obesity, unspecified Category: Medical Plan: Reinforced diet; exercise and weight loss are not realistic given patient's COPD and other multiple comorbidities Medications: Refilled prednisone Take as instructed as needed for SOB/chest tightness 20 mg PO DAILY PRN 30 tabs 0RF chest tightness/COPD exacerbation
--- OUTSIDE RECORDS SUMMARY | 2025-04-02 14:36 | XMS_ITS | Encounter Summary ---
Author Organization [facility] Address [address] [place] [address] Care Team Providers Care Liquor Blender Name Role Phone Yoseph Acevedo MD Primary Care Provider +1- [phone] Encounter Details Date Type Department Care Team Description 11/05/2022 Social Work [facility] Oncology Services [address] [place] [address] Adina Hernandez, [place] [facility] Social History Tobacco [...] on filedocumented in this encounter Care Teams Liquor Blender Relationship Specialty Start Date End Date Yoseph Acevedo MD [address] [place] [address] [place] [address] PCP - General Internal Medicine 09/24/22 documented as of this encounter
--- OUTSIDE RECORDS SUMMARY | 2025-04-02 14:36 | XMS_ITS | Clinical Summary ---
Author Organization [facility] Address [address] [place] [address] Care Team Providers Care Wheel Tuner Name Role Phone Yoseph Acevedo MD Primary Care Provider +1- [phone] Allergies No known active allergies Medications Medication [...] 91 04/03/2024 2:49 PM EDT Temperature 37.2 C (99 F) 04/03/2024 2:49 PM EDT Respiratory Rate 18 [...] Screening (Colonoscopy) 1994 Fall Risk Assessment 2014 RSV Adult > 60+ Yrs or Pregn ant (1 - 1-dose 75+ series) 2024 Influenza Vaccine (#1) 2025 Hepatitis B Vaccines Aged Out No long er eligible based on patient's age to complete this topic RSV Ped < 20 months Aged Out No longe r eligible based on patient's age to complete this topic Care Teams Wheel Tuner Relationship Specialty Start Date End Date Yoseph Acevedo MD [address] [place] [address] [place] [address] PCP - General Internal Medicine 09/24/22
--- OUTSIDE RECORDS SUMMARY | 2025-04-02 14:36 | XMS_ITS | Encounter Summary ---
Author Organization [facility] Address [address] [place] [id number] Care Team Providers Care Leather Goods Assembler Name Role Phone Yoseph Acevedo MD Primary Care Provider +1- [phone] Encounter Details Date Type Department Care Team Description 10/12/[address] [facility] Oncology Services [address] [place] [address] Adina Hernandez, [facility] Social History Tobacco Use Types Packs/Day Years [...] on filedocumented in this encounter Care Teams Leather Goods Assembler Relationship Specialty Start Date End Date Yoseph Acevedo MD [address] [place] [address] [place] [address] PCP - General Internal Medicine 09/24/22 documented as of this encounter
--- OUTSIDE RECORDS SUMMARY | 2025-04-02 14:36 | XMS_ITS ---
Author Organization [facility] Address [address] [place] [address] Care Team Providers Care Edge Bonder Name Role Phone Yoseph Acevedo MD Primary Care Provider +1- [phone] Active Problems Problem Noted Date Diagnosed Date [...] treatments are documented for this patient in [facility]. Treatments may have been administered in another system.
--- OUTSIDE RECORDS SUMMARY | 2025-04-02 14:36 | XMS_ITS | Clinical Summary ---
Author Organization [facility] Address [address] [place] [phone] Phone Care Team Providers Care Litigation Secretary Name Role Phone Yoseph Acevedo MD Primary Care Provider +1 -[phone] Allergies No known active allergies Medications albuterol [...] EYE EXAM 08/08/2024 URINE MICROALBUMIN/CREATININE RATIO 08/08/2024 INFLUENZA VACCINE (#1) 2025 , 03/26/2023, 04/18/2022, Additional history exists BLOOD PRESSURE 02/05/2025 08/08/2024 COVID-19 VACCINE ( season) 2025 04/14/2024, 04/10/2023, 04/03/2022, Additional history exists Adult Td,Tdap Booster 06/04/2026 06/04/2016 PNEUMOCOCCAL VACCINES [...] topic Medical Devices Not on file Insurance [employer] MEDICARE SUPPLEMENT MEDICARE PART A & B [employer] MEDICARE SUPPLEMENT MEDICARE PART A & B [facility] [employer] MEDICARE SUPPLEMENT MEDICARE PART A & B [facility] [employer] MEDICARE SUPPLEMENT MEDICARE PART A & B [facility] MEDICARE SUPPLEMENT MEDICARE PART A & B [facility] [employer] MEDICARE SUPPLEMENT MEDICARE PART A & B Care Teams Litigation Secretary Relationship Specialty Start Date End Date Yoseph Acevedo MD [address] [place] [address] [place] [address] PCP - General Internal Medicine 08/08/24 Additional Source Comments The information contained in this document represents components of the legal health record. It is not the complete legal health record.[facility]
[2025-04-02 14:37] VITALS: BP 138/70; PULSE 84; RESP 18; TEMP 36.3; O2SAT 94; BMI 32.4
== END 2025-04-02 16:12 | disposition home or self-care (01) ==
LOC: HO.HMCH 14:34
PROVIDERS: PCP Internal Medicine
DX: I48.0 Paroxysmal atrial fibrillation (principal); I50.30 Unspecified diastolic (congestive) heart failure; J44.9 Chronic obstructive pulmonary disease, unspecified; E11.9 Type 2 diabetes mellitus without complications; E66.9 Obesity, unspecified; Z68.32 Body mass index [BMI] 32.0-32.9, adult; Z01.818 Encounter for other preprocedural examination; H26.9 Unspecified cataract; Z85.118 Personal history of other malignant neoplasm of bronchus and lung; F41.9 Anxiety disorder, unspecified; F33.9 Major depressive disorder, recurrent, unspecified

== ENCOUNTER → 2025-04-02 14:33 | Outpatient (BNVA) | payer MEDICARE, OTHER, SELFPAY | PROVIDERS: PCP Internal Medicine | DX: Z01.818 Encounter for other preprocedural examination (principal); E11.36 Type 2 diabetes mellitus with diabetic cataract; H26.9 Unspecified cataract; I48.91 Unspecified atrial fibrillation; J43.9 Emphysema, unspecified; I50.30 Unspecified diastolic (congestive) heart failure; I48.0 Paroxysmal atrial fibrillation; F41.9 Anxiety disorder, unspecified; F33.9 Major depressive disorder, recurrent, unspecified; E66.9 Obesity, unspecified; Z68.32 Body mass index [BMI] 32.0-32.9, adult; Z87.891 Personal history of nicotine dependence; Z85.118 Personal history of other malignant neoplasm of bronchus and lung | CPT/HCPCS: 99212 ==

== ENCOUNTER 2025-06-09 11:01 | Outpatient (AMB) | payer MEDICARE, OTHER, SELFPAY ==
[2025-06-09 11:17] VITALS: BP 144/66; PULSE 83; RESP 18; O2SAT 98; BMI 32.7
--- NOTE | 2025-06-09 11:17 | MHC.PC.OV ---
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 Required: No Accompanied by: Self / Same As Patient Allergies No Known Allergies (No Known Allergies*) Allergy (Verified 06/09/25 13:51) Medication List - Last Reconciled 06/09/25 by ALEJANDRO Parker albuterol sulfate 90 mcg/actuation 2 puffs inhalation Q4H PRN 30 days atorvastatin 40 mg PO BEDTIME cholecalciferol (vitamin D3) 25 mcg PO DAILY 90 days coenzyme Q10 60 mg PO DAILY dabigatran etexilate 150 mg PO BID diltiazem HCl CD 120 mg PO DAILY famotidine 20 mg PO BEDTIME finasteride 5 mg PO DAILY 90 days yfudkqehbhe-yaxpsehxl-bglixwdx 200-62.5-25 mcg (Trelegy Ellipta) 1 ea inhalation DAILY furosemide 80 mg PO DAILY ipratropium-albuterol 0.5 mg-3 mg(2.5 mg base)/3 mL 3 mL inhalation Q6H PRN lorazepam 0.5 mg PO TID PRN 30 days metformin 500 mg PO BID 90 days fy-qkl-qjntp-U6-migfykf-jcuagp [id number] mcg (Centrum Silver Ultra Men's) 1 tab PO DAILY roflumilast 500 mcg PO DAILY tamsulosin 0.4 mg PO BEDTIME Tobacco use date assessed: 06/09/25 Fall risk assessment: No Falls in past year Last assessed Fall Risk: 06/09/25 Dental Screening Dental Screen Date: 06/09/25 Did you have a dental visit in the last 12 months?: Yes Did you have a dental problem in the last 6 months where you did not have access to dental care?: No Was dental information given to patient?: Patient has dentist HPI COPD, mediastinal LN CA, hyperlipidemia HPI Details The patient is a 74 year old male presenting for a regularly scheduled follow-up visit and to discuss a new diagnosis of recurrent lung cancer. He reports feeling terrible since learning of the cancer recurrence. The patient has a history of small cell lung cancer diagnosed in 2022, for which he received radiation therapy. A new mass has now been identified in the right upper lobe, whereas the previous cancer was in a different location. He is scheduled for a robotic biopsy at [place] for further evaluation. The patient also has a history of emphysema and reports worsening shortness of breath and difficulty breathing. He experiences phlegm production, which provides relief upon expectoration. He was told by Dr. Johnson that he is not a good candidate for a lung transplant. The patient's hemoglobin A1c is currently 7.2%, consistent with his level in December. His A1c has increased from 5.8% in August. He has never taken Metformin. The patient reports a history of smoking, which he quit for a long time but resumed for a few months after his initial cancer diagnosis. He has since stopped smoking as it makes him feel unwell. He recently attempted to smoke marijuana but was unable to due to his lung condition. He reports drinking alcohol, consuming at least six light beers the previous night over about four hours, and notes this helps him mentally with stress. He now drinks a couple of nights a week. The patient uses gummies in the afternoon. [facility] Medical History Lower urinary tract symptoms Acute hypoxic respiratory failure Hypoxia Viral syndrome COPD exacerbation Gastritis and duodenitis Hx of cancer of lung Hx of radiation therapy History of chemotherapy Hiatal hernia On anticoagulant therapy HTN (hypertension) Tubular adenoma Arthritis Low back pain Diarrhea Oxygen dependent Emphysema/COPD BROWN (dyspnea on exertion) MANJEET (obstructive sleep apnea) Impaired fasting glucose Eye pain Obesity (BMI 30-39.9) Anxiety COPD (chronic obstructive pulmonary disease) Diabetes mellitus Pure hypercholesterolemia Diastolic heart failure Paroxysmal atrial fibrillation Surgical History History of right inguinal hernia repair (03/13/23) History of esophagogastroduodenoscopy (EGD) Deficient knowledge of leg surgery History of surgery History of cardioversion H/O prior ablation treatment History of colonoscopy Family History Father Medical history unknown Mother Myocardial infarction Social History Household Members: None Housing: House Are you a primary child care associate teacher to a significant other at home: No Do you presently have visiting nurse or other home services: No Alcohol intake: current Alcohol intake frequency: a few times a week Alcohol type: beer Patient Tobacco Use Status: Former Tobacco user Tobacco use type: Cigarette e-Cigarette/Vaping Use: Never Used Second Hand Smoke Exposure: Yes Substance Use Type: Marijuana service: No Current occupational status: retired Cognitive needs: No Hearing needs: No Vision needs: Yes (reading glasses) Questionnaire Thrive Questionnaire Date Thrive assessed: 06/09/25 I am a: Patient What is your living situation today?: I have a steady place to live Within the past 12 months, did the food you bought not last and you didn't have the money to get more?: Never true Within the past 12 months, did you worry whether your food would run out before you got money to buy more?: Never true Do you have trouble paying for medicines?: No Do you have trouble getting transportation to medical appointments?: No Do you have trouble paying your heating and electricity bill?: No Do you have trouble taking care of your child, family member or friend?: No Do you have trouble with day-to-day activities such as bathing, preparing meals, shopping, managing finances, etc.?: Yes Are you currently unemployed and looking for a job?: No Are you interested in more education?: No Please select the resources that you would like help with: None Currently or been in a relationship where the following occur: No concerns reported THRIVE Score: 0 DANGELO-7 AMB Questionnaire DANGELO-7 Date DANGELO - 7 assessed: 01/04/25 Source: Developed by Drs. Biju Pedroza, Felisha Roberson, Sergio Wang and colleagues, with an educational gary from [employer]. Review of Systems Const Denies headache(s) Eyes Reports blurry vision, Reports diplopia and Denies loss of vision ENT Denies vertigo, Denies dizziness, Denies headache(s) and Denies sore throat Card Denies chest pain, Reports leg edema, Denies lightheadedness, Reports dyspnea and Reports dyspnea on exertion Resp Denies cough, Denies hemoptysis, Reports dyspnea, Reports dyspnea on exertion and Denies wheezing GI Denies abdominal pain, Denies melena, Denies constipation, Denies diarrhea and Denies vomiting Denies dysuria, Denies urinary frequency and Denies urinary urgency Musc Denies arthralgias, Denies joint swelling, Denies numbness and Denies tingling Neuro Denies Abnormal speech present, Denies behavioral changes, Denies vertigo, Denies dizziness, Denies headache(s), Denies loss of vision, Denies memory loss, Denies numbness and Denies tingling Psych Denies anxiety, Denies behavioral changes, Denies depression, Denies memory loss and Denies panic attacks Reese/Lymph Denies easy bleeding and Denies easy bruising Aller/Immun Denies wheezing Physical exam (Primary Care) Vital Signs: Last Vital Signs Pulse 83 06/09/25 11:17 Resp 18 06/09/25 11:17 BP 144/66 H 06/09/25 11:17 Pulse Ox 98 06/09/25 11:17 Oxygen Delivery Method Room Air 06/09/25 11:17 BMI result Body Mass Index 32.7 Tobacco/Smoking Status: Tobacco use Status Tobacco use date assessed 06/09/25 06/09/25 11:20 Patient Tobacco Use Status Former Tobacco user 06/09/25 11:20 Tobacco use type Cigarette 06/09/25 11:20 e-Cigarette/Vaping Use Never Used 06/09/25 11:20 Thrive Assessment: Date of Thrive Assessment Date Thrive assessed 06/09/25 06/09/25 11:20 Currently or been in a relationship where the following occur: No concerns reported Const General: healthy appearing, no acute distress, alert and awake Nutritional Appearance: well nourished Orientation/consciousness: oriented to person, oriented to place and oriented to time HENWY Ears: TM's normal bilaterally General nose exam: Normal nasal mucous membranes and turbinates present Eyes Conjunctivae: conjunctivae normal Sclerae: sclerae normal Pupils: Equal, round and reactive pupils present Neck Neck: Yes no lymphadenopathy and Yes no JVD Thyroid: Thyroid normal Carotids: no bruits Resp Effort & Inspection: normal respiratory effort and not tachypneic Auscultation: no crackles, no rales, no rhonchi and no wheezes Cardio Rate: regular rate Rhythm: abnormal rhythm irregularly irregular Heart sounds: no murmurs and normal S1 and S2 Peripheral pulses: Peripheral pulses 2+ throughout GI Palpation (GI): Soft to palpation, nontender, no hepatomegaly and no splenomegaly Auscultation: normal bowel sounds Skin General skin exam: no rashes or lesions noted and dry skin Neuro General: oriented to person, oriented to place and oriented to time Cranial nerves: Yes Equal, round and reactive pupils present Speech: No Abnormal speech present Gait exam (Neuro): Normal gait present Motor exam (neuro): no tremor noted Extrem Right upper extremity: full ROM Left upper extremity: full ROM Right lower extremity: full ROM and edema Details: pitting and 2+ Left lower extremity: full ROM and edema Details: pitting and 2+ Psych Mental Status: mental status grossly normal Speech and movement: Normal speech and movement present Affect: normal affect Attitude: cooperative Thought process: Normal thought process present Results AMB Hemoglobin A1c AMB Hemoglobin A1c 7.5 % Last Edit by Michelle Graham MA on 06/09/25 11:52 Results Reviewed Results Reviewed: Laboratory Last Values Hgb A1c (Clinic) 7.5 % (4.0-6.0) H 06/09/25 11:28 Coding Level of Care Code Est Pt Level 4 (29373) Diagnoses Paroxysmal atrial fibrillation I48.0 Diastolic heart failure, unspecified HF chronicity I50.30 Heart failure chronicity: unspecified Hx of cancer of lung Z85.118 Chronic obstructive pulmonary disease, unspecified COPD type J44.9 COPD type: unspecified COPD Type 2 diabetes mellitus without complication, without long-term current use of insulin E11.9 Diabetes mellitus type: type 2 Diabetes mellitus mcfp insulin use: without watermelon inspector use Diabetes mellitus complication status: without complication Anxiety F41.9 Episode of recurrent major depressive disorder, unspecified depression episode severity F33.9 Depression Type: major depressive disorder Major depression recurrence: recurrent Active/Remission status: currently active Major depression episode severity: unspecified Obesity (BMI 30-39.9) E66.9 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 C34.91 Laterality: right Time Spent (min) 37 Assessment & Plan Assessment & Plan (1) Paroxysmal atrial fibrillation: Code(s): I48.0 - Paroxysmal atrial fibrillation Category: Medical Plan: Patient currently remains in sinus rhythm and has been rate-controlled over the past few years now on Diltiazem CD 120 mg QD - he was on Amiodarone 200 mg QD in the past S/P cardiac ablation at [facility] on 07/29/2018; cardiac rehab back then resulted in some improvement of his symptoms Continue Pradaxa 150 mg twice a day for thromboembolism prophylaxis Follow-up with cardiology as scheduled (2) Diastolic heart failure: Code(s): I50.30 - Unspecified diastolic (congestive) heart failure Category: Medical Qualifiers: Heart failure chronicity: unspecified Qualified Code(s): I50.30 - Unspecified diastolic (congestive) heart failure Plan: Compensated - reinforced fluid restriction Repeat echocardiogram done in October 2024 revealed (+) normal left ventricular systolic function, with the calculated ejection fraction at 58% by biplane method. 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 on 09/13/2022 Staging work up done at the time revealed NO metastasis and he was recommended to undergo concurrent chemoradiation therapy He was started then on Carboplatin and SUPERVISOR TOY ASSEMBLY-16, completed Tx on 01/06/2023 He completed his radiation therapy on 01/04/2023 Recent PET scan showed a right apical nodule suspicious for malignancy He is awaiting a robotic biopsy in [place] Follow-up with Pulmonary and Oncology as scheduled (4) COPD (chronic obstructive pulmonary disease): Code(s): J44.9 - Chronic obstructive pulmonary disease, unspecified Category: Medical Qualifiers: COPD type: unspecified COPD Qualified Code(s): J44.9 - Chronic obstructive pulmonary disease, unspecified Plan: Patient was on prophylactic Azithromycin 250 mg 1 tablet 3 times a week before but this was also discontinued at some point States that his breathing has been fairly well controlled lately with his current Rx, which include Trelegy Ellipta, Daliresp and Albuterol inhaler Continue Prednisone 20 mg QD Follow up with [facility] (Dr. Johnson) as scheduled (5) Diabetes mellitus: Comment: lost weight, A1C below 7--no meds Code(s): E11.9 - Type 2 diabetes mellitus without complications Category: Medical Qualifiers: Diabetes mellitus type: type 2 Diabetes mellitus watermelon inspector insulin use: without watermelon inspector use Diabetes mellitus complication status: without complication Qualified Code(s): E11.9 - Type 2 diabetes mellitus without complications Plan: His in-office HgbA1c today is at 7.2%; HgbA1c was at 6.8% a few months ago Have advised patient that with his recent HgbA1c numbers, he is considered a diabetic and if he is not able to get his HgbA1c back down to <6.5%, then we will need to consider starting him on Rx for his diabetes Reinforced low carb/low calorie diet Will have him recheck his FBS and HgbA1c again in 3 months for follow up (6) Anxiety: Code(s): F41.9 - Anxiety disorder, unspecified Category: Medical Plan: He was previously on Sertraline 150 mg QD and Lorazepam 0.5 mg every 8 hours as needed for his anxiety but appears to have stopped taking both meds a while back Patient feels that he has been doing okay so far with regard to his mood disorder and he does not require any prescription or medication at this time other than Lorazepam PRN Even though with the patient is having increased stress related to his known diagnosis of recurrent lung cancer, He wants to continue the same treatment plan of lorazepam 0.5 mg t.i.d. as needed. (7) Depression: Code(s): F32.9 - Major depressive disorder, single episode, unspecified Category: Medical Qualifiers: Depression Type: major depressive disorder Major depression recurrence: recurrent Active/Remission status: currently active Major depression episode severity: unspecified Qualified Code(s): F33.9 - Major depressive disorder, recurrent, unspecified Plan: He was taking Sertraline 150 mg QD in the past but appears to have self-discontinued this Rx a while back - states that he has been doing okay without any Rx for his depression so far. The patient wants to continue to hold off on any new treatment at this time, even though his going to increase anxiety. Continue lorazepam 0.5 mg t.i.d. p.r.n. Denies SI/HI We will continue to monitor (8) Obesity (BMI 30-39.9): Code(s): E66.9 - Obesity, unspecified Category: Medical Plan: Reinforced diet; exercise and weight loss are not realistic given patient's COPD and other multiple comorbidities (9) Recurrent lung cancer of unknown cell type: Code(s): C34.90 - Malignant neoplasm of unspecified part of unspecified bronchus or lung Category: Medical Qualifiers: Laterality: right Qualified Code(s): C34.91 - Malignant neoplasm of unspecified part of right bronchus or lung Plan: The patient has a new right upper lobe lung mass, consistent with recurrent lung cancer, though the exact type is currently unknown. He is scheduled to undergo a robotic biopsy in [place] for definitive diagnosis. The patient expresses hope that the cancer can be managed with radiation and chemotherapy. The patient was counseled to await the biopsy results to get full information before becoming overly stressed, as this can negatively impact his health. It was explained that a treatment plan will be formulated based on the biopsy findings. Orders: Orders AMB Hemoglobin A1c Today Z13.9 - Encounter for screening, unspecified Medications: New metformin 500 mg PO BID 180 tabs 3RF 90 days
== END 2025-06-09 11:53 | disposition home or self-care (01) ==
LOC: HO.HMCH 11:02
PROVIDERS: PCP Internal Medicine
DX: E11.9 Type 2 diabetes mellitus without complications (principal); I48.0 Paroxysmal atrial fibrillation; I50.30 Unspecified diastolic (congestive) heart failure; J44.9 Chronic obstructive pulmonary disease, unspecified; C34.91 Malignant neoplasm of unspecified part of right bronchus or lung; Z85.118 Personal history of other malignant neoplasm of bronchus and lung; F41.9 Anxiety disorder, unspecified; F33.9 Major depressive disorder, recurrent, unspecified; E66.9 Obesity, unspecified

== ENCOUNTER → 2025-06-09 11:01 | Outpatient (BNVA) | payer MEDICARE, OTHER, SELFPAY | PROVIDERS: PCP Internal Medicine | DX: I48.0 Paroxysmal atrial fibrillation (principal); J44.9 Chronic obstructive pulmonary disease, unspecified; E11.9 Type 2 diabetes mellitus without complications; F41.9 Anxiety disorder, unspecified; F33.9 Major depressive disorder, recurrent, unspecified; E66.9 Obesity, unspecified; C34.91 Malignant neoplasm of unspecified part of right bronchus or lung; Z85.118 Personal history of other malignant neoplasm of bronchus and lung | CPT/HCPCS: 83036; 99212 ==